=== PATIENT | male | born 1975 | race American Indian/Alaskan Native ===

== ENCOUNTER 2020-07-12 19:33 | Observation (INO) | payer SELFPAY ==
[2020-07-12] MEDS ORDERED: ASPIRIN 325 MG TAB PO ONE (23:30)
--- NOTE | 2020-07-13 00:21 | XRay Report ---
CHEST 1 VIEW, 07/12/2020 10:55 PM CLINICAL INFORMATION/INDICATION: Chest pain COMPARISON: None FINDINGS: SUPPORT DEVICES: None. HEART: Cardiac silhouette is difficult to evaluate secondary to lung disease. LUNGS/PLEURA: There is a pleuroparenchymal opacity within the left lower lobe. Prominent bilateral in terstitial markings are noted. ADDITIONAL FINDINGS: No additional acute findings. IMPRESSION: 1. Left pleuroparenchymal opacity which may represent a combination of airspace disease and pleural e ffusion. 2. Suspected background of mild interstitial edema. Signer Name: Naomi Rand MD Signed: 07/13/2020 12:17 AM Workstation Name: [id number]
[2020-07-13 00:31] LABS: Basophils % (Auto) 0.4 % (0.0-1.8); Eosinophils # (Auto) 0.4 K/mm3 (0.0-0.4); Eosinophils % (Auto) 5.9 % (0.0-4.3); Hematocrit 39.2 % (35.5-45.6); Lymphocytes % (Auto) 33.4 % (13.4-35.0); Mean Corpuscular HGB Conc 33 % (32-34); Mean Corpuscular Volume 90 fl (84-94); Monocytes # (Auto) 0.6 K/mm3 (0.0-0.8); Monocytes % (Auto) 9.8 % (0.0-7.3); Platelet Count 194 K/mm3 (140-440); Red Blood Count 4.36 M/mm3 (3.65-5.03); Red Cell Distribution Width 15.2 % (13.2-15.2)
[2020-07-13 00:53] LABS: BUN/Creatinine Ratio 15; Blood Urea Nitrogen 23 mg/dL (9-20); Calcium 8.8 mg/dL (8.4-10.2); Hemolysis Index 12
--- NOTE | 2020-07-13 07:24 | Emergency Department Report ---
ED General Adult HPI - General Chief complaint: Chest Pain Stated complaint: CHEST PAIN Time Seen by Provider: 07/13/20 06:38 Source: patient, RN notes reviewed Mode of arrival: Ambulatory Limitations: Physical Limitation - History of Present Illness Initial comments: The patient is a 45-year-old gentleman. He is not known to myself previously. He typically follows at [facility]. He reports a history of "needing fluid drained from my back." He is not sure if this is a from a pleural effusion. He also has a history of left lower extremity DVT, diagnosed at [facility] about a month ago, supposed to be on Eliquis but ran out of this medication 2 weeks ago. He presents to the ER today with a complaint of nontraumatic left-sided chest pain, which is constant. No fever, no loss of taste or smell, no nausea, vomiting or diaphoresis. Patient endorses positive COVID contacts. No headache, neck pain, abdominal pain. No irritative or obstructive urinary symptoms. Reports diffuse body aches. He reports that in the past when he required "fluid drained from my back", he was "so sick, that I almost ." His chest pain started yesterday, it is in the left, lateral thorax and back. It otherwise does not radiate anywhere. It is constant. It increases with deep inspiration. It decreases with rest. -: Gradual, hour(s) Location: chest Quality: constant Consistency: other Improves with: other Worsens with: other - Related Data Home Medications Medication Instructions Recorded Confirmed Last Taken Aspirin 81 mg PO DAILY 07/13/20 07/13/20 1 Day Ago ~07/12/20 AtorvaSTATin 40 mg PO HS 07/13/20 07/13/20 1 Day Ago ~07/12/20 Biktarvy 50-200-25 mg (Nf) 50 mg PO DAILY 07/13/20 07/13/20 1 Day Ago ~07/12/20 buPROPion 150 mg PO DAILY 07/13/20 07/13/20 1 Day Ago ~07/12/20 carvediloL 6.25 mg PO DAILY 07/13/20 07/13/20 1 Day Ago ~07/12/20 risperiDONE 1 mg PO DAILY 07/13/20 07/13/20 1 Day Ago ~07/12/20 Allergies Allergy/AdvReac Type Severity Reaction Status Date / Time No Known Allergies Allergy Verified 07/13/20 06:47 ED Review of Systems ROS: Stated complaint: CHEST PAIN Other details as noted in HPI Constitutional: denies: fever Eyes: denies: eye discharge ENT: denies: congestion Respiratory: cough. denies: wheezing Cardiovascular: chest pain Gastrointestinal: denies: nausea, vomiting, diarrhea Genitourinary: denies: dysuria Musculoskeletal: back pain, arthralgia, myalgia Neurological: denies: weakness Hematological/Lymphatic: denies: easy bleeding ED Past Medical Hx - Past Medical History Previous Medical History?: Yes Hx Hypertension: Yes Hx Psychiatric Treatment: Yes (Depression, Bipolar) Hx HIV: Yes Additional medical history: CAD, High Cholesterol - Surgical History Past Surgical History?: No - Social History Smoking Status: Current Every Day Smoker Substance Use Type: Marijuana - Medications Home Medications: Home Medications Medication Instructions Recorded Confirmed Last Taken Type Aspirin 81 mg PO DAILY 07/13/20 07/13/20 1 Day Ago History ~07/12/20 AtorvaSTATin 40 mg PO HS 07/13/20 07/13/20 1 Day Ago History ~07/12/20 Biktarvy 50-200-25 mg (Nf) 50 mg PO DAILY 07/13/20 07/13/20 1 Day Ago History ~07/12/20 buPROPion 150 mg PO DAILY 07/13/20 07/13/20 1 Day Ago History ~07/12/20 carvediloL 6.25 mg PO DAILY 07/13/20 07/13/20 1 Day Ago History ~07/12/20 risperiDONE 1 mg PO DAILY 07/13/20 07/13/20 1 Day Ago History ~07/12/20 ED Physical Exam - General Limitations: No Limitations General appearance: alert, in no apparent distress - Head Head exam: Present: atraumatic, normocephalic - Eye Eye exam: Present: normal appearance, EOMI. Absent: nystagmus - ENT ENT exam: Present: normal exam, normal orophraynx, mucous membranes moist, normal external ear exam - Neck Neck exam: Present: normal inspection, full ROM. Absent: tenderness, meningismus - Respiratory Respiratory exam: Present: rales, rhonchi, accessory muscle use. Absent: respiratory distress, wheezes, stridor - Cardiovascular Cardiovascular Exam: Present: regular rate, normal rhythm, normal heart sounds. Absent: bradycardia, tachycardia, irregular rhythm, systolic murmur, diastolic murmur, rubs, gallop - GI/Abdominal GI/Abdominal exam: Present: soft. Absent: distended, tenderness, guarding, rebound, rigid, pulsatile mass - Rectal Rectal exam: Present: deferred - Extremities Exam Extremities exam: Present: full ROM, tenderness (There is left lower extremity tenderness. There is swelling to the left lower extremity. Chronic venous stasis noted.), other (2+ pulses noted to the bilateral upper and lower extremities. Compartments are soft.). Absent: normal inspection - Back Exam Back exam: Present: normal inspection. Absent: tenderness, CVA tenderness (R), CVA tenderness (L), paraspinal tenderness, vertebral tenderness - Neurological Exam Neurological exam: Present: alert, other (No facial droop. Tongue midline. Extraocular movements intact bilaterally. Facial sensation intact to light touch in V1, V2, V3 distribution bilaterally. 5 and a 5 strength in 4 extremit ies. Sensation intact to light touch in 4 extremities.) - Psychiatric Psychiatric exam: Present: normal mood - Skin Skin exam: Present: warm, dry, intact, normal color. Absent: rash ED Course Vital Signs 07/12/20 07/13/20 07/13/20 22:25 04:42 04:46 Temperature 98.2 F Pulse Rate 93 H 83 83 Pulse Rate [ Anterior Bilateral Throughout] Respiratory 20 23 25 H Rate Respiratory Rate [Anterior Bilateral Throughout] Blood Pressure 116/78 130/71 O2 Sat by Pulse 94 98 99 Oximetry 07/13/20 07/13/20 07/13/20 05:00 05:16 07:16 Temperature Pulse Rate 75 83 Pulse Rate [ Anterior Bilateral Throughout] Respiratory 24 22 Rate Respiratory Rate [Anterior Bilateral Throughout] Blood Pressure 130/71 130/71 130/71 O2 Sat by Pulse 99 99 100 Oximetry 07/13/20 07/13/20 07/13/20 07:31 07:45 08:01 Temperature Pulse Rate 81 91 H 66 Pulse Rate [ Anterior Bilateral Throughout] Respiratory 27 H 20 22 Rate Respiratory Rate [Anterior Bilateral Throughout] Blood Pressure 127/72 128/75 128/75 O2 Sat by Pulse 98 99 98 Oximetry 07/13/20 07/13/20 07/13/20 08:15 08:31 08:45 Temperature Pulse Rate 69 72 74 Pulse Rate [ Anterior Bilateral Throughout] Respiratory 15 22 12 Rate Respiratory Rate [Anterior Bilateral Throughout] Blood Pressure 128/75 128/75 129/82 O2 Sat by Pulse 98 98 98 Oximetry 07/13/20 07/13/20 07/13/20 09:01 09:15 09:21 Temperature Pulse Rate 67 79 68 Pulse Rate [ Anterior Bilateral Throughout] Respiratory 22 26 H 21 Rate Respiratory Rate [Anterior Bilateral Throughout] Blood Pressure 129/82 129/82 129/82 O2 Sat by Pulse 97 97 97 Oximetry 07/13/20 07/13/20 07/13/20 09:31 09:41 09:51 Temperature Pulse Rate 72 79 78 Pulse Rate [ Anterior Bilateral Throughout] Respiratory 20 17 23 Rate Respiratory Rate [Anterior Bilateral Throughout] Blood Pressure 129/82 129/82 128/51 O2 Sat by Pulse 98 98 Oximetry 07/13/20 07/13/20 07/13/20 10:00 10:01 10:11 Temperature Pulse Rate 79 81 Pulse Rate [ 79 Anterior Bilateral Throughout] Respiratory 13 22 Rate Respiratory 20 Rate [Anterior Bilateral Throughout] Blood Pressure 128/51 128/51 O2 Sat by Pulse 100 97 Oximetry ED Medical Decision Making - Lab Data Result diagrams: 07/12/20 23:39 07/12/20 23:39 Vital Signs 07/12/20 07/13/20 07/13/20 22:25 04:42 04:46 Temperature 98.2 F Pulse Rate 93 H 83 83 Respiratory 20 23 25 H Rate Blood Pressure 116/78 130/71 O2 Sat by Pulse 94 98 99 Oximetry 07/13/20 05:00 Temperature Pulse Rate 75 Respiratory 24 Rate Blood Pressure 130/71 O2 Sat by Pulse 99 Oximetry Lab Results 07/12/20 07/12/20 07/13/20 Range/Units 23:39 23:39 03:08 WBC 6.0 (4.5-11.0) K/mm3 RBC 4.36 (3.65-5.03) M/mm3 Hgb 13.0 (11.8-15.2) gm/dl Hct 39.2 (35.5-45.6) % MCV 90 (84-94) fl MCH 30 (28-32) pg MCHC 33 (32-34) % RDW 15.2 (13.2-15.2) % Plt Count 194 (140-440) K/mm3 Lymph % (Auto) 33.4 (13.4-35.0) % [place] % (Auto) 9.8 H (0.0-7.3) % Eos % (Auto) 5.9 H (0.0-4.3) % Baso % (Auto) 0.4 (0.0-1.8) % Lymph # 2.0 (1.2-5.4) K/mm3 [place] # 0.6 (0.0-0.8) K/mm3 Eos # 0.4 (0.0-0.4) K/mm3 Baso # 0.0 (0.0-0.1) K/mm3 Seg Neutrophils % 50.5 (40.0-70.0) % Seg Neutrophils # 3.0 (1.8-7.7) K/mm3 Sodium 139 (137-145) mmol/L Potassium 4.2 (3.6-5.0) mmol/L Chloride 101.1 (98-107) mmol/L Carbon Dioxide 23 (22-30) mmol/L Anion Gap 19 mmol/L BUN 23 H (9-20) mg/dL Creatinine 1.5 H (0.8-1.3) mg/dL Estimated GFR > 60 ml/min BUN/Creatinine Ratio 15 % Glucose 121 H (75-100) mg/dL Calcium 8.8 (8.4-10.2) mg/dL Troponin T < 0.010 < 0.010 (0.00-0.029) ng/mL - EKG Data -: EKG Interpreted by Md EKG shows normal: sinus rhythm Rate: normal - EKG Data When compared to previous EKG there are: previous EKG unavailable 07/13/20 09:39 There is no prior EKG available for comparison. Sinus rhythm, 83 bpm, left axis deviation, left anterior fascicular block, left ventricular hypertrophy/high left ventricular voltage, and motion artifact. The EKG is abnormal. The EKG is not a STEMI - Radiology Data Radiology results: report reviewed, image reviewed Print Report Referring Physician: ED DOC Patient Name: GRAZYNA SMITH Date of : 1975 Sex: Male Report Date: 2020-07-13 Report Status: Finalized Findings [facility] [address] [place] [address] XRay Report Signed Patient: GRAZYNA SMITH MR#: [id number] : 1975 Acct:[id number] Age/Sex: 45 / M ADM Date: 07/12/20 Loc: ED Attending Dr: Ordering Physician: SONNY MERRILL MD Date of Service: 07/12/20 Procedure(s): XR chest 1V ap Accession Number(s): [id number] cc: SONNY MERRILL MD Fluoro Time In Minutes: CHEST 1 VIEW, 07/12/2020 10:55 PM CLINICAL INFORMATIO N/INDICATION: Chest pain COMPARISON: None FINDINGS: SUPPORT DEVICES: None. HEART: Cardiac silhouette is difficult to evaluate secondary to lung disease. LUNGS/PLEURA: There is a pleuroparenchymal opacity within the left lower lobe. Prominent bilateral interstitial markings are noted. ADDITIONAL FINDINGS: No additional acute findings. IMPRESSION: 1. Left pleuroparenchymal opacity which may represent a combination of airspace disease and pleural effusion. 2. Suspected background of mild interstitial edema. Signer Name: Naomi Rand MD Signed: 07/13/2020 12:17 AM Workstation Name: [id number] Transcribed By: EB Dictated By: Naomi Rand MD Electronically Authenticated By: Naomi Rand MD Signed Date/Time: 07/13/2016 DD/ TD/TT: - Medical Decision Making Differential diagnosis, include but not limited to: Pneumonia, pleural effusion, noncompliance, chronic left lower extremity DVT Assessment and plan: 45-year-old gentleman with clinical and radiographic left- sided pneumonia, with large pleural effusion, tachypneic, heart rate greater than 90, meets systemic inflammatory response syndrome criteria. He is also noncompliant with his medications. He is apparently done poorly in the past with pleural effusions. He meets criteria for hospitalization secondary to the aforementioned. He will be admitted to the medical service, he is amenable to this plan of care. We will initiate blood cultures, obtain lactic acid, give pain medication, and initiate ceftriaxone and azithromycin. The hospital physician, Dr. Jo Ann Graham, has accepted the patient to the medical service, and request ultrasound-guided thoracentesis to be ordered. He states he will follow this up. As a courtesy, I will order this procedure, and therefore, we will withhold systemic anticoagulation at this time. In addition, will not give aggressive fluid bolus, as patient does have mild interstitial edema on chest x-ray. Given x-ray findings and clinical history, I think this is unlikely to be COVID- 19. Critical care attestation.: If time is entered above; I have spent that time in minutes in the direct care of this critically ill patient, excluding procedure time. ED Disposition Clinical Impression: Pneumonia, Renal insufficiency, History of DVT (deep vein thrombosis), Noncompliance, SIRS (systemic inflammatory response syndrome), Pleural effusion Disposition: OP ADMIT IP TO THIS HOSP Is pt being admited?: Yes Does the pt Need Aspirin: No Condition: Good
[2020-07-13] MEDS ORDERED: MORPHINE 4 MG/1 ML INJ IV ONE (07:37)
--- NOTE | 2020-07-13 07:52 | History and Physical Report ---
History of Present Illness Date of examination: 07/13/20 Date of admission: 07/13/20 Chief complaint: Chest pain with shortness of breath History of present illness: Patient is a 45-year-old male typically follows at [facility] with past medical history of HIV, hypertension, pleural effusion recurrent status post 2 episodes of thoracentesis at [facility] according to the patient. Also with history of left lower extremity DVT according to the patient diagnosed at [facility] about a month ago but run out of his Eliquis but ran out of this medication 2 weeks ago he presents to the ER today complaining of nontraumatic left-sided chest pain which is constant for about 24 hours. He denies any chest pain nausea vomiting or diarrhea he denies fever, no loss of taste or smell, no nausea, vomiting or diaphoresis. Patient endorses positive COVID contacts to the ED doctor but tel ls me now that he is not sure.. No headache, neck pain, abdominal pain. No irritative or obstructive urinary symptoms. Reports diffuse body aches. He reports that in the past when he required "fluid drained from my back", he was "so sick, that I almost ." Chest pain he describes as a 7/10 in intensity worse with deep breath in the ED he was noted to have pleural effusion and recommended for admission. Past History Past Medical History: DVT, HIV/AIDS, hypertension, hyperlipidemia, other (Recurrent pleural effusion) Past Surgical History: No surgical history Social history: no significant social history, full code Family history: no significant family history Medications and Allergies Allergies Allergy/AdvReac Type Severity Reaction Status Date / Time No Known Allergies Allergy Verified 07/13/20 06:47 Home Medications Medication Instructions Recorded Confirmed Last Taken Type Aspirin 81 mg PO DAILY 07/13/20 07/13/20 1 Day Ago History ~07/12/20 AtorvaSTATin 40 mg PO HS 07/13/20 07/13/20 1 Day Ago History ~07/12/20 Biktarvy 50-200-25 mg (Nf) 50 mg PO DAILY 07/13/20 07/13/20 1 Day Ago History ~07/12/20 buPROPion 150 mg PO DAILY 07/13/20 07/13/20 1 Day Ago History ~07/12/20 carvediloL 6.25 mg PO DAILY 07/13/20 07/13/20 1 Day Ago History ~07/12/20 risperiDONE 1 mg PO DAILY 07/13/20 07/13/20 1 Day Ago History ~07/12/20 Active Meds: Active Medications Azithromycin 500 mg/ Sodium (Chloride) 250 mls @ 250 mls/hr IV ONCE ONE; Protocol Stop: 07/13/20 08:59 Ceftriaxone Sodium (Rocephin/Ns 2 Gm/100 Ml) 2 gm in 100 mls @ 200 mls/hr IV ONCE ONE Stop: 07/13/20 08:29 Review of Systems Constitutional: chills, malaise, lethargy, no weight loss, no weight gain, no fever, no anorexia, no fatigue, no weakness, no poor appetite, no daytime sleepiness, no chronic pain Cardiovascular: chest pain, shortness of breath, no orthopnea, no palpitations, no rapid/irregular heart beat, no edema, no syncope, no lightheadedness Respiratory: shortness of breath, dyspnea on exertion, no cough, no cough with sputum, no excessive sputum, no hemoptysis Gastrointestinal: no abdominal pain, no nausea, no vomiting, no diarrhea, no constipation, no change in bowel habits, no melena, no hematochezia Musculoskeletal: no neck pain, no muscle weakness Integumentary: no deferred, no pruritis, no redness, no depigmentation, no acne, no brittle nails, no hirsutism Neurological: no transient paralysis, no numbness, no seizures, no convulsions, no change in mentation, no burning pain Psychiatric: no memory loss, no change in sleep habits, no insomnia, no anxiety attacks, no difficulties concentrating Exam - Physical Exam Narrative exam: VITAL SIGNS: Reviewed. GENERAL: The patient appears normally developed, Vital signs as documented. HEAD: No signs of head trauma. EYES: Pupils are equal. Extraocular motions intact. EARS: Hearing grossly intact. MOUTH: Oropharynx is normal. NECK: No adenopathy, no JVD. CHEST: Chest with diminished breath sounds on the left. No wheezes, rales, or rhonchi. CARDIAC: Regular rate and rhythm. S1 and S2, without murmurs, gallops, or rubs. VASCULAR: No Edema. Peripheral pulses normal and equal in all extremities. ABDOMEN: Soft, non tender and non distended. No rebound or guarding, and no masses palpated. Bowel Sounds normal. MUSCULOSKELETAL: Good range of motion of all major joints. Extremities without clubbing, cyanosis or edema. NEUROLOGIC EXAM: Alert and oriented x 3 No focal sensory or strength deficits. Speech normal. Follows commands. PSYCHIATRIC: Mood normal. SKIN: detail exam as documented in skin assessment. Tattoos on the face - Constitutional Vitals: Temp Pulse Resp BP Pulse Ox 98.2 F 75 24 130/71 99 07/12/20 22:25 07/13/20 05:00 07/13/20 05:00 07/13/20 05:00 07/13/20 05:00 HEART Score - HEART Score Troponin: Troponin T < 0.010 ng/mL (0.00-0.029) 07/13/20 03:08 Results - Labs CBC & Chem 7: 07/12/20 23:39 07/12/20 23:39 Labs: Laboratory Last Values WBC 6.0 K/mm3 (4.5-11.0) 07/12/20 23:39 RBC 4.36 M/mm3 (3.65-5.03) 07/12/20 23:39 Hgb 13.0 gm/dl (11.8-15.2) 07/12/20 23:39 Hct 39.2 % (35.5-45.6) 07/12/20 23:39 MCV 90 fl (84-94) 07/12/20 23:39 MCH 30 pg (28-32) 07/12/20 23:39 MCHC 33 % (32-34) 07/12/20 23:39 RDW 15.2 % (13.2-15.2) 07/12/20 23:39 Plt Count 194 K/mm3 (140-440) 07/12/20 23:39 Lymph % (Auto) 33.4 % (13.4-35.0) 07/12/20 23:39 [place] % (Auto) 9.8 % (0.0-7.3) H 07/12/20 23:39 Eos % (Auto) 5.9 % (0.0-4.3) H 07/12/20 23:39 Baso % (Auto) 0.4 % (0.0-1.8) 07/12/20 23:39 Lymph # 2.0 K/mm3 (1.2-5.4) 07/12/20 23:39 [place] # 0.6 K/mm3 (0.0-0.8) 07/12/20 23:39 Eos # 0.4 K/mm3 (0.0-0.4) 07/12/20 23:39 Baso # 0.0 K/mm3 (0.0-0.1) 07/12/20 23:39 Seg Neutrophils % 50.5 % (40.0-70.0) 07/12/20 23:39 Seg Neutrophils # 3.0 K/mm3 (1.8-7.7) 07/12/20 23:39 Sodium 139 mmol/L (137-145) 07/12/20 23:39 Potassium 4.2 mmol/L (3.6-5.0) 07/12/20 23:39 Chloride 101.1 mmol/L (98-107) 07/12/20 23:39 Carbon Dioxide 23 mmol/L (22-30) 07/12/20 23:39 Anion Gap 19 mmol/L 07/12/20 23:39 BUN 23 mg/dL (9-20) H 07/12/20 23:39 Creatinine 1.5 mg/dL (0.8-1.3) H 07/12/20 23:39 Estimated GFR > 60 ml/min 07/12/20 23:39 BUN/Creatinine Ratio 15 % 07/12/20 23:39 Glucose 121 mg/dL (75-100) H 07/12/20 23:39 Calcium 8.8 mg/dL (8.4-10.2) 07/12/20 23:39 Troponin T < 0.010 ng/mL (0.00-0.029) 07/13/20 03:08 Assessment and Plan Assessment and plan: 45-year-old male with past medical history of hypertension, HIV, recurrent pleural effusion and possible recent DVT on the lower extremity presenting with shortness of breath and chest pain noted to have a left large pleural effusion with associated acute kidney injury recommended for admission. Acute respiratory failure secondary to pleural effusion Left pleural effusion Recurrent pleural effusion per history status post 2 thoracentesis in the past Hypertension HIV DVT per history Noncompliant with Eliquis Acute kidney injury likely secondary to vasomotor nephropathy Plan Admit patient to medical floor observation Cardiology and pulmonary consult secondary to atypical chest pain likely seconda ry to pleuritis Ultrasound-guided thoracentesis with fluid analysis Resume home medications Obtain Doppler of lower extremity to evaluate for persistent DVT Request records from [facility] in case patient is here longer Pain control DVT and GI prophylaxis Anticipate discharge in a.m. this has been discussed with the patient he verbalized understanding. Of note prior to completion of this note the patient had a thoracentesis and is doing well. Advance Directives: Yes Plan of care discussed with patient/family: Yes
[2020-07-13] MEDS ORDERED: MAGNESIUM HYDROXIDE (MOM) ORAL LIQD UDC PO PRN (07:53)
[2020-07-13] MEDS ORDERED: ONDANSETRON 4 MG/2 ML INJ IV PRN (07:53)
[2020-07-13] MEDS ORDERED: MORPHINE 2 MG/1 ML INJ IV PRN (07:53)
[2020-07-13] MEDS ORDERED: NALOXONE 0.4 MG/1 ML INJ IV PRN (07:53)
[2020-07-13] MEDS ORDERED: ALUM-MAG HYDROXIDE-SIMETHICONE 200-200-20MG/5ML ORAL LIQD 30 ML PO PRN (07:53)
[2020-07-13] MEDS ORDERED: ALBUTEROL 2.5 MG/3 ML NEBU IH PRN (07:53)
[2020-07-13] MEDS ORDERED: ACETAMINOPHEN 325 MG TAB PO PRN (07:53)
[2020-07-13] MEDS ORDERED: AZITHROMYCIN 500 MG in SODIUM CHLORIDE 0.9% 250ML 250 ML IV ONE (08:00)
[2020-07-13] MEDS ORDERED: cefTRIAXone/NS 2 GM/100 ML 2 GM/100 ML BAG IV ONE ×2 (08:00→08:54)
[2020-07-13] MEDS ORDERED: MORPHINE 4 MG/1 ML INJ ONE (08:53)
[2020-07-13 09:08] LABS: INR 1.03 (0.87-1.13)
[2020-07-13] MEDS ORDERED: IPRATROPIUM/ALBUTEROL SULFATE 3 ML AMPUL.NEB IH ONE (09:08)
[2020-07-13 09:09] LABS: Partial Thromboplastin Time 27.7 Sec. (24.2-36.6)
[2020-07-13 09:21] LABS: Alanine Aminotransferase 11 units/L (7-56); Albumin 3.5 g/dL (3.9-5)
[2020-07-13 09:22] LABS: Bilirubin,Direct < 0.2 mg/dL (0-0.2)
[2020-07-13] MEDS: IPRATROPIUM/ALBUTEROL SULFATE 3 ML AMPUL.NEB IH SCH ×3 (10:00→20:28)
--- NOTE | 2020-07-13 10:10 | Consultation ---
History of Present Illness Consult date: 07/13/20 Requesting physician: DANE ERWIN Consult reason: chest pain History of present illness: The patient is a 45-year-old male with a past medical history of HTN, HIV, pleural effusion requiring thoracentesis x 2, tobacco use, marijuana use. He is previously unknown to our practice. He typically follows at [facility]. He presented with c/o chest pain, SOB and cough for 2 days prior to arrival. Pt describes his chest pain as an intermittent left-sided pain which is aggravated by coughing and deep inspiration. Admission CXR shows large left pleural effusion, pt has been scheduled for thoracentesis. Pt reports that his last thoracentesis occurred 3-4 months ago at [facility]. He also has a reported history of left lower extremity DVT, diagnosed at [facility] about a month ago, supposed to be on Eliquis but ran out of this medication 2 weeks ago. Past History Past Medical History: other (as per HPI) Medications and Allergies Allergies Allergy/AdvReac Type Severity Reaction Status Date / Time No Known Allergies Allergy Verified 07/13/20 06:47 Home Medications Medication Instructions Recorded Confirmed Last Taken Type Aspirin 81 mg PO DAILY 07/13/20 07/13/20 Unknown History AtorvaSTATin 40 mg PO HS 07/13/20 07/13/20 Unknown History Biktarvy 50-200-25 mg (Nf) 50 mg PO DAILY 07/13/20 07/13/20 Unknown History buPROPion 150 mg PO DAILY 07/13/20 07/13/20 Unknown History carvediloL 6.25 mg PO DAILY 07/13/20 07/13/20 Unknown History risperiDONE 1 mg PO DAILY 07/13/20 07/13/20 Unknown History Active Meds: Active Medications Acetaminophen (Tylenol) 650 mg PO Q4H PRN PRN Reason: Pain MILD(1-3)/Fever >100.5/BORJA Al Hydrox/Mg Hydrox/Simethicone (Alum-Mag Hydrox-Simeth 861-131-51vm/5ml) 30 ml PO Q4H PRN PRN Reason: Indigestion Albuterol (Proventil) 2.5 mg IH Q4HRT PRN PRN Reason: Shortness Of Breath Albuterol/Ipratropium (Duoneb *Not For Prn Use*) 1 ampul IH Q6HRT [facility] Aspirin (Baby Aspirin) 81 mg PO QDAY [facility] Atorvastatin Calcium (Lipitor) 40 mg PO QHS [facility] Bisacodyl (Dulcolax) 10 mg SC QDAY PRN PRN Reason: Constipation unrelieved by MOM Famotidine (Pepcid) 20 mg IV BID [facility] Hydromorphone HCl (Dilaudid) 0.5 mg IV Q3H PRN PRN Reason: Pain , Severe (7-10) Ceftriaxone Sodium (Rocephin/Ns 2 Gm/100 Ml) 2 gm in 100 mls @ 200 mls/hr IV Q24HR [facility]; Protocol Azithromycin 500 mg/ Sodium (Chloride) 250 mls @ 250 mls/hr IV Q24HR [facility]; Protocol Magnesium Hydroxide (Milk Of Magnesia) 30 ml PO Q4H PRN PRN Reason: Constipation Morphine Sulfate (Morphine) 2 mg IV Q4H PRN PRN Reason: Pain, Moderate (4-6) Naloxone HCl (Naloxone) 0.1 mg IV Q2MIN PRN PRN Reason: Res Rate </= 8 or 02 SAT < 92% Ondansetron HCl (Zofran) 4 mg IV Q8H PRN PRN Reason: Nausea And Vomiting Senna (Senokot) 8.6 mg PO Q12HR [facility] Sodium Chloride (Sodium Chloride Flush Syringe 10 Ml) 10 ml IV BID [facility] Sodium Chloride (Sodium Chloride Flush Syringe 10 Ml) 10 ml IV PRN PRN PRN Reason: LINE FLUSH Review of Systems Constitutional: no weight loss, no weight gain, no fever, no chills, no sweats Ears, nose, mouth and throat: no ear pain, no nose pain, no sinus pressure, no sinus pain Cardiovascular: chest pain, shortness of breath, no orthopnea, no palpitations, no rapid/irregular heart beat, no edema, no syncope, no lightheadedness Respiratory: cough, shortness of breath, pain on inspiration, no congestion, no wheezing Gastrointestinal: no abdominal pain, no nausea, no vomiting, no diarrhea, no constipation, no change in bowel habits Genitourinary Male: no dysuria, no hematuria, no flank pain, no discharge, no urinary frequency, no urinary hesitancy Musculoskeletal: no neck stiffness, no neck pain, no shooting arm pain, no arm numbness/tingling, no low back pain, no shooting leg pain Integumentary: no rash, no pruritis, no redness, no sores, no wounds Neurological: no head injury, no paralysis, no weakness, no parathesias, no numbness, no tingling, no seizures, no syncope Psychiatric: no anxiety Endocrine: no cold intolerance, no heat intolerance Hematologic/Lymphatic: no easy bruising Allergic/Immunologic: no urticaria Physical Examination Vital Signs Temp Pulse Resp BP Pulse Ox 98.2 F 93 H 20 116/78 94 07/12/20 22:25 07/12/20 22:25 07/12/20 22:25 07/12/20 22:25 07/12/20 22:25 General appearance: no acute distress HEENT: Positive: PERRL, Normocephaly, Mucus Membranes Moist Neck: Positive: neck supple, trachea midline Cardiac: Positive: Reg Rate and Rhythm, S1/S2 Lungs: Positive: Decreased Breath Sounds (left side) Neuro: Positive: Grossly Intact Abdomen: Negative: Tender Skin: Negative: Rash Musculoskeletal: No Pain Extremities: Absent: edema Results 07/12/20 23:39 07/12/20 23:39 Cardiac Enzymes 07/13/20 Range/Units 07:54 AST 15 (5-40) units/L Coagulation 07/13/20 Range/Units 07:54 PT 13.6 (12.2-14.9) Sec. INR 1.03 (0.87-1.13) APTT 27.7 (24.2-36.6) Sec. CBC 07/12/20 Range/Units 23:39 WBC 6.0 (4.5-11.0) K/mm3 RBC 4.36 (3.65-5.03) M/mm3 Hgb 13.0 (11.8-15.2) gm/dl Hct 39.2 (35.5-45.6) % Plt Count 194 (140-440) K/mm3 Lymph # 2.0 (1.2-5.4) K/mm3 Tate # 0.6 (0.0-0.8) K/mm3 Eos # 0.4 (0.0-0.4) K/mm3 Baso # 0.0 (0.0-0.1) K/mm3 Comprehensive Metabolic Panel 07/12/20 07/13/20 Range/Units 23:39 07:54 Sodium 139 (137-145) mmol/L Potassium 4.2 (3.6-5.0) mmol/L Chloride 101.1 (98-107) mmol/L Carbon Dioxide 23 (22-30) mmol/L BUN 23 H (9-20) mg/dL Creatinine 1.5 H (0.8-1.3) mg/dL Glucose 121 H (75-100) mg/dL Calcium 8.8 (8.4-10.2) mg/dL Direct Bilirubin < 0.2 (0-0.2) mg/dL AST 15 (5-40) units/L ALT 11 (7-56) units/L Alkaline Phosphatase 115 (35-129) units/L Total Protein 7.8 (6.3-8.2) g/dL Albumin 3.5 L (3.9-5) g/dL - Imaging and Cardiology Echo: pending EKG: report reviewed, image reviewed EKG interpretations - Telemetry EKG Rhythm: Sinus Rhythm - EKG Sinus rhythms and dysrhythmias: sinus rhythm Assessment and Plan AMI r/o. Chest pain appears pleuritic in setting of pleural effusion. No plans for ischemic evaluation at this time. Pt is pending thoracentesis and thus systemic AC for treatment of recently diagnosed DVT is being held. Obtain echo. Attempt to obtain medical records from [facility]. Will follow. The patient has been seen in conjunction with Dr. Valdes who agrees with the assessment and plan of care. - Patient Problems (1) Chest pain Current Visit: Yes Status: Acute (2) Pleural effusion Current Visit: Yes Status: Acute (3) HTN (hypertension) Current Visit: Yes Status: Chronic (4) HIV (human immunodeficiency virus infection) Current Visit: Yes Status: Chronic (5) History of DVT (deep vein thrombosis) Current Visit: Yes Status: Chronic (6) Tobacco use Current Visit: Yes Status: Chronic (7) Marijuana use Current Visit: Yes Status: Chronic (8) Noncompliance Current Visit: Yes Status: Chronic
[2020-07-13 10:11] LABS: ABG Base Excess -1.5 mmol/L (-2.0-3.0); ABG HCO3 23.8 mmol/L (20.0-26.0); ABG Methemoglobin 0.5 % (0.0-1.5); ABG Oxygen Saturation 96.4 % (95.0-99.0); ABG PCO2 42.1 mm Hg; ABG PH 7.369 pH Units (7.350-7.450)
--- NOTE | 2020-07-13 10:54 | Consultation ---
History of Present Illness Consult date: 07/13/20 Requesting physician: DANE ERWIN Reason for consult: pleural effusion (Left) History of present illness: PULMONARY/CCM CONSULT NOTE (Full dictation # ) Please see dictated notes for full details Past History Past Medical History: other (as per HPI) Medications and Allergies Allergies Allergy/AdvReac Type Severity Reaction Status Date / Time No Known Allergies Allergy Verified 07/13/20 06:47 Home Medications Medication Instructions Recorded Confirmed Last Taken Type Aspirin 81 mg PO DAILY 07/13/20 07/13/20 Unknown History AtorvaSTATin 40 mg PO HS 07/13/20 07/13/20 Unknown History Biktarvy 50-200-25 mg (Nf) 50 mg PO DAILY 07/13/20 07/13/20 Unknown History buPROPion 150 mg PO DAILY 07/13/20 07/13/20 Unknown History carvediloL 6.25 mg PO DAILY 07/13/20 07/13/20 Unknown History risperiDONE 1 mg PO DAILY 07/13/20 07/13/20 Unknown History Active Meds: Active Medications Acetaminophen (Tylenol) 650 mg PO Q4H PRN PRN Reason: Pain MILD(1-3)/Fever >100.5/BORJA Al Hydrox/Mg Hydrox/Simethicone (Alum-Mag Hydrox-Simeth 811-108-17ph/5ml) 30 ml PO Q4H PRN PRN Reason: Indigestion Albuterol (Proventil) 2.5 mg IH Q4HRT PRN PRN Reason: Shortness Of Breath Albuterol/Ipratropium (Duoneb *Not For Prn Use*) 1 ampul IH Q6HRT [facility] Last Admin: 07/13/20 10:00 Dose: 1 ampul Documented by: Aspirin (Baby Aspirin) 81 mg PO QDAY [facility] Atorvastatin Calcium (Lipitor) 40 mg PO QHS [facility] Bisacodyl (Dulcolax) 10 mg CO QDAY PRN PRN Reason: Constipation unrelieved by MOM Famotidine (Pepcid) 20 mg IV BID [facility] Hydromorphone HCl (Dilaudid) 0.5 mg IV Q3H PRN PRN Reason: Pain , Severe (7-10) Ceftriaxone Sodium (Rocephin/Ns 2 Gm/100 Ml) 2 gm in 100 mls @ 200 mls/hr IV Q24HR [facility]; Protocol Azithromycin 500 mg/ Sodium (Chloride) 250 mls @ 250 mls/hr IV Q24HR [facility]; Protocol Magnesium Hydroxide (Milk Of Magnesia) 30 ml PO Q4H PRN PRN Reason: Constipation Morphine Sulfate (Morphine) 2 mg IV Q4H PRN PRN Reason: Pain, Moderate (4-6) Naloxone HCl (Naloxone) 0.1 mg IV Q2MIN PRN PRN Reason: Res Rate </= 8 or 02 SAT < 92% Ondansetron HCl (Zofran) 4 mg IV Q8H PRN PRN Reason: Nausea And Vomiting Senna (Senokot) 8.6 mg PO Q12HR [facility] Sodium Chloride (Sodium Chloride Flush Syringe 10 Ml) 10 ml IV BID [facility] Sodium Chloride (Sodium Chloride Flush Syringe 10 Ml) 10 ml IV PRN PRN PRN Reason: LINE FLUSH Physical Examination Vital signs: Vital Signs Temp Pulse Resp BP Pulse Ox 98.2 F 93 H 20 116/78 94 07/12/20 22:25 07/12/20 22:25 07/12/20 22:25 07/12/20 22:25 07/12/20 22:25 Results - Laboratory Findings CBC and BMP: 07/12/20 23:39 07/12/20 23:39 ABG ABG pH 7.369 pH Units (7.350-7.450) 07/13/20 09:55 ABG pCO2 42.1 mm Hg 07/13/20 09:55 ABG pO2 82.0 mm Hg (80.0-90.0) 07/13/20 09:55 ABG O2 Saturation 96.4 % (95.0-99.0) 07/13/20 09:55 PT/INR, D-dimer PT 13.6 Sec. (12.2-14.9) 07/13/20 07:54 INR 1.03 (0.87-1.13) 07/13/20 07:54 Abnormal lab findings: Abnormal Labs 07/12/20 07/12/20 07/13/20 23:39 23:39 07:54 [place] % (Auto) 9.8 H Eos % (Auto) 5.9 H ABG Hemoglobin Oxyhemoglobin BUN 23 H Creatinine 1.5 H Glucose 121 H Total Creatine Kinase 194 H Albumin 3.5 L 07/13/20 09:55 [place] % (Auto) Eos % (Auto) ABG Hemoglobin 12.4 L Oxyhemoglobin 92.5 L BUN Creatinine Glucose Total Creatine Kinase Albumin
--- NOTE | 2020-07-13 11:48 | Procedure Note ---
Date of procedure: 07/13/20 Pre-op diagnosis: L pleural effusion Post-op diagnosis: same Procedure: US guided L thoracentesis. Findings: Please see report in PACS. Anesthesia: local Surgeon: ANDIE GAITAN Estimated blood loss: none Pathology: list Specimen disposition: to lab Condition: stable Disposition: floor
--- NOTE | 2020-07-13 12:14 | Ultrasound Report ---
Ultrasound-guided thoracentesis HISTORY: left sided pna with effusion. COMPARISON: None PROCEDURE: The risks (including but not limited to bleeding, infection, and pneumothorax) and benefi ts were explained to the patient and informed consent was obtained. A time out procedure was perform ed. Ultrasound was used to evaluate the moderate-sized left pleural effusion and locate the optimal site for needle entry. Once the skin was marked, the procedure site was prepped and draped in the usual s terile fashion and lidocaine was used for local anesthesia. A skin nancie was made and a 6-Greek thor acentesis catheter was placed. The patient was monitored closely throughout the procedure, and a tot al of 900 mL of thin bloody fluid was aspirated. Samples were sent to the lab for further evaluation per the primary clinicians orders. The patient tolerated the procedure well with no complications. A post-procedure chest x-ray was imm ediately ordered. IMPRESSION: Successful thoracentesis as above with a total of 900 mL of thin bloody fluid aspirated. Signer Name: Sloan Solomon MD Signed: 07/13/2020 12:09 PM Workstation Name: [id number]
--- NOTE | 2020-07-13 13:40 | XRay Report ---
CHEST 1 VIEW INDICATION: post thoracentesis. COMPARISON: Yesterday FINDINGS: SUPPORT DEVICES: None. HEART: Within normal limits. LUNGS/PLEURA: Left-sided pleural effusion is significantly improved with only small residual effusion and patchy left basilar airspace disease. Right lung is clear. No pneumothorax. ADDITIONAL FINDINGS: None. IMPRESSION: 1. Significantly improved exam. Signer Name: Sloan Solomon MD Signed: 07/13/2020 1:35 PM Workstation Name: [id number]
[2020-07-13] MEDS ORDERED: BUPROPION 150 MG PO SCH (14:15)
[2020-07-13] MEDS ORDERED: RISPERIDONE 1 MG PO SCH (14:15)
[2020-07-13] MEDS ORDERED: NON-FORMULARY EACH (Aspirin 81 MG) PO SCH (14:15)
[2020-07-13] MEDS: SENNOSIDES 8.6 MG TAB PO SCH ×2 (14:39→22:17)
[2020-07-13] MEDS: FAMOTIDINE 20 MG/2 ML INJ IV SCH ×2 (14:39→22:17)
[2020-07-13] MEDS: BIKTARVY PO SCH (16:19)
[2020-07-13 17:03] LABS: Total Cells Counted 100 /mm3
--- NOTE | 2020-07-13 17:18 | Consultation ---
History of Present Illness - Reason for Consult Consult date: 07/13/20 HIV Requesting physician: DANE ERWIN - History of Present Illness The patient is a 45-year-old male with HIV, hypertension, hyperlipidemia, history of DVT came into the emergency room with complaints of chest pain. He was found to have a left-sided pleural effusion. Infectious diseases was consu lted for management of his HIV. HIV was originally diagnosed in 1988, did not take any medicines until recently, started on Biktarvy about 9 months ago at [facility]. Does not remember his CD4 count but states that it never went under 200 and his viral load is undetectable. He had an appointment today. Patient was also seen by pulmonary and underwent a ultrasound-guided left thoracentesis with drainage of around 900 cc of thin bloody appearing fluid. He reports a previous history of pleural effusion on 2 occasions, most recently about 2 months ago at [facility]. He does not know the etiology of it. He denies any fever or chills. He reports active tobacco use. Review of Systems: General: no fevers,chills or rigors HEENT: no new visual disturbance Respiratory: occasional cough, no sputum, hemoptysis or shortness of breath Cardiovascular: + for chest pain, syncope Gastrointestinal: No nausea, vomiting or diarrhea Genitourinary: No dysuria or hematuria Musculoskeletal: No new or worsening neck pain or back pain Neurologic: No headaches, seizures Hematologic: No easy bruising or bleeding Endocrine: No night sweats or acute weight loss Skin: negative for rash, jaundice Psychiatric: No suicidal or homicidal ideation Past History Past Medical History: DVT, HIV/AIDS, hypertension, hyperlipidemia, other (Recurrent pleural effusion) Past Surgical History: No surgical history Social history: no significant social history, full code Family history: no significant family history Medications and Allergies Allergies Allergy/AdvReac Type Severity Reaction Status Date / Time No Known Allergies Allergy Verified 07/13/20 06:47 Home Medications Medication Instructions Recorded Confirmed Last Taken Type Aspirin 81 mg PO DAILY 07/13/20 07/13/20 1 Day Ago History ~07/12/20 AtorvaSTATin 40 mg PO HS 07/13/20 07/13/20 1 Day Ago History ~07/12/20 Biktarvy 50-200-25 mg (Nf) 50 mg PO DAILY 07/13/20 07/13/20 1 Day Ago History ~07/12/20 buPROPion 150 mg PO DAILY 07/13/20 07/13/20 1 Day Ago History ~07/12/20 carvediloL 6.25 mg PO DAILY 07/13/20 07/13/20 1 Day Ago History ~07/12/20 risperiDONE 1 mg PO DAILY 07/13/20 07/13/20 1 Day Ago History ~07/12/20 Active Meds: Active Medications Acetaminophen (Tylenol) 650 mg PO Q4H PRN PRN Reason: Pain MILD(1-3)/Fever >100.5/BORJA Al Hydrox/Mg Hydrox/Simethicone (Alum-Mag Hydrox-Simeth 008-632-68kt/5ml) 30 ml PO Q4H PRN PRN Reason: Indigestion Albuterol (Proventil) 2.5 mg IH Q4HRT PRN PRN Reason: Shortness Of Breath Albuterol/Ipratropium (Duoneb *Not For Prn Use*) 1 ampul IH Q6HRT [facility] Last Admin: 07/13/20 14:23 Dose: Not Given Documented by: Aspirin (Baby Aspirin) 81 mg PO QDAY [facility] Atorvastatin Calcium (Lipitor) 40 mg PO QHS [facility] Bisacodyl (Dulcolax) 10 mg UT QDAY PRN PRN Reason: Constipation unrelieved by MOM Bupropion HCl (Wellbutrin Xl) 150 mg PO DAILY [facility] Carvedilol (Coreg) 6.25 mg PO BID [facility] Famotidine (Pepcid) 20 mg IV BID [facility] Last Admin: 07/13/20 14:39 Dose: 20 mg Documented by: Hydromorphone HCl (Dilaudid) 0.5 mg IV Q3H PRN PRN Reason: Pain , Severe (7-10) Ceftriaxone Sodium (Rocephin/Ns 2 Gm/100 Ml) 2 gm in 100 mls @ 200 mls/hr IV Q24HR [facility]; Protocol Azithromycin 500 mg/ Sodium (Chloride) 250 mls @ 250 mls/hr IV Q24HR [facility]; Protocol Magnesium Hydroxide (Milk Of Magnesia) 30 ml PO Q4H PRN PRN Reason: Constipation Miscellaneous Medication (Biktarvy 50-200-25 Mg (Nf)) 50 mg PO DAILY [facility] Morphine Sulfate (Morphine) 2 mg IV Q4H PRN PRN Reason: Pain, Moderate (4-6) Last Admin: 07/13/20 14:42 Dose: 2 mg Documented by: Naloxone HCl (Naloxone) 0.1 mg IV Q2MIN PRN PRN Reason: Res Rate </= 8 or 02 SAT < 92% Ondansetron HCl (Zofran) 4 mg IV Q8H PRN PRN Reason: Nausea And Vomiting Risperidone (Risperdal) 1 mg PO DAILY [facility] Senna (Senokot) 8.6 mg PO Q12HR [facility] Last Admin: 07/13/20 14:39 Dose: 8.6 mg Documented by: Sodium Chloride (Sodium Chloride Flush Syringe 10 Ml) 10 ml IV BID [facility] Last Admin: 07/13/20 14:40 Dose: 10 ml Documented by: Sodium Chloride (Sodium Chloride Flush Syringe 10 Ml) 10 ml IV PRN PRN PRN Reason: LINE FLUSH Physical Examination - Physical Exam Narrative exam: Physical Exam: Constitutional: Alert, cooperative. No acute distress Head, Ears, Nose: Normocephalic, atraumatic. External ears, nose normal Eyes: Conjunctivae/corneas clear. No icterus. No ptosis. Neck: Supple, no meningeal signs Cardiovascular: S1, S2 normal Respiratory: decreased on L side GI: Soft, non-tender; bowel sounds normal. No peritoneal signs Musculoskeletal: No pedal edema, no cyanosis. Skin: No rash or abscess Hem/Lymphatic: No palpable cervical or supraclavicular nodes. No lymphangitis Psych: Mood ok. Affect normal Neurological: Awake, alert, oriented. No gross abnormality - Constitutional Vitals: Vital Signs Temp Pulse Resp BP Pulse Ox 98.6 F 64 17 126/72 97 07/13/20 12:32 07/13/20 12:32 07/13/20 12:32 07/13/20 12:32 07/13/20 12:32 Temperature -Last 24 Hours Temperature 98.6 F Temperature 98.2 F Results - Labs CBC & Chem 7: 07/12/20 23:39 07/12/20 23:39 Labs: Abnormal lab results 07/12/20 07/12/20 07/13/20 Range/Units 23:39 23:39 07:54 [place] % (Auto) 9.8 H (0.0-7.3) % Eos % (Auto) 5.9 H (0.0-4.3) % ABG Hemoglobin (14.0-18.0) gm/dl Oxyhemoglobin (95.0-99.0) % BUN 23 H (9-20) mg/dL Creatinine 1.5 H (0.8-1.3) mg/dL Glucose 121 H (75-100) mg/dL Total Creatine Kinase 194 H (55-170) units/L Albumin 3.5 L (3.9-5) g/dL 07/13/20 Range/Units 09:55 [place] % (Auto) (0.0-7.3) % Eos % (Auto) (0.0-4.3) % ABG Hemoglobin 12.4 L (14.0-18.0) gm/dl Oxyhemoglobin 92.5 L (95.0-99.0) % BUN (9-20) mg/dL Creatinine (0.8-1.3) mg/dL Glucose (75-100) mg/dL Total Creatine Kinase (55-170) units/L Albumin (3.9-5) g/dL - Imaging and Cardiology Chest x-ray: report reviewed, image reviewed (L pleural effusion) Assessment and Plan Cultures: 07/13/2020 blood culture: In process A/P: 45-year-old male with HIV, hypertension, hyperlipidemia, history of DVT came into the emergency room with complaints of chest pain: #Recurrent pleural effusion, left pleural effusion: Status post ultrasound- guided thoracentesis today. Cell count and pleural fluid show significant WBC and RBC. Follow-up cultures. Pulmonary following. #HIV: Originally diagnosed in 1988, never took any medicines until recently. Reportedly under good control. On Biktarvy. Follows at [facility]. #YEE: Biktarvy safe to continue as long as CrCL >30. Recs: Continue PO Biktarvy, patient has his own supply Continue ceftriaxone and azithromycin for now Follow-up cultures on left pleural fluid HIV PCR and CD4 count ordered Follow-up on outside medical records from [facility] Check CHRIS, C3, C4, rheumatoid factor Cinthia Giron MD, FACP [facility] C: [phone] O: [phone] F: [phone]
[2020-07-13] MEDS: risperiDONE 1 MG TAB PO SCH (17:19)
[2020-07-13] MEDS: HYDROmorphone 1 MG/1 ML INJ IV PRN (17:20)
[2020-07-13] MEDS: buPROPion XL 150 MG TAB PO SCH (17:20)
[2020-07-13] MEDS: carvediloL 6.25 MG TAB PO SCH ×2 (17:20→22:17)
[2020-07-13] MEDS ORDERED: NON-FORMULARY EACH (Carvedilol 6.25 MG) PO SCH (22:00)
[2020-07-13] MEDS ORDERED: NON-FORMULARY EACH (Atorvastatin 40 MG) PO SCH (22:00)
[2020-07-14] MEDS: IPRATROPIUM/ALBUTEROL SULFATE 3 ML AMPUL.NEB IH SCH ×3 (02:00→14:17)
[2020-07-14 05:48] LABS: Basophils % (Auto) 0.3 % (0.0-1.8); Eosinophils # (Auto) 0.3 K/mm3 (0.0-0.4); Eosinophils % (Auto) 4.8 % (0.0-4.3); Hematocrit 39.3 % (35.5-45.6); Hemoglobin 13.2 gm/dl (11.8-15.2); Lymphocytes # (Auto) 1.4 K/mm3 (1.2-5.4); Lymphocytes % (Auto) 25.4 % (13.4-35.0); Mean Corpuscular HGB Conc 34 % (32-34); Mean Corpuscular Volume 89 fl (84-94); Monocytes # (Auto) 0.6 K/mm3 (0.0-0.8); Monocytes % (Auto) 11.2 % (0.0-7.3); Platelet Count 172 K/mm3 (140-440); Red Cell Distribution Width 15.1 % (13.2-15.2)
[2020-07-14 06:08] LABS: BUN/Creatinine Ratio 11; Blood Urea Nitrogen 14 mg/dL (9-20); Calcium 8.6 mg/dL (8.4-10.2); Hemolysis Index 1
--- NOTE | 2020-07-14 08:26 | Progress Note ---
Assessment and Plan Acute respiratory failure secondary to pleural effusion Left pleural effusion Recurrent pleural effusion per history status post 2 thoracentesis in the past Hypertension HIV DVT per history Noncompliant with Eliquis Acute kidney injury likely secondary to vasomotor nephropathy Subjective Date of service: 07/14/20 Objective Vital Signs - 12hr 07/13/20 07/13/20 07/13/20 20:30 22:00 22:17 Temperature Pulse Rate 80 Pulse Rate [ 94 H Anterior Bilateral Throughout] Respiratory Rate Respiratory 21 Rate [Anterior Bilateral Throughout] Blood Pressure 117/69 O2 Sat by Pulse 95 Oximetry 07/13/20 07/14/20 22:18 05:06 Temperature 99.4 F 98.1 F Pulse Rate 81 78 Pulse Rate [ Anterior Bilateral Throughout] Respiratory 20 20 Rate Respiratory Rate [Anterior Bilateral Throughout] Blood Pressure 117/69 132/67 O2 Sat by Pulse 95 94 Oximetry CBC and BMP: 07/14/20 04:31 07/14/20 04:31 ABG, PT/INR, D-dimer: ABG ABG pH 7.369 pH Units (7.350-7.450) 07/13/20 09:55 ABG pCO2 42.1 mm Hg 07/13/20 09:55 ABG pO2 82.0 mm Hg (80.0-90.0) 07/13/20 09:55 ABG O2 Saturation 96.4 % (95.0-99.0) 07/13/20 09:55 PT/INR, D-dimer PT 13.6 Sec. (12.2-14.9) 07/13/20 07:54 INR 1.03 (0.87-1.13) 07/13/20 07:54 Abnormal lab findings: Abnormal Labs 07/12/20 07/12/20 07/13/20 23:39 23:39 07:54 [place] % (Auto) 9.8 H Eos % (Auto) 5.9 H ABG Hemoglobin Oxyhemoglobin Sodium BUN 23 H Creatinine 1.5 H Glucose 121 H Total Creatine Kinase 194 H Albumin 3.5 L 07/13/20 07/14/20 07/14/20 09:55 04:31 04:31 [place] % (Auto) 11.2 H Eos % (Auto) 4.8 H ABG Hemoglobin 12.4 L Oxyhemoglobin 92.5 L Sodium 134 L BUN Creatinine Glucose 102 H Total Creatine Kinase Albumin
--- NOTE | 2020-07-14 08:35 | XRay Report ---
CHEST 2 VIEWS INDICATION / CLINICAL INFORMATION: pneumonia. COMPARISON: 07/13/2020 FINDINGS: SUPPORT DEVICES: None. HEART / MEDIASTINUM: No significant abnormality. LUNGS / PLEURA: Moderate partially loculated left pleural effusion with left lower lobe streaky paren chymal disease or compressive atelectasis left lower lobe, unchanged. No pneumothorax. ADDITIONAL FINDINGS: No significant additional findings. IMPRESSION: 1. Stable chest with left lower lobe pleural-parenchymal disease Signer Name: Gamaliel Oliva MD Signed: 07/14/2020 8:31 AM Workstation Name: [id number]
[2020-07-14] MEDS: HYDROmorphone 1 MG/1 ML INJ IV PRN (09:12)
[2020-07-14] MEDS: risperiDONE 1 MG TAB PO SCH (09:17)
[2020-07-14] MEDS: buPROPion XL 150 MG TAB PO SCH (09:17)
[2020-07-14] MEDS: SENNOSIDES 8.6 MG TAB PO SCH (09:18)
[2020-07-14] MEDS: carvediloL 6.25 MG TAB PO SCH (09:18)
[2020-07-14] MEDS: BIKTARVY PO SCH (09:36)
[2020-07-14] MEDS: FAMOTIDINE 20 MG/2 ML INJ IV SCH (09:37)
[2020-07-14] MEDS ORDERED: AZITHROMYCIN 250 MG TAB PO SCH ×2 (10:00)
[2020-07-14] MEDS ORDERED: AZITHROMYCIN 500 MG in SODIUM CHLORIDE 0.9% 250ML 250 ML IV SCH (10:00)
[2020-07-14] MEDS ORDERED: cefTRIAXone/NS 2 GM/100 ML 2 GM/100 ML BAG IV SCH (10:00)
[2020-07-14] MEDS ORDERED: ASPIRIN 81 MG TAB CHEW PO SCH (10:00)
--- NOTE | 2020-07-14 10:51 | Progress Note ---
Assessment and Plan S/p L thoracentesis w/900mL thin bloody fluid aspirated - pt tolerated procedure well. Echo pending. No plans for ischemic workup at this time. Resume Eliquis when cleared by Pulm. Otherwise stable cardiac status. Will see PRN. Pt seen in conjunction with Dr. MILADIS Garcia, who agrees with the assessment and plan of care. - Patient Problems (1) Acute respiratory failure Current Visit: Yes Status: Acute (2) Recurrent left pleural effusion Current Visit: Yes Status: Acute (3) Pleuritic chest pain Current Visit: Yes Status: Resolved (4) HTN (hypertension) Current Visit: Yes Status: Chronic Qualifiers: Hypertension type: essential hypertension Qualified Code(s): I10 - Essential (primary) hypertension (5) History of DVT (deep vein thrombosis) Current Visit: Yes Status: Chronic (6) HIV (human immunodeficiency virus infection) Current Visit: Yes Status: Chronic (7) Marijuana use Current Visit: Yes Status: Chronic (8) Tobacco use Current Visit: Yes Status: Chronic (9) Noncompliance Current Visit: Yes Status: Chronic Subjective Date of service: 07/14/20 Principal diagnosis: Recurrent Pleural Effusion Interval history: Pt resting in bed comfortably upon exam. C/o worsening SOB overnight, relieved with 2L O2 NC. No SOB on room air this AM. Pt denies chest pain or any additional cardiac complaints. Objective Last Vital Signs Temp 98.1 F 07/14/20 05:06 Pulse 78 07/14/20 05:06 Resp 20 07/14/20 05:06 BP 135/65 07/14/20 09:18 Pulse Ox 94 07/14/20 05:06 - Physical Examination General: No Apparent Distress HEENT: Positive: EOMI, Normocephaly, Mucus Membranes Moist Neck: Positive: neck supple, trachea midline. Negative: JVD/HJR Cardiac: Positive: Reg Rate and Rhythm, S1/S2 Lungs: Positive: Decreased Breath Sounds (L side) Neuro: Positive: Grossly Intact Abdomen: Positive: Soft, Active Bowel Sounds. Negative: Tender Skin: Negative: Rash Musculoskeletal: No Pain, Normal Range of Motion Extremities: Present: upper extr. pulses, lower extr. pulses. Absent: edema - Labs and Meds CBC 07/14/20 Range/Units 04:31 WBC 5.4 (4.5-11.0) K/mm3 RBC 4.40 (3.65-5.03) M/mm3 Hgb 13.2 (11.8-15.2) gm/dl Hct 39.3 (35.5-45.6) % Plt Count 172 (140-440) K/mm3 Lymph # 1.4 (1.2-5.4) K/mm3 [place] # 0.6 (0.0-0.8) K/mm3 Eos # 0.3 (0.0-0.4) K/mm3 Baso # 0.0 (0.0-0.1) K/mm3 Comprehensive Metabolic Panel 07/14/20 Range/Units 04:31 Sodium 134 L (137-145) mmol/L Potassium 4.1 (3.6-5.0) mmol/L Chloride 99.1 (98-107) mmol/L Carbon Dioxide 23 (22-30) mmol/L BUN 14 (9-20) mg/dL Creatinine 1.3 (0.8-1.3) mg/dL Glucose 102 H (75-100) mg/dL Calcium 8.6 (8.4-10.2) mg/dL - Imaging and Cardiology EKG: report reviewed, image reviewed Echo: pending - EKG Sinus rhythms and dysrhythmias: sinus rhythm
[2020-07-14 13:31] VITALS: BP 108/54
--- NOTE | 2020-07-14 16:20 | Discharge Summary ---
Providers - Providers Date of Admission: 07/13/20 07:37 Attending physician: DANE ERWIN MD 07/13/20 Consult to Cardiac Rehabilitation [CONS] Routine Reason For Exam: Phase I 07/13/20 07:53 Consult to Physician [CONS] Routine Comment: Consulting Provider: JULIAN VALDES Physician Instructions: Reason For Exam: PLEURAL EFFUSION 07/13/20 07:55 Consult to Dietitian/Nutrition [CONS] Routine Physician Instructions: Reason For Exam: Reason for Consult: Diet education 07/13/20 07:59 Consult to Physician [CONS] Routine Comment: Consulting Provider: TERRENCE CASTRO Physician Instructions: Reason For Exam: HIV 07/13/20 08:54 Consult to Physician [CONS] Routine Comment: Consulting Provider: JINA WYNN Physician Instructions: Reason For Exam: chest pain Primary care physician: [employer] Hospitalization Reason for admission: Respiratory failure Condition: Good Hospital course: 45-year-old male with past medical history of hypertension, HIV, recurrent pleural effusion and possible recent DVT on the lower extremity presenting with shortness of breath and chest pain noted to have a left large pleural effusion with associated acute kidney injury recommended for admission. Patient proceeded to have 900 cc of fluid removed from the lungs. True thoracentesis. Repeat chest x-ray showed loculated left lobar area with atelectasis. This appears to be chronic for the patient although I have asked him if he has had any cardiothoracic surgery evaluation he says now. I did discuss with him about following up at [facility] where he gets all his care for the same management. Fluid analysis does not reveal any acute pathology cytology still pending I discussed this with the patient he will follow with his primary care who would request the records. He does not exhibit any respiratory distress at this time a saturation 95% on room air. Stable for discharge Acute respiratory failure secondary to pleural effusion Left pleural effusion Recurrent pleural effusion per history status post 2 thoracentesis in the past Hypertension HIV DVT per history Noncompliant with Eliquis Acute kidney injury likely secondary to vasomotor nephropathy Disposition: - TO HOME OR SELFCARE Time spent for discharge: 35-minute Core Measure Documentation - Palliative Care Palliative Care/ Comfort Measures: Not Applicable - Core Measures Any of the following diagnoses?: none Exam - Physical Exam Narrative exam: VITAL SIGNS: Reviewed. GENERAL: The patient appears normally developed, Vital signs as documented. HEAD: No signs of head trauma. EYES: Pupils are equal. Extraocular motions intact. EARS: Hearing grossly intact. MOUTH: Oropharynx is normal. NECK: No adenopathy, no JVD. CHEST: Chest with diminished breath sounds on the left. No wheezes, rales, or rhonchi. CARDIAC: Regular rate and rhythm. S1 and S2, without murmurs, gallops, or rubs. VASCULAR: No Edema. Peripheral pulses normal and equal in all extremities. ABDOMEN: Soft, non tender and non distended. No rebound or guarding, and no masses palpated. Bowel Sounds normal. MUSCULOSKELETAL: Good range of motion of all major joints. Extremities without clubbing, cyanosis or edema. NEUROLOGIC EXAM: Alert and oriented x 3 No focal sensory or strength deficits. Speech normal. Follows commands. PSYCHIATRIC: Mood normal. SKIN: detail exam as documented in skin assessment. Tattoos on the face - Constitutional Vitals: Temp Pulse Resp BP Pulse Ox 98.4 F 77 20 108/54 92 07/14/20 12:07 07/14/20 12:07 07/14/20 12:07 07/14/20 12:07 07/14/20 12:07 Plan Follow up with: KELTON APARICIO MD [Staff Physician] - 7 Days PRIMARY CARE, [Primary Care Provider] - 3-5 Days VANE DOAN MD [Staff Physician] - 7 Days Prescriptions: oxyCODONE /ACETAMINOPHEN [Percocet 5/325] 1 tab PO Q6HR PRN #14 tablet PRN Reason: Pain Sennosides Tab [Senokot] 8.6 mg PO Q12HR #30 tablet Azithromycin [Zithromax TAB] 500 mg PO QDAY #5 tablet
[2020-07-14] MEDS ORDERED: FAMOTIDINE 20 MG TAB PO SCH (22:00)
[2020-07-18 15:38] LABS: HIV-1 RNA QN PCR 1.63 Log cps/mL
== END 2020-07-14 18:25 | disposition home or self-care (01) ==
LOC: ED 19:33 → 3A 07-13 07:37
PROVIDERS: ADMIT Internal Medicine; ATTEND Internal Medicine
DX: J96.00 Acute respiratory failure, unspecified whether with hypoxia or hypercapnia (principal); R65.10 Systemic inflammatory response syndrome (SIRS) of non-infectious origin without acute organ dysfunction; J90 Pleural effusion, not elsewhere classified; I10 Essential (primary) hypertension; N28.9 Disorder of kidney and ureter, unspecified; N17.9 Acute kidney failure, unspecified; J18.9 Pneumonia, unspecified organism; E78.5 Hyperlipidemia, unspecified; F12.90 Cannabis use, unspecified, uncomplicated; F17.200 Nicotine dependence, unspecified, uncomplicated; Z86.718 Personal history of other venous thrombosis and embolism; Z91.19 Patient's noncompliance with other medical treatment and regimen; Z21 Asymptomatic human immunodeficiency virus [HIV] infection status; Z79.82 Long term (current) use of aspirin; Z79.899 Other long term (current) drug therapy
CPT/HCPCS: 32555; 36415; 36600; 71045; 71046; 80048; 80076; 82024; 82550; 82803; 82947; 82962; 83605; 83880; 84160; 84484; 85025; 85610; 85730; 86038; 86160; 87040; 87116; 87536; 87641; 88112; 88305; 89051; 93005; 94640; 96365; 96366; 96368; 96375; 96376; 99285; A9270; G0378; J0456; J0696; J1170; J2270; J7050

== ENCOUNTER 2020-09-14 12:56 | Emergency (ER) | payer SELFPAY ==
--- NOTE | 2020-09-14 13:43 | Emergency Department Report ---
ED General Adult HPI - General Chief complaint: Abdominal Pain Stated complaint: ABD PAIN Time Seen by Provider: 09/14/20 13:41 Source: EMS Mode of arrival: Stretcher Limitations: No Limitations - History of Present Illness Initial comments: This is a 45-year old man with a history of HIV and recurrent trauma or effusions thoracentesis, hypertension and possibly more extensive medical history not currently available to me. 2 weeks ago he had a ventral herniorrhaphy at [facility] [facility]. Apparently the abdomen has been becoming increasingly red and somewhat distended. He has not been taking his temperature. Today he called EMS for evaluation for the first time. He has not been in touch with his surgery clinic at [facility] at all he admits. Apparently the patient was hospitalized here in June 2020 for an unrelated matter: 06/2020 Hospitalization Reason for admission: Respiratory failure Condition: Good Hospital course: 45-year-old male with past medical history of hypertension, HIV, recurrent pleural effusion and possible recent DVT on the lower extremity presenting with shortness of breath and chest pain noted to have a left large pleural effusion with associated acute kidney injury recommended for admission. Patient proceeded to have 900 cc of fluid removed from the lungs. True thoracentesis. Repeat chest x-ray showed loculated left lobar area with atelectasis. This appears to be chronic for the patient although I have asked him if he has had any cardiothoracic surgery evaluation he says now. I did discuss with him about following up at [facility] where he gets all his care for the same management. Fluid analysis does not reveal any acute pathology cytology still pending I discussed this with the patient he will follow with his primary care who would request the records. He does not exhibit any respiratory distress at this time a saturation 95% on room air. Stable for discharge Acute respiratory failure secondary to pleural effusion Left pleural effusion Recurrent pleural effusion per history status post 2 thoracentesis in the past Hypertension HIV DVT per history Noncompliant with Eliquis Acute kidney injury likely secondary to vasomotor nephropathy -: Gradual, days(s) Location: abdomen Radiation: non-radiation Quality: aching Consistency: constant Improves with: none Associated Symptoms: denies other symptoms (States he has been moving his bowels normally. No recent vomiting. No [place] rigors. Not measuring temperature.) - Related Data Home Medications Medication Instructions Recorded Confirmed Last Taken Aspirin 81 mg PO DAILY 07/13/20 07/13/20 1 Day Ago ~07/12/20 AtorvaSTATin 40 mg PO HS 07/13/20 07/13/20 1 Day Ago ~07/12/20 Biktarvy 50-200-25 mg (Nf) 50 mg PO DAILY 07/13/20 07/13/20 1 Day Ago ~07/12/20 buPROPion 150 mg PO DAILY 07/13/20 07/13/20 1 Day Ago ~07/12/20 carvediloL 6.25 mg PO DAILY 07/13/20 07/13/20 1 Day Ago ~07/12/20 risperiDONE 1 mg PO DAILY 07/13/20 07/13/20 1 Day Ago ~07/12/20 Previous Rx's Medication Instructions Recorded Last Taken Type Apixaban [Eliquis] 5 mg PO BID #60 tablet 07/14/20 Unknown Rx Azithromycin [Zithromax TAB] 500 mg PO QDAY #5 tablet 07/14/20 Unknown Rx Famotidine [Pepcid] 20 mg PO BID #30 tablet 07/14/20 Unknown Rx Sennosides Tab [Senokot] 8.6 mg PO Q12HR #30 tablet 07/14/20 Unknown Rx oxyCODONE /ACETAMINOPHEN [Percocet 1 tab PO Q6HR PRN #14 tablet 07/14/20 Unknown Rx 5/325] Allergies Allergy/AdvReac Type Severity Reaction Status Date / Time No Known Allergies Allergy Verified 09/14/20 14:13 ED Review of Systems ROS: Stated complaint: ABD PAIN Other details as noted in HPI ED Past Medical Hx - Past Medical History Previous Medical History?: Yes Hx Hypertension: Yes Hx Diabetes: Yes Hx Psychiatric Treatment: Yes (Depression, Bipolar) Hx HIV: Yes Additional medical history: CAD, High Cholesterol - Surgical History Past Surgical History?: Yes Additional Surgical History: Hernia repair 2020 - Social History Smoking Status: Current Every Day Smoker Substance Use Type: None - Medications Home Medications: Home Medications Medication Instructions Recorded Confirmed Last Taken Type Aspirin 81 mg PO DAILY 07/13/20 07/13/20 1 Day Ago History ~07/12/20 AtorvaSTATin 40 mg PO HS 07/13/20 07/13/20 1 Day Ago History ~07/12/20 Biktarvy 50-200-25 mg (Nf) 50 mg PO DAILY 07/13/20 07/13/20 1 Day Ago History ~07/12/20 buPROPion 150 mg PO DAILY 07/13/20 07/13/20 1 Day Ago History ~07/12/20 carvediloL 6.25 mg PO DAILY 07/13/20 07/13/20 1 Day Ago History ~07/12/20 risperiDONE 1 mg PO DAILY 07/13/20 07/13/20 1 Day Ago History ~07/12/20 Apixaban [Eliquis] 5 mg PO BID #60 tablet 07/14/20 Unknown Rx Azithromycin [Zithromax TAB] 500 mg PO QDAY #5 tablet 07/14/20 Unknown Rx Famotidine [Pepcid] 20 mg PO BID #30 tablet 07/14/20 Unknown Rx Sennosides Tab [Senokot] 8.6 mg PO Q12HR #30 tablet 07/14/20 Unknown Rx oxyCODONE /ACETAMINOPHEN [Percocet 1 tab PO Q6HR PRN #14 tablet 07/14/20 Unknown Rx 5/325] ED Physical Exam - General Limitations: No Limitations ED Course Vital Signs 09/14/20 13:30 Temperature 99.6 F Pulse Rate 97 H Respiratory 24 Rate Blood Pressure 127/78 [Right] O2 Sat by Pulse 95 Oximetry - Reevaluation(s) Reevaluation #1: Spoke with Dr. Quick at [facility]. They have accepted the patient for transfer. Patient is agreeable. He is stable for transfer. 09/14/20 16:42 Reevaluation #2: He was given empiric antibiotics. 09/14/20 16:44 ED Medical Decision Making - Lab Data Result diagrams: 09/14/20 13:44 09/14/20 14:17 Laboratory Results - last 24 hr 09/14/20 09/14/20 09/14/20 13:44 13:44 14:17 WBC 5.9 RBC 4.40 Hgb 13.4 Hct 39.9 MCV 91 MCH 31 MCHC 34 RDW 16.5 H Plt Count 105 L Lymph % (Auto) 17.0 [place] % (Auto) 13.7 H Eos % (Auto) 2.0 Baso % (Auto) 0.1 Lymph # (Auto) 1.0 L [place] # (Auto) 0.8 Eos # (Auto) 0.1 Baso # (Auto) 0.0 Seg Neutrophils % 67.2 Seg Neutrophils # 4.0 PT 14.5 INR 1.11 APTT 29.2 VBG pH Sodium Potassium Chloride Carbon Dioxide Anion Gap BUN Creatinine Estimated GFR BUN/Creatinine Ratio Glucose Lactic Acid 3.70 H* Calcium Magnesium Total Bilirubin Direct Bilirubin AST ALT Alkaline Phosphatase Ammonia Total Creatine Kinase CK-MB (CK-2) CK-MB (CK-2) Rel Index NT-Pro-B Natriuret Pep Total Protein Albumin Albumin/Globulin Ratio Lipase Plasma/Serum Alcohol Blood Type Antibody Screen 09/14/20 09/14/20 09/14/20 14:17 14:17 14:17 WBC RBC Hgb Hct MCV MCH MCHC RDW Plt Count Lymph % (Auto) [place] % (Auto) Eos % (Auto) Baso % (Auto) Lymph # (Auto) [place] # (Auto) Eos # (Auto) Baso # (Auto) Seg Neutrophils % Seg Neutrophils # PT INR APTT VBG pH 7.276 L Sodium 135 L Potassium 4.9 Chloride 98.7 Carbon Dioxide 25 Anion Gap 16 BUN 18 Creatinine 1.3 Estimated GFR > 60 BUN/Creatinine Ratio 14 Glucose 93 Lactic Acid Calcium 9.1 Magnesium 2.20 Total Bilirubin 0.70 Direct Bilirubin < 0.2 AST 16 ALT 10 Alkaline Phosphatase 87 Ammonia 32.0 Total Creatine Kinase 201 H CK-MB (CK-2) 1.4 CK-MB (CK-2) Rel Index 0.6 NT-Pro-B Natriuret Pep 45.43 Total Protein 7.6 Albumin 3.8 L Albumin/Globulin Ratio 1.0 Lipase 22 Plasma/Serum Alcohol Blood Type Antibody Screen 09/14/20 09/14/20 09/14/20 14:17 14:17 15:38 WBC RBC Hgb Hct MCV MCH MCHC RDW Plt Count Lymph % (Auto) [place] % (Auto) Eos % (Auto) Baso % (Auto) Lymph # (Auto) [place] # (Auto) Eos # (Auto) Baso # (Auto) Seg Neutrophils % Seg Neutrophils # PT INR APTT VBG pH Sodium Potassium Chloride Carbon Dioxide Anion Gap BUN Creatinine Estimated GFR BUN/Creatinine Ratio Glucose Lactic Acid 0.60 L Calcium Magnesium Total Bilirubin Direct Bilirubin AST ALT Alkaline Phosphatase Ammonia Total Creatine Kinase CK-MB (CK-2) CK-MB (CK-2) Rel Index NT-Pro-B Natriuret Pep Total Protein Albumin Albumin/Globulin Ratio Lipase Plasma/Serum Alcohol < 0.01 Blood Type B POSITIVE Antibody Screen Negative Critical care attestation.: If time is entered above; I have spent that time in minutes in the direct care of this critically ill patient, excluding procedure time. ED Disposition Clinical Impression: Postoperative infection Qualifiers: Encounter type: initial encounter Postoperative infection type: deep incisional surgical site Qualified Code(s): T81.42XA - Infection following a procedure, deep incisional surgical site, initial encounter Disposition: DC/TX-70 ANOTHER TYPE HLTHCARE Is pt being admited?: No Does the pt Need Aspirin: No Condition: Stable Time of Disposition: 16:44
[2020-09-14] MEDS ORDERED: SODIUM CHLORIDE 0.9% 500 ML 500 ML IV ONE (13:44)
[2020-09-14] MEDS ORDERED: ONDANSETRON 4 MG/2 ML INJ IV ONE (13:55)
[2020-09-14] MEDS ORDERED: MORPHINE 2 MG/1 ML INJ IV ONE ×2 (13:55→16:12)
--- NOTE | 2020-09-14 14:12 | XRay Report ---
CHEST 1 VIEW INDICATION: possible Sepsis COMPARISON: 07/14/2020 FINDINGS: Support devices: None Heart: Slightly enlarged but stable Lungs/Pleura: No acute pulmonary or pleural findings. Large loculated pleural effusion with atelectas is in the adjacent lung parenchyma, seen on the previous exam, has completely resolved. IMPRESSION: 1. No acute disease on today's study. Signer Name: Erasto López MD Signed: 09/14/2020 2:07 PM Workstation Name: [email or web address]
[2020-09-14 14:40] LABS: Basophils % (Auto) 0.1 % (0.0-1.8); Eosinophils # (Auto) 0.1 K/mm3 (0.0-0.4); Hematocrit 39.9 % (35.5-45.6); Hemoglobin 13.4 gm/dl (11.8-15.2); Mean Corpuscular HGB Conc 34 % (32-34); Mean Corpuscular Volume 91 fl (84-94); Monocytes # (Auto) 0.8 K/mm3 (0.0-0.8); Monocytes % (Auto) 13.7 % (0.0-7.3); Platelet Count 105 K/mm3 (140-440); Red Cell Distribution Width 16.5 % (13.2-15.2)
[2020-09-14 14:50] LABS: INR 1.11 (0.87-1.13); Partial Thromboplastin Time 29.2 Sec. (24.2-36.6)
[2020-09-14 14:52] LABS: Creatine Kinase MB 1.4 ng/mL (0.0-4.0)
[2020-09-14 14:54] LABS: Alanine Aminotransferase 10 units/L (7-56); Albumin 3.8 g/dL (3.9-5); BUN/Creatinine Ratio 14; Blood Urea Nitrogen 18 mg/dL (9-20); Calcium 9.1 mg/dL (8.4-10.2); Hemolysis Index 38
[2020-09-14 14:58] LABS: Bilirubin,Direct < 0.2 mg/dL (0-0.2)
[2020-09-14] MEDS ORDERED: MORPHINE 4 MG/1 ML INJ ONE (16:12)
--- NOTE | 2020-09-14 16:21 | Cat Scan Report ---
CT ABDOMEN AND PELVIS WITH CONTRAST INDICATION / CLINICAL INFORMATION: Infected abd 2 weeks s/p herniorhaphy. TECHNIQUE: Axial CT images were obtained through the abdomen and pelvis after IV contrast. All CT scans at this location are performed using CT dose reduction for ALARA by means of automated exposure control. COMPARISON: None available. FINDINGS: LOWER CHEST: Bibasilar atelectasis. LIVER: No significant abnormality. GALLBLADDER: No significant abnormality. BILE DUCTS: No significant abnormality. PANCREAS: No significant abnormality. SPLEEN: No significant abnormality. ADRENALS: No significant abnormality. RIGHT KIDNEY / URETER: No significant abnormality. LEFT KIDNEY / URETER: No significant abnormality. STOMACH / SMALL BOWEL: No significant abnormality. COLON: No significant abnormality. APPENDIX: No significant abnormality. PERITONEUM: Mild fat stranding noted anterior peritoneum underlying the postsurgical incision. No fr ee air or fluid within the peritoneum. LYMPH NODES: Reactive appearing bilateral inguinal lymph nodes are noted, the largest measuring 1.3 c m in short axis bilaterally. AORTA / ARTERIES: No significant abnormality. IVC / VEINS: No significant abnormality. URINARY BLADDER: No significant abnormality. REPRODUCTIVE ORGANS: No significant abnormality. ADDITIONAL FINDINGS: Inflammatory changes are noted with surrounding fat stranding and edema at the m idline ventral abdominal wall incision. There is a 7.6 x 1.2 x 3.2 cm fluid collection at the incisio n site. SKELETAL SYSTEM: Multilevel degenerative changes are noted of the spine with bilateral pars defects a t L5 and mild anterolisthesis at L5-S1. IMPRESSION: 1. 7.6 x 1.2 x 3.2 cm abscess at the ventral midline abdominal wall postsurgical site with surroundin g inflammatory/infectious soft tissue changes. 2. Mild fat stranding noted in the anterior peritoneum likely local inflammatory change, without intr aperitoneal fluid collection or pneumoperitoneum. Signer Name: Rohan Bustillo MD Signed: 09/14/2020 4:16 PM Workstation Name: [id number]
[2020-09-14] MEDS ORDERED: CEFEPIME/NS 1 GM/100 ML 1 GM/100 ML BAG IV ONE (16:43)
[2020-09-14] MEDS ORDERED: SODIUM CHLORIDE 0.9% 1000 ML 1,000 ML IV ONE (16:45)
[2020-09-14] MEDS ORDERED: VANCOMYCIN PHARMACY TO DOSE IV SCH (17:00)
[2020-09-14] MEDS ORDERED: VANCOMYCIN 2,000 MG in SODIUM CHLORIDE 0.9% 500 ML 500 ML IV ONE (17:30)
[2020-09-14 18:33] VITALS: BP 128/83
== END 2020-09-14 18:51 | disposition other institution (70) ==
LOC: ED 12:56
DX: T81.40XA Infection following a procedure, unspecified, initial encounter (principal); I10 Essential (primary) hypertension; E11.9 Type 2 diabetes mellitus without complications; F31.9 Bipolar disorder, unspecified; Z21 Asymptomatic human immunodeficiency virus [HIV] infection status; Z79.82 Long term (current) use of aspirin; Z79.899 Other long term (current) drug therapy
CPT/HCPCS: 36415; 71045; 74177; 80048; 80076; 82140; 82550; 82553; 82805; 83690; 83735; 83880; 85025; 85610; 85730; 86850; 86900; 86901; 87040; 96365; 96375; 96376; 99285; J0692; J2270; J2405; J3370; J7030; J7040; Q9967; 80320; G0480

== ENCOUNTER 2020-10-12 13:08 | Emergency (ER) | payer SELFPAY ==
[2020-10-12 14:24] VITALS: BP 146/82
[2020-10-12] MEDS ORDERED: MORPHINE 4 MG/1 ML INJ IV ONE (16:02)
[2020-10-12] MEDS ORDERED: ONDANSETRON 4 MG/2 ML INJ IV ONE (16:02)
[2020-10-12] MEDS ORDERED: SODIUM CHLORIDE 0.9% 1000 ML 1,000 ML IV ONE (16:02)
[2020-10-12 16:48] LABS: Alanine Aminotransferase 9 units/L (7-56); Albumin 3.6 g/dL (3.9-5); BUN/Creatinine Ratio 10; Blood Urea Nitrogen 12 mg/dL (9-20); Calcium 9.2 mg/dL (8.4-10.2); Hemolysis Index 13
--- NOTE | 2020-10-12 16:48 | Emergency Department Report ---
ED General Adult HPI - General Chief complaint: Wound/Laceration Stated complaint: STOMACH/HERNIA PAIN Time Seen by Provider: 10/12/20 15:16 Source: patient Mode of arrival: Ambulatory Limitations: No Limitations - History of Present Illness Initial comments: Patient is a 45-year-old male presents emergency room with complaints of abdominal pain that began just prior to arrival. Patient states that he had a hernia repair performed at [facility] in August. He then presented to the emergency room on 09/14/2020 and was found to have a postop abscess and transferred back to [facility] at that time. He states that today he lifted a sofa and felt a popping sensation where he has the hernia and then began having significant pain. He states that he then began to have drainage and small amount of bleeding from the site. He states he had not been having issues prior to lifting the sofa. He denies any fever, nausea, vomiting, diarrhea, h ematochezia, melena, hematemesis. He states he has been having normal bowel movements. He has a past medical history of HIV and states that he is on his antivirals and undetectable. - Related Data Home Medications Medication Instructions Recorded Confirmed Last Taken Aspirin 81 mg PO DAILY 07/13/20 07/13/20 1 Day Ago ~07/12/20 AtorvaSTATin 40 mg PO HS 07/13/20 07/13/20 1 Day Ago ~07/12/20 Biktarvy 50-200-25 mg (Nf) 50 mg PO DAILY 07/13/20 07/13/20 1 Day Ago ~07/12/20 buPROPion 150 mg PO DAILY 07/13/20 07/13/20 1 Day Ago ~07/12/20 carvediloL 6.25 mg PO DAILY 07/13/20 07/13/20 1 Day Ago ~07/12/20 risperiDONE 1 mg PO DAILY 07/13/20 07/13/20 1 Day Ago ~07/12/20 Previous Rx's Medication Instructions Recorded Last Taken Type Apixaban [Eliquis] 5 mg PO BID #60 tablet 07/14/20 Unknown Rx Azithromycin [Zithromax TAB] 500 mg PO QDAY #5 tablet 07/14/20 Unknown Rx Famotidine [Pepcid] 20 mg PO BID #30 tablet 07/14/20 Unknown Rx Sennosides Tab [Senokot] 8.6 mg PO Q12HR #30 tablet 07/14/20 Unknown Rx oxyCODONE /ACETAMINOPHEN [Percocet 1 tab PO Q6HR PRN #14 tablet 07/14/20 Unknown Rx 5/325] traMADoL [Ultram 50 MG tab] 50 mg PO Q6HR PRN #7 tablet 10/12/20 Unknown Rx Allergies Allergy/AdvReac Type Severity Reaction Status Date / Time No Known Allergies Allergy Verified 09/14/20 14:13 ED Review of Systems ROS: Stated complaint: STOMACH/HERNIA PAIN Other details as noted in HPI Comment: All other systems reviewed and negative ED Past Medical Hx - Past Medical History Previous Medical History?: Yes Hx Hypertension: Yes Hx Diabetes: Yes Hx Psychiatric Treatment: Yes (Depression, Bipolar) Hx HIV: Yes Additional medical history: CAD, High Cholesterol - Surgical History Additional Surgical History: Hernia repair 2020 - Social History Smoking Status: Never Smoker Substance Use Type: None - Medications Home Medications: Home Medications Medication Instructions Recorded Confirmed Last Taken Type Aspirin 81 mg PO DAILY 07/13/20 07/13/20 1 Day Ago History ~07/12/20 AtorvaSTATin 40 mg PO HS 07/13/20 07/13/20 1 Day Ago History ~07/12/20 Biktarvy 50-200-25 mg (Nf) 50 mg PO DAILY 07/13/20 07/13/20 1 Day Ago History ~07/12/20 buPROPion 150 mg PO DAILY 07/13/20 07/13/20 1 Day Ago History ~07/12/20 carvediloL 6.25 mg PO DAILY 07/13/20 07/13/20 1 Day Ago History ~07/12/20 risperiDONE 1 mg PO DAILY 07/13/20 07/13/20 1 Day Ago History ~07/12/20 Apixaban [Eliquis] 5 mg PO BID #60 tablet 07/14/20 Unknown Rx Azithromycin [Zithromax TAB] 500 mg PO QDAY #5 tablet 07/14/20 Unknown Rx Famotidine [Pepcid] 20 mg PO BID #30 tablet 07/14/20 Unknown Rx Sennosides Tab [Senokot] 8.6 mg PO Q12HR #30 tablet 07/14/20 Unknown Rx oxyCODONE /ACETAMINOPHEN [Percocet 1 tab PO Q6HR PRN #14 tablet 07/14/20 Unknown Rx 5/325] traMADoL [Ultram 50 MG tab] 50 mg PO Q6HR PRN #7 tablet 10/12/20 Unknown Rx ED Physical Exam - General Limitations: No Limitations General appearance: alert, in no apparent distress - Head Head exam: Present: atraumatic, normocephalic - Eye Eye exam: Present: normal appearance - ENT ENT exam: Present: mucous membranes moist - Respiratory Respiratory exam: Present: normal lung sounds bilaterally. Absent: respiratory distress, wheezes, rales, rhonchi, stridor, chest wall tenderness, accessory muscle use, decreased breath sounds, prolonged expiratory - Cardiovascular Cardiovascular Exam: Present: regular rate, normal rhythm, normal heart sounds. Absent: systolic murmur, diastolic murmur, rubs, gallop - GI/Abdominal GI/Abdominal exam: Present: distended (mildly), tenderness (left periumbilical ), normal bowel sounds. Absent: guarding, rebound, rigid - Neurological Exam Neurological exam: Present: alert, oriented X3 - Psychiatric Psychiatric exam: Present: normal affect, normal mood - Skin Skin exam: Present: warm, dry, intact ED Course Vital Signs 10/12/20 10/12/20 14:22 16:47 Temperature 98.0 F Pulse Rate 92 H Respiratory 18 18 Rate Blood Pressure 146/82 O2 Sat by Pulse 98 Oximetry ED Medical Decision Making - Lab Data Result diagrams: 10/12/20 16:11 10/12/20 16:11 Labs 10/12/20 10/12/20 16:11 16:11 WBC 4.6 RBC 4.27 Hgb 12.7 Hct 38.6 MCV 91 MCH 30 MCHC 33 RDW 15.8 H Plt Count 137 L Lymph % (Auto) 34.8 [place] % (Auto) 8.0 H Eos % (Auto) 5.4 H Baso % (Auto) 0.7 Lymph # (Auto) 1.6 [place] # (Auto) 0.4 Eos # (Auto) 0.2 Baso # (Auto) 0.0 Seg Neutrophils % 51.1 Seg Neutrophils # 2.4 Sodium 139 Potassium 3.7 Chloride 102.5 Carbon Dioxide 31 H Anion Gap 9 BUN 12 Creatinine 1.2 Estimated GFR > 60 BUN/Creatinine Ratio 10 Glucose 104 H Calcium 9.2 Total Bilirubin 0.30 AST 14 ALT 9 Alkaline Phosphatase 107 Total Protein 7.6 Albumin 3.6 L Albumin/Globulin Ratio 0.9 Lipase 17 - Radiology Data Radiology results: report reviewed CT ABDOMEN AND PELVIS WITH CONTRAST INDICATION / CLINICAL INFORMATION: Abdominal pain TECHNIQUE: Axial CT images were obtained through the abdomen and pelvis after IV contrast. All CT scans at this location are performed using CT dose reduction for ALARA by means of automated exposure control. COMPARISON: 1032 FINDINGS: LOWER CHEST: Unremarkable LIVER: Unremarkable GALLBLADDER/BILIARY TREE: Unremarkable PANCREAS: Unremarkable SPLEEN: Unremarkable ADRENALS: Unremarkable KIDNEYS / URETER: Unremarkable URINARY BLADDER: Bladder is partially decompressed, though grossly unremarkable. REPRODUCTIVE ORGANS: Unremarkable STOMACH / SMALL BOWEL: Stomach and small bowel are normal in caliber. No evidence of bowel inflammation. COLON: The colon is unremarkable. The appendix is normal in caliber. LYMPH NODES: Stable prominent bilateral inguinal lymph nodes. No new or increasing lymphadenopathy. 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 OTHER: Infiltrate changes are again noted with surrounding fat stranding and edema at the midline ventral abdominal wall incision. There is an improving fluid collection, measuring 2.4 x 1.7 cm (series 2 image 78). Small area of gas now present. No evidence of recurrent hernia is detected. SKELETAL SYSTEM: Bilateral pars defects at L5 with mild anterolisthesis of L5 on S1. No acute process. IMPRESSION: 1. Persistent inflammatory changes at the ventral midline abdominal wall postsurgical site with improvement in associated fluid/gas collection, now measuring up to 2.4 cm. No evidence of recurrent hernia. 2. Otherwise, no acute process of the abdomen or pelvis. 3. Additional stable chronic and incidental findings as above. Signer Name: Bridger Renteria MD Signed: 10/12/2020 6:21 PM Workstation Name: [id number] Transcribed By: SARAY Dictated By: BRIDGER GAITAN MD Electronically Authenticated By: BRIDGER GAITAN MD Signed Date/Time: 10/12/201820 DD/ 14 TD/TT: - Medical Decision Making Patient is a 45-year-old male presents emergency room with complaints of abdominal pain that began just prior to arrival. Patient states that he had a hernia repair performed at [facility] in August. He then presented to the emergency room on 09/14/2020 and was found to have a postop abscess and transferred back to [facility] at that time. He states that today he lifted a sofa and felt a popping sensation where he has the hernia and then began having significant pain. He states that he then began to have drainage and sm all amount of bleeding from the site. He states he had not been having issues prior to lifting the sofa. He denies any fever, nausea, vomiting, diarrhea, hematochezia, melena, hematemesis. He states he has been having normal bowel movements. He has a past medical history of HIV and states that he is on his antivirals and undetectable. On exam patient has mild distention, left-sided periumbilical abdominal tenderness palpation, no guarding, no rebound, no peritoneal signs. Vitals are stable. Labs are within normal limits. CT abdomen pelvis with IV contrast 1. Persistent inflammatory changes at the ventral midline abdominal wall postsurgical site with improvement in associated fluid/gas collection, now measuring up to 2.4 cm. No evidence of recurrent hernia. 2. Otherwise, no acute process of the abdomen or pelvis. 3. Additional stable chronic and incidental findings as above. Discussed findings with Dr. Elly Solo, ER attending who evaluated patient at bedside and advised that patient can follow-up outpatient with his surgeon at [place], patient is already on antibiotics, she does not any see any signs of hernia. Patient given short course of tramadol for pain relief. Advised patient Please take medication as prescribed as needed. Do not drive or operate machinery while taking pain medication. Please do not do any heavy lifting. Please follow-up with your surgeon at [facility] for reexamination. Please continue taking your antibiotics as prescribed by your doctor. Return to emergency room for new or worsening symptoms. Critical care attestation.: If time is entered above; I have spent that time in minutes in the direct care of this critically ill patient, excluding procedure time. ED Disposition Clinical Impression: Abscess Abdominal pain Qualifiers: Abdominal location: periumbilical Qualified Code(s): R10.33 - Periumbilical pain Disposition: - TO HOME OR SELFCARE Is pt being admited?: No Does the pt Need Aspirin: No Condition: Stable Instructions: Abdominal Pain, Adult, [id number] Additional Instructions: Please take medication as prescribed as needed. Do not drive or operate machinery while taking pain medication. Please do not do any heavy lifting. Please follow-up with your surgeon at [facility] for reexamination. Please continue taking your antibiotics as prescribed by your doctor. Return to emergency room for new or worsening symptoms. Prescriptions: traMADoL [Ultram 50 MG tab] 50 mg PO Q6HR PRN #7 tablet PRN Reason: Pain , Severe (7-10) Referrals: krys, surgeon [Other] - 2-3 Days PRIMARY CARE,MD [Primary Care Provider] - 2-3 Days Time of Disposition: 18:49 Print Language: SYRIAC
[2020-10-12 17:04] LABS: Basophils % (Auto) 0.7 % (0.0-1.8); Eosinophils # (Auto) 0.2 K/mm3 (0.0-0.4); Eosinophils % (Auto) 5.4 % (0.0-4.3); Hematocrit 38.6 % (35.5-45.6); Hemoglobin 12.7 gm/dl (11.8-15.2); Lymphocytes # (Auto) 1.6 K/mm3 (1.2-5.4); Lymphocytes % (Auto) 34.8 % (13.4-35.0); Mean Corpuscular HGB Conc 33 % (32-34); Mean Corpuscular Volume 91 fl (84-94); Monocytes # (Auto) 0.4 K/mm3 (0.0-0.8); Platelet Count 137 K/mm3 (140-440); Red Blood Count 4.27 M/mm3 (3.65-5.03); Red Cell Distribution Width 15.8 % (13.2-15.2)
--- NOTE | 2020-10-12 18:25 | Cat Scan Report ---
CT ABDOMEN AND PELVIS WITH CONTRAST INDICATION / CLINICAL INFORMATION: Abdominal pain TECHNIQUE: Axial CT images were obtained through the abdomen and pelvis after IV contrast. All CT sc ans at this location are performed using CT dose reduction for ALARA by means of automated exposure c ontrol. COMPARISON: 1032 FINDINGS: LOWER CHEST: Unremarkable LIVER: Unremarkable GALLBLADDER/BILIARY TREE: Unremarkable PANCREAS: Unremarkable SPLEEN: Unremarkable ADRENALS: Unremarkable KIDNEYS / URETER: Unremarkable URINARY BLADDER: Bladder is partially decompressed, though grossly unremarkable. REPRODUCTIVE ORGANS: Unremarkable STOMACH / SMALL BOWEL: Stomach and small bowel are normal in caliber. No evidence of bowel inflammati on. COLON: The colon is unremarkable. The appendix is normal in caliber. LYMPH NODES: Stable prominent bilateral inguinal lymph nodes. No new or increasing lymphadenopathy. 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 OTHER: Infiltrate changes are again noted with surrounding fat stranding and edema at the midline meena tral abdominal wall incision. There is an improving fluid collection, measuring 2.4 x 1.7 cm (series 2 image 78). Small area of gas now present. No evidence of recurrent hernia is detected. SKELETAL SYSTEM: Bilateral pars defects at L5 with mild anterolisthesis of L5 on S1. No acute process . IMPRESSION: 1. Persistent inflammatory changes at the ventral midline abdominal wall postsurgical site with impro vement in associated fluid/gas collection, now measuring up to 2.4 cm. No evidence of recurrent herni a. 2. Otherwise, no acute process of the abdomen or pelvis. 3. Additional stable chronic and incidental findings as above. Signer Name: Cristopher Renteria MD Signed: 10/12/2020 6:21 PM Workstation Name: [id number]
== END 2020-10-12 20:09 | disposition home or self-care (01) ==
LOC: ED 13:08
DX: L02.211 Cutaneous abscess of abdominal wall (principal); I10 Essential (primary) hypertension; E11.9 Type 2 diabetes mellitus without complications; F31.9 Bipolar disorder, unspecified; E78.00 Pure hypercholesterolemia, unspecified; Z79.899 Other long term (current) drug therapy; Z98.890 Other specified postprocedural states
CPT/HCPCS: 36415; 74177; 80053; 83690; 85025; 96361; 96374; 96375; 99284; J2270; J2405; J7030; Q9967

== ENCOUNTER 2020-11-08 14:21 | Emergency (ER) | payer SELFPAY ==
[2020-11-08 14:51] VITALS: BP 143/87
[2020-11-08] MEDS ORDERED: ACETAMINOPHEN 325 MG TAB PO ONE (14:52)
--- NOTE | 2020-11-08 14:54 | Event Note ---
ED Screening Note Date of service: 11/08/20 Time: 14:51 ED Screening Note: Patient complains of left dental pain x3 days Fever 101.5 noted with a heart rate of 113 HIV positive-states currently on antiretrovirals Moderate swelling noted to the right side of face with significant tenderness This initial assessment/diagnostic orders/clinical plan/treatment(s) is/are subject to change based on patients health status, clinical progression and re- assessment by fellow clinical providers in the ED. Further treatment and workup at subsequent clinical providers discretion. Patient/guardian urged not to elope from the ED as their condition may be serious if not clinically assessed and managed. Initial orders include: Labs CT face Sepsis work-up
[2020-11-08 15:28] LABS: Basophils % (Auto) 0.6 % (0.0-1.8); Eosinophils # (Auto) 0.1 K/mm3 (0.0-0.4); Eosinophils % (Auto) 1.7 % (0.0-4.3); Hematocrit 39.8 % (35.5-45.6); Hemoglobin 13.2 gm/dl (11.8-15.2); Lymphocytes # (Auto) 1.5 K/mm3 (1.2-5.4); Lymphocytes % (Auto) 19.7 % (13.4-35.0); Mean Corpuscular HGB Conc 33 % (32-34); Mean Corpuscular Volume 88 fl (84-94); Monocytes # (Auto) 0.7 K/mm3 (0.0-0.8); Platelet Count 236 K/mm3 (140-440); Red Blood Count 4.53 M/mm3 (3.65-5.03); Red Cell Distribution Width 15.5 % (13.2-15.2)
[2020-11-08 15:47] LABS: Alanine Aminotransferase 8 units/L (7-56); Albumin 3.7 g/dL (3.9-5); BUN/Creatinine Ratio 12; Blood Urea Nitrogen 13 mg/dL (9-20); Calcium 9.1 mg/dL (8.4-10.2); Hemolysis Index 0
[2020-11-08] MEDS ORDERED: IBUPROFEN 600 MG TAB PO ONE ×2 (17:02→17:17)
--- NOTE | 2020-11-09 00:27 | Emergency Department Report ---
ED ENT HPI - General Chief complaint: Dental/Oral Stated complaint: TOOTHACHE/INFECTION Time Seen by Provider: 11/08/20 14:51 Source: patient Mode of arrival: Ambulatory Limitations: No Limitations - History of Present Illness Initial comments: This is a 45-year-old male male with a 3-day complaint of dental pain, right facial pain and pus draining from his tooth. His past medical history of depression bipolar disorder high cholesterol CAD and HIV. He reports compliance with Biktarvy. He denies difficulty swallowing or chewing no known facial tra diallo. He denies URI symptoms no chest pain no shortness of breath. Patient in no acute distress. MD complaint: tooth pain Severity scale (0 -10): 8 Quality: aching Consistency: constant Improves with: none Worsens with: eating Context- Dental: history of dental caries Associated Symptoms: fever - Related Data Home Medications Medication Instructions Recorded Confirmed Last Taken Aspirin 81 mg PO DAILY 07/13/20 07/13/20 1 Day Ago ~07/12/20 AtorvaSTATin 40 mg PO HS 07/13/20 07/13/20 1 Day Ago ~07/12/20 Biktarvy 50-200-25 mg (Nf) 50 mg PO DAILY 07/13/20 07/13/20 1 Day Ago ~07/12/20 buPROPion 150 mg PO DAILY 07/13/20 07/13/20 1 Day Ago ~07/12/20 carvediloL 6.25 mg PO DAILY 07/13/20 07/13/20 1 Day Ago ~07/12/20 risperiDONE 1 mg PO DAILY 07/13/20 07/13/20 1 Day Ago ~07/12/20 Previous Rx's Medication Instructions Recorded Last Taken Type Apixaban [Eliquis] 5 mg PO BID #60 tablet 07/14/20 Unknown Rx Azithromycin [Zithromax TAB] 500 mg PO QDAY #5 tablet 07/14/20 Unknown Rx Famotidine [Pepcid] 20 mg PO BID #30 tablet 07/14/20 Unknown Rx Sennosides Tab [Senokot] 8.6 mg PO Q12HR #30 tablet 07/14/20 Unknown Rx oxyCODONE /ACETAMINOPHEN [Percocet 1 tab PO Q6HR PRN #14 tablet 07/14/20 Unknown Rx 5/325] traMADoL [Ultram 50 MG tab] 50 mg PO Q6HR PRN #7 tablet 10/12/20 Unknown Rx Amoxicillin/Potassium Clav 1 each PO Q12H 10 Days #20 tablet 11/09/20 Unknown Rx [Augmentin 875-125 Tablet] Ibuprofen [Motrin] 800 mg PO Q8HR PRN 7 Days #21 11/09/20 Unknown Rx tablet Allergies Allergy/AdvReac Type Severity Reaction Status Date / Time No Known Allergies Allergy Verified 09/14/20 14:13 ED Dental HPI - General Chief complaint: Dental/Oral Stated complaint: TOOTHACHE/INFECTION Time Seen by Provider: 11/08/20 14:51 Source: patient Mode of arrival: Ambulatory Limitations: No Limitations - History of Present Illness MD complaint: tooth pain Improves with: none Worsens with: chewing Context- Dental: poor dental care - Related Data Home Medications Medication Instructions Recorded Confirmed Last Taken Aspirin 81 mg PO DAILY 07/13/20 07/13/20 1 Day Ago ~07/12/20 AtorvaSTATin 40 mg PO HS 07/13/20 07/13/20 1 Day Ago ~07/12/20 Biktarvy 50-200-25 mg (Nf) 50 mg PO DAILY 07/13/20 07/13/20 1 Day Ago ~07/12/20 buPROPion 150 mg PO DAILY 07/13/20 07/13/20 1 Day Ago ~07/12/20 carvediloL 6.25 mg PO DAILY 07/13/20 07/13/20 1 Day Ago ~07/12/20 risperiDONE 1 mg PO DAILY 07/13/20 07/13/20 1 Day Ago ~07/12/20 Previous Rx's Medication Instructions Recorded Last Taken Type Apixaban [Eliquis] 5 mg PO BID #60 tablet 07/14/20 Unknown Rx Azithromycin [Zithromax TAB] 500 mg PO QDAY #5 tablet 07/14/20 Unknown Rx Famotidine [Pepcid] 20 mg PO BID #30 tablet 07/14/20 Unknown Rx Sennosides Tab [Senokot] 8.6 mg PO Q12HR #30 tablet 07/14/20 Unknown Rx oxyCODONE /ACETAMINOPHEN [Percocet 1 tab PO Q6HR PRN #14 tablet 07/14/20 Unknown Rx 5/325] traMADoL [Ultram 50 MG tab] 50 mg PO Q6HR PRN #7 tablet 10/12/20 Unknown Rx Amoxicillin/Potassium Clav 1 each PO Q12H 10 Days #20 tablet 11/09/20 Unknown Rx [Augmentin 875-125 Tablet] Ibuprofen [Motrin] 800 mg PO Q8HR PRN 7 Days #21 11/09/20 Unknown Rx tablet Allergies Allergy/AdvReac Type Severity Reaction Status Date / Time No Known Allergies Allergy Verified 09/14/20 14:13 ED Review of Systems ROS: Stated complaint: TOOTHACHE/INFECTION Other details as noted in HPI Comment: All other systems reviewed and negative Constitutional: no symptoms reported Eyes: denies: eye pain ENT: dental pain. denies: ear pain, throat pain Respiratory: no symptoms reported. denies: cough Endocrine: no symptoms reported Gastrointestinal: denies: abdominal pain, nausea, vomiting Neurological: denies: headache, weakness, numbness, paresthesias Psychiatric: denies: anxiety ED Past Medical Hx - Past Medical History Hx Hypertension: Yes Hx Diabetes: Yes Hx Psychiatric Treatment: Yes (Depression, Bipolar) Hx HIV: Yes Additional medical history: CAD, High Cholesterol - Surgical History Additional Surgical History: Hernia repair 2019 - Social History Smoking Status: Current Every Day Smoker - Medications Home Medications: Home Medications Medication Instructions Recorded Confirmed Last Taken Type Aspirin 81 mg PO DAILY 07/13/20 07/13/20 1 Day Ago History ~07/12/20 AtorvaSTATin 40 mg PO HS 07/13/20 07/13/20 1 Day Ago History ~07/12/20 Biktarvy 50-200-25 mg (Nf) 50 mg PO DAILY 07/13/20 07/13/20 1 Day Ago History ~07/12/20 buPROPion 150 mg PO DAILY 07/13/20 07/13/20 1 Day Ago History ~07/12/20 carvediloL 6.25 mg PO DAILY 07/13/20 07/13/20 1 Day Ago History ~07/12/20 risperiDONE 1 mg PO DAILY 07/13/20 07/13/20 1 Day Ago History ~07/12/20 Apixaban [Eliquis] 5 mg PO BID #60 tablet 07/14/20 Unknown Rx Azithromycin [Zithromax TAB] 500 mg PO QDAY #5 tablet 07/14/20 Unknown Rx Famotidine [Pepcid] 20 mg PO BID #30 tablet 07/14/20 Unknown Rx Sennosides Tab [Senokot] 8.6 mg PO Q12HR #30 tablet 07/14/20 Unknown Rx oxyCODONE /ACETAMINOPHEN [Percocet 1 tab PO Q6HR PRN #14 tablet 07/14/20 Unknown Rx 5/325] traMADoL [Ultram 50 MG tab] 50 mg PO Q6HR PRN #7 tablet 10/12/20 Unknown Rx Amoxicillin/Potassium Clav 1 each PO Q12H 10 Days #20 tablet 11/09/20 Unknown Rx [Augmentin 875-125 Tablet] Ibuprofen [Motrin] 800 mg PO Q8HR PRN 7 Days #21 11/09/20 Unknown Rx tablet ED Physical Exam - General Limitations: No Limitations General appearance: alert, in no apparent distress - Head Head exam: Present: atraumatic - Eye Eye exam: Present: normal appearance - ENT ENT exam: Present: mucous membranes moist, other (Widespread dental caries mild right cheek swelling opens his mouth without any difficulty) - Neck Neck exam: Present: normal inspection, full ROM. Absent: lymphadenopathy - Respiratory Respiratory exam: Present: normal lung sounds bilaterally. Absent: respiratory distress, wheezes - Cardiovascular Cardiovascular Exam: Present: regular rate, normal rhythm - Neurological Exam Neurological exam: Present: alert, oriented X3 - Psychiatric Psychiatric exam: Present: normal affect - Skin Skin exam: Present: warm, dry, intact, normal color ED Course Vital Signs 11/08/20 11/08/20 14:47 14:51 Temperature 101.5 F H Pulse Rate 113 H Respiratory 18 Rate Blood Pressure 143/87 O2 Sat by Pulse 95 Oximetry ED Medical Decision Making - Lab Data Result diagrams: 11/08/20 15:01 11/08/20 15:01 - Radiology Data Radiology results: report reviewed CT of face COMPARISON: None FINDINGS: Dentition is quite poor, with abnormal periapical lucency in the right maxilla involving teeth number 1, 2, and 3 (centered over the right maxillary molars). There is abnormal circumferential mucosal thickening of the right maxillary sinus, as well as soft tissue swelling overlying the right cheek. No abscess formation identified. Several enlarged lymph nodes are present which are most likely reactive. Remaining sinuses and mastoid air cells are clear. Orbits are normal. No other osseous abnormality identified IMPRESSION: Poor dentition with abnormal periapical lucencies involving the above number teeth worrisome for periapical abscess formation. Soft tissue swelling is seen overlying the right cheek and there is circumferential mucosal thickening in the right maxillary sinus, otherwise no appreciable soft tissue abscess identified. - Medical Decision Making 45-year-old male with past medical history of HIV CAD depression. He comes in with a 3-day complaint of dental pain to the right upper molars. There is mild facial swelling noted to the right cheek. Patient opens his mouth with ease. He is also found to be febrile. CT of the face reveals right maxillary sinus sinusitis and early periapical abscess formation. Patient given a dose of Augmentin 875 in the emergency room. Rx for Augmentin and ibuprofen given and the importance of dental follow-up was stressed to patient - Differential Diagnosis Dental abscess, maxillary sinusitis Critical Care Time: No Critical care attestation.: If time is entered above; I have spent that time in minutes in the direct care of this critically ill patient, excluding procedure time. ED Disposition Clinical Impression: Abscess, dental, Right maxillary sinusitis Disposition: TO HOME OR SELFCARE Is pt being admited?: No Does the pt Need Aspirin: No Condition: Stable Instructions: Sinusitis, Adult, [id number], Dental Abscess Prescriptions: Amoxicillin/Potassium Clav [Augmentin 875-125 Tablet] 1 each PO Q12H 10 Days #20 tablet Ibuprofen [Motrin] 800 mg PO Q8HR PRN 7 Days #21 tablet PRN Reason: Toothache Referrals: PRIMARY CARE,MD [Primary Care Provider] - 3-5 Days [facility] [Outside] - 3-5 Days [facility] [Outside] - 3-5 Days Time of Disposition: 00:50
--- NOTE | 2020-11-09 00:29 | Cat Scan Report ---
CT maxillofacial with contrast INDICATION : MAIN. TECHNIQUE: Axial imaging performed through the face with reconstructed images also reviewed. 100 mL of Omnipaque 300 intravenous contrast was given. All CT scans at this location are performed using CT dose reduction for ALARA by means of automated exposure control. COMPARISON: None FINDINGS: Dentition is quite poor, with abnormal periapical lucency in the right maxilla involving t eeth number 1, 2, and 3 (centered over the right maxillary molars). There is abnormal circumferential mucosal thickening of the right maxillary sinus, as well as soft tissue swelling overlying the right cheek. No abscess formation identified. Several enlarged lymph nodes are present which are most like ly reactive. Remaining sinuses and mastoid air cells are clear. Orbits are normal. No other osseous a bnormality identified IMPRESSION: Poor dentition with abnormal periapical lucencies involving the above number teeth worris ome for periapical abscess formation. Soft tissue swelling is seen overlying the right cheek and ther e is circumferential mucosal thickening in the right maxillary sinus, otherwise no appreciable soft t issue abscess identified. Signer Name: Sloan Solomon MD Signed: 11/09/2020 12:24 AM Workstation Name: [id number]
[2020-11-09] MEDS ORDERED: AMOXICILLIN/K CLAV 875/125MG TAB PO ONE (00:50)
== END 2020-11-09 01:00 | disposition home or self-care (01) ==
LOC: ED 14:21
DX: K04.7 Periapical abscess without sinus (principal); J32.0 Chronic maxillary sinusitis; I10 Essential (primary) hypertension; E11.9 Type 2 diabetes mellitus without complications; F31.9 Bipolar disorder, unspecified; F17.200 Nicotine dependence, unspecified, uncomplicated; Z21 Asymptomatic human immunodeficiency virus [HIV] infection status; Z79.82 Long term (current) use of aspirin; Z79.899 Other long term (current) drug therapy
CPT/HCPCS: 36415; 70487; 80053; 82140; 85025; 87040; 99284; Q9967

== ENCOUNTER 2021-01-06 15:19 | Emergency (ER) | payer SELFPAY ==
--- NOTE | 2021-01-06 16:35 | Emergency Department Report ---
Blank Doc - Documentation Documentation: 45-year-old male that presents with abdominal pain with destination and purulent drainage. History of hernia repair last year. 1- This initial assessment/diagnostic orders/clinical plan/ treatment(s) is/are subject to change based on pt's health status, clinical progression and re- assessment by fellow clinical providers in the ED. Further treatment and workup at subsequent clinical provers discretion. Patient/guardians urged not to elope from ED as their condition may be serious if not clinically assessed and managed. 2-labs 3-UA 4-
[2021-01-06 17:20] LABS: Basophils % (Auto) 0.9 % (0.0-1.8); Eosinophils # (Auto) 0.2 K/mm3 (0.0-0.4); Eosinophils % (Auto) 4.4 % (0.0-4.3); Hematocrit 38.8 % (35.5-45.6); Hemoglobin 12.7 gm/dl (11.8-15.2); Lymphocytes # (Auto) 1.6 K/mm3 (1.2-5.4); Lymphocytes % (Auto) 34.3 % (13.4-35.0); Mean Corpuscular HGB Conc 33 % (32-34); Mean Corpuscular Volume 89 fl (84-94); Monocytes # (Auto) 0.4 K/mm3 (0.0-0.8); Monocytes % (Auto) 8.7 % (0.0-7.3); Platelet Count 144 K/mm3 (140-440); Red Blood Count 4.37 M/mm3 (3.65-5.03); Red Cell Distribution Width 16.4 % (13.2-15.2)
[2021-01-06 17:31] LABS: Alanine Aminotransferase 11 units/L (7-56); Albumin 3.4 g/dL (3.9-5); BUN/Creatinine Ratio 15; Blood Urea Nitrogen 19 mg/dL (9-20); Calcium 8.4 mg/dL (8.4-10.2); Hemolysis Index 0
[2021-01-06] MEDS ORDERED: VANCOMYCIN/NS 1 GM/250 ML 1 GM/250 ML BAG IV ONE (21:27)
[2021-01-06] MEDS ORDERED: PIPERACIL/TAZOBACTA 4.5/NS 100 4.5 GM/100 ML VIAL IV ONE (21:28)
[2021-01-06] MEDS ORDERED: SODIUM CHLORIDE 0.9% 1000 ML 1,000 ML IV ONE (21:28)
--- NOTE | 2021-01-06 21:35 | Emergency Department Report ---
HPI - General Chief Complaint: Abdominal Pain Time Seen by Provider: 01/06/21 16:34 - HPI HPI: 45-year-old -[place] male presents to the emergency department with a complaint of mid abdominal pain with a wound that is having purulent discharge and this has been going on over the past 3 weeks. The patient had a ventral hernia surgery in July of last year that was done at [facility]. He has a history of HIV for which he says he is compliant with his medications. He also has a history of high cholesterol, depression and bipolar disorder. He denies any fever, nausea, vomiting, constipation, diarrhea, dysuria. No recent travel or sick contacts at home. Currently the pain is 5 out of 10 in intensity. It worsens with palpation of the abdomen or with certain movements. No known alleviating factors. ED Past Medical Hx - Past Medical History Hx Hypertension: Yes Hx Diabetes: Yes Hx Psychiatric Treatment: Yes (Depression, Bipolar) Hx HIV: Yes Additional medical history: CAD, High Cholesterol - Surgical History Additional Surgical History: Hernia repair 2019 - Social History Smoking Status: Current Every Day Smoker - Medications Home Medications: Home Medications Medication Instructions Recorded Confirmed Last Taken Type Aspirin 81 mg PO DAILY 07/13/20 07/13/20 1 Day Ago History ~07/12/20 AtorvaSTATin 40 mg PO HS 07/13/20 07/13/20 1 Day Ago History ~07/12/20 Biktarvy 50-200-25 mg (Nf) 50 mg PO DAILY 07/13/20 07/13/20 1 Day Ago History ~07/12/20 buPROPion 150 mg PO DAILY 07/13/20 07/13/20 1 Day Ago History ~07/12/20 carvediloL 6.25 mg PO DAILY 07/13/20 07/13/20 1 Day Ago History ~07/12/20 risperiDONE 1 mg PO DAILY 07/13/20 07/13/20 1 Day Ago History ~07/12/20 Apixaban [Eliquis] 5 mg PO BID #60 tablet 07/14/20 Unknown Rx Azithromycin [Zithromax TAB] 500 mg PO QDAY #5 tablet 07/14/20 Unknown Rx Famotidine [Pepcid] 20 mg PO BID #30 tablet 07/14/20 Unknown Rx Sennosides Tab [Senokot] 8.6 mg PO Q12HR #30 tablet 07/14/20 Unknown Rx oxyCODONE /ACETAMINOPHEN [Percocet 1 tab PO Q6HR PRN #14 tablet 07/14/20 Unknown Rx 5/325] Amoxicillin/Potassium Clav 1 each PO Q12H 10 Days #20 tablet 11/09/20 Unknown Rx [Augmentin 875-125 Tablet] Ibuprofen [Motrin] 800 mg PO Q8HR PRN 7 Days #21 11/09/20 Unknown Rx tablet Sulfamethoxazole/Trimethoprim 1 each PO BID #14 tablet 01/06/21 Unknown Rx [Bactrim DS TAB] traMADoL [Ultram 50 MG tab] 50 mg PO Q6HR PRN #10 tablet 01/06/21 Unknown Rx ED Review of Systems ROS: Stated complaint: HERNIA SURGERY 7 MONTHS AGO/INFECTED Other details as noted in HPI Comment: All other systems reviewed and negative Constitutional: denies: chills, fever Eyes: denies: eye pain, vision change ENT: denies: ear pain, throat pain Respiratory: denies: cough, shortness of breath Cardiovascular: denies: chest pain, palpitations Gastrointestinal: abdominal pain. denies: nausea, vomiting Genitourinary: denies: dysuria, discharge Musculoskeletal: denies: back pain, arthralgia Skin: other (Abdominal wound with purulent discharge). denies: rash Neurological: denies: headache, weakness Physical Exam - Physical Exam Vital Signs: Vital Signs 01/06/21 16:18 Temperature 98 F Pulse Rate 89 Respiratory 20 Rate Blood Pressure 120/69 [Right] O2 Sat by Pulse 98 Oximetry Physical Exam: GENERAL: The patient is well-developed well-nourished. HENT: Normocephalic. Atraumatic. Patient has moist mucous membranes. EYES: Extraocular motions are intact. NECK: Supple. Trachea is midline. CHEST/LUNGS: Clear to auscultation. There is no respiratory distress noted. HEART/CARDIOVASCULAR: Regular. There is no tachycardia. There is no murmur. ABDOMEN: Abdomen is soft. There is some mid abdominal and/or periumbilical tenderness to palpation. Patient has normal bowel sounds. SKIN: Skin is warm and dry. There is some mild erythema to the mid abdomen and periumbilical abdominal wall. In the middle of this is a small wound with some purulent drainage seen. NEURO: The patient is awake, alert, and oriented. The patient is cooperative. The patient has no focal neurologic deficits. Normal speech. MUSCULOSKELETAL: There is no tenderness or deformity. There is no limitation range of motion. ED Course Vital Signs 01/06/21 16:18 Temperature 98 F Pulse Rate 89 Respiratory 20 Rate Blood Pressure 120/69 [Right] O2 Sat by Pulse 98 Oximetry - Reevaluation(s) Reevaluation #1: 01/06/21 21:35 I just came out of the patient's room for my initial evaluation. He appears to have a wound to the lower midline abdomen, just above the umbilicus, with visible purulent discharge. It is slightly indurated surrounding this wound and some mild erythema. His labs, that were ordered through triage, have been mostly unremarkable. A wound culture will be sent. The patient will receive IV fluid resuscitation and some IV antibiotics. He will be sent for a CT scan of the abdomen pelvis with IV contrast to see the extent of this abscess and/or tract. - Consultations Consultation #1: 01/06/21 22:58 I discussed the case with the general surgeon on-call, Dr. Soto, who feels the patient is safe for discharge home on antibiotics and has instructed that the patient follow-up with his general surgeon at [facility]. ED Medical Decision Making - Lab Data Result diagrams: 01/06/21 16:37 01/06/21 16:37 Lab Results 01/06/21 01/06/21 01/06/21 Range/Units 16:37 16:37 22:10 WBC 4.6 (4.5-11.0) K/mm3 RBC 4.37 (3.65-5.03) M/mm3 Hgb 12.7 (11.8-15.2) gm/dl Hct 38.8 (35.5-45.6) % MCV 89 (84-94) fl MCH 29 (28-32) pg MCHC 33 (32-34) % RDW 16.4 H (13.2-15.2) % Plt Count 144 (140-440) K/mm3 Lymph % (Auto) 34.3 (13.4-35.0) % Will % (Auto) 8.7 H (0.0-7.3) % Eos % (Auto) 4.4 H (0.0-4.3) % Baso % (Auto) 0.9 (0.0-1.8) % Lymph # (Auto) 1.6 (1.2-5.4) K/mm3 Will # (Auto) 0.4 (0.0-0.8) K/mm3 Eos # (Auto) 0.2 (0.0-0.4) K/mm3 Baso # (Auto) 0.0 (0.0-0.1) K/mm3 Seg Neutrophils % 51.7 (40.0-70.0) % Seg Neutrophils # 2.4 (1.8-7.7) K/mm3 Sodium 136 L (137-145) mmol/L Potassium 3.8 (3.6-5.0) mmol/L Chloride 102.8 (98-107) mmol/L Carbon Dioxide 25 (22-30) mmol/L Anion Gap 12 mmol/L BUN 19 (9-20) mg/dL Creatinine 1.3 (0.8-1.3) mg/dL Estimated GFR > 60 ml/min BUN/Creatinine Ratio 15 % Glucose 91 (75-100) mg/dL Calcium 8.4 (8.4-10.2) mg/dL Total Bilirubin 0.40 (0.1-1.2) mg/dL AST 15 (5-40) units/L ALT 11 (7-56) units/L Alkaline Phosphatase 106 (35-129) units/L Total Protein 7.3 (6.3-8.2) g/dL Albumin 3.4 L (3.9-5) g/dL Albumin/Globulin Ratio 0.9 % Lipase 24 (13-60) units/L Urine Color Yellow (Yellow) Urine Turbidity Clear (Clear) Urine pH 5.0 (5.0-7.0) Ur Specific [place] 1.023 (1.003-1.030) Urine Protein <15 mg/dl (Negative) mg/dL Urine Glucose (UA) Neg (Negative) mg/dL Urine Ketones Neg (Negative) mg/dL Urine Blood Neg (Negative) Urine Nitrite Neg (Negative) Urine Bilirubin Neg (Negative) Urine Urobilinogen 2.0 (<2.0) mg/dL Ur Leukocyte Esterase Neg (Negative) Urine WBC (Auto) 1.0 (0.0-6.0) /HPF Urine RBC (Auto) 2.0 (0.0-6.0) /HPF U Epithel Cells (Auto) < 1.0 (0-13.0) /HPF - Radiology Data Radiology results: report reviewed CT ABDOMEN AND PELVIS WITH CONTRAST INDICATION / CLINICAL INFORMATION: Abd wall infection, hx of ventral hernia repair. TECHNIQUE: Axial CT images were obtained through the abdomen and pelvis after IV contrast. All CT scans at this location are performed using CT dose reduction for ALARA by means of automated exposure control. COMPARISON: None available. FINDINGS: LOWER CHEST: No significant abnormality LIVER: No significant abnormality GALLBLADDER/BILIARY TREE: Gallbladder is contracted without acute abnormality. PANCREAS: No significant abnormality SPLEEN: No significant abnormality ADRENALS: No significant abnormality KIDNEYS / URETER: No significant abnormality URINARY BLADDER: Bladder is partially decompressed, though grossly unremarkable. REPRODUCTIVE ORGANS: No significant abnormality STOMACH / SMALL BOWEL: Stomach and small bowel are normal in caliber. No evidence of bowel inflammation. COLON: The colon is unremarkable. The appendix is normal in caliber. LYMPH NODES: No significant adenopathy. 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 OTHER: There is inflammatory stranding in prominent skin and soft tissue thickening of the ventral abdominal wall at the midline, involving the region of the umbilicus. There is abnormal thickening of the left rectus abdominis musculature, suggesting involvement. No discrete abscess. 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 No acute process identified. IMPRESSION: 1. Inflammatory stranding and prominent skin and soft tissue thickening of the ventral abdominal wall involving the region of the umbilicus and left rectus abdominis musculature. Findings are in keeping with clinically suspected soft tissue infection. No evidence of abscess. 2. 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 3. Other chronic, incidental findings as above. - Medical Decision Making This patient presents with a few weeks of some periumbilical/mid abdominal discomfort with a history of a ventral hernia repair from July of last year from [facility]. On examination the patient has a small area of cellulitis with a small wound opening in the center with some mild purulent drainage seen. Labs have been unremarkable including CBC, metabolic panel and lipase. A CT scan of the abdomen and pelvis with IV contrast was done that shows some inflammatory changes to the periumbilical abdominal wall with some thickening and/or involvement of the left rectus abdominis musculature. There is no discrete abscess seen. Patient's vital signs have been reassuring including being afebrile. I spoke with general surgery who agrees that the patient appears safe for discharge home at this time with outpatient follow-up and a prescription for antibiotics. The patient was reevaluated after receiving IV antibiotics, IV fluid resuscitation and IV analgesia and is feeling improved. He will follow-up with his general surgeon at [facility], has been given outpatient referral for the wound care clinic, and will return to the closest emergency department with any worsening of his symptoms or with any acute distress. Critical Care Time: No Critical care attestation.: If time is entered above; I have spent that time in minutes in the direct care of this critically ill patient, excluding procedure time. ED Disposition Clinical Impression: Abdominal wall cellulitis, History of HIV infection Disposition: TO HOME OR SELFCARE Is pt being admited?: No Condition: Stable Instructions: Cellulitis, Adult Additional Instructions: Please follow-up with your general surgeon at [facility] in the next few days. Clean the area with soap and water and then make sure it remains dry. Take the medications as prescribed. I am giving you a referral for the wound care clinic. Return to the emergency department with any worsening of your symptoms, new or concerning symptoms not addressed during this current emergency department visit, or with any acute distress. Prescriptions: Sulfamethoxazole/Trimethoprim [Bactrim DS TAB] 1 each PO BID #14 tablet traMADoL [Ultram 50 MG tab] 50 mg PO Q6HR PRN #10 tablet PRN Reason: Pain , Severe (7-10) Referrals: [facility] [Outside] - 2-3 Days [facility] General Surgeon, Your [Other] - 2-3 Days Forms: Work/School Release Form(ED) Time of Disposition: 23:09
[2021-01-06] MEDS ORDERED: MORPHINE 4 MG/1 ML INJ IV ONE (22:18)
--- NOTE | 2021-01-06 22:31 | Cat Scan Report ---
CT ABDOMEN AND PELVIS WITH CONTRAST INDICATION / CLINICAL INFORMATION: Abd wall infection, hx of ventral hernia repair. TECHNIQUE: Axial CT images were obtained through the abdomen and pelvis after IV contrast. All CT sc ans at this location are performed using CT dose reduction for ALARA by means of automated exposure c ontrol. COMPARISON: None available. FINDINGS: LOWER CHEST: No significant abnormality LIVER: No significant abnormality GALLBLADDER/BILIARY TREE: Gallbladder is contracted without acute abnormality. PANCREAS: No significant abnormality SPLEEN: No significant abnormality ADRENALS: No significant abnormality KIDNEYS / URETER: No significant abnormality URINARY BLADDER: Bladder is partially decompressed, though grossly unremarkable. REPRODUCTIVE ORGANS: No significant abnormality STOMACH / SMALL BOWEL: Stomach and small bowel are normal in caliber. No evidence of bowel inflammati on. COLON: The colon is unremarkable. The appendix is normal in caliber. LYMPH NODES: No significant adenopathy. VASCULATURE: Diffusely ectatic abdominal aorta with aneurysmal dilatation of the bilateral common valeriano ac arteries, measuring 1.8 cm on the right and 2.1 cm on the left. OTHER: There is inflammatory stranding in prominent skin and soft tissue thickening of the ventral ab dominal wall at the midline, involving the region of the umbilicus. There is abnormal thickening of t he left rectus abdominis musculature, suggesting involvement. No discrete abscess. 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 No acute process identified. IMPRESSION: 1. Inflammatory stranding and prominent skin and soft tissue thickening of the ventral abdominal wall involving the region of the umbilicus and left rectus abdominis musculature. Findings are in keeping with clinically suspected soft tissue infection. No evidence of abscess. 2. Diffusely ectatic abdominal aorta with aneurysmal dilatation of the bilateral common iliac arterie s. 3. Other chronic, incidental findings as above. Signer Name: Cristopher Renteria MD Signed: 01/06/2021 10:27 PM Workstation Name: [id number]
[2021-01-06 22:32] LABS: Bilirubin,Urine NEG (Negative); Blood,Urine NEG (Negative); Color,Urine Yellow (Yellow); Protein,Urine <15 mg/dL mg/dL (Negative)
[2021-01-07 00:26] VITALS: BP 112/54
== END 2021-01-07 00:30 | disposition home or self-care (01) ==
LOC: ED 15:19
DX: L03.311 Cellulitis of abdominal wall (principal); I10 Essential (primary) hypertension; E11.9 Type 2 diabetes mellitus without complications; F31.9 Bipolar disorder, unspecified; I25.10 Atherosclerotic heart disease of native coronary artery without angina pectoris; E78.00 Pure hypercholesterolemia, unspecified; F17.200 Nicotine dependence, unspecified, uncomplicated; Z21 Asymptomatic human immunodeficiency virus [HIV] infection status; Z98.890 Other specified postprocedural states; Z79.899 Other long term (current) drug therapy; Z91.018 Allergy to other foods
CPT/HCPCS: 36415; 74177; 80053; 81001; 83690; 85025; 87116; 96365; 96366; 96368; 96375; 99284; J2270; J2543; J3370; J7030; Q9967

== ENCOUNTER 2021-01-22 19:16 | Emergency (ER) | payer SELFPAY ==
--- NOTE | 2021-01-22 19:57 | Event Note ---
ED Screening Note Date of service: 01/22/21 Time: 19:55 ED Screening Note: pt is a 46 y/o male who presents for abdominal pain s/p umbilical hernia repair 6 months ago states pain swelling redness, fever chills , pain 5/1 radiates to epigastric region, symptoms excerbated by po intake, pain relieved by nothing. This initial assessment/diagnostic orders/clinical plan/treatment(s) is/are subject to change based on patients health status, clinical progression and re- assessment by fellow clinical providers in the ED. Further treatment and workup at subsequent clinical providers discretion. Patient/guardian urged not to elope from the ED as their condition may be serious if not clinically assessed and managed. Initial orders include: cmp, cbc , lactic acid, bc x 2, iv, ct abd pelvis,
[2021-01-22 20:28] LABS: Basophils % (Auto) 0.6 % (0.0-1.8); Eosinophils # (Auto) 0.3 K/mm3 (0.0-0.4); Eosinophils % (Auto) 5.1 % (0.0-4.3); Hematocrit 40.3 % (35.5-45.6); Hemoglobin 13.2 gm/dl (11.8-15.2); Lymphocytes # (Auto) 1.9 K/mm3 (1.2-5.4); Lymphocytes % (Auto) 37.7 % (13.4-35.0); Mean Corpuscular HGB Conc 33 % (32-34); Mean Corpuscular Volume 90 fl (84-94); Monocytes # (Auto) 0.4 K/mm3 (0.0-0.8); Monocytes % (Auto) 7.7 % (0.0-7.3); Platelet Count 175 K/mm3 (140-440); Red Blood Count 4.48 M/mm3 (3.65-5.03); Red Cell Distribution Width 16.9 % (13.2-15.2)
[2021-01-22 20:53] LABS: Alanine Aminotransferase 9 units/L (7-56); Albumin 3.8 g/dL (3.9-5); BUN/Creatinine Ratio 11; Blood Urea Nitrogen 13 mg/dL (9-20); Calcium 8.7 mg/dL (8.4-10.2); Hemolysis Index 4
--- NOTE | 2021-01-22 23:09 | Cat Scan Report ---
CT ABDOMEN AND PELVIS WITH CONTRAST INDICATION / CLINICAL INFORMATION: Epigastric abd pain, S/P Umbilical Hernia Repair x 6 months ago. TECHNIQUE: Axial CT images were obtained through the abdomen and pelvis after Omnipaque 300, 100 cc I V contrast. All CT scans at this location are performed using CT dose reduction for ALARA by means o f automated exposure control. COMPARISON: CT abdomen and pelvis 01/06/2020. FINDINGS: LOWER CHEST: No significant abnormality. LIVER: No significant abnormality. GALLBLADDER: Contracted. BILE DUCTS: No significant abnormality. PANCREAS: No significant abnormality. SPLEEN: No significant abnormality. ADRENALS: No significant abnormality. RIGHT KIDNEY / URETER: Small cysts. LEFT KIDNEY / URETER: No significant abnormality. STOMACH / SMALL BOWEL: No significant abnormality. COLON: No significant abnormality. APPENDIX: No significant abnormality. PERITONEUM: No free fluid. No free air. No fluid collection. LYMPH NODES: No significant adenopathy. VASCULAR STRUCTURES: Mild aortic ectasia and prominence of the IVC and iliac veins unchanged. URINARY BLADDER: No significant abnormality. REPRODUCTIVE ORGANS: No significant abnormality. ADDITIONAL FINDINGS: Prominent inflammation within the soft tissues at the anterior abdominal wall at the hernia repair site. Associated thickening involving the medial aspect of the left rectus muscle. No abscess. SKELETAL SYSTEM: No significant abnormality. IMPRESSION: Persistent changes anterior abdominal wall at hernia repair site. No abscess. Signer Name: Carlos Palafox MD Signed: 01/22/2021 11:04 PM Workstation Name: [id number]
[2021-01-23] MEDS ORDERED: ONDANSETRON 4 MG/2 ML INJ IV ONE (02:45)
[2021-01-23] MEDS ORDERED: MORPHINE 4 MG/1 ML INJ IV ONE (02:45)
--- NOTE | 2021-01-23 03:15 | Emergency Department Report ---
ED Abdominal Pain HPI - General Chief Complaint: Chest Pain Stated Complaint: ABD PAIN Time Seen by Provider: 01/23/21 02:32 Source: patient, EMS Mode of arrival: Ambulatory Limitations: No Limitations - History of Present Illness Initial Comments: Patient is 46 years old male with history of HIV and hernia repair 7 months ago at [facility]. Patient presented with unhealed wound. Patient stated that he started having some fever and chills. Patient denied any nausea or vomiting. Patient denied any other symptoms. MD Complaint: abdominal pain Severity scale (0 -10): 10 - Related Data Home Medications Medication Instructions Recorded Confirmed Last Taken Aspirin 81 mg PO DAILY 07/13/20 07/13/20 1 Day Ago ~07/12/20 AtorvaSTATin 40 mg PO HS 07/13/20 07/13/20 1 Day Ago ~07/12/20 Biktarvy 50-200-25 mg (Nf) 50 mg PO DAILY 07/13/20 07/13/20 1 Day Ago ~07/12/20 buPROPion 150 mg PO DAILY 07/13/20 07/13/20 1 Day Ago ~07/12/20 carvediloL 6.25 mg PO DAILY 07/13/20 07/13/20 1 Day Ago ~07/12/20 risperiDONE 1 mg PO DAILY 07/13/20 07/13/20 1 Day Ago ~07/12/20 Previous Rx's Medication Instructions Recorded Last Taken Type Apixaban [Eliquis] 5 mg PO BID #60 tablet 07/14/20 Unknown Rx Azithromycin [Zithromax TAB] 500 mg PO QDAY #5 tablet 07/14/20 Unknown Rx Famotidine [Pepcid] 20 mg PO BID #30 tablet 07/14/20 Unknown Rx Sennosides Tab [Senokot] 8.6 mg PO Q12HR #30 tablet 07/14/20 Unknown Rx oxyCODONE /ACETAMINOPHEN [Percocet 1 tab PO Q6HR PRN #14 tablet 07/14/20 Unknown Rx 5/325] Amoxicillin/Potassium Clav 1 each PO Q12H 10 Days #20 tablet 11/09/20 Unknown Rx [Augmentin 875-125 Tablet] Ibuprofen [Motrin] 800 mg PO Q8HR PRN 7 Days #21 11/09/20 Unknown Rx tablet Sulfamethoxazole/Trimethoprim 1 each PO BID #14 tablet 01/06/21 Unknown Rx [Bactrim DS TAB] traMADoL [Ultram 50 MG tab] 50 mg PO Q6HR PRN #10 tablet 01/06/21 Unknown Rx Allergies Allergy/AdvReac Type Severity Reaction Status Date / Time fish oil Allergy Hives Verified 01/06/21 16:16 ED Review of Systems ROS: Stated complaint: ABD PAIN Other details as noted in HPI Comment: All other systems reviewed and negative Constitutional: chills, fever Cardiovascular: denies: chest pain, palpitations Gastrointestinal: abdominal pain. denies: nausea, vomiting, diarrhea, constipation, hematemesis Musculoskeletal: denies: back pain Neurological: denies: weakness ED Past Medical Hx - Past Medical History Hx Hypertension: Yes Hx Diabetes: Yes Hx Psychiatric Treatment: Yes (Depression, Bipolar) Hx HIV: Yes Additional medical history: CAD, High Cholesterol - Surgical History Additional Surgical History: Hernia repair 2019 - Social History Smoking Status: Current Every Day Smoker Substance Use Type: Alcohol, Marijuana - Medications Home Medications: Home Medications Medication Instructions Recorded Confirmed Last Taken Type Aspirin 81 mg PO DAILY 07/13/20 07/13/20 1 Day Ago History ~07/12/20 AtorvaSTATin 40 mg PO HS 07/13/20 07/13/20 1 Day Ago History ~07/12/20 Biktarvy 50-200-25 mg (Nf) 50 mg PO DAILY 07/13/20 07/13/20 1 Day Ago History ~07/12/20 buPROPion 150 mg PO DAILY 07/13/20 07/13/20 1 Day Ago History ~07/12/20 carvediloL 6.25 mg PO DAILY 07/13/20 07/13/20 1 Day Ago History ~07/12/20 risperiDONE 1 mg PO DAILY 07/13/20 07/13/20 1 Day Ago History ~07/12/20 Apixaban [Eliquis] 5 mg PO BID #60 tablet 07/14/20 Unknown Rx Azithromycin [Zithromax TAB] 500 mg PO QDAY #5 tablet 07/14/20 Unknown Rx Famotidine [Pepcid] 20 mg PO BID #30 tablet 07/14/20 Unknown Rx Sennosides Tab [Senokot] 8.6 mg PO Q12HR #30 tablet 07/14/20 Unknown Rx oxyCODONE /ACETAMINOPHEN [Percocet 1 tab PO Q6HR PRN #14 tablet 07/14/20 Unknown Rx 5/325] Amoxicillin/Potassium Clav 1 each PO Q12H 10 Days #20 tablet 11/09/20 Unknown Rx [Augmentin 875-125 Tablet] Ibuprofen [Motrin] 800 mg PO Q8HR PRN 7 Days #21 11/09/20 Unknown Rx tablet Sulfamethoxazole/Trimethoprim 1 each PO BID #14 tablet 01/06/21 Unknown Rx [Bactrim DS TAB] traMADoL [Ultram 50 MG tab] 50 mg PO Q6HR PRN #10 tablet 01/06/21 Unknown Rx ED Physical Exam - General Limitations: No Limitations General appearance: alert, in no apparent distress - Head Head exam: Present: atraumatic, normocephalic, normal inspection - Eye Eye exam: Present: normal appearance - ENT ENT exam: Present: normal exam, normal orophraynx, mucous membranes moist - Neck Neck exam: Present: normal inspection, full ROM. Absent: tenderness, meningismus - Respiratory Respiratory exam: Present: normal lung sounds bilaterally - Cardiovascular Cardiovascular Exam: Present: regular rate, normal rhythm, normal heart sounds - GI/Abdominal GI/Abdominal exam: Present: soft, normal bowel sounds, other (Cellulitis around the surgical wound with redness.). Absent: distended, tenderness, guarding, rebound, rigid, organomegaly, mass, bruit, pulsatile mass ED Course Vital Signs 01/22/21 01/23/21 01/23/21 19:54 02:39 02:40 Temperature 98.1 F Pulse Rate 76 63 Respiratory 18 18 18 Rate Blood Pressure 126/76 Blood Pressure 149/82 [Left] O2 Sat by Pulse 100 100 100 Oximetry ED Medical Decision Making - Lab Data Result diagrams: 01/22/21 20:16 01/22/21 20:16 - Radiology Data Radiology results: report reviewed - Medical Decision Making Patient is 46 years old male with history of hernia repair 7 months ago at [facility]. Patient presented with unhealed wound. Patient stated that he started having some fever and chills. Patient denied any nausea or vomiting. Patient denied any other symptoms. Labs reviewed and is unremarkable. CT abdomen and pelvis showed no evidence of abscess. Patient received clindamycin 900 mg IV, morphine and Zofran. Patient stated that he is feeling better. Patient given prescription for clindamycin and advised to follow-up with his surgeon in the next 2 to 3 days and to return to the ER if he develop any new symptoms. Critical care attestation.: If time is entered above; I have spent that time in minutes in the direct care of this critically ill patient, excluding procedure time. ED Disposition Clinical Impression: Abdominal wall cellulitis, Wound infection Disposition: TO HOME OR SELFCARE Is pt being admited?: No Condition: Stable Referrals: PRIMARY CARE, [Primary Care Provider] - 3-5 Days
[2021-01-23 04:35] VITALS: BP 126/80
== END 2021-01-23 04:35 | disposition home or self-care (01) ==
LOC: ED 19:16
DX: L03.311 Cellulitis of abdominal wall (principal); T81.49XA Infection following a procedure, other surgical site, initial encounter; I10 Essential (primary) hypertension; E11.9 Type 2 diabetes mellitus without complications; J45.909 Unspecified asthma, uncomplicated; Z21 Asymptomatic human immunodeficiency virus [HIV] infection status; F32.9 Major depressive disorder, single episode, unspecified; F17.200 Nicotine dependence, unspecified, uncomplicated; F12.10 Cannabis abuse, uncomplicated; Z79.82 Long term (current) use of aspirin; Z79.899 Other long term (current) drug therapy; Z88.8 Allergy status to other drugs, medicaments and biological substances
CPT/HCPCS: 36415; 74177; 80053; 82140; 83690; 84484; 85025; 87040; 93005; 96365; 96375; 99284; J2270; J2405; Q9967

== ENCOUNTER 2021-02-19 10:38 | Observation (INO) | payer OTHER ==
[2021-02-19] MEDS ORDERED: ASPIRIN 325 MG TAB PO ONE (11:12)
[2021-02-19] MEDS ORDERED: NITROGLYCERIN 0.4 MG TAB SUBL SL ONE (11:12)
[2021-02-19] MEDS ORDERED: fentaNYL 100 MCG/2 ML INJ IV ONE (11:14)
[2021-02-19] MEDS ORDERED: FAMOTIDINE 20 MG/2 ML INJ IV ONE (11:14)
[2021-02-19] MEDS ORDERED: ACETAMINOPHEN 325 MG TAB PO PRN ×2 (11:14→23:53)
--- NOTE | 2021-02-19 11:15 | Emergency Department Report ---
ED General Adult HPI - General Chief complaint: Chest Pain Stated complaint: CHEST PAIN PUI?: No Time Seen by Provider: 02/19/21 10:58 Source: patient, EMS ( EMS documentation not available at time of chart dictation ), RN notes reviewed, old records reviewed Mode of arrival: Stretcher Limitations: No Limitations - History of Present Illness Initial comments: The patient was evaluated in the emergency department for symptoms described in the history of present illness. He/she was evaluated in the context of the global COVID-19 pandemic, which necessitated consideration that the patient might be at risk for infection with the virus that causes COVID-19. Institutional protocols and algorithms that pertain to the evaluation of patients at risk for COVID-19 are in a state of rapid change based on information released by regulatory bodies including the CDC and federal and state organizations. These policies and algorithms were followed during the patient's care in the emergency department. Please note that these policies, procedures and recommendations changed on a rapid basis. Patient is a 46-year-old gentleman. I have evaluated this patient in the past. His past medical history includes hypertension, HIV, recurrent pleural effusion, possible DVT, chronic anterior abdominal wall wound, noncompliant with Eliquis therapy The patient presents to the ER today with 2 complaints. His first complaint is chest pain. The chest pain started about 1 hour prior to presentation. The chest pain is constant. It does not radiate to the back, arms or neck. There is no vomiting. There is no diaphoresis. There is positive shortness of breath. Patient denies travel, surgery, immobilization. He has chronic left lower extremity swelling which is not new, worsened or different. He denies loss of taste and smell. No recent cardiac stress test, catheterization, or cardiac or stratification that he is aware of. His next complaint is anterior abdominal wall pain and discharge. Apparently, as per review of old medical records, this wound has been present since 2019. He has had multiple CT scans of the abdomen pelvis at this facility, for this anterior abdominal wound. However, he believes it is draining a little bit more over the past week, and more tender and more painful than usual. -: Gradual, hour(s), days(s) Location: chest, abdomen Radiation: non-radiation Severity scale (0 -10): 8 Quality: aching Consistency: constant Improves with: rest Worsens with: movement - Related Data Home Medications Medication Instructions Recorded Confirmed Last Taken Aspirin 81 mg PO DAILY 07/13/20 07/13/20 1 Day Ago ~07/12/20 AtorvaSTATin 40 mg PO HS 07/13/20 07/13/20 1 Day Ago ~07/12/20 Biktarvy 50-200-25 mg (Nf) 50 mg PO DAILY 07/13/20 07/13/20 1 Day Ago ~07/12/20 buPROPion 150 mg PO DAILY 07/13/20 07/13/20 1 Day Ago ~07/12/20 carvediloL 6.25 mg PO DAILY 07/13/20 07/13/20 1 Day Ago ~07/12/20 risperiDONE 1 mg PO DAILY 07/13/20 07/13/20 1 Day Ago ~07/12/20 Previous Rx's Medication Instructions Recorded Last Taken Type Apixaban [Eliquis] 5 mg PO BID #60 tablet 07/14/20 Unknown Rx Azithromycin [Zithromax TAB] 500 mg PO QDAY #5 tablet 07/14/20 Unknown Rx Famotidine [Pepcid] 20 mg PO BID #30 tablet 07/14/20 Unknown Rx Sennosides Tab [Senokot] 8.6 mg PO Q12HR #30 tablet 07/14/20 Unknown Rx oxyCODONE /ACETAMINOPHEN [Percocet 1 tab PO Q6HR PRN #14 tablet 07/14/20 Unknown Rx 5/325] Amoxicillin/Potassium Clav 1 each PO Q12H 10 Days #20 tablet 11/09/20 Unknown Rx [Augmentin 875-125 Tablet] Ibuprofen [Motrin] 800 mg PO Q8HR PRN 7 Days #21 11/09/20 Unknown Rx tablet Sulfamethoxazole/Trimethoprim 1 each PO BID #14 tablet 01/06/21 Unknown Rx [Bactrim DS TAB] traMADoL [Ultram 50 MG tab] 50 mg PO Q6HR PRN #10 tablet 01/06/21 Unknown Rx Clindamycin [Clindamycin CAP] 300 mg PO Q8H #21 cap 01/23/21 Unknown Rx Ondansetron [Zofran Odt] 4 mg PO Q8HR PRN #14 tab.rapdis 01/23/21 Unknown Rx traMADoL [Ultram 50 MG tab] 50 mg PO Q4HR PRN #14 tablet 01/23/21 Unknown Rx Allergies Allergy/AdvReac Type Severity Reaction Status Date / Time fish oil Allergy Hives Verified 01/06/21 16:16 ED Review of Systems ROS: Stated complaint: CHEST PAIN Other details as noted in HPI Constitutional: denies: fever, malaise, weakness Eyes: denies: eye discharge Respiratory: shortness of breath. denies: cough Cardiovascular: chest pain Gastrointestinal: abdominal pain. denies: nausea, vomiting, diarrhea Genitourinary: denies: dysuria Musculoskeletal: myalgia Skin: rash, lesions Neurological: denies: weakness Hematological/Lymphatic: denies: easy bleeding ED Past Medical Hx - Past Medical History Hx Hypertension: Yes Hx Diabetes: Yes Hx Psychiatric Treatment: Yes (Depression, Bipolar) Hx HIV: Yes Additional medical history: CAD, High Cholesterol - Surgical History Additional Surgical History: Hernia repair 2019 - Social History Smoking Status: Current Every Day Smoker Substance Use Type: Alcohol, Marijuana - Medications Home Medications: Home Medications Medication Instructions Recorded Confirmed Last Taken Type Aspirin 81 mg PO DAILY 07/13/20 07/13/20 1 Day Ago History ~07/12/20 AtorvaSTATin 40 mg PO HS 07/13/20 07/13/20 1 Day Ago History ~07/12/20 Biktarvy 50-200-25 mg (Nf) 50 mg PO DAILY 07/13/20 07/13/20 1 Day Ago History ~07/12/20 buPROPion 150 mg PO DAILY 07/13/20 07/13/20 1 Day Ago History ~07/12/20 carvediloL 6.25 mg PO DAILY 07/13/20 07/13/20 1 Day Ago History ~07/12/20 risperiDONE 1 mg PO DAILY 07/13/20 07/13/20 1 Day Ago History ~07/12/20 Apixaban [Eliquis] 5 mg PO BID #60 tablet 07/14/20 Unknown Rx Azithromycin [Zithromax TAB] 500 mg PO QDAY #5 tablet 07/14/20 Unknown Rx Famotidine [Pepcid] 20 mg PO BID #30 tablet 07/14/20 Unknown Rx Sennosides Tab [Senokot] 8.6 mg PO Q12HR #30 tablet 07/14/20 Unknown Rx oxyCODONE /ACETAMINOPHEN [Percocet 1 tab PO Q6HR PRN #14 tablet 07/14/20 Unknown Rx 5/325] Amoxicillin/Potassium Clav 1 each PO Q12H 10 Days #20 tablet 11/09/20 Unknown Rx [Augmentin 875-125 Tablet] Ibuprofen [Motrin] 800 mg PO Q8HR PRN 7 Days #21 11/09/20 Unknown Rx tablet Sulfamethoxazole/Trimethoprim 1 each PO BID #14 tablet 01/06/21 Unknown Rx [Bactrim DS TAB] traMADoL [Ultram 50 MG tab] 50 mg PO Q6HR PRN #10 tablet 01/06/21 Unknown Rx Clindamycin [Clindamycin CAP] 300 mg PO Q8H #21 cap 01/23/21 Unknown Rx Ondansetron [Zofran Odt] 4 mg PO Q8HR PRN #14 tab.rapdis 01/23/21 Unknown Rx traMADoL [Ultram 50 MG tab] 50 mg PO Q4HR PRN #14 tablet 01/23/21 Unknown Rx ED Physical Exam - General Limitations: No Limitations General appearance: alert, in no apparent distress - Head Head exam: Present: atraumatic, normocephalic - Eye Eye exam: Present: normal appearance, EOMI. Absent: conjunctival injection, nystagmus - ENT ENT exam: Present: normal exam, normal orophraynx, mucous membranes moist, normal external ear exam - Neck Neck exam: Present: normal inspection, full ROM. Absent: tenderness, meningis mus - Respiratory Respiratory exam: Present: normal lung sounds bilaterally. Absent: respiratory distress, wheezes, rales, rhonchi, stridor, decreased breath sounds - Cardiovascular Cardiovascular Exam: Present: regular rate, normal rhythm, normal heart sounds. Absent: bradycardia, tachycardia, irregular rhythm, systolic murmur, diastolic murmur, rubs, gallop - GI/Abdominal GI/Abdominal exam: Present: soft, tenderness, other (There is a large anterior wall abdominal wall region of induration, with minimal purulent discharge. There is mild tenderness.). Absent: distended, guarding, rebound, rigid, pulsatile mass - Rectal Rectal exam: Present: deferred - Extremities Exam Extremities exam: Present: normal inspection, full ROM, pedal edema, other (2+ pulses noted in the bilateral upper and lower extremities. There is no long bony tenderness. The muscular compartments are soft. The left lower extremity is larger than the right lower extremity. The patient states that this is chronic). Absent: calf tenderness - Back Exam Back exam: Present: normal inspection. Absent: tenderness, CVA tenderness (R), CVA tenderness (L), paraspinal tenderness, vertebral tenderness - Neurological Exam Neurological exam: Present: alert, other (No facial droop. Tongue midline. Extraocular movements intact bilaterally. Facial sensation intact to light touch in V1, V2, V3 distribution bilaterally. 5 and a 5 strength in 4 extremities. Sensation intact to light touch in 4 extremities.). Absent: motor sensory deficit - Psychiatric Psychiatric exam: Present: anxious - Skin Skin exam: Present: warm, erythema, other (Warmth erythema and induration over the anterior abdominal wall) ED Course Vital Signs 02/19/21 02/19/21 02/19/21 10:59 11:59 12:18 Temperature 98.1 F Pulse Rate 74 Respiratory 16 16 18 Rate Blood Pressure Blood Pressure 146/77 [Left] O2 Sat by Pulse 94 93 Oximetry 02/19/21 02/19/21 02/19/21 12:26 12:30 12:46 Temperature Pulse Rate 68 61 Respiratory 16 19 18 Rate Blood Pressure 114/63 120/62 Blood Pressure [Left] O2 Sat by Pulse 92 95 Oximetry 02/19/21 02/19/21 02/19/21 13:00 13:15 13:30 Temperature Pulse Rate 59 L 71 102 H Respiratory 15 16 Rate Blood Pressure 120/62 99/51 99/51 Blood Pressure [Left] O2 Sat by Pulse 96 98 94 Oximetry 02/19/21 02/19/21 02/19/21 13:46 14:00 14:16 Temperature Pulse Rate 79 58 L 58 L Respiratory 22 14 15 Rate Blood Pressure 120/62 117/71 103/65 Blood Pressure [Left] O2 Sat by Pulse 96 98 94 Oximetry 02/19/21 14:30 Temperature Pulse Rate 59 L Respiratory 17 Rate Blood Pressure 104/52 Blood Pressure [Left] O2 Sat by Pulse 96 Oximetry - Reevaluation(s) Reevaluation #1: 02/19/21 14:47 Differential diagnosis, including but not limited to: Acute coronary syndrome, GERD, gastritis, hiatal hernia, pneumonia, pulmonary embolism, anterior abdominal wall wound, abdominal wall abscess, abdominal cellulitis Assessment and plan: 46-year-old gentleman with diabetes, hypertension, HIV, obesity, with multiple complaints. Complaint #1 chest pain. Patient not currently tachycardic, tachypneic or hypoxic. EKG abnormal but unchanged from prior. Troponin negative x1. Repeat EKG, repeat troponin pending. Patient unlikely to have pulmonary embolism at this time, and a D-dimer is negative. However, no recent cardiac or stratification that we can determine, patient at moderate risk for major adverse cardiac event as per heart score. His pain is minimally improved with nitroglycerin. X-ray of the chest unremarkable. Equal pulses in upper and lower extremities, no pulsatile abdominal mass, aortic disease unlikely. Admit patient to the medical service for cardiac risk ratification. Complaints #2, anterior abdominal wall wound, cellulitis, rule out abscess. CT scan of the abdomen pelvis was obtained. It showed no acute findings, warm compresses, local wound care, topical antibiotics, outpatient wound care therapy. Hospital physician is paged to arrange admission. 02/19/21 15:44 Troponin negative x2. EKG unchanged x2. Patient asking for ice chips. Hospital physician, Dr. Jo Ann Metzger to admit for accelerated cardiac risk stratification. ED Medical Decision Making - Lab Data Result diagrams: 02/19/21 11:41 02/19/21 11:41 Vital Signs 02/19/21 02/19/21 02/19/21 10:59 11:59 12:18 Temperature 98.1 F Pulse Rate 74 Respiratory 16 16 18 Rate Blood Pressure Blood Pressure 146/77 [Left] O2 Sat by Pulse 94 93 Oximetry 02/19/21 02/19/21 02/19/21 12:26 12:30 12:46 Temperature Pulse Rate 68 61 Respiratory 16 19 18 Rate Blood Pressure 114/63 120/62 Blood Pressure [Left] O2 Sat by Pulse 92 95 Oximetry Lab Results 02/19/21 02/19/21 02/19/21 Range/Units 11:41 11:41 11:41 WBC 4.6 (4.5-11.0) K/mm3 RBC 4.60 (3.65-5.03) M/mm3 Hgb 13.5 (11.8-15.2) gm/dl Hct 40.7 (35.5-45.6) % MCV 89 (84-94) fl MCH 29 (28-32) pg MCHC 33 (32-34) % RDW 17.4 H (13.2-15.2) % Plt Count 175 (140-440) K/mm3 Lymph % (Auto) 31.1 (13.4-35.0) % [place] % (Auto) 8.0 H (0.0-7.3) % Eos % (Auto) 4.6 H (0.0-4.3) % Baso % (Auto) 0.9 (0.0-1.8) % Lymph # (Auto) 1.4 (1.2-5.4) K/mm3 [place] # (Auto) 0.4 (0.0-0.8) K/mm3 Eos # (Auto) 0.2 (0.0-0.4) K/mm3 Baso # (Auto) 0.0 (0.0-0.1) K/mm3 Seg Neutrophils % 55.4 (40.0-70.0) % Seg Neutrophils # 2.6 (1.8-7.7) K/mm3 PT 12.2 (12.2-14.9) Sec. INR 0.92 (0.87-1.13) D-Dimer 191.60 (0-234) ng/mlDDU Sodium 134 L (137-145) mmol/L Potassium 4.1 (3.6-5.0) mmol/L Chloride 103.2 (98-107) mmol/L Carbon Dioxide 25 (22-30) mmol/L Anion Gap 10 mmol/L BUN 19 (9-20) mg/dL Creatinine 1.2 (0.8-1.3) mg/dL Estimated GFR > 60 ml/min BUN/Creatinine Ratio 16 % Glucose 97 (75-100) mg/dL Calcium 8.6 (8.4-10.2) mg/dL Magnesium 1.90 (1.7-2.3) mg/dL Total Bilirubin 0.30 (0.1-1.2) mg/dL AST 14 (5-40) units/L ALT 10 (7-56) units/L Alkaline Phosphatase 95 (35-129) units/L Total Creatine Kinase 240 H (55-170) units/L Troponin T < 0.010 (0.00-0.029) ng/mL Total Protein 7.0 (6.3-8.2) g/dL Albumin 3.4 L (3.9-5) g/dL Albumin/Globulin Ratio 0.9 % - EKG Data -: EKG Interpreted by [facility] EKG shows normal: sinus rhythm Rate: normal - EKG Data 02/19/21 14:48 EKG interpreted today 12: 09 Sinus rhythm, 71 bpm. Left axis deviation, left anterior fascicular block. First-degree AV block. This is an abnormal EKG. This is not a STEMI. It appears unchanged from prior EKG from January 2021 - Radiology Data Radiology results: pending, report reviewed, image reviewed CHEST PA AND LATERAL VIEWS INDICATION: Chest Pain. COMPARISON: 12/23/2020 FINDINGS: Support devices: None Heart: Normal and unchanged Lungs/Pleura: No acute pulmonary or pleural findings. IMPRESSION: 1. No active disease and no interval change. Signer Name: Erasto López MD Signed: 02/19/2021 11:01 AM Workstation Name: [id number] CT ABDOMEN AND PELVIS WITH CONTRAST HISTORY: Abdominal pain, anterior abdominal wound COMPARISON: Prior CT on 01/22/2021 TECHNIQUE: Routine abdominal and pelvic CT exam performed following intravenous contrast administration.. All CT scans at this location are performed using CT dose reduction for AURSOS by means of automated exposure control. FINDINGS: CT ABDOMEN: Lung Bases: No significant abnormality. Liver: No significant abnormality. Biliary: No significant abnormality. Spleen: No significant abnormality. Unenlarged. Pancreas: No significant abnormality. Adrenals: No significant abnormality. Kidneys: No significant abnormality. Lymphatics: No lymphadenopathy. Vasculature: No significant abnormality. Bowel/Peritoneum: No significant abnormality. No free air. No free fluid. Normal appendix. CT PELVIC: : No significant abnormality. Lymphatics: No lymphadenopathy. Osseous Structures: No aggressive appearing osseous lesions. Additional Findings: Stable soft tissue thickening in the anterior abdominal wall soft tissues at the hernia repair site. No focal fluid collection/abscess. IMPRESSION: 1. Largely unchanged soft tissue thickening in the hernia repair site in the anterior abdominal wall without discrete fluid collection or adverse change from the prior exams. Signer Name: John Raines MD Signed: 02/19/2021 12:36 PM Workstation Name: [id number] CT ABDOMEN AND PELVIS WITH CONTRAST INDICATION / CLINICAL INFORMATION: Abdominal pain TECHNIQUE: Axial CT images were obtained through the abdomen and pelvis after IV contrast. All CT scans at this location are performed using CT dose reduction for AURSOS by means of automated exposure control. COMPARISON: 1032 FINDINGS: LOWER CHEST: Unremarkable LIVER: Unremarkable GALLBLADDER/BILIARY TREE: Unremarkable PANCREAS: Unremarkable SPLEEN: Unremarkable ADRENALS: Unremarkable KIDNEYS / URETER: Unremarkable URINARY BLADDER: Bladder is partially decompressed, though grossly unremarkable. REPRODUCTIVE ORGANS: Unremarkable STOMACH / SMALL BOWEL: Stomach and small bowel are normal in caliber. No evidence of bowel inflammation. COLON: The colon is unremarkable. The appendix is normal in caliber. LYMPH NODES: Stable prominent bilateral inguinal lymph nodes. No new or increasing lymphadenopathy. 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 OTHER: Infiltrate changes are again noted with surrounding fat stranding and edema at the midline ventral abdominal wall incision. There is an improving fluid collection, measuring 2.4 x 1.7 cm (series 2 image 78). Small area of gas now present. No evidence of recurrent hernia is detected. SKELETAL SYSTEM: Bilateral pars defects at L5 with mild anterolisthesis of L5 on S1. No acute process. IMPRESSION: 1. Persistent inflammatory changes at the ventral midline abdominal wall postsurgical site with improvement in associated fluid/gas collection, now measuring up to 2.4 cm. No evidence of recurrent hernia. 2. Otherwise, no acute process of the abdomen or pelvis. 3. Additional stable chronic and incidental findings as above. Signer Name: Cristopher Renteria MD Signed: 10/12/2020 5:21 PM Workstation Name: [id number] CT ABDOMEN AND PELVIS WITH CONTRAST INDICATION / CLINICAL INFORMATION: Epigastric abd pain, S/P Umbilical Hernia Repair x 6 months ago. TECHNIQUE: Axial CT images were obtained through the abdomen and pelvis after Omnipaque 300, 100 cc IV contrast. All CT scans at this location are performed using CT Certess by means of automated exposure control. COMPARISON: CT abdomen and pelvis 01/06/2020. FINDINGS: LOWER CHEST: No significant abnormality. LIVER: No significant abnormality. GALLBLADDER: Contracted. BILE DUCTS: No significant abnormality. PANCREAS: No significant abnormality. SPLEEN: No significant abnormality. ADRENALS: No significant abnormality. RIGHT KIDNEY / URETER: Small cysts. LEFT KIDNEY / URETER: No significant abnormality. STOMACH / SMALL BOWEL: No significant abnormality. COLON: No significant abnormality. APPENDIX: No significant abnormality. PERITONEUM: No free fluid. No free air. No fluid collection. LYMPH NODES: No significant adenopathy. VASCULAR STRUCTURES: Mild aortic ectasia and prominence of the IVC and iliac veins unchanged. URINARY BLADDER: No significant abnormality. REPRODUCTIVE ORGANS: No significant abnormality. ADDITIONAL FINDINGS: Prominent inflammation within the soft tissues at the anterior abdominal wall at the hernia repair site. Associated thickening involving the medial aspect of the left rectus muscle. No abscess. SKELETAL SYSTEM: No significant abnormality. IMPRESSION: Persistent changes anterior abdominal wall at hernia repair site. No abscess. Signer Name: Carlos Palafox MD Signed: 01/22/2021 10:04 PM Workstation Name: [id number] CT ABDOMEN AND PELVIS WITH CONTRAST INDICATION / CLINICAL INFORMATION: Infected abd 2 weeks s/p herniorhaphy. TECHNIQUE: Axial CT images were obtained through the abdomen and pelvis after IV contrast. All CT scans at this location are performed using CT dose reduction for ALARA by means of automated exposure control. COMPARISON: None available. FINDINGS: LOWER CHEST: Bibasilar atelectasis. LIVER: No significant abnormality. GALLBLADDER: No significant abnormality. BILE DUCTS: No significant abnormality. PANCREAS: No significant abnormality. SPLEEN: No significant abnormality. ADRENALS: No significant abnormality. RIGHT KIDNEY / URETER: No significant abnormality. LEFT KIDNEY / URETER: No significant abnormality. STOMACH / SMALL BOWEL: No significant abnormality. COLON: No significant abnormality. APPENDIX: No significant abnormality. PERITONEUM: Mild fat stranding noted anterior peritoneum underlying the postsurgical incision. No free air or fluid within the peritoneum. LYMPH NODES: Reactive appearing bilateral inguinal lymph nodes are noted, the largest measuring 1.3 cm in short axis bilaterally. AORTA / ARTERIES: No significant abnormality. IVC / VEINS: No significant abnormality. URINARY BLADDER: No significant abnormality. REPRODUCTIVE ORGANS: No significant abnormality. ADDITIONAL FINDINGS: Inflammatory changes are noted with surrounding fat st randing and edema at the midline ventral abdominal wall incision. There is a 7.6 x 1.2 x 3.2 cm fluid collection at the incision site. SKELETAL SYSTEM: Multilevel degenerative changes are noted of the spine with bilateral pars defects at L5 and mild anterolisthesis at L5-S1. IMPRESSION: 1. 7.6 x 1.2 x 3.2 cm abscess at the ventral midline abdominal wall postsurgical site with surrounding inflammatory/infectious soft tissue changes. 2. Mild fat stranding noted in the anterior peritoneum likely local inflammatory change, without intraperitoneal fluid collection or pneumoperitoneum. Signer Name: Rohan Bustillo MD Signed: 09/14/2020 3:16 PM Workstation Name: [id number] Critical care attestation.: If time is entered above; I have spent that time in minutes in the direct care of this critically ill patient, excluding procedure time. ED Disposition Clinical Impression: Acute chest pain, Abnormal EKG, First degree AV block, Acute abdominal pain, History of HIV infection Open wound of abdominal wall Qualifiers: Encounter type: subsequent encounter Qualified Code(s): S31.109D - Unspecified open wound of abdominal wall, unspecified quadrant without penetration into peritoneal cavity, subsequent encounter Disposition: OP ADMIT IP TO THIS HOSP Is pt being admited?: Yes Does the pt Need Aspirin: No Condition: Good Instructions: Chest Pain (ED) Referrals: PRIMARY CARE,MD [Primary Care Provider] - 3-5 Days Heart Score - HEART Score History: Slightly suspicious EKG: Non-specific Age: 45-65 Risk factors: > 3 risk factors or hx of atherosclerotic disease Troponin: < normal limit HEART Score: 4 - EKG Read Time Time EKG Completed: 12:09 EKG Read Time: 12:10 - Critical Actions Critical Actions: 4-6 pts:12-16.6% risk of adverse cardiac event. Should be admitted
[2021-02-19 12:03] LABS: Basophils % (Auto) 0.9 % (0.0-1.8); Eosinophils # (Auto) 0.2 K/mm3 (0.0-0.4); Eosinophils % (Auto) 4.6 % (0.0-4.3); Hematocrit 40.7 % (35.5-45.6); Hemoglobin 13.5 gm/dl (11.8-15.2); Lymphocytes # (Auto) 1.4 K/mm3 (1.2-5.4); Lymphocytes % (Auto) 31.1 % (13.4-35.0); Mean Corpuscular HGB Conc 33 % (32-34); Mean Corpuscular Volume 89 fl (84-94); Monocytes # (Auto) 0.4 K/mm3 (0.0-0.8); Platelet Count 175 K/mm3 (140-440); Red Cell Distribution Width 17.4 % (13.2-15.2)
--- NOTE | 2021-02-19 12:05 | XRay Report ---
CHEST PA AND LATERAL VIEWS INDICATION: Chest Pain. COMPARISON: 12/23/2020 FINDINGS: Support devices: None Heart: Normal and unchanged Lungs/Pleura: No acute pulmonary or pleural findings. IMPRESSION: 1. No active disease and no interval change. Signer Name: Erasto López MD Signed: 02/19/2021 12:01 PM Workstation Name: [id number]
[2021-02-19 12:23] LABS: INR 0.92 (0.87-1.13)
[2021-02-19 12:28] LABS: Alanine Aminotransferase 10 units/L (7-56); Albumin 3.4 g/dL (3.9-5); BUN/Creatinine Ratio 16; Blood Urea Nitrogen 19 mg/dL (9-20); Calcium 8.6 mg/dL (8.4-10.2); Hemolysis Index 7
[2021-02-19] MEDS ORDERED: LACTATED RINGERS 500 ML IV ONE (12:37)
--- NOTE | 2021-02-19 13:40 | Cat Scan Report ---
CT ABDOMEN AND PELVIS WITH CONTRAST HISTORY: Abdominal pain, anterior abdominal wound COMPARISON: Prior CT on 01/22/2021 TECHNIQUE: Routine abdominal and pelvic CT exam performed following intravenous contrast administrat ion.. All CT scans at this location are performed using CT dose reduction for ALARA by means of autom ated exposure control. FINDINGS: CT ABDOMEN: Lung Bases: No significant abnormality. Liver: No significant abnormality. Biliary: No significant abnormality. Spleen: No significant abnormality. Unenlarged. Pancreas: No significant abnormality. Adrenals: No significant abnormality. Kidneys: No significant abnormality. Lymphatics: No lymphadenopathy. Vasculature: No significant abnormality. Bowel/Peritoneum: No significant abnormality. No free air. No free fluid. Normal appendix. CT PELVIC: : No significant abnormality. Lymphatics: No lymphadenopathy. Osseous Structures: No aggressive appearing osseous lesions. Additional Findings: Stable soft tissue thickening in the anterior abdominal wall soft tissues at the hernia repair site. No focal fluid collection/abscess. IMPRESSION: 1. Largely unchanged soft tissue thickening in the hernia repair site in the anterior abdominal wall without discrete fluid collection or adverse change from the prior exams. Signer Name: John Raines MD Signed: 02/19/2021 1:36 PM Workstation Name: [id number]
[2021-02-19] MEDS ORDERED: CLINDAMYCIN 300 MG CAP PO ONE (14:45)
[2021-02-19] MEDS ORDERED: VANCOMYCIN PHARMACY TO DOSE IV SCH (23:45)
[2021-02-19] MEDS ORDERED: HEPARIN 5,000 UNIT/1 ML VIAL SUB-Q SCH (23:45)
[2021-02-19] MEDS ORDERED: SODIUM CHLORIDE 0.9% 1000 ML 1,000 ML IV SCH (23:45)
[2021-02-19] MEDS ORDERED: IBUPROFEN 800 MG TAB PO PRN (23:49)
[2021-02-19] MEDS ORDERED: ONDANSETRON 4 MG ODT TAB PO PRN (23:49)
[2021-02-19] MEDS ORDERED: oxyCODONE /ACETAMINOPHEN 5-325MG TAB PO PRN (23:49)
[2021-02-19] MEDS ORDERED: ONDANSETRON 4 MG/2 ML INJ IV PRN (23:53)
[2021-02-19] MEDS ORDERED: METOCLOPRAMIDE 10 MG/2 ML INJ IV PRN (23:53)
[2021-02-19] MEDS ORDERED: MORPHINE 2 MG/1 ML INJ IV PRN (23:53)
--- NOTE | 2021-02-20 00:05 | History and Physical Report ---
History of Present Illness Date of examination: 02/19/21 Date of admission: 02/19/21 15:44 Chief complaint: CHEST PAIN AND Abd pain since AM History of present illness: 46 y/o patient with past medical history of hypertension, HIV, recurrent pleural effusion, possible DVT, chronic anterior abdominal wall wound, noncompliant with Eliquis therapy presents to the ER today with 2 complaints. His first complaint is chest pain. The chest pain started about 1 hour prior to presentation. The chest pain is constant. It does not radiate to the back, arms or neck. There is no vomiting. There is no diaphoresis. There is positive shortness of breath. Patient denies travel, surgery, immobilization. He has chronic left lower extremity swelling which is not new, worsened or different. He denies loss of taste and smell. No recent cardiac stress test, catheterization, or cardiac or stratification that he is aware of. His next complaint is anterior abdominal wall pain and discharge. Apparently, as per review of old medical records, this wound has been present since 2019. He has had multiple CT scans of the abdomen pelvis at this facility, for this an terior abdominal wound. However, he believes it is draining a little bit more over the past week, and more tender and more painful than usual. - Past Medical History --Hypertension: Yes --Diabetes: Yes --Psychiatric Treatment: Yes (Depression, Bipolar) --HIV: Yes Additional medical history: CAD, High Cholesterol - Surgical History Additional Surgical History: Hernia repair 2019 - Social History Smoking Status: Current Every Day Smoker Substance Use Type: Alcohol, Marijuana Review of Systems ROS: Stated complaint: CHEST PAIN Other details as noted in HPI Constitutional: denies: fever, malaise, weakness Eyes: denies: eye discharge Respiratory: shortness of breath. denies: cough Cardiovascular: chest pain Gastrointestinal: abdominal pain. denies: nausea, vomiting, diarrhea Genitourinary: denies: dysuria Musculoskeletal: myalgia Skin: rash, lesions Neurological: denies: weakness Hematological/Lymphatic: denies: easy bleeding Medications and Allergies Allergies Allergy/AdvReac Type Severity Reaction Status Date / Time fish oil Allergy Hives Verified 01/06/21 16:16 Home Medications Medication Instructions Recorded Confirmed Last Taken Type Aspirin 81 mg PO DAILY 07/13/20 07/13/20 1 Day Ago History ~07/12/20 AtorvaSTATin 40 mg PO HS 07/13/20 07/13/20 1 Day Ago History ~07/12/20 Altagraciaarvy 50-200-25 mg (Nf) 50 mg PO DAILY 07/13/20 07/13/20 1 Day Ago History ~07/12/20 buPROPion 150 mg PO DAILY 07/13/20 07/13/20 1 Day Ago History ~07/12/20 carvediloL 6.25 mg PO DAILY 07/13/20 07/13/20 1 Day Ago History ~07/12/20 risperiDONE 1 mg PO DAILY 07/13/20 07/13/20 1 Day Ago History ~07/12/20 Apixaban [Eliquis] 5 mg PO BID #60 tablet 07/14/20 Unknown Rx Azithromycin [Zithromax TAB] 500 mg PO QDAY #5 tablet 07/14/20 Unknown Rx Famotidine [Pepcid] 20 mg PO BID #30 tablet 07/14/20 Unknown Rx Sennosides Tab [Senokot] 8.6 mg PO Q12HR #30 tablet 07/14/20 Unknown Rx oxyCODONE /ACETAMINOPHEN [Percocet 1 tab PO Q6HR PRN #14 tablet 07/14/20 Unknown Rx 5/325] Amoxicillin/Potassium Clav 1 each PO Q12H 10 Days #20 tablet 11/09/20 Unknown Rx [Augmentin 875-125 Tablet] Ibuprofen [Motrin] 800 mg PO Q8HR PRN 7 Days #21 11/09/20 Unknown Rx tablet Sulfamethoxazole/Trimethoprim 1 each PO BID #14 tablet 01/06/21 Unknown Rx [Bactrim DS TAB] traMADoL [Ultram 50 MG tab] 50 mg PO Q6HR PRN #10 tablet 01/06/21 Unknown Rx Clindamycin [Clindamycin CAP] 300 mg PO Q8H #21 cap 01/23/21 Unknown Rx Ondansetron [Zofran Odt] 4 mg PO Q8HR PRN #14 tab.rapdis 01/23/21 Unknown Rx traMADoL [Ultram 50 MG tab] 50 mg PO Q4HR PRN #14 tablet 01/23/21 Unknown Rx Active Meds: Active Medications Acetaminophen (Acetaminophen 325 Mg Tab) 650 mg PO Q6HR PRN PRN Reason: PAIN Pneumococcal Polyvalent Vaccine (Pneumococcal 23 Valent 0.5 Ml Vial) 0.5 ml IM .ONCE ONE Stop: 02/20/21 12:01 Exam - Constitutional Vitals: Temp Pulse Resp BP Pulse Ox 98.1 F 62 22 120/72 96 02/19/21 10:59 02/19/21 22:40 02/19/21 22:00 02/19/21 22:00 02/19/21 22:00 General appearance: Present: no acute distress, well-nourished - EENT Eyes: Present: PERRL ENT: hearing intact, clear oral mucosa - Neck Neck: Present: supple, normal ROM - Respiratory Respiratory effort: normal Respiratory: bilateral: CTA - Cardiovascular Heart rate: 78 Rhythm: regular Heart Sounds: Present: S1 & S2. Absent: rub, click - Extremities Extremities: pulses symmetrical, No edema Peripheral Pulses: within normal limits - Abdominal General gastrointestinal: Present: soft, tender, non-distended, normal bowel sounds, other (Diffuse erythema around umblicus with two small drainage spots) Localized gastrointestinal: tender: diffuse Male genitourinary: Present: normal - Integumentary Integumentary: Present: clear, warm, dry - Musculoskeletal Musculoskeletal: gait normal, strength equal bilaterally - Psychiatric Psychiatric: appropriate mood/affect, intact judgment & insight - Neurologic Neurologic: CNII-XII intact, moves all extremities HEART Score - HEART Score History: Moderately suspicious EKG: Non-specific Age: 45-65 Risk factors: > 3 risk factors or hx of atherosclerotic disease Troponin: Troponin T < 0.010 ng/mL (0.00-0.029) 02/19/21 14:12 Troponin: < normal limit HEART Score: 5 - Critical Actions Critical Actions: 4-6 pts:12-16.6% risk of adverse cardiac event. Should be admitted Results - Labs CBC & Chem 7: 02/20/21 05:30 02/20/21 05:30 Labs: Laboratory Last Values WBC 4.6 K/mm3 (4.5-11.0) 02/19/21 11:41 RBC 4.60 M/mm3 (3.65-5.03) 02/19/21 11:41 Hgb 13.5 gm/dl (11.8-15.2) 02/19/21 11:41 Hct 40.7 % (35.5-45.6) 02/19/21 11:41 MCV 89 fl (84-94) 02/19/21 11:41 MCH 29 pg (28-32) 02/19/21 11:41 MCHC 33 % (32-34) 02/19/21 11:41 RDW 17.4 % (13.2-15.2) H 02/19/21 11:41 Plt Count 175 K/mm3 (140-440) 02/19/21 11:41 Lymph % (Auto) 31.1 % (13.4-35.0) 02/19/21 11:41 Keith % (Auto) 8.0 % (0.0-7.3) H 02/19/21 11:41 Eos % (Auto) 4.6 % (0.0-4.3) H 02/19/21 11:41 Baso % (Auto) 0.9 % (0.0-1.8) 02/19/21 11:41 Lymph # (Auto) 1.4 K/mm3 (1.2-5.4) 02/19/21 11:41 Keith # (Auto) 0.4 K/mm3 (0.0-0.8) 02/19/21 11:41 Eos # (Auto) 0.2 K/mm3 (0.0-0.4) 02/19/21 11:41 Baso # (Auto) 0.0 K/mm3 (0.0-0.1) 02/19/21 11:41 Seg Neutrophils % 55.4 % (40.0-70.0) 02/19/21 11:41 Seg Neutrophils # 2.6 K/mm3 (1.8-7.7) 02/19/21 11:41 PT 12.2 Sec. (12.2-14.9) 02/19/21 11:41 INR 0.92 (0.87-1.13) 02/19/21 11:41 D-Dimer 191.60 ng/mlDDU (0-234) 02/19/21 11:41 Sodium 134 mmol/L (137-145) L 02/19/21 11:41 Potassium 4.1 mmol/L (3.6-5.0) 02/19/21 11:41 Chloride 103.2 mmol/L (98-107) 02/19/21 11:41 Carbon Dioxide 25 mmol/L (22-30) 02/19/21 11:41 Anion Gap 10 mmol/L 02/19/21 11:41 BUN 19 mg/dL (9-20) 02/19/21 11:41 Creatinine 1.2 mg/dL (0.8-1.3) 02/19/21 11:41 Estimated GFR > 60 ml/min 02/19/21 11:41 BUN/Creatinine Ratio 16 % 02/19/21 11:41 Glucose 97 mg/dL (75-100) 02/19/21 11:41 Calcium 8.6 mg/dL (8.4-10.2) 02/19/21 11:41 Magnesium 1.90 mg/dL (1.7-2.3) 02/19/21 11:41 Total Bilirubin 0.30 mg/dL (0.1-1.2) 02/19/21 11:41 AST 14 units/L (5-40) 02/19/21 11:41 ALT 10 units/L (7-56) 02/19/21 11:41 Alkaline Phosphatase 95 units/L (35-129) 02/19/21 11:41 Total Creatine Kinase 240 units/L (55-170) H 02/19/21 11:41 Troponin T < 0.010 ng/mL (0.00-0.029) 02/19/21 14:12 Total Protein 7.0 g/dL (6.3-8.2) 02/19/21 11:41 Albumin 3.4 g/dL (3.9-5) L 02/19/21 11:41 Albumin/Globulin Ratio 0.9 % 02/19/21 11:41 - Imaging and Cardiology EKG: report reviewed (59/Sinus bradycardia) Chest x-ray: report reviewed (NAF) Imaging and Cardiology: CT abd IMPRESSION: 1. Largely unchanged soft tissue thickening in the hernia repair site in the anterior abdominal wall without discrete fluid collection or adverse change from the prior exams. Bunch/IV: Voiding Method Urinal Assessment and Plan Advance Directives: Yes (Full code) VTE prophylaxis?: Chemical Plan of care discussed with patient/family: Yes - Patient Problems (1) Acute coronary syndrome Current Visit: Yes Status: Acute Plan to address problem: Serial troponins and Lexiscan in AM (2) Abdominal wall cellulitis Current Visit: Yes Status: Acute Plan to address problem: IV unasyn and IV vancomycin initiated Surgery and wound care consult requested (3) HIV (human immunodeficiency virus infection) Current Visit: Yes Status: Chronic Qualifiers: HIV symptom status: asymptomatic, with no history of HIV-related illness Qualified Code(s): Z21 - Asymptomatic human immunodeficiency virus [HIV] infection status Plan to address problem: nt antiretrovirals (4) HTN (hypertension) Current Visit: Yes Status: Chronic Qualifiers: Hypertension type: essential hypertension Qualified Code(s): I10 - Essential (primary) hypertension Plan to address problem: Cont antihypertensives and adjust meds (5) T2DM (type 2 diabetes mellitus) Current Visit: Yes Status: Chronic Qualifiers: Diabetes mellitus fci insulin use: unspecified fci insulin use status Plan to address problem: Check A1c and coverage for now Cont home meds (6) Hyponatremia Current Visit: Yes Status: Acute Plan to address problem: Mild (7) DVT prophylaxis Current Visit: Yes Status: Acute Plan to address problem: On Heparin and GI prophylaxis
[2021-02-20] MEDS: APIXABAN 5 MG TAB PO SCH ×2 (00:58→10:13)
[2021-02-20] MEDS: AMPICILLIN/SULBACTA 3GM/100ML 3 GM/100 ML BAG IV SCH ×4 (01:05→13:58)
[2021-02-20] MEDS ORDERED: VANCOMYCIN 2,000 MG in SODIUM CHLORIDE 0.9% 500 ML 500 ML IV ONE (02:00)
[2021-02-20 05:56] LABS: Basophils % (Auto) 0.7 % (0.0-1.8); Eosinophils # (Auto) 0.2 K/mm3 (0.0-0.4); Eosinophils % (Auto) 6.7 % (0.0-4.3); Hematocrit 41.5 % (35.5-45.6); Hemoglobin 13.8 gm/dl (11.8-15.2); Lymphocytes # (Auto) 1.3 K/mm3 (1.2-5.4); Lymphocytes % (Auto) 38.5 % (13.4-35.0); Mean Corpuscular HGB Conc 33 % (32-34); Mean Corpuscular Volume 91 fl (84-94); Monocytes # (Auto) 0.3 K/mm3 (0.0-0.8); Monocytes % (Auto) 7.9 % (0.0-7.3); Platelet Count 158 K/mm3 (140-440); Red Blood Count 4.58 M/mm3 (3.65-5.03); Red Cell Distribution Width 17.5 % (13.2-15.2)
[2021-02-20 06:16] LABS: Alanine Aminotransferase 9 units/L (7-56); Albumin 3.5 g/dL (3.9-5); BUN/Creatinine Ratio 15; Blood Urea Nitrogen 17 mg/dL (9-20); Calcium 8.2 mg/dL (8.4-10.2); Hemolysis Index 9
[2021-02-20] MEDS ORDERED: REGADENOSON 0.4 MG/5 ML INJ IV ONE (08:38)
[2021-02-20] MEDS ORDERED: buPROPion 75 MG TAB PO SCH (10:00)
[2021-02-20] MEDS ORDERED: SENNOSIDES 8.6 MG TAB PO SCH (10:00)
[2021-02-20] MEDS ORDERED: risperiDONE 1 MG TAB PO SCH (10:00)
[2021-02-20] MEDS ORDERED: FAMOTIDINE 20 MG TAB PO SCH (10:00)
[2021-02-20] MEDS ORDERED: ASPIRIN EC 81 MG TAB PO SCH (10:00)
[2021-02-20] MEDS ORDERED: BIKTARVY PO SCH (10:00)
[2021-02-20] MEDS ORDERED: PNEUMOCOCCAL 23 Valent 0.5 ML VIAL IM ONE (12:00)
[2021-02-20] MEDS ORDERED: FLU VACC QUAD 2020-2021 (6 months +)/PF 60 0.5 ML SYRINGE IM ONE (12:00)
[2021-02-20] MEDS ORDERED: VANCOMYCIN 2,000 MG in SODIUM CHLORIDE 0.9% 500 ML 500 ML IV SCH (12:00)
--- NOTE | 2021-02-20 12:01 | Nuclear Medicine Report ---
APPROVED REPORT Exam: Nuclear Stress Test Indication: Chest pain BMI: 0 Stress Test Details Stress Test: Pharmacologic stress testing performed using 0.4 mg of regadenoson per 5 mL given IV over 10 seconds. HR Resting HR: 63 bpmMax Heart Rate (APMHR): 172 bpm Max HR Achieved: 95 bpmTarget HR (85% APMHR): 146 bpm % of APMHR: 55 Recovery HR: 79 bpm HR response to stress: Normal HR response to stress BP Resting BP: 126/81 mmHg Max BP: 138/81 mmHg Recovery BP: 127/69 mmHg BP response to stress: Normal blood pressure response to stress. ECG Resting ECG: Sinus Rhythm Stress ECG: Sinus Rhythm ST Change: None Recovery ECG: Sinus Rhythm Recovery ST Change: None Clinical Reason for Termination: Completed protocol Stress ECG Conclusion Normal hemodynamic response to pharmacologic stress. NM EXAM: Myocardial Perfusion REST/STRESS Imaging Protocol: Rest Tc-99m/Stress Tc-99m 1 day Resting Data Rest SPECT myocardial perfusion imaging was performed in supine position 45 minutes following the intravenous injection of 10 mCi of Tc-99m Myoview. Time of rest injection: 0812 Pharmacologic Stress Pharmacologic stress test was performed by injecting Regadenoson 0.4 mg IV push followed by the intravenous injection of 28 mCi of Tc-99m Myoview. Time of stress injection: 0915 Gated Stress SPECT was performed 30 minutes after stress injection. Study Data TID = 1.08. Perfusion Normal perfusion on both the stress and rest images. Nuclear Conclusion ECG Findings: negative for ischemia Clinical Findings: negative for ischemia Nuclear Findings: negative for ischemia Exercise Capacity: not assessed Left Ventricular Function: normal Normal study. No scintigraphic evidence for myocardial ischemia or scar. Normal left ventricular size and function with no regional wall motion abnormalities. Conclusion Normal hemodynamic response to pharmacologic stress.
--- NOTE | 2021-02-20 12:06 | Electrocardiograph Report ---
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
--- NOTE | 2021-02-20 12:08 | Electrocardiograph Report ---
[facility] Test Date: 2021-02-19 Test Time: 14:56:18 Pat Name: GRAZYNA SMITH Department: Room: A459 Gender: M [employer]: [place] : 1975 Requested By: JIMMY SIFUENTES Order Number: [id number] Reading MD: Ra Valdes Measurements Intervals [place] Rate: 59 P: 64 ND: 205 QRS: -30 QRSD: 105 T: 32 QT: 410 QTc: 408 Interpretive Statements Sinus bradycardia Borderline prolonged [place] interval Left ventricular hypertrophy Compared to ECG 02/19/2021 12:09:09 ST (T wave) deviation now present Sinus rhythm no longer present Myocardial infarct finding no longer present Electronically Signed On 02-20-2021 12:08:29 EDT by Ra Valdes
[2021-02-20 12:13] VITALS: BP 124/74
--- NOTE | 2021-02-20 12:31 | Discharge Summary ---
Providers - Providers Date of Admission: 02/19/21 15:44 Date of discharge: 02/20/21 Attending physician: RENETTA SIMMONS 02/19/21 23:53 Consult to Physician [CONS] Routine Comment: Consulting Provider: MONIK MURCIA Physician Instructions: Reason For Exam: Abdominal wall cellulitis Primary care physician: SHIPYARD PAINTER Hospitalization Condition: Good Hospital course: 46 y/o patient with past medical history of hypertension, HIV, recurrent pleural effusion, possible DVT, chronic anterior abdominal wall wound, noncomp liant with Eliquis therapy presents to the ER today with 2 complaints. His first complaint is chest pain. The chest pain started about 1 hour prior to presentation. The chest pain is constant. It does not radiate to the back, arms or neck. There is no vomiting. There is no diaphoresis. There is positive shortness of breath. Patient denies travel, surgery, immobilization. He has chronic left lower extremity swelling which is not new, worsened or different. He denies loss of taste and smell. No recent cardiac stress test, catheterization, or cardiac or stratification that he is aware of. His next complaint is anterior abdominal wall pain and discharge. Apparently, as per review of old medical records, this wound has been present since 2019. He has had multiple CT scans of the abdomen pelvis at this facility, for this anterior abdominal wound. However, he believes it is draining a little bit more over the past week, and more tender and more painful than usual. Hospital course Patient was admitted to the hospital for chest pain rule out and also for management of anterior abdominal wall tenderness and discharge. Was scheduled for stress test. 02/20. Patient had a stress test this a.m. which was negative for any reversible ischemia. Patient will like to go home as he has to take care of his daughter. General surgery was consulted for evaluation of his anterior abdominal wall. He request for PO antibiotics prior to leaving the hospital. I explained he needs to have culture results so antibiotics can be well tailored to the organism. He refuses. He has not had any fever or elevated WBC however. He was advised to see his PCP immediately after leaving the hospital and he agrees. Patient subsequently signed out AGAINST MEDICAL ADVICE. Disposition: - LEFT AGAINST MED ADVICE Final Discharge Diagnosis (Prints w/discharge instructions): Chest pain. Abdominal wall cellulitis Time spent for discharge: 35 mins - Discharge Diagnoses (1) Abdominal wall cellulitis Status: Acute (2) Acute chest pain Status: Acute Core Measure Documentation - Palliative Care Palliative Care/ Comfort Measures: Not Applicable - Core Measures Any of the following diagnoses?: none Exam - Constitutional Vitals: Temp Pulse Resp BP Pulse Ox 98.0 F 60 18 124/74 97 02/20/21 10:14 02/20/21 03:38 02/20/21 11:09 02/20/21 10:14 02/20/21 03:38 General appearance: Present: no acute distress, well-nourished - EENT Eyes: Present: PERRL ENT: hearing intact, clear oral mucosa - Neck Neck: Present: supple, normal ROM - Respiratory Respiratory effort: normal Respiratory: bilateral: CTA - Cardiovascular Heart Sounds: Present: S1 & S2. Absent: rub, click - Extremities Extremities: pulses symmetrical, No edema Peripheral Pulses: within normal limits - Abdominal General gastrointestinal: Present: soft, normal bowel sounds, other (periumbilical area has open wound with surrounding cellulitis) Male genitourinary: Present: normal - Integumentary Integumentary: Present: clear, warm, dry - Musculoskeletal Musculoskeletal: gait normal, strength equal bilaterally - Psychiatric Psychiatric: appropriate mood/affect, intact judgment & insight - Neurologic Neurologic: CNII-XII intact, moves all extremities Plan Activity: no restrictions Diet: low cholesterol, low salt Follow up with: PRIMARY CARE, [Primary Care Provider] - 3-5 Days Prescriptions: Sulfamethoxazole/Trimethoprim [Bactrim DS TAB] 1 each PO BID #20 tablet
[2021-02-20] MEDS ORDERED: EMTRICITABINE 200 MG CAP PO SCH (14:00)
[2021-02-20] MEDS ORDERED: TENOFOVIR 300 MG TAB PO SCH (14:00)
[2021-02-20] MEDS ORDERED: DOLUTEGRAVIR 50 MG TAB PO SCH (14:00)
[2021-02-21] MEDS ORDERED: VANCOMYCIN 1,750 MG in SODIUM CHLORIDE 0.9% 500 ML 500 ML IV SCH (06:00)
== END 2021-02-20 14:08 | disposition left against medical advice (07) ==
LOC: ED 10:38 → 4A 15:44
PROVIDERS: ADMIT Internal Medicine; ATTEND Internal Medicine
DX: I24.9 Acute ischemic heart disease, unspecified (principal); L03.311 Cellulitis of abdominal wall; I10 Essential (primary) hypertension; E11.9 Type 2 diabetes mellitus without complications; E87.1 Hypo-osmolality and hyponatremia; F31.9 Bipolar disorder, unspecified; I44.0 Atrioventricular block, first degree; R94.31 Abnormal electrocardiogram [ECG] [EKG]; I25.10 Atherosclerotic heart disease of native coronary artery without angina pectoris; E78.00 Pure hypercholesterolemia, unspecified; F17.210 Nicotine dependence, cigarettes, uncomplicated; Z98.890 Other specified postprocedural states; Z21 Asymptomatic human immunodeficiency virus [HIV] infection status; Z79.82 Long term (current) use of aspirin; Z23 Encounter for immunization
CPT/HCPCS: 36415; 71046; 74177; 78452; 80053; 82550; 83036; 83735; 84484; 85025; 85379; 85610; 87641; 90686; 90732; 93005; 93017; 96365; 96366; 96367; 96375; 99285; 99406; A9502; G0008; G0378; J0295; J2785; J3010; J3370; J7030; J7040; J7120; Q9967; 90471

== ENCOUNTER 2021-03-18 15:21 | Emergency (ER) | payer SELFPAY ==
--- NOTE | 2021-03-18 16:18 | Emergency Department Report ---
ED Chest Pain HPI - General Chief Complaint: Chest Pain Stated Complaint: POSSIBLE STROKE Time Seen by Provider: 03/18/21 16:06 Source: EMS Mode of arrival: Wheelchair Limitations: No Limitations - History of Present Illness Initial Comments: This is a 46-year-old -[place] male who presents to the emergency department via EMS from home with complaint of midsternal chest pain that started about 1 hour prior to presentation. It is currently 7 out of 10 in intensity and does not radiate. He describes it as a sharp pain. He was given a full dose aspirin and sublingual nitro in route with EMS with some improvement. His chest pain is associated with some shortness of breath, but he denies any fever, cough, lower extremity swelling, nausea, vomiting, back pain or diaphoresis. He is a tobacco smoker. He will sometimes smoke marijuana and sometimes use cocaine, the last time being about 4 days ago. No recent travel or sick contacts at home. He has a past medical history of hypertension, HIV, previous DVT, coronary artery disease with DE but no coronary stents, and the patient has been seen here multiple times for abdominal wall cellulitis and/or abscess. He did not take anything for symptoms at home prior to presentation. Patient had a negative Lexiscan stress test here 1 month ago. 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 - Related Data Home Medications Medication Instructions Recorded Confirmed Last Taken Aspirin 81 mg PO DAILY 07/13/20 07/13/20 1 Day Ago ~07/12/20 AtorvaSTATin 40 mg PO HS 07/13/20 07/13/20 1 Day Ago ~07/12/20 Biktarvy 50-200-25 mg (Nf) 50 mg PO DAILY 07/13/20 07/13/20 1 Day Ago ~07/12/20 buPROPion 150 mg PO DAILY 07/13/20 07/13/20 1 Day Ago ~07/12/20 carvediloL 6.25 mg PO DAILY 07/13/20 07/13/20 1 Day Ago ~07/12/20 risperiDONE 1 mg PO DAILY 07/13/20 07/13/20 1 Day Ago ~07/12/20 Previous Rx's Medication Instructions Recorded Last Taken Type Apixaban [Eliquis] 5 mg PO BID #60 tablet 07/14/20 Unknown Rx Azithromycin [Zithromax TAB] 500 mg PO QDAY #5 tablet 07/14/20 Unknown Rx Famotidine [Pepcid] 20 mg PO BID #30 tablet 07/14/20 Unknown Rx Sennosides Tab [Senokot] 8.6 mg PO Q12HR #30 tablet 07/14/20 Unknown Rx oxyCODONE /ACETAMINOPHEN [Percocet 1 tab PO Q6HR PRN #14 tablet 07/14/20 Unknown Rx 5/325] Amoxicillin/Potassium Clav 1 each PO Q12H 10 Days #20 tablet 11/09/20 Unknown Rx [Augmentin 875-125 Tablet] Ibuprofen [Motrin] 800 mg PO Q8HR PRN 7 Days #21 11/09/20 Unknown Rx tablet Sulfamethoxazole/Trimethoprim 1 each PO BID #14 tablet 01/06/21 Unknown Rx [Bactrim DS TAB] traMADoL [Ultram 50 MG tab] 50 mg PO Q6HR PRN #10 tablet 01/06/21 Unknown Rx Clindamycin [Clindamycin CAP] 300 mg PO Q8H #21 cap 01/23/21 Unknown Rx Ondansetron [Zofran Odt] 4 mg PO Q8HR PRN #14 tab.rapdis 01/23/21 Unknown Rx traMADoL [Ultram 50 MG tab] 50 mg PO Q4HR PRN #14 tablet 01/23/21 Unknown Rx Sulfamethoxazole/Trimethoprim 1 each PO BID #20 tablet 02/20/21 Unknown Rx [Bactrim DS TAB] Allergies Allergy/AdvReac Type Severity Reaction Status Date / Time fish oil Allergy Hives Verified 01/06/21 16:16 Heart Score - HEART Score History: Slightly suspicious EKG: Normal Age: 45-65 Risk factors: > 3 risk factors or hx of atherosclerotic disease Troponin: < normal limit HEART Score: 3 - EKG Read Time Time EKG Completed: 15:25 EKG Read Time: 15:30 - Critical Actions Critical Actions: 0-3 pts:0.9-1.7%risk of adverse cardiac event.Candidate for discharge ED Review of Systems ROS: Stated complaint: POSSIBLE STROKE Other details as noted in HPI Comment: All other systems reviewed and negative Constitutional: denies: chills, fever Eyes: denies: eye pain, vision change ENT: denies: ear pain, throat pain Respiratory: shortness of breath. denies: cough Cardiovascular: chest pain. denies: palpitations Gastrointestinal: denies: nausea, vomiting Genitourinary: denies: dysuria, discharge Musculoskeletal: denies: back pain, arthralgia Skin: denies: rash, lesions Neurological: denies: headache, weakness ED Past Medical Hx - Past Medical History Previous Medical History?: Yes Hx Hypertension: Yes Hx Congestive Heart Failure: Yes Hx Diabetes: No Hx Psychiatric Treatment: Yes (Depression, Bipolar) Hx Asthma: No Hx COPD: No Hx HIV: Yes (ON MEDS) Additional medical history: CAD, High Cholesterol - Surgical History Additional Surgical History: Hernia repair 2020 - Social History Smoking Status: Current Every Day Smoker Substance Use Type: Alcohol, Cocaine, Marijuana - Medications Home Medications: Home Medications Medication Instructions Recorded Confirmed Last Taken Type Aspirin 81 mg PO DAILY 07/13/20 07/13/20 1 Day Ago History ~07/12/20 AtorvaSTATin 40 mg PO HS 07/13/20 07/13/20 1 Day Ago History ~07/12/20 Biktarvy 50-200-25 mg (Nf) 50 mg PO DAILY 07/13/20 07/13/20 1 Day Ago History ~07/12/20 buPROPion 150 mg PO DAILY 07/13/20 07/13/20 1 Day Ago History ~07/12/20 carvediloL 6.25 mg PO DAILY 07/13/20 07/13/20 1 Day Ago History ~07/12/20 risperiDONE 1 mg PO DAILY 07/13/20 07/13/20 1 Day Ago History ~07/12/20 Apixaban [Eliquis] 5 mg PO BID #60 tablet 07/14/20 Unknown Rx Azithromycin [Zithromax TAB] 500 mg PO QDAY #5 tablet 07/14/20 Unknown Rx Famotidine [Pepcid] 20 mg PO BID #30 tablet 07/14/20 Unknown Rx Sennosides Tab [Senokot] 8.6 mg PO Q12HR #30 tablet 07/14/20 Unknown Rx oxyCODONE /ACETAMINOPHEN [Percocet 1 tab PO Q6HR PRN #14 tablet 07/14/20 Unknown Rx 5/325] Amoxicillin/Potassium Clav 1 each PO Q12H 10 Days #20 tablet 11/09/20 Unknown Rx [Augmentin 875-125 Tablet] Ibuprofen [Motrin] 800 mg PO Q8HR PRN 7 Days #21 12/25/20 Unknown Rx tablet Sulfamethoxazole/Trimethoprim 1 each PO BID #14 tablet 01/06/21 Unknown Rx [Bactrim DS TAB] traMADoL [Ultram 50 MG tab] 50 mg PO Q6HR PRN #10 tablet 01/06/21 Unknown Rx Clindamycin [Clindamycin CAP] 300 mg PO Q8H #21 cap 01/23/21 Unknown Rx Ondansetron [Zofran Odt] 4 mg PO Q8HR PRN #14 tab.rapdis 01/23/21 Unknown Rx traMADoL [Ultram 50 MG tab] 50 mg PO Q4HR PRN #14 tablet 01/23/21 Unknown Rx Sulfamethoxazole/Trimethoprim 1 each PO BID #20 tablet 02/20/21 Unknown Rx [Bactrim DS TAB] ED Physical Exam - General Limitations: No Limitations - Other Other exam information: GENERAL: The patient is well-developed well-nourished. HENT: Normocephalic. Atraumatic. Patient has moist mucous membranes. EYES: Extraocular motions are intact. NECK: Supple. Trachea is midline. CHEST/LUNGS: Clear to auscultation. There is no respiratory distress noted. HEART/CARDIOVASCULAR: Regular. There is no tachycardia. There is no murmur. ABDOMEN: Abdomen is soft. There is a small area of induration to the lower to mid abdominal wall, just above the umbilicus, that has a small amount of purulent discharge seen patient has normal bowel sounds. There is no abdominal distention. SKIN: Skin is warm and dry. NEURO: The patient is awake, alert, and oriented. The patient is cooperative. The patient has no focal neurologic deficits. Normal speech. MUSCULOSKELETAL: There is no tenderness or deformity. There is no limitation range of motion. ED Course Vital Signs 03/18/21 03/18/21 03/18/21 15:42 16:08 16:16 Temperature Pulse Rate 90 91 H 81 Respiratory 18 22 Rate Blood Pressure 111/64 O2 Sat by Pulse 95 91 Oximetry 03/18/21 03/18/21 03/18/21 16:24 16:30 16:45 Temperature 98.5 F Pulse Rate 68 82 Respiratory 17 17 Rate Blood Pressure 123/65 123/65 O2 Sat by Pulse 89 Oximetry 03/18/21 03/18/21 03/18/21 17:00 17:15 17:30 Temperature Pulse Rate 76 77 65 Respiratory 17 20 18 Rate Blood Pressure 119/62 121/61 117/56 O2 Sat by Pulse 90 92 90 Oximetry 03/18/21 03/18/21 03/18/21 17:45 17:48 18:00 Temperature Pulse Rate 72 66 Respiratory 16 16 18 Rate Blood Pressure 126/68 115/67 O2 Sat by Pulse 92 92 Oximetry 03/18/21 03/18/21 03/18/21 18:15 18:30 18:45 Temperature Pulse Rate 77 68 73 Respiratory 11 L 22 12 Rate Blood Pressure 122/68 109/74 99/66 O2 Sat by Pulse 97 93 94 Oximetry 03/18/21 03/18/21 19:00 19:15 Temperature Pulse Rate 70 60 Respiratory 15 20 Rate Blood Pressure 111/66 112/69 O2 Sat by Pulse 95 94 Oximetry ALY score - Aly Score Age > 65: (0) No Aspirin use within the Past 7 Days: (0) No 3 or more CAD Risk Factors: (1) Yes 2 or more Angina events in past 24 hrs: (1) Yes Known CAD with more than 50% Stenosis: (0) No Elevated Cardiac Markers: (0) No ST Deviation Greater than 0.5mm: (0) No ALY Score: 2 ED Medical Decision Making - Lab Data Result diagrams: 03/18/21 15:51 03/18/21 15:51 - EKG Data -: EKG Interpreted by In EKG shows normal: sinus rhythm, axis (Left axis deviation), intervals, QRS co mplexes (LVH), ST-T waves Rate: normal - EKG Data When compared to previous EKG there are: no significant change Interpretation: unchanged when compared t (02/19/21) - Radiology Data Radiology results: image reviewed interpreted by me: Chest x-ray does not show any acute process. There are no pleural effusions, obvious pneumonia and there is no pneumothorax. No significant cardiomegaly. - Medical Decision Making This patient presented with some midsternal chest pain that started about 1 hour prior to presentation. On examination his heart and lung sounds are normal to auscultation. He does not appear in any respiratory or acute distress. EKG does not have any morphology consistent with ST elevation myocardial infarction. Chest x-ray does not show any pneumonia, pleural effusions, pneumothorax, or any other acute process. Labs have been mostly unremarkable including CBC, metabolic panel, negative D-dimer level, and negative troponins x2. The patient had a negative stress test about 1 month ago. For all these reasons he appears safe for discharge home at this time. He has been instructed to follow-up with primary care and cardiology. He will return to the emergency department with any worsening of his symptoms or with any acute distress. Critical Care Time: No Critical care attestation.: If time is entered above; I have spent that time in minutes in the direct care of this critically ill patient, excluding procedure time. ED Disposition Clinical Impression: Chest pain Qualifiers: Chest pain type: unspecified Qualified Code(s): R07.9 - Chest pain, unspecified Disposition: TO HOME OR SELFCARE Is pt being admited?: No Condition: Stable Instructions: Nonspecific Chest Pain, Adult Additional Instructions: Please follow-up with a primary care physician in the next few days. Take all of your medications as prescribed. Please try to avoid any tobacco or illicit drug use. I am giving you a referral for a local stage producer, Dr. Valdes, to follow-up regarding your chest pains. Return to the emergency department with any worsening of your symptoms, new or concerning symptoms not addressed during this current emergency department visit, or with any acute distress. Referrals: ANDRAE CANSECO MD [Primary Care Provider] - 2-3 Days JINA VALDES MD [Staff Physician] - 2-3 Days [facility] [Provider Group] - 2-3 Days Time of Disposition: 19:10
[2021-03-18 16:20] LABS: Basophils % (Auto) 0.7 % (0.0-1.8); Eosinophils # (Auto) 0.2 K/mm3 (0.0-0.4); Eosinophils % (Auto) 4.7 % (0.0-4.3); Hematocrit 43.9 % (35.5-45.6); Hemoglobin 14.6 gm/dl (11.8-15.2); Lymphocytes # (Auto) 1.1 K/mm3 (1.2-5.4); Lymphocytes % (Auto) 31.6 % (13.4-35.0); Mean Corpuscular HGB Conc 33 % (32-34); Mean Corpuscular Volume 92 fl (84-94); Monocytes # (Auto) 0.4 K/mm3 (0.0-0.8); Monocytes % (Auto) 11.9 % (0.0-7.3); Platelet Count 149 K/mm3 (140-440); Red Blood Count 4.76 M/mm3 (3.65-5.03)
[2021-03-18] MEDS: ASPIRIN 325 MG TAB PO ONE ×2 (16:23→16:24)
[2021-03-18] MEDS ORDERED: HYDROcodone/ACETAMINOPHEN 5-325 MG TAB PO ONE (16:26)
--- NOTE | 2021-03-18 16:33 | XRay Report ---
CHEST 2 VIEWS INDICATION / CLINICAL INFORMATION: SOB,CHEST PAIN. COMPARISON: 03/01/2021. FINDINGS: SUPPORT DEVICES: None. HEART / MEDIASTINUM: Stable. LUNGS / PLEURA: No significant pulmonary or pleural abnormality. No pneumothorax. ADDITIONAL FINDINGS: No significant additional findings. IMPRESSION: 1. No acute findings. No significant interval change. Signer Name: Rohan Bustillo MD Signed: 03/18/2021 4:28 PM Workstation Name: [id number]
[2021-03-18 18:00] LABS: Alanine Aminotransferase 18 units/L (7-56); Albumin 3.2 g/dL (3.9-5); BUN/Creatinine Ratio 12; Blood Urea Nitrogen 15 mg/dL (9-20); Calcium 8.5 mg/dL (8.4-10.2); Hemolysis Index 12
[2021-03-18 19:20] VITALS: BP 112/69
== END 2021-03-18 19:41 | disposition home or self-care (01) ==
LOC: ED 15:21
DX: R07.9 Chest pain, unspecified (principal); I11.0 Hypertensive heart disease with heart failure; I50.9 Heart failure, unspecified; I25.10 Atherosclerotic heart disease of native coronary artery without angina pectoris; E78.00 Pure hypercholesterolemia, unspecified; F31.9 Bipolar disorder, unspecified; F12.90 Cannabis use, unspecified, uncomplicated; F17.200 Nicotine dependence, unspecified, uncomplicated; F14.90 Cocaine use, unspecified, uncomplicated; Z79.899 Other long term (current) drug therapy; Z91.013 Allergy to seafood; Z21 Asymptomatic human immunodeficiency virus [HIV] infection status; Z98.890 Other specified postprocedural states
CPT/HCPCS: 36415; 71046; 80053; 84484; 85025; 85379; 93005

== ENCOUNTER 2021-04-09 00:04 | Inpatient (IN) | payer OTHER, SELFPAY ==
--- NOTE | 2021-04-09 00:16 | Emergency Department Report ---
ED General Adult HPI - General Chief complaint: Weakness Stated complaint: my body aches, i cant breathe and everything hurts PUI?: Yes Time Seen by Provider: 04/09/21 00:13 Source: patient, EMS ( EMS documentation not available at time of chart dictation ), RN notes reviewed, old records reviewed Mode of arrival: Stretcher Limitations: Physical Limitation - History of Present Illness Initial comments: The patient was evaluated in the emergency department for symptoms described in the history of present illness. He/she was evaluated in the context of the global COVID-19 pandemic, which necessitated consideration that the patient might be at risk for infection with the virus that causes COVID-19. Institutional protocols and algorithms that pertain to the evaluation of patients at risk for COVID-19 are in a state of rapid change based on information released by regulatory bodies including the CDC and federal and stat e organizations. These policies and algorithms were followed during the patient's care in the emergency department. Please note that these policies, procedures and recommendations changed on a rapid basis. During the entire history and physical examination, I had on complete personal protective equipment. Past medical history: Hypertension, HIV, recurrent pleural effusion, possible DVT, chronic anterior abdominal wound, noncompliant with therapy This is a 46-year-old gentleman. I have evaluated him in the past. I admitted this patient to the hospital in February of this year, for cardiac risk ratification. He had a nuclear stress test which was negative for ischemic findings. In addition, since then, he has been presented to the emergency room, with a recurrent complaint of chest pain, he has had multiple negative troponins, multiple unchanged EKGs, and multiple negative D-dimers. Today, the patient presents to the ER via EMS with a complaint of shortness of breath, body aches, weakness, diarrhea, fatigue. Symptoms have been going on for a few hours. He has not lost taste or smell. He has not received his Covid vaccination. He has been working, and occasionally wearing a mask. He makes no complaint of neck pain, chest pain to myself. He has chronic abdominal pain and a chronic abdominal wound. He endorses chronic pain, and acute on chronic discharge over his chronic abdominal wound. Of note, cultures were negative for acute organisms. Patient has not attempted any analgesia as of yet. -: Gradual, hour(s) Location: back, abdomen, left, right, upper extremity, lower extremity Consistency: constant Improves with: rest Worsens with: movement - Related Data Home Medications Medication Instructions Recorded Confirmed Last Taken AtorvaSTATin 40 mg PO HS 07/13/20 04/09/21 04/08/21 Biktarvy 50-200-25 mg (Nf) 50 mg PO DAILY 07/13/20 04/09/21 04/05/21 risperiDONE 1 mg PO DAILY 07/13/20 04/09/21 1 Day Ago ~07/12/20 Previous Rx's Medication Instructions Recorded Last Taken Type Amoxicillin/Potassium Clav 1 each PO Q12H 10 Days #20 tablet 11/09/20 Unknown Rx [Augmentin 875-125 Tablet] Ibuprofen [Motrin] 800 mg PO Q8HR PRN 7 Days #21 11/09/20 Unknown Rx tablet Sulfamethoxazole/Trimethoprim 1 each PO BID #14 tablet 01/06/21 04/08/21 Rx [Bactrim DS TAB] traMADoL [Ultram 50 MG tab] 50 mg PO Q6HR PRN #10 tablet 01/06/21 Unknown Rx Clindamycin [Clindamycin CAP] 300 mg PO Q8H #21 cap 01/23/21 04/08/21 Rx Ondansetron [Zofran Odt] 4 mg PO Q8HR PRN #14 tab.rapdis 01/23/21 Unknown Rx Sulfamethoxazole/Trimethoprim 1 each PO BID #20 tablet 02/20/21 04/08/21 Rx [Bactrim DS TAB] Allergies Allergy/AdvReac Type Severity Reaction Status Date / Time fish oil Allergy Hives Verified 01/06/21 16:16 ED Review of Systems ROS: Stated complaint: CHEST PAIN Other details as noted in HPI Constitutional: malaise, weakness. denies: fever Eyes: denies: eye discharge Respiratory: shortness of breath Cardiovascular: dyspnea on exertion Gastrointestinal: abdominal pain, diarrhea Musculoskeletal: back pain, myalgia Skin: lesions Neurological: weakness Psychiatric: anxiety ED Past Medical Hx - Past Medical History Hx Hypertension: Yes Hx Congestive Heart Failure: Yes Hx Diabetes: No Hx Psychiatric Treatment: Yes (Depression, Bipolar) Hx Asthma: No Hx COPD: No Hx HIV: Yes (ON MEDS) Additional medical history: CAD, High Cholesterol - Surgical History Additional Surgical History: Hernia repair 2020 - Social History Smoking Status: Current Every Day Smoker Substance Use Type: Alcohol, Cocaine, Marijuana - Medications Home Medications: Home Medications Medication Instructions Recorded Confirmed Last Taken Type AtorvaSTATin 40 mg PO HS 07/13/20 04/09/21 04/08/21 History Biktarvy 50-200-25 mg (Nf) 50 mg PO DAILY 07/13/20 04/09/21 04/05/21 History risperiDONE 1 mg PO DAILY 07/13/20 04/09/21 1 Day Ago History ~07/12/20 Amoxicillin/Potassium Clav 1 each PO Q12H 10 Days #20 tablet 11/09/20 04/09/21 Unknown Rx [Augmentin 875-125 Tablet] Ibuprofen [Motrin] 800 mg PO Q8HR PRN 7 Days #21 11/09/20 04/09/21 Unknown Rx tablet Sulfamethoxazole/Trimethoprim 1 each PO BID #14 tablet 01/06/21 04/09/21 04/08/21 Rx [Bactrim DS TAB] traMADoL [Ultram 50 MG tab] 50 mg PO Q6HR PRN #10 tablet 01/06/21 04/09/21 Unknown Rx Clindamycin [Clindamycin CAP] 300 mg PO Q8H #21 cap 01/23/21 04/09/21 04/08/21 Rx Ondansetron [Zofran Odt] 4 mg PO Q8HR PRN #14 tab.rapdis 01/23/21 04/09/21 Unknown Rx Sulfamethoxazole/Trimethoprim 1 each PO BID #20 tablet 02/20/21 04/09/21 04/08/21 Rx [Bactrim DS TAB] ED Physical Exam - General Limitations: Physical Limitation General appearance: alert, anxious, in distress, obese - Head Head exam: Present: atraumatic, normocephalic - Eye Eye exam: Present: normal appearance, EOMI. Absent: nystagmus - ENT ENT exam: Present: normal exam, normal orophraynx, mucous membranes moist, normal external ear exam - Neck Neck exam: Present: normal inspection, full ROM. Absent: tenderness, meningismus - Respiratory Respiratory exam: Present: respiratory distress, decreased breath sounds. Absent: rales, rhonchi, stridor - Cardiovascular Cardiovascular Exam: Present: normal rhythm, tachycardia, normal heart sounds. Absent: bradycardia, irregular rhythm, systolic murmur, diastolic murmur, rubs, gallop - GI/Abdominal GI/Abdominal exam: Present: soft, tenderness (There is point tenderness over chronic anterior abdominal wound), other (There is minimal purulent discharge noted over mid abdominal wound. Wounds today appear to be similar to prior examination, from February, with the exception of more purulent discharge.). Absent: distended, guarding, rebound, rigid, pulsatile mass - Rectal Rectal exam: Present: deferred - Extremities Exam Extremities exam: Present: full ROM, pedal edema (2+ edema in the left lower extremity. 1+ edema in the right lower extremity.), other (2+ pulses noted in the bilateral upper and lower extremities. There is no palpable cord. negative Homans sign. Muscular compartments are soft. The pelvis is stable.). Absent: normal inspection (Unchanged from my prior examination) - Back Exam Back exam: Present: normal inspection. Absent: tenderness, CVA tenderness (R), CVA tenderness (L), paraspinal tenderness, vertebral tenderness - Neurological Exam Neurological exam: Present: alert, other (No facial droop. Tongue midline. Extraocular movements intact bilaterally. Facial sensation intact to light touch in V1, V2, V3 distribution bilaterally. 5 and a 5 strength in 4 extremities. Sensation intact to light touch in 4 extremities.). Absent: motor sensory deficit - Psychiatric Psychiatric exam: Present: anxious - Skin Skin exam: Present: warm, dry, intact, normal color. Absent: rash ED Course Vital Signs 04/09/21 04/09/21 04/09/21 00:28 00:30 00:45 Temperature Pulse Rate 92 H 86 Respiratory 13 20 Rate Blood Pressure 123/81 123/81 O2 Sat by Pulse 92 91 96 Oximetry 04/09/21 04/09/21 04/09/21 01:01 01:11 01:15 Temperature 98.0 F Pulse Rate 85 80 Respiratory 13 13 Rate Blood Pressure 125/78 125/78 O2 Sat by Pulse 94 100 Oximetry 04/09/21 04/09/21 04/09/21 01:31 01:45 02:01 Temperature Pulse Rate 77 69 67 Respiratory 18 18 17 Rate Blood Pressure 125/78 125/78 123/78 O2 Sat by Pulse 96 97 95 Oximetry 04/09/21 04/09/21 04/09/21 02:15 02:31 02:45 Temperature Pulse Rate 69 70 95 H Respiratory 16 17 15 Rate Blood Pressure 123/78 123/78 123/78 O2 Sat by Pulse 95 96 98 Oximetry 04/09/21 03:01 Temperature Pulse Rate 63 Respiratory 11 L Rate Blood Pressure 107/56 O2 Sat by Pulse 96 Oximetry - Reevaluation(s) Reevaluation #1: 04/09/21 00:38 Differential diagnosis, including but not limited to: Pneumonia, pleural effusion, CHF, COVID-19, pneumothorax, chronic abdominal wound Assessment and plan: 46-year-old gentleman with multiple medical conditions, who appears to have acute onset shortness of breath, body aches, diarrhea, malaise and fatigue, suspicious for COVID-19. [address] patient on monitor tech, and isolation precautions. Attempted to provide trial of ambulation, however, patient not able to tolerate. Obtain x- ray of the chest, EKG, appropriate laboratory studies, treat symptoms and reassess. EKG abnormal, however, unchanged from prior. Reassess after initial diagnostics. In addition, anterior abdominal wound may require local wound care, and oral ant ibiotics, his examination today appears to be similar to my prior examination in February, with the exception of slightly more purulent discharge, however, I do not appreciate obvious fluctuance, there is induration. Warm compresses, local wound care, oral antibiotics, reassess. Reevaluation #2: 04/09/21 01:14 Arterial blood gas demonstrates acute hypoxemic respiratory failure, consistent with suspected COVID-19 diagnosis. Supplemental oxygen, steroids ordered. Patient updated on probable diagnosis, including recommendation for admission/hospitalization. Patient minimal to plan of care. X-ray of the chest, laboratory studies pending, patient will be admitted once initial diagnostics have resulted. Courtesy consultation placed for infectious disease, will defer to the inpatient team to follow this up. 04/09/21 02:17 Dr Jaimes to admit to [facility] Laboratory studies reviewed and appreciated. Clindamycin ordered for abdominal wall wound. Patient resting comfortably on stretcher at this time, in no acute distress. 04/09/21 02:18 Leukopenia and thrombocytopenia likely secondary to HIV, Covid, or both. ED Medical Decision Making - Lab Data Result diagrams: 04/09/21 01:04 04/09/21 01:04 Vital Signs 04/09/21 04/09/21 04/09/21 00:28 00:30 01:11 Temperature 98.0 F Pulse Rate 92 H Respiratory 13 Rate Blood Pressure 123/81 O2 Sat by Pulse 92 91 Oximetry Lab Results 04/09/21 04/09/21 04/09/21 Range/Units 00:40 01:04 01:04 WBC 3.7 L (4.5-11.0) K/mm3 RBC 4.57 (3.65-5.03) M/mm3 Hgb 14.0 (11.8-15.2) gm/dl Hct 41.3 (35.5-45.6) % MCV 90 (84-94) fl MCH 31 (28-32) pg MCHC 34 (32-34) % RDW 15.2 (13.2-15.2) % Plt Count 139 L (140-440) K/mm3 PT 14.1 (12.2-14.9) Sec. INR 1.11 (0.87-1.13) D-Dimer 395.60 H (0-234) ng/mlDDU ABG pH 7.436 (7.350-7.450) pH Units ABG pCO2 35.1 mm Hg ABG pO2 49.8 L (80.0-90.0) mm Hg ABG HCO3 23.1 (20.0-26.0) mmol/L ABG O2 Saturation 88.0 L (95.0-99.0) % ABG O2 Content 16.9 (0.0-44) ABG Base Excess -0.5 (-2.0-3.0) mmol/L ABG Hemoglobin 14.3 (14.0-18.0) gm/dl ABG Carboxyhemoglobin 3.8 (0.0-5.0) % ABG Methemoglobin 0.6 (0.0-1.5) % Oxyhemoglobin 84.1 L (95.0-99.0) % FiO2 21 % Sodium (137-145) mmol/L Potassium (3.6-5.0) mmol/L Chloride (98-107) mmol/L Carbon Dioxide (22-30) mmol/L Anion Gap mmol/L BUN (9-20) mg/dL Creatinine (0.8-1.3) mg/dL Estimated GFR ml/min BUN/Creatinine Ratio % Glucose (75-100) mg/dL Lactic Acid (0.7-2.0) mmol/L Calcium (8.4-10.2) mg/dL Magnesium (1.7-2.3) mg/dL Ferritin (30.0-300.0) ng/mL Total Bilirubin (0.1-1.2) mg/dL AST (5-40) units/L ALT (7-56) units/L Alkaline Phosphatase (35-129) units/L Lactate Dehydrogenase (91-180) units/L Total Creatine Kinase (55-170) units/L Troponin T (0.00-0.029) ng/mL C-Reactive Protein (0.00-1.30) mg/dL NT-Pro-B Natriuret Pep (0-450) pg/mL Total Protein (6.3-8.2) g/dL Albumin (3.9-5) g/dL Albumin/Globulin Ratio % 04/09/21 04/09/21 04/09/21 Range/Units 01:04 01:04 01:04 WBC (4.5-11.0) K/mm3 RBC (3.65-5.03) M/mm3 Hgb (11.8-15.2) gm/dl Hct (35.5-45.6) % MCV (84-94) fl MCH (28-32) pg MCHC (32-34) % RDW (13.2-15.2) % Plt Count (140-440) K/mm3 PT (12.2-14.9) Sec. INR (0.87-1.13) D-Dimer (0-234) ng/mlDDU ABG pH (7.350-7.450) pH Units ABG pCO2 mm Hg ABG pO2 (80.0-90.0) mm Hg ABG HCO3 (20.0-26.0) mmol/L ABG O2 Saturation (95.0-99.0) % ABG O2 Content (0.0-44) ABG Base Excess (-2.0-3.0) mmol/L ABG Hemoglobin (14.0-18.0) gm/dl ABG Carboxyhemoglobin (0.0-5.0) % ABG Methemoglobin (0.0-1.5) % Oxyhemoglobin (95.0-99.0) % FiO2 % Sodium 135 L (137-145) mmol/L Potassium 3.6 (3.6-5.0) mmol/L Chloride 103.2 (98-107) mmol/L Carbon Dioxide 22 (22-30) mmol/L Anion Gap 13 mmol/L BUN 14 (9-20) mg/dL Creatinine 1.3 (0.8-1.3) mg/dL Estimated GFR > 60 ml/min BUN/Creatinine Ratio 11 % Glucose 89 (75-100) mg/dL Lactic Acid 0.70 (0.7-2.0) mmol/L Calcium 8.4 (8.4-10.2) mg/dL Magnesium 2.00 (1.7-2.3) mg/dL Ferritin 80.8 (30.0-300.0) ng/mL Total Bilirubin 0.50 (0.1-1.2) mg/dL AST 18 (5-40) units/L ALT 11 (7-56) units/L Alkaline Phosphatase 89 (35-129) units/L Lactate Dehydrogenase (91-180) units/L Total Creatine Kinase 127 (55-170) units/L Troponin T (0.00-0.029) ng/mL C-Reactive Protein (0.00-1.30) mg/dL NT-Pro-B Natriuret Pep 58.16 (0-450) pg/mL Total Protein 7.6 (6.3-8.2) g/dL Albumin 3.5 L (3.9-5) g/dL Albumin/Globulin Ratio 0.9 % 04/09/21 04/09/21 Range/Units 01:04 01:20 WBC (4.5-11.0) K/mm3 RBC (3.65-5.03) M/mm3 Hgb (11.8-15.2) gm/dl Hct (35.5-45.6) % MCV (84-94) fl MCH (28-32) pg MCHC (32-34) % RDW (13.2-15.2) % Plt Count (140-440) K/mm3 PT (12.2-14.9) Sec. INR (0.87-1.13) D-Dimer (0-234) ng/mlDDU ABG pH (7.350-7.450) pH Units ABG pCO2 mm Hg ABG pO2 (80.0-90.0) mm Hg ABG HCO3 (20.0-26.0) mmol/L ABG O2 Saturation (95.0-99.0) % ABG O2 Content (0.0-44) ABG Base Excess (-2.0-3.0) mmol/L ABG Hemoglobin (14.0-18.0) gm/dl ABG Carboxyhemoglobin (0.0-5.0) % ABG Methemoglobin (0.0-1.5) % Oxyhemoglobin (95.0-99.0) % FiO2 % Sodium (137-145) mmol/L Potassium (3.6-5.0) mmol/L Chloride (98-107) mmol/L Carbon Dioxide (22-30) mmol/L Anion Gap mmol/L BUN (9-20) mg/dL Creatinine (0.8-1.3) mg/dL Estimated GFR ml/min BUN/Creatinine Ratio % Glucose 89 (75-100) mg/dL Lactic Acid (0.7-2.0) mmol/L Calcium (8.4-10.2) mg/dL Magnesium (1.7-2.3) mg/dL Ferritin (30.0-300.0) ng/mL Total Bilirubin (0.1-1.2) mg/dL AST (5-40) units/L ALT (7-56) units/L Alkaline Phosphatase (35-129) units/L Lactate Dehydrogenase 203 H (91-180) units/L Total Creatine Kinase (55-170) units/L Troponin T < 0.010 (0.00-0.029) ng/mL C-Reactive Protein 0.20 (0.00-1.30) mg/dL NT-Pro-B Natriuret Pep (0-450) pg/mL Total Protein (6.3-8.2) g/dL Albumin (3.9-5) g/dL Albumin/Globulin Ratio % - EKG Data -: EKG Interpreted by Nd EKG shows normal: sinus rhythm - EKG Data 04/09/21 00:39 EKG interpreted at 12: 1 4 AM Sinus rhythm, tachycardia, 100 bpm. Left axis deviation, left anterior fascicular block, motion artifact, left ventricular hypertrophy. The EKG is not a STEMI. The EKG is abnormal. The EKG is unchanged from prior EKG from March 2021. - Radiology Data Radiology results: pending, report reviewed, image reviewed CHEST 1 VIEW 015 INDICATION / CLINICAL INFORMATION: dyspnea COMPARISON: 03/18/2021 FINDINGS: SUPPORT DEVICES: None HEART / MEDIASTINUM: No significant abnormality. LUNGS / PLEURA: Mild scarring is again seen in the left lateral base. No pneumothorax. ADDITIONAL FINDINGS: No significant additional findings. IMPRESSION: No significant acute abnormality Signer Name: Bryant Mays MD Signed: 04/09/2021 12:38 AM Workstation Name: [facility] [address] [id number] Cat Scan Report Signed Patient: GRAZYNA SMITH MR#: [id number] : 1975 Acct:[id number] Age/Sex: 46 / M ADM Date: 04/09/21 Loc: 3A A367-[address]: AZAR JAIMES MD Ordering Physician: JIMMY SIFUENTES MD Date of Service: 04/09/21 Procedure(s): CT angio chest Accession Number(s): [id number] cc: JIMMY SIFUENTES MD CTA CHEST WITH IV CONTRAST INDICATION: Acute hypoxemic respiratory failure CONTRAST: 100 cc Omnipaque 350 IV COMPARISON: 03/01/2021 Three-plane MIP reconstructions were produced. All CT scans at this location are performed using CT dose reduction for ALARA by means of automated exposure control. FINDINGS: No mediastinal or hilar masses are seen. A prevascular node is mildly prominent with a short axis diameter of 10 mm. Previously this had a short axis diameter of 8 mm. Hilar masses are seen. Visualized portions of the upper abdomen show mild fatty infiltration of the liver but no acute abnormalities. No pleural effusions are seen. No pneumothorax or pneumomediastinum are noted. Heart is mildly enlarged. Moderate chronic changes are again seen in the lung fi elds including emphysematous changes. Slight basilar atelectatic changes are seen. Probable lingular scarring is again noted. No definite pneumonic infiltrates are seen. Aorta shows no aneurysmal dilatation or obvious evidence of dissection though is not well opacified. Moderate opacification of the pulmonary arterial system was achieved. I do not see obvious evidence of pulmonary thromboembolism though artifact and low contrast density makes evaluation of some of the basilar arteries difficult. IMPRESSION: No obvious acute abnormalities are seen. Mild increase in prominence of a slightly enlarged mediastinal lymph node. Recommend follow-up. Signer Name: Bryant Mays MD Signed: 04/09/2021 3:48 AM Workstation Name: [id number] Transcribed By: GJ Dictated By: Bryant Mays MD Aimee ctronically Authenticated By: Bryant Mays MD Signed Date/Time: 04/09/21347 DD/ 1 Critical Care Time: Yes Critical care time in (mins) excluding proc time.: 35 Critical care attestation.: If time is entered above; I have spent that time in minutes in the direct care of this critically ill patient, excluding procedure time. ED Disposition Clinical Impression: HIV (human immunodeficiency virus infection), Abdominal wall cellulitis, Noncompliance, Acute hypoxemic respiratory failure, Suspected 2019 novel coronavirus infection, Open wound of abdominal wall Disposition: OP ADMIT IP TO THIS HOSP Is pt being admited?: Yes Does the pt Need Aspirin: No Condition: Fair
[2021-04-09] MEDS ORDERED: ACETAMINOPHEN 500 MG TAB PO ONE (00:28)
[2021-04-09 00:48] LABS: ABG Base Excess -0.5 mmol/L (-2.0-3.0); ABG HCO3 23.1 mmol/L (20.0-26.0); ABG Methemoglobin 0.6 % (0.0-1.5); ABG PCO2 35.1 mm Hg; ABG PH 7.436 pH Units (7.350-7.450); ABG PO2 49.8 mm Hg (80.0-90.0)
[2021-04-09] MEDS ORDERED: dexAMETHasone 4 MG/ML VIAL IV ONE (00:50)
[2021-04-09 01:25] LABS: Hematocrit 41.3 % (35.5-45.6); Mean Corpuscular HGB Conc 34 % (32-34); Mean Corpuscular Volume 90 fl (84-94); Platelet Count 139 K/mm3 (140-440); Red Blood Count 4.57 M/mm3 (3.65-5.03); Red Cell Distribution Width 15.2 % (13.2-15.2)
[2021-04-09 01:35] LABS: INR 1.11 (0.87-1.13)
--- NOTE | 2021-04-09 01:43 | XRay Report ---
CHEST 1 VIEW 015 INDICATION / CLINICAL INFORMATION: dyspnea COMPARISON: 03/18/2021 FINDINGS: SUPPORT DEVICES: None HEART / MEDIASTINUM: No significant abnormality. LUNGS / PLEURA: Mild scarring is again seen in the left lateral base. No pneumothorax. ADDITIONAL FINDINGS: No significant additional findings. IMPRESSION: No significant acute abnormality Signer Name: Bryant Mays MD Signed: 04/09/2021 1:38 AM Workstation Name: [id number]
[2021-04-09 01:49] LABS: C-Reactive Protein 0.2 mg/dL (0.00-1.30)
[2021-04-09 01:50] LABS: Alanine Aminotransferase 11 units/L (7-56); Albumin 3.5 g/dL (3.9-5); BUN/Creatinine Ratio 11; Blood Urea Nitrogen 14 mg/dL (9-20); Calcium 8.4 mg/dL (8.4-10.2); Hemolysis Index 3
[2021-04-09] MEDS ORDERED: CLINDAMYCIN 300 MG CAP PO ONE (02:17)
--- NOTE | 2021-04-09 02:51 | History and Physical Report ---
History of Present Illness Date of examination: 04/09/21 Date of admission: 04/09/21 02:18 Chief complaint: shortness of breath History of present illness: The patient was evaluated in the emergency department for symptoms described in the history of present illness. He/she was evaluated in the context of the global COVID-19 pandemic, which necessitated consideration that the patient might be at risk for infection with the virus that causes COVID-19. Institut ional protocols and algorithms that pertain to the evaluation of patients at risk for COVID-19 are in a state of rapid change based on information released by regulatory bodies including the CDC and federal and state organizations. These policies and algorithms were followed during the patient's care in the emergency department. Please note that these policies, procedures and recommendations changed on a rapid basis. ED work up WBC 3.7, H/H 14.0, PLT 139, D-dimer 395.60, sodium 135, potassium 3.6, Cr 1.3, Troponin negative. Chest x-ray -no acute finding.CTA of the chest done- changes are seen in the long including emphysema and a slight basilar atelectasis cta also showed moderate opacity of the pulmonary artery system but no pulmonary embolism noted. Patient seen at bedside in ED. Reviewed lab, mar, and v/s. patient admites tobacco use and marijuana use. Education and counseling to quit tobacco and marijuana use. Past History Past Medical History: HIV/AIDS, hyperthyroidism, hypertension Past Surgical History: hernia repair Social history: smoking, alcohol abuse, other (marijuana use) Family history: hypertension Medications and Allergies Allergies Allergy/AdvReac Type Severity Reaction Status Date / Time fish oil Allergy Hives Verified 01/06/21 16:16 Home Medications Medication Instructions Recorded Confirmed Last Taken Type AtorvaSTATin 40 mg PO HS 07/13/20 04/09/21 04/08/21 History Biktarvy 50-200-25 mg (Nf) 50 mg PO DAILY 07/13/20 04/09/21 04/05/21 History risperiDONE 1 mg PO DAILY 07/13/20 04/09/21 1 Day Ago History ~07/12/20 Amoxicillin/Potassium Clav 1 each PO Q12H 10 Days #20 tablet 11/09/20 04/09/21 Unknown Rx [Augmentin 875-125 Tablet] Ibuprofen [Motrin] 800 mg PO Q8HR PRN 7 Days #21 11/09/20 04/09/21 Unknown Rx tablet Sulfamethoxazole/Trimethoprim 1 each PO BID #14 tablet 01/06/21 04/09/21 04/08/21 Rx [Bactrim DS TAB] traMADoL [Ultram 50 MG tab] 50 mg PO Q6HR PRN #10 tablet 01/06/21 04/09/21 Unknown Rx Clindamycin [Clindamycin CAP] 300 mg PO Q8H #21 cap 01/23/21 04/09/21 04/08/21 Rx Ondansetron [Zofran Odt] 4 mg PO Q8HR PRN #14 tab.rapdis 01/23/21 04/09/21 Unknown Rx Sulfamethoxazole/Trimethoprim 1 each PO BID #20 tablet 02/20/21 04/09/21 04/08/21 Rx [Bactrim DS TAB] Review of Systems Constitutional: weakness, malaise Ears, nose, mouth and throat: no epistaxis, no bleeding gums Cardiovascular: no chest pain Respiratory: no cough Gastrointestinal: abdominal pain, nausea, no constipation, no melena Rectal: no hemorrhoids Musculoskeletal: muscle weakness, myalgias, no neck stiffness Integumentary: wounds, other (Abdominal wound) Neurological: no convulsions Psychiatric: anxiety, depression Hematologic/Lymphatic: no easy bruising, no easy bleeding Exam - Constitutional Vitals: Temp Pulse Resp BP Pulse Ox 98.0 F 92 H 13 123/81 91 04/09/21 01:11 04/09/21 00:30 04/09/21 00:30 04/09/21 00:30 04/09/21 00:30 General appearance: Present: mild distress, well-nourished - EENT Eyes: Present: PERRL ENT: hearing intact, clear oral mucosa - Neck Neck: Present: supple, normal ROM - Respiratory Respiratory effort: normal Respiratory: bilateral: CTA - Cardiovascular Heart Sounds: Present: S1 & S2. Absent: rub, click - Extremities Extremities: pulses symmetrical, No edema Peripheral Pulses: within normal limits - Abdominal General gastrointestinal: Present: soft, non-tender, non-distended, normal bowel sounds Male genitourinary: Present: normal - Integumentary Integumentary: Present: clear, warm, dry - Musculoskeletal Musculoskeletal: strength equal bilaterally, generalized weakness - Psychiatric Psychiatric: appropriate mood/affect, intact judgment & insight, cooperative - Neurologic Neurologic: CNII-XII intact, moves all extremities - Allied Health Allied health notes reviewed: nursing HEART Score - HEART Score Troponin: Troponin T < 0.010 ng/mL (0.00-0.029) 04/09/21 01:20 Results - Labs CBC & Chem 7: 04/09/21 01:04 04/09/21 01:04 Labs: Abnormal lab results 04/09/21 04/09/21 04/09/21 Range/Units 00:40 01:04 01:04 WBC 3.7 L (4.5-11.0) K/mm3 Plt Count 139 L (140-440) K/mm3 D-Dimer 395.60 H (0-234) ng/mlDDU ABG pO2 49.8 L (80.0-90.0) mm Hg ABG O2 Saturation 88.0 L (95.0-99.0) % Oxyhemoglobin 84.1 L (95.0-99.0) % Sodium (137-145) mmol/L Lactate Dehydrogenase (91-180) units/L Albumin (3.9-5) g/dL 04/09/21 04/09/21 Range/Units 01:04 01:04 WBC (4.5-11.0) K/mm3 Plt Count (140-440) K/mm3 D-Dimer (0-234) ng/mlDDU ABG pO2 (80.0-90.0) mm Hg ABG O2 Saturation (95.0-99.0) % Oxyhemoglobin (95.0-99.0) % Sodium 135 L (137-145) mmol/L Lactate Dehydrogenase 203 H (91-180) units/L Albumin 3.5 L (3.9-5) g/dL Assessment and Plan - Patient Problems (1) Acute hypoxemic respiratory failure Current Visit: Yes Status: Acute Plan to address problem: Patient reports difficulty breathing On room air with O2 sat greater than 92% ABG, chest x-ray -no acute finding CTA of the chest done- changes are seen in the long including emphysema and a slight basilar atelectasis cta also showed moderate opacity of the pulmonary artery system but no pulmonary embolism noted (2) Suspected 2019 novel coronavirus infection Current Visit: Yes Status: Acute Plan to address problem: Contact airborne isolation Monitor to inflammatory markers Ascorbic acid, zinc sulfate, and vitamin D CT of the chest showed lung capacity likely secondary to Covid pneumonia ID consulted continue with empiric antibiotics Elevated D-dimer -CTA of the chest neck negative for pulmonary embolism. (3) Abdominal wall cellulitis Current Visit: Yes Status: Acute Plan to address problem: Status post abdominal hernia repair with infection On empiric antibiotics.ID is consulted (4) Pneumonia Current Visit: No Status: Acute Plan to address problem: Likely secondary to Covid virus pneumonia CTa of the chest revealed moderate opacity likely secondary to viral/bacterial pneumonia Continue antibiotics ID consulted (5) HIV (human immunodeficiency virus infection) Current Visit: Yes Status: Chronic Qualifiers: Plan to address problem: Resume home antiviral (6) Marijuana abuse Current Visit: Yes Status: Acute Plan to address problem: patient admites marijuana and tobacco use Discussed illicit drug cessation including tobacco use cardiovascular and neoplasm syndrome of tobacco use explained to patient. (7) DVT prophylaxis Current Visit: Yes Status: Acute Plan to address problem: Lovenox
[2021-04-09 02:52] LABS: Total Cells Counted 100
[2021-04-09] MEDS ORDERED: SENNOSIDES 8.6 MG TAB PO PRN (02:52)
[2021-04-09] MEDS ORDERED: IBUPROFEN 800 MG TAB PO PRN (02:52)
[2021-04-09 02:53] LABS: RBC Morphology Normal
[2021-04-09] MEDS ORDERED: ACETAMINOPHEN 325 MG TAB PO PRN (02:56)
[2021-04-09] MEDS ORDERED: ALUM-MAG HYDROXIDE-SIMETHICONE 200-200-20MG/5ML ORAL LIQD 30 ML PO PRN (02:56)
[2021-04-09] MEDS ORDERED: MAGNESIUM HYDROXIDE (MOM) ORAL LIQD UDC PO PRN (02:56)
[2021-04-09] MEDS ORDERED: ONDANSETRON 4 MG/2 ML INJ IV PRN (02:56)
--- NOTE | 2021-04-09 03:53 | Cat Scan Report ---
CTA CHEST WITH IV CONTRAST INDICATION: Acute hypoxemic respiratory failure CONTRAST: 100 cc Omnipaque 350 IV COMPARISON: 03/01/2021 Three-plane MIP reconstructions were produced. All CT scans at this location are performed using CT d ose reduction for ALARA by means of automated exposure control. FINDINGS: No mediastinal or hilar masses are seen. A prevascular node is mildly prominent with a shor t axis diameter of 10 mm. Previously this had a short axis diameter of 8 mm. Hilar masses are seen. V isualized portions of the upper abdomen show mild fatty infiltration of the liver but no acute abnorm alities. No pleural effusions are seen. No pneumothorax or pneumomediastinum are noted. Heart is mild ly enlarged. Moderate chronic changes are again seen in the lung armas including emphysematous changes. Slight ba silar atelectatic changes are seen. Probable lingular scarring is again noted. No definite pneumonic infiltrates are seen. Aorta shows no aneurysmal dilatation or obvious evidence of dissection though is not well opacified. Moderate opacification of the pulmonary arterial system was achieved. I do not see obvious evidence o f pulmonary thromboembolism though artifact and low contrast density makes evaluation of some of the basilar arteries difficult. IMPRESSION: No obvious acute abnormalities are seen. Mild increase in prominence of a slightly enlarg ed mediastinal lymph node. Recommend follow-up. Signer Name: Bryant Mays MD Signed: 04/09/2021 3:48 AM Workstation Name: [id number]
[2021-04-09 08:15] LABS: C-Reactive Protein 0.1 mg/dL (0.00-1.30)
[2021-04-09] MEDS ORDERED: ENOXAPARIN 30 MG/0.3 ML INJ SUB-Q SCH (10:00)
[2021-04-09] MEDS ORDERED: NON-FORMULARY EACH (Aspirin 81 MG) PO SCH (10:00)
[2021-04-09] MEDS ORDERED: ZINC SULFATE 220 MG CAP PO SCH (10:00)
[2021-04-09] MEDS ORDERED: NON-FORMULARY EACH (Carvedilol 6.25 MG) PO SCH (10:00)
[2021-04-09] MEDS ORDERED: BIKTARVY PO SCH (10:00)
[2021-04-09] MEDS ORDERED: RISPERIDONE 1 MG PO SCH (10:00)
[2021-04-09] MEDS ORDERED: BUPROPION 150 MG PO SCH (10:00)
[2021-04-09] MEDS: ASPIRIN 81 MG TAB CHEW PO SCH (10:25)
[2021-04-09] MEDS: buPROPion XL 150 MG TAB PO SCH (10:25)
[2021-04-09] MEDS: AZITHROMYCIN 250 MG TAB PO SCH (10:25)
[2021-04-09] MEDS: carvediloL 6.25 MG TAB PO SCH (10:26)
[2021-04-09] MEDS: risperiDONE 1 MG TAB PO SCH (10:26)
[2021-04-09] MEDS: TENOFOVIR 300 MG TAB PO SCH (10:26)
[2021-04-09] MEDS: EMTRICITABINE 200 MG CAP PO SCH (10:26)
[2021-04-09] MEDS: CHOLECALCIFEROL (VIT D3) 1000 UNIT (25 mcg) TAB PO SCH (10:26)
[2021-04-09] MEDS: DOLUTEGRAVIR 50 MG TAB PO SCH (10:26)
[2021-04-09] MEDS: ASCORBIC ACID 500 MG TAB PO SCH (10:26)
[2021-04-09] MEDS: FAMOTIDINE 20 MG TAB PO SCH ×2 (10:27→22:08)
[2021-04-09] MEDS: ENOXAPARIN 40 MG/0.4 ML INJ SUB-Q SCH ×2 (10:27→22:08)
--- NOTE | 2021-04-09 10:43 | Electrocardiograph Report ---
[facility] Test Date: 2021-04-09 Test Time: 00:14:19 Pat Name: GRAZYNA SMITH Department: Room: A367 1 Gender: M Bag Turner: [id number] : 1975 Requested By: JIMMY SIFUENTES Order Number: [id number] Reading MD: Janell Phillips Measurements Intervals [place] Rate: 100 P: 37 NH: 173 QRS: -60 QRSD: 104 T: 52 QT: 341 QTc: 440 Interpretive Statements Sinus tachycardia Probable left atrial enlargement Left axis deviation Left ventricular hypertrophy Compared to ECG 03/18/2021 15:25:49 No significant change Electronically Signed On 04-09-2021 10:42:47 EDT by Janell Phillips
--- NOTE | 2021-04-09 11:30 | Event Note ---
Date: 04/09/21 Patient clinically stable at this time. Still with bilateral lower extremity pain. Awaiting ID evaluation of the abdominal once. Continue current management we will further evaluate if patient has have an underlying neuropathy will start on low-dose gabapentin and continue to monitor. Will obtain bilateral lower extremity Doppler CPK levels.
[2021-04-09] MEDS ORDERED: CLINDAMYCIN 300 MG CAP PO SCH (12:00)
[2021-04-09] MEDS ORDERED: VANCOMYCIN 1,500 MG in SODIUM CHLORIDE 0.9% 500 ML 500 ML IV ONE (15:29)
--- NOTE | 2021-04-09 15:33 | Consultation ---
History of Present Illness - Reason for Consult Consult date: 04/09/21 COVID, abdominal wall cellulitis Requesting physician: DANE ERWIN - History of Present Illness The patient is a 46-year-old male with HIV on Biktarvy was admitted to the hospital with complaints of shortness of breath. He tested positive for COVID- 19. He was also found to have abdominal wall cellulitis with purulence. Patient reports a history of abdominal wall hernia surgery at [place] about 8 months ago which has been infected. Review of Systems: per HPI Past History Past Medical History: HIV/AIDS, hyperthyroidism, hypertension Past Surgical History: hernia repair Social history: smoking, alcohol abuse, other (marijuana use) Family history: hypertension Medications and Allergies Allergies Allergy/AdvReac Type Severity Reaction Status Date / Time fish oil Allergy Hives Verified 01/06/21 16:16 Home Medications Medication Instructions Recorded Confirmed Last Taken Type AtorvaSTATin 40 mg PO HS 07/13/20 04/09/21 04/08/21 History Biktarvy 50-200-25 mg (Nf) 50 mg PO DAILY 07/13/20 04/09/21 04/05/21 History risperiDONE 1 mg PO DAILY 07/13/20 04/09/21 1 Day Ago History ~07/12/20 Amoxicillin/Potassium Clav 1 each PO Q12H 10 Days #20 tablet 11/09/20 04/09/21 Unknown Rx [Augmentin 875-125 Tablet] Ibuprofen [Motrin] 800 mg PO Q8HR PRN 7 Days #21 11/09/20 04/09/21 Unknown Rx tablet Sulfamethoxazole/Trimethoprim 1 each PO BID #14 tablet 01/06/21 04/09/21 04/08/21 Rx [Bactrim DS TAB] traMADoL [Ultram 50 MG tab] 50 mg PO Q6HR PRN #10 tablet 01/06/21 04/09/21 Unknown Rx Clindamycin [Clindamycin CAP] 300 mg PO Q8H #21 cap 01/23/21 04/09/21 04/08/21 Rx Ondansetron [Zofran Odt] 4 mg PO Q8HR PRN #14 tab.rapdis 01/23/21 04/09/21 Unknown Rx Sulfamethoxazole/Trimethoprim 1 each PO BID #20 tablet 02/20/21 04/09/21 04/08/21 Rx [Bactrim DS TAB] Active Meds: Active Medications Acetaminophen (Acetaminophen 325 Mg Tab) 650 mg PO Q4H PRN PRN Reason: Pain MILD(1-3)/Fever >100.5/BORJA Al Hydrox/Mg Hydrox/Simethicone (Alum-Mag Hydroxide-Simethicone [phone]/5ml Oral Liqd 30 Ml) 30 ml PO Q4H PRN PRN Reason: Indigestion Ascorbic Acid (Ascorbic Acid 500 Mg Tab) 500 mg PO QDAY [facility] Last Admin: 04/09/21 10:26 Dose: 500 mg Documented by: Aspirin (Aspirin 81 Mg Tab Chew) 81 mg PO QDAY [facility] Last Admin: 04/09/21 10:25 Dose: 81 mg Documented by: Atorvastatin Calcium (Atorvastatin 40 Mg Tab) 40 mg PO QHS [facility] Azithromycin (Azithromycin 250 Mg Tab) 500 mg PO QDAY [facility]; Protocol Last Admin: 04/09/21 10:25 Dose: 500 mg Documented by: Bupropion HCl (Bupropion Xl 150 Mg Tab) 150 mg PO DAILY [facility] Last Admin: 04/09/21 10:25 Dose: 150 mg Documented by: Carvedilol (Carvedilol 6.25 Mg Tab) 6.25 mg PO DAILY [facility] Last Admin: 04/09/21 10:26 Dose: 6.25 mg Documented by: Cholecalciferol (Cholecalciferol (Vit D3) 1000 Unit (25 Mcg) Tab) 1,000 unit PO QDAY [facility] Last Admin: 04/09/21 10:26 Dose: 1,000 unit Documented by: Emtricitabine (Emtricitabine 200 Mg Cap) 200 mg PO QDAY [facility] Last Admin: 04/09/21 10:26 Dose: 200 mg Documented by: Enoxaparin Sodium (Enoxaparin 40 Mg/0.4 Ml Inj) 40 mg SUB-Q BID [facility] Last Admin: 04/09/21 10:27 Dose: 40 mg Documented by: Famotidine (Famotidine 20 Mg Tab) 20 mg PO BID [facility] Last Admin: 04/09/21 10:27 Dose: 20 mg Documented by: Sodium Chloride (Nacl 0.9% 1000 Ml) 1,000 mls @ 100 mls/hr IV DIRECT PATRICK Cefepime HCl (Cefepime/Ns 2 Gm/100 Ml) 2 gm in 100 mls @ 200 mls/hr IV Q12HR [facility]; Protocol Vancomycin HCl 1,500 mg/ (Sodium Chloride) 530 mls @ 333 mls/hr IV ONCE ONE; Protocol Stop: 04/09/21 16:59 Magnesium Hydroxide (Magnesium Hydroxide (Mom) Oral Liqd Udc) 30 ml PO Q4H PRN PRN Reason: Constipation Ondansetron HCl (Ondansetron 4 Mg/2 Ml Inj) 4 mg IV Q8H PRN PRN Reason: Nausea And Vomiting Risperidone (Risperidone 1 Mg Tab) 1 mg PO DAILY [facility] Last Admin: 04/09/21 10:26 Dose: 1 mg Documented by: Senna (Sennosides 8.6 Mg Tab) 8.6 mg PO Q12HR PRN PRN Reason: Constipation Sodium Chloride (Sodium Chloride 0.9% 10 Ml Flush Syringe) 10 ml IV BID [facility] Last Admin: 04/09/21 10:27 Dose: 10 ml Documented by: Sodium Chloride (Sodium Chloride 0.9% 10 Ml Flush Syringe) 10 ml IV PRN PRN PRN Reason: LINE FLUSH Tenofovir Disoproxil Fumarate (Tenofovir 300 Mg Tab) 300 mg PO QDAY [facility] Last Admin: 04/09/21 10:26 Dose: 300 mg Documented by: Physical Examination - Physical Exam Narrative exam: Physical Exam: Constitutional: Alert, cooperative. No acute distress Head, Ears, Nose: Normocephalic, atraumatic. External ears, nose normal Eyes: Conjunctivae/corneas clear. No icterus. No ptosis. Neck: Supple, no meningeal signs Cardiovascular: S1, S2 normal. Respiratory: Good air entry, clear to auscultation bilaterally GI: midabdomen with two wounds with erythema and purulence, tenderness + Musculoskeletal: No pedal edema, no cyanosis. Skin: No rash or abscess Hem/Lymphatic: No palpable cervical or supraclavicular nodes. No lymphangitis Psych: Mood ok. Affect normal Neurological: Awake, alert, oriented. No gross abnormality - Constitutional Vitals: Vital Signs Temp Pulse Resp BP Pulse Ox 97.8 F 74 16 127/72 99 04/09/21 13:20 04/09/21 13:20 04/09/21 13:20 04/09/21 13:20 04/09/21 13:20 Temperature -Last 24 Hours Temperature 97.8 F Temperature 97.9 F Temperature 98.0 F Results - Labs CBC & Chem 7: 04/09/21 01:04 04/09/21 07:07 Labs: Abnormal lab results 04/09/21 04/09/21 04/09/21 Range/Units 00:40 01:04 01:04 WBC 3.7 L (4.5-11.0) K/mm3 Plt Count 139 L (140-440) K/mm3 Monocytes % (Manual) 11.0 H (0.0-7.3) % D-Dimer 395.60 H (0-234) ng/mlDDU ABG pO2 49.8 L (80.0-90.0) mm Hg ABG O2 Saturation 88.0 L (95.0-99.0) % Oxyhemoglobin 84.1 L (95.0-99.0) % Sodium (137-145) mmol/L Glucose (75-100) mg/dL Lactate Dehydrogenase (91-180) units/L Albumin (3.9-5) g/dL Coronavirus (PCR) (Negative) 04/09/21 04/09/21 04/09/21 Range/Units 01:04 01:04 07:07 WBC (4.5-11.0) K/mm3 Plt Count (140-440) K/mm3 Monocytes % (Manual) (0.0-7.3) % D-Dimer 336.67 H (0-234) ng/mlDDU ABG pO2 (80.0-90.0) mm Hg ABG O2 Saturation (95.0-99.0) % Oxyhemoglobin (95.0-99.0) % Sodium 135 L (137-145) mmol/L Glucose (75-100) mg/dL Lactate Dehydrogenase 203 H (91-180) units/L Albumin 3.5 L (3.9-5) g/dL Coronavirus (PCR) (Negative) 04/09/21 04/09/21 Range/Units 07:07 08:30 WBC (4.5-11.0) K/mm3 Plt Count (140-440) K/mm3 Monocytes % (Manual) (0.0-7.3) % D-Dimer (0-234) ng/mlDDU ABG pO2 (80.0-90.0) mm Hg ABG O2 Saturation (95.0-99.0) % Oxyhemoglobin (95.0-99.0) % Sodium (137-145) mmol/L Glucose 127 H (75-100) mg/dL Lactate Dehydrogenase 200 H (91-180) units/L Albumin (3.9-5) g/dL Coronavirus (PCR) Positive A (Negative) - Imaging and Cardiology Chest x-ray: report reviewed, image reviewed (no pneumonia) Assessment and Plan Cultures: 04/09/2021 blood culture: In process A/P: 46-year-old male with HIV on Biktarvy was admitted to the hospital with complaints of shortness of breath. He tested positive for COVID-19. He was also found to have abdominal wall cellulitis with purulence. Patient reports a history of abdominal wall hernia surgery at [place] about 8 months ago which has been infected: #COVID-19: Not hypoxic at this time. #Abdominal wall cellulitis and abscess: History of abdominal wall hernia surgery at [place] about 8 months ago, it seems this has been chronically infected. If he has an underlying mesh, treatment will be significantly challenging and may warrant removal. #HIV: On Biktarvy Recs: abdominal wall wound culture ordered CT abdomen and pelvis with IV contrast ordered olease request Gen Surg consult empiric IV Cefepime, vancomycin ordered No remdesivir or steroids for COVID at this point, not hypoxic Continue Biktarvy / therapeutic interchange per formulary Cinthia Giron MD, FACP [facility] ([facility] O: [phone] F: [phone]
[2021-04-09] MEDS ORDERED: VANCOMYCIN PHARMACY TO DOSE IV SCH (16:00)
--- NOTE | 2021-04-09 16:51 | Vascular Lab Report ---
DUPLEX DOPPLER LOWER EXTREMITY VEINS, BILATERAL INDICATION / CLINICAL INFORMATION: pain bilateral lower ext. TECHNIQUE: Duplex doppler imaging was performed through the veins of both lower extremities using venous kimberly april and other maneuvers. COMPARISON: None available. FINDINGS: RIGHT COMMON FEMORAL VEIN: Negative. RIGHT FEMORAL VEIN: Negative. RIGHT POPLITEAL VEIN: Negative. RIGHT CALF VEINS: Negative. LEFT COMMON FEMORAL VEIN: Negative. LEFT FEMORAL VEIN: Negative. LEFT POPLITEAL VEIN: Negative. LEFT CALF VEINS: Negative. ADDITIONAL FINDINGS: None. IMPRESSION: 1. No sonographic evidence for DVT in either lower extremity. Signer Name: Stefan Barger MD Signed: 04/09/2021 4:47 PM Workstation Name: [id number]
[2021-04-09] MEDS ORDERED: VANCOMYCIN 2,000 MG in SODIUM CHLORIDE 0.9% 500 ML 500 ML IV ONE (17:00)
[2021-04-09] MEDS: CEFEPIME/NS 2 GM/100 ML 2 GM/100 ML BAG IV SCH (17:44)
[2021-04-09] MEDS: SODIUM CHLORIDE 0.9% 1000 ML 1,000 ML IV SCH (18:14)
--- NOTE | 2021-04-09 20:52 | Cat Scan Report ---
CT ABDOMEN AND PELVIS WITH CONTRAST HISTORY: abdominal wall abscess. COMPARISON: None. TECHNIQUE: CT images of the abdomen and pelvis were obtained following administration of intravenous contrast. All CT scans at this location are performed using CT dose reduction for ALARA by means of automated exposure control. CONTRAST: 100 ml of intravenous contrast administered. FINDINGS: Lungs/bones: Lung bases are clear Abdomen/pelvis: There is fatty infiltration of the liver. The spleen, adrenal glands, pancreas appea r normal. Gallbladder and upper GI tract appear normal. Kidneys are unremarkable. There is mixing of contrast within the IVC extending to the right iliac could represent mixing versus thrombus. This makenzie ears similar to prior exam. Marked inflammation is seen within the anterior/ventral abdominal wall in region of hernia repair. No drainable fluid collection is seen. Some enlargement of the left rectus abdominal muscles again seen . This is also seen in February. IMPRESSION: 1. Unchanged soft tissue thickening and inflammation at the hernia repair site anterior abdominal wal l. No discrete fluid collection or drainable collection is seen. Signer Name: Mateo Jett MD Signed: 04/09/2021 8:47 PM Workstation Name: [id number]
[2021-04-09] MEDS ORDERED: NON-FORMULARY EACH (Atorvastatin 40 MG) PO SCH (22:00)
[2021-04-10] MEDS: VANCOMYCIN 1,500 MG in SODIUM CHLORIDE 0.9% 500 ML 500 ML IV SCH ×2 (05:15→18:20)
[2021-04-10] MEDS: SODIUM CHLORIDE 0.9% 1000 ML 1,000 ML IV SCH (05:15)
[2021-04-10] MEDS: CEFEPIME/NS 2 GM/100 ML 2 GM/100 ML BAG IV SCH ×2 (05:15→17:31)
[2021-04-10 06:49] LABS: Basophils % (Auto) 0.4 % (0.0-1.8); Eosinophils # (Auto) 0.1 K/mm3 (0.0-0.4); Eosinophils % (Auto) 3.7 % (0.0-4.3); Hematocrit 41.1 % (35.5-45.6); Hemoglobin 13.7 gm/dl (11.8-15.2); Lymphocytes # (Auto) 0.7 K/mm3 (1.2-5.4); Lymphocytes % (Auto) 19.8 % (13.4-35.0); Mean Corpuscular HGB Conc 33 % (32-34); Mean Corpuscular Volume 90 fl (84-94); Monocytes # (Auto) 0.3 K/mm3 (0.0-0.8); Monocytes % (Auto) 9.1 % (0.0-7.3); Platelet Count 130 K/mm3 (140-440); Red Blood Count 4.58 M/mm3 (3.65-5.03); Red Cell Distribution Width 15.2 % (13.2-15.2)
[2021-04-10 07:05] LABS: Alanine Aminotransferase 7 units/L (7-56); BUN/Creatinine Ratio 12; Blood Urea Nitrogen 15 mg/dL (9-20); Hemolysis Index 2
[2021-04-10] MEDS: buPROPion XL 150 MG TAB PO SCH (10:06)
[2021-04-10] MEDS: CHOLECALCIFEROL (VIT D3) 1000 UNIT (25 mcg) TAB PO SCH (10:06)
[2021-04-10] MEDS: DOLUTEGRAVIR 50 MG TAB PO SCH (10:06)
[2021-04-10] MEDS: EMTRICITABINE 200 MG CAP PO SCH (10:06)
[2021-04-10] MEDS: ENOXAPARIN 40 MG/0.4 ML INJ SUB-Q SCH ×2 (10:06→22:54)
[2021-04-10] MEDS: ASPIRIN 81 MG TAB CHEW PO SCH (10:06)
[2021-04-10] MEDS: TENOFOVIR 300 MG TAB PO SCH (10:06)
[2021-04-10] MEDS: FAMOTIDINE 20 MG TAB PO SCH ×2 (10:07→22:54)
[2021-04-10] MEDS: ASCORBIC ACID 500 MG TAB PO SCH (10:07)
[2021-04-10] MEDS: risperiDONE 1 MG TAB PO SCH (10:07)
[2021-04-10] MEDS: AZITHROMYCIN 250 MG TAB PO SCH (10:07)
--- NOTE | 2021-04-10 10:11 | Consultation ---
History of Present Illness Consult date: 04/10/21 Reason for consult: wound care Chief complaint: Chronic wound - History of present illness History of present illness: 46-year-old male with a past medical history of hypertension, HIV who presents to the ER with complaints of shortness of breath and body aches and fatigue. Patient found to be Covid positive. In addition, the patient was noted to have a chronic draining abdominal wound. Per records the patient had a abdominal hernia repair at [facility] last year. This has been complicated by a chronic wound. Surgery is consulted for further evaluation. Patient is afebrile. He is hemodynamically stable. Patient states that his hernia repair was almost a year ago. He states that the hernia repair was done as an inpatient. He states that the abdominal area started draining and he was started on Bactrim. He states that after this he did not follow-up with the surgeons at [facility]. He states he is homeless and does not have the ability to obtain transportation for his visits. He has not been performing any specific wound care to the area. He is noncompliant with his HIV meds as there are times when he cannot make it to his appointments. He states that there is some pain around the draining sinuses however this has been ongoing and is not new. He is tolerating a diet without nausea or vomiting. In fact he states that the amount of food that he is getting is not enough. He is having bowel movements. Past History Past Medical History: HIV/AIDS, hyperthyroidism, hypertension Past Surgical History: hernia repair Social history: smoking, alcohol abuse, other (marijuana use) Family history: hypertension Medications and Allergies Allergies Allergy/AdvReac Type Severity Reaction Status Date / Time fish oil Allergy Hives Verified 01/06/21 16:16 Home Medications Medication Instructions Recorded Confirmed Last Taken Type AtorvaSTATin 40 mg PO HS 07/13/20 04/09/21 04/08/21 History Biktarvy 50-200-25 mg (Nf) 50 mg PO DAILY 07/13/20 04/09/21 04/05/21 History risperiDONE 1 mg PO DAILY 07/13/20 04/09/21 1 Day Ago History ~07/12/20 Amoxicillin/Potassium Clav 1 each PO Q12H 10 Days #20 tablet 11/09/20 04/09/21 Unknown Rx [Augmentin 875-125 Tablet] Ibuprofen [Motrin] 800 mg PO Q8HR PRN 7 Days #21 11/09/20 04/09/21 Unknown Rx tablet Sulfamethoxazole/Trimethoprim 1 each PO BID #14 tablet 01/06/21 04/09/21 04/08/21 Rx [Bactrim DS TAB] traMADoL [Ultram 50 MG tab] 50 mg PO Q6HR PRN #10 tablet 01/06/21 04/09/21 Unknown Rx Clindamycin [Clindamycin CAP] 300 mg PO Q8H #21 cap 01/23/21 04/09/21 04/08/21 Rx Ondansetron [Zofran Odt] 4 mg PO Q8HR PRN #14 tab.rapdis 01/23/21 04/09/21 Unknown Rx Sulfamethoxazole/Trimethoprim 1 each PO BID #20 tablet 02/20/21 04/09/21 04/08/21 Rx [Bactrim DS TAB] Active Meds: Active Medications Acetaminophen (Acetaminophen 325 Mg Tab) 650 mg PO Q4H PRN PRN Reason: Pain MILD(1-3)/Fever >100.5/BORJA Last Admin: 04/10/21 08:22 Dose: 650 mg Documented by: Al Hydrox/Mg Hydrox/Simethicone (Alum-Mag Hydroxide-Simethicone [id number]/5ml Oral Liqd 30 Ml) 30 ml PO Q4H PRN PRN Reason: Indigestion Ascorbic Acid (Ascorbic Acid 500 Mg Tab) 500 mg PO QDAY [facility] Last Admin: 04/10/21 10:07 Dose: 500 mg Documented by: Aspirin (Aspirin 81 Mg Tab Chew) 81 mg PO QDAY [facility] Last Admin: 04/10/21 10:06 Dose: 81 mg Documented by: Atorvastatin Calcium (Atorvastatin 40 Mg Tab) 40 mg PO QHS [facility] Last Admin: 04/09/21 22:08 Dose: 40 mg Documented by: Bupropion HCl (Bupropion Xl 150 Mg Tab) 150 mg PO DAILY [facility] Last Admin: 04/10/21 10:06 Dose: 150 mg Documented by: Carvedilol (Carvedilol 6.25 Mg Tab) 6.25 mg PO DAILY [facility] Last Admin: 04/09/21 10:26 Dose: 6.25 mg Documented by: Cholecalciferol (Cholecalciferol (Vit D3) 1000 Unit (25 Mcg) Tab) 1,000 unit PO QDAY [facility] Last Admin: 04/10/21 10:06 Dose: 1,000 unit Documented by: Emtricitabine (Emtricitabine 200 Mg Cap) 200 mg PO QDAY [facility] Last Admin: 04/10/21 10:06 Dose: 200 mg Documented by: Enoxaparin Sodium (Enoxaparin 40 Mg/0.4 Ml Inj) 40 mg SUB-Q BID [facility] Last Admin: 04/10/21 10:06 Dose: 40 mg Documented by: Famotidine (Famotidine 20 Mg Tab) 20 mg PO BID [facility] Last Admin: 04/10/21 10:07 Dose: 20 mg Documented by: Sodium Chloride (Nacl 0.9% 1000 Ml) 1,000 mls @ 100 mls/hr IV DIRECT [facility] Last Admin: 04/10/21 05:15 Dose: 100 mls/hr Documented by: Cefepime HCl (Cefepime/Ns 2 Gm/100 Ml) 2 gm in 100 mls @ 200 mls/hr IV Q12H [facility]; Protocol Last Admin: 04/10/21 05:15 Dose: 200 mls/hr Documented by: Vancomycin HCl 1,500 mg/ (Sodium Chloride) 530 mls @ 333.333 mls/hr IV Q12H [facility] Last Admin: 04/10/21 05:15 Dose: 333.333 mls/hr Documented by: Magnesium Hydroxide (Magnesium Hydroxide (Mom) Oral Liqd Udc) 30 ml PO Q4H PRN PRN Reason: Constipation Ondansetron HCl (Ondansetron 4 Mg/2 Ml Inj) 4 mg IV Q8H PRN PRN Reason: Nausea And Vomiting Risperidone (Risperidone 1 Mg Tab) 1 mg PO DAILY [facility] Last Admin: 04/10/21 10:07 Dose: 1 mg Documented by: Senna (Sennosides 8.6 Mg Tab) 8.6 mg PO Q12HR PRN PRN Reason: Constipation Last Admin: 04/09/21 22:08 Dose: 8.6 mg Documented by: Sodium Chloride (Sodium Chloride 0.9% 10 Ml Flush Syringe) 10 ml IV BID [facility] Last Admin: 04/10/21 10:08 Dose: 10 ml Documented by: Sodium Chloride (Sodium Chloride 0.9% 10 Ml Flush Syringe) 10 ml IV PRN PRN PRN Reason: LINE FLUSH Tenofovir Disoproxil Fumarate (Tenofovir 300 Mg Tab) 300 mg PO QDAY [facility] Last Admin: 04/10/21 10:06 Dose: 300 mg Documented by: Review of Systems All systems: negative (10 point ROS performed and negative except for that listed in HPI) Exam Vital Signs Pulse Ox 92 04/09/21 00:28 Narrative exam: Gen.: Awake, alert, oriented x3. No apparent distress ENT: Trachea midline. No lymphadenopathy. No scleral icterus or conjunctival pallor CV: S1, S2 present Respiratory: No audible wheezes Abdomen: Soft, nondistended. There are 3 draining sinuses of the abdominal wall. One is very close to the umbilicus with purulent drainage expressed. There are 2 in the mid epigastric area -1 of which has chronic granulation tiss ue present. There is generalized chronic induration of the abdominal skin in the mid abdomen. No obvious fluctuant areas. Wounds were cleansed with saline and covered with a dry 4 x 4 gauze. Extremities: No clubbing, cyanosis, edema Results - Labs 04/10/21 06:25 04/10/21 06:25 Abnormal lab results 04/09/21 04/10/21 04/10/21 Range/Units 08:30 06:25 06:25 WBC 3.5 L (4.5-11.0) K/mm3 Plt Count 130 L (140-440) K/mm3 Dyer % (Auto) 9.1 H (0.0-7.3) % Lymph # (Auto) 0.7 L (1.2-5.4) K/mm3 Calcium 8.0 L (8.4-10.2) mg/dL Albumin 3.0 L (3.9-5) g/dL Coronavirus (PCR) Positive A (Negative) Diabetes panel 04/10/21 Range/Units 06:25 Sodium 137 (137-145) mmol/L Potassium 3.9 (3.6-5.0) mmol/L Chloride 106.5 (98-107) mmol/L Carbon Dioxide 25 (22-30) mmol/L BUN 15 (9-20) mg/dL Creatinine 1.3 (0.8-1.3) mg/dL Glucose 96 (75-100) mg/dL Calcium 8.0 L (8.4-10.2) mg/dL AST 13 (5-40) units/L ALT 7 (7-56) units/L Alkaline Phosphatase 82 (35-129) units/L Total Protein 6.7 (6.3-8.2) g/dL Albumin 3.0 L (3.9-5) g/dL Calcium panel 04/10/21 Range/Units 06:25 Calcium 8.0 L (8.4-10.2) mg/dL Albumin 3.0 L (3.9-5) g/dL Pituitary panel 04/10/21 Range/Units 06:25 Sodium 137 (137-145) mmol/L Potassium 3.9 (3.6-5.0) mmol/L Chloride 106.5 (98-107) mmol/L Carbon Dioxide 25 (22-30) mmol/L BUN 15 (9-20) mg/dL Creatinine 1.3 (0.8-1.3) mg/dL Glucose 96 (75-100) mg/dL Calcium 8.0 L (8.4-10.2) mg/dL Adrenal panel 04/10/21 Range/Units 06:25 Sodium 137 (137-145) mmol/L Potassium 3.9 (3.6-5.0) mmol/L Chloride 106.5 (98-107) mmol/L Carbon Dioxide 25 (22-30) mmol/L BUN 15 (9-20) mg/dL Creatinine 1.3 (0.8-1.3) mg/dL Glucose 96 (75-100) mg/dL Calcium 8.0 L (8.4-10.2) mg/dL Total Bilirubin 0.60 (0.1-1.2) mg/dL AST 13 (5-40) units/L ALT 7 (7-56) units/L Alkaline Phosphatase 82 (35-129) units/L Total Protein 6.7 (6.3-8.2) g/dL Albumin 3.0 L (3.9-5) g/dL - Imaging CT scan - abdomen: report reviewed, image reviewed CT scan - pelvis: report reviewed, image reviewed Assessment and Plan 46-year-old male with 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 Also compared with prior 3 CT scans performed at [facility]. There is no change in the chronic inflammation of the anterior abdominal wall at the site is hernia repair. No obvious fluid collections. Plan: 1. Reg diet 2. daily wound care 3. abx per ID 4. As this is a chronic issue, I do not recommend any surgical intervention at this time. Pt is hemodynamically stable and afebrile. In addition he is being treated for acute COVID 19 infection. He will however need outpatient follow up for chronic mesh infection/wounds. For this, I recommend that the patient follow up with his primary surgeon@[facility] for possible debridement of abdominal wall vs mesh removal with abdominal wall reconstruction. The management for this will be complex and require care at a tertiary care center. 5. social media sr strategy manager consult - patient will need help arranging transport to [facility] for surgical appointment. Thank you for this consultation. Please call with any questions or concerns. Evaluation and treatment of this patient was during the time of the national and state emergency arising from COVID19 coronavirus pandemic. Treatment and procedures performed meet the current and available best practice and guidelines for patient during the COVID pandemic.
--- NOTE | 2021-04-10 11:45 | Discharge Summary ---
Providers - Providers Date of Admission: 04/09/21 02:18 Attending physician: DANE ERWIN MD 04/09/21 00:50 Consult to Physician [CONS] Urgent Comment: Consulting Provider: JOHN NGUYEN Physician Instructions: Reason For Exam: Acute hypoxemic respiratory failure, suspected Cov 04/09/21 05:52 Consult to Physician [CONS] Routine Comment: Consulting Provider: TERRENCE CASTRO Physician Instructions: Reason For Exam: PUI/cellulites 04/09/21 06:03 Consult to Wound/ET Nurse [CONS] Routine Reason For Exam: wound eval 04/09/21 15:50 Consult to Physician [CONS] Routine Comment: Consulting Provider: MATEO LUU Physician Instructions: Reason For Exam: ABDOMINAL PAIN Primary care physician: FILEMAKER DEVELOPER Hospitalization Reason for admission: genrelized body pain Condition: Fair Hospital course: This is a 46-year-old gentleman. I have evaluated him in the past. I admitted this patient to the hospital in February of this year, for cardiac risk ratification. He had a nuclear stress test which was negative for ischemic findings. In addition, since then, he has been presented to the emergency room, with a recurrent complaint of chest pain, he has had multiple negative troponins, multiple unchanged EKGs, and multiple negative D-dimers. Today, the patient presents to the ER via EMS with a complaint of shortness of breath, body aches, weakness, diarrhea, fatigue. Symptoms have been going on for a few hours. He has not lost taste or smell. He has not received his Covid vaccination. He has been working, and occasionally wearing a mask. He makes no complaint of neck pain, chest pain to myself. He has chronic abdominal pain and a chronic abdominal wound. He endorses chronic pain, and acute on chronic discharge over his chronic abdominal wound. Of note, cultures were negative for acute organisms. Patient has not attempted any analgesia as of yet. -: Gradual, hour(s) Location: back, abdomen, left, right, upper extremity, lower extremity Patient was also noted during admission to have COVID-19 there was no indication for remdesivir or steroids as patient is not hypoxic. The patient this morning reports no further leg pain Patient noted with no fever, wound dressing was done on the abdomen, ID recommended Zyvox 600mg PO BID for 10 days Case management will assist with this. He was seen by he was seen by surgery and following evaluation there is no change in chronic inflammation of the anterior wall abdominal site and no obvious fluid collection none was seen on CT scan. ID recommended patient continue with wound care and follow-up with primary surgeon at [place] for possible debridement of abdominal wall versus mesh removal with abdominal wall reconstruction. Patient verbalized understanding. Case management is also assisting with plan for patient to be able to get to [place] transportation issues of bowel spasm was given. Discharge diagnosis COVID-19 without hypoxia Acute respiratory failure resolved O2 sat on room air 92% Abdominal wall cellulitis with patient status post abdominal wall hernia surgery at [place] 8 months ago HIV with no acute disease Marijuana use 15 minutes of counseling provided to the patient verbalized understanding. Pneumonia ruled out Disposition: DC- TO HOME OR SELFCARE Final Discharge Diagnosis (Prints w/discharge instructions): abdominal wall cellulits Time spent for discharge: 35 MINS Core Measure Documentation - Palliative Care Palliative Care/ Comfort Measures: Not Applicable - Core Measures Any of the following diagnoses?: none Exam - Physical Exam Narrative exam: VITAL SIGNS: Reviewed. GENERAL: The patient appears normally developed, Vital signs as documented. HEAD: No signs of head trauma. EYES: Pupils are equal. Extraocular motions intact. EARS: Hearing grossly intact. MOUTH: Oropharynx is normal. NECK: No adenopathy, no JVD. CHEST: Chest with clear breath sounds bilaterally. No wheezes, rales, or rhonchi. CARDIAC: Regular rate and rhythm. S1 and S2, without murmurs, gallops, or rubs. VASCULAR: No Edema. Peripheral pulses normal and equal in all extremities. ABDOMEN: There are 3 draining sinuses of the abdominal wall. One is very close to the umbilicus with purulent drainage expressed. There are 2 in the mid epigastric area -1 of which has chronic granulation tissue present. There is generalized chronic induration of the abdominal skin in the mid abdomen. No obvious fluctuant areas. Wounds were cleansed with saline and covered with a dry 4 x 4 gauze. Otherwise soft, non tender and non distended. No rebound or guarding, and no masses palpated. Bowel Sounds normal. MUSCULOSKELETAL: Good range of motion of all major joints. Extremities without clubbing, cyanosis or edema. NEUROLOGIC EXAM: Alert and oriented x 3 No focal sensory or strength deficits. Speech normal. Follows commands. PSYCHIATRIC: Mood normal. SKIN: detail exam as documented in skin assessment - Constitutional Vitals: Temp Pulse Resp BP Pulse Ox 98.2 F 71 18 117/72 99 04/10/21 05:17 04/10/21 05:17 04/10/21 05:17 04/10/21 05:17 04/10/21 05:17 Plan Activity: advance as tolerated, fall precautions Diet: low fat Special Instructions: record daily weights, record daily BP diary Plan of Treatment: Patient must follow-up at [place] to be evaluated by the surgeon that did the surgery. He must complete his antibiotics which has been prescribed and ordered Continue social distancing protocols and monitor oxygen return to hospital if saturation less than 90%.. Follow up with: [facility] [Outside] - 7 Days PRIMARY CARE, [Primary Care Provider] - 3-5 Days [facility] - 7 Days Prescriptions: Ascorbic Acid [Vitamin C] 500 mg PO QDAY #30 tablet Cholecalciferol Vit D3 [Vitamin D3 1,000 UNIT TAB] 1,000 unit PO QDAY #30 tablet Linezolid [Zyvox] 600 mg PO BID #20 tablet
--- NOTE | 2021-04-10 12:59 | Event Note ---
Date: 04/10/21 Appreciate General Surgery evaluation. From ID standpoint, OK for discharge on PO linezolid 600 mg BID x 10 days. Patient will need to follow up with surgery at [place] for definitive management. Antibiotics alone unlikely to resolve this infection.
[2021-04-10] MEDS: carvediloL 6.25 MG TAB PO SCH (13:17)
[2021-04-10] MEDS ORDERED: LINEZOLID 600 MG TAB PO ONE (18:30)
[2021-04-10] MEDS: LINEZOLID 600 MG TAB PO SCH (22:54)
[2021-04-11] MEDS: CEFEPIME/NS 2 GM/100 ML 2 GM/100 ML BAG IV SCH (04:03)
[2021-04-11 06:20] LABS: BUN/Creatinine Ratio 9; Blood Urea Nitrogen 12 mg/dL (9-20); Calcium 8.1 mg/dL (8.4-10.2); Hemolysis Index 17
[2021-04-11 06:22] VITALS: BP 109/65
--- NOTE | 2021-04-11 07:38 | Progress Note ---
Assessment and Plan Assessment and plan: is is a 46-year-old gentleman. I have evaluated him in the past. I admitted this patient to the hospital in February of this year, for cardiac risk ratification. He had a nuclear stress test which was negative for ischemic findings. In addition, since then, he has been presented to the emergency room, with a recurrent complaint of chest pain, he has had multiple negative troponins, multiple unchanged EKGs, and multiple negative D-dimers. Today, the patient presents to the ER via EMS with a complaint of shortness of breath, body aches, weakness, diarrhea, fatigue. Symptoms have been going on for a few hours. He has not lost taste or smell. He has not received his Covid vaccination. He has been working, and occasionally wearing a mask. He makes no complaint of neck pain, chest pain to myself. He has chronic abdominal pain and a chronic abdominal wound. He endorses chronic pain, and acute on chronic discharge over his chronic abdominal wound. Of note, cultures were negative for acute organisms. Patient has not attempted any analgesia as of yet. -: Gradual, hour(s) Location: back, abdomen, left, right, upper extremity, lower extremity Patient was also noted during admission to have COVID-19 there was no indication for remdesivir or steroids as patient is not hypoxic. The patient this morning reports no further leg pain Patient noted with no fever, wound dressing was done on the abdomen, ID recommended Zyvox 600mg PO BID for 10 days Case management will assist with this. He was seen by he was seen by surgery and following evaluation there is no change in chronic inflammation of the anterior wall abdominal site and no o bvious fluid collection none was seen on CT scan. ID recommended patient continue with wound care and follow-up with primary surgeon at [facility] for possible debridement of abdominal wall versus mesh removal with abdominal wall reconstruction. Patient verbalized understanding. Case management is also assisting with plan for patient to be able to get to [facility] transportation issues of bowel spasm was given. 04/11: Patient clinically improved, no new complaints, no abdominal pain or shortness of breath. Per case management, patient has been approved for his antibiotics and can be discharged today. Discharge plans including surgical eval outpatient at [facility], discussed again with the patient. Smoking cessation done again. Discharge diagnosis COVID-19 without hypoxia Acute respiratory failure resolved O2 sat on room air 92% Abdominal wall cellulitis with patient status post abdominal wall hernia surgery at [facility] 8 months ago HIV with no acute disease Marijuana use 15 minutes of counseling provided to the patient verbalized under standing. Pneumonia ruled out History Interval history: Patient seen and examined, no acute issues overnight, was unable to be discharged due to medication not being available Hospitalist Physical - Physical exam Narrative exam: VITAL SIGNS: Reviewed. GENERAL: The patient appears normally developed, Vital signs as documented. HEAD: No signs of head trauma. EYES: Pupils are equal. Extraocular motions intact. EARS: Hearing grossly intact. MOUTH: Oropharynx is normal. NECK: No adenopathy, no JVD. CHEST: Chest with clear breath sounds bilaterally. No wheezes, rales, or rhonchi. CARDIAC: Regular rate and rhythm. S1 and S2, without murmurs, gallops, or rubs. VASCULAR: No Edema. Peripheral pulses normal and equal in all extremities. ABDOMEN: There are 3 draining sinuses of the abdominal wall. One is very close to the umbilicus with purulent drainage expressed. There are 2 in the mid epigastric area -1 of which has chronic granulation tissue present. There is generalized chronic induration of the abdominal skin in the mid abdomen. No obvious fluctuate areas. Wounds were cleansed with saline and covered with a dry 4 x 4 gauze. Otherwise soft, non tender and non distended. No rebound or guarding, and no masses palpated. Bowel Sounds normal. MUSCULOSKELETAL: Good range of motion of all major joints. Extremities without clubbing, cyanosis or edema. NEUROLOGIC EXAM: Alert and oriented x 3 No focal sensory or strength defici ts. Speech normal. Follows commands. PSYCHIATRIC: Mood normal. SKIN: detail exam as documented in skin assessment - Constitutional Vitals: Temp Pulse Resp BP Pulse Ox 97.6 F 73 16 109/65 95 04/11/21 04:36 04/11/21 04:36 04/11/21 04:36 04/11/21 04:36 04/11/21 04:36 General appearance: Present: mild distress, well-nourished HEART Score - HEART Score Troponin: Troponin T < 0.010 ng/mL (0.00-0.029) 04/09/21 01:20 Results - Labs CBC & Chem 7: 04/10/21 06:25 04/11/21 05:36 Labs: Laboratory Last Values WBC 3.5 K/mm3 (4.5-11.0) L 04/10/21 06:25 RBC 4.58 M/mm3 (3.65-5.03) 04/10/21 06:25 Hgb 13.7 gm/dl (11.8-15.2) 04/10/21 06:25 Hct 41.1 % (35.5-45.6) 04/10/21 06:25 MCV 90 fl (84-94) 04/10/21 06:25 MCH 30 pg (28-32) 04/10/21 06:25 MCHC 33 % (32-34) 04/10/21 06:25 RDW 15.2 % (13.2-15.2) 04/10/21 06:25 Plt Count 130 K/mm3 (140-440) L 04/10/21 06:25 Lymph % (Auto) 19.8 % (13.4-35.0) 04/10/21 06:25 [place] % (Auto) 9.1 % (0.0-7.3) H 04/10/21 06:25 Eos % (Auto) 3.7 % (0.0-4.3) 04/10/21 06:25 Baso % (Auto) 0.4 % (0.0-1.8) 04/10/21 06:25 Lymph # (Auto) 0.7 K/mm3 (1.2-5.4) L 04/10/21 06:25 [place] # (Auto) 0.3 K/mm3 (0.0-0.8) 04/10/21 06:25 Eos # (Auto) 0.1 K/mm3 (0.0-0.4) 04/10/21 06:25 Baso # (Auto) 0.0 K/mm3 (0.0-0.1) 04/10/21 06:25 Add Manual Diff Complete 04/09/21 01:04 Total Counted 100 04/09/21 01:04 Seg Neutrophils % 67.0 % (40.0-70.0) 04/10/21 06:25 Seg Neuts % (Manual) 52.0 % (40.0-70.0) 04/09/21 01:04 Lymphocytes % (Manual) 35.0 % (13.4-35.0) 04/09/21 01:04 Monocytes % (Manual) 11.0 % (0.0-7.3) H 04/09/21 01:04 Eosinophils % (Manual) 1.0 % (0.0-4.3) 04/09/21 01:04 Basophils % (Manual) 1.0 % (0.0-1.8) 04/09/21 01:04 Nucleated RBC % Not Reportable 04/09/21 01:04 Seg Neutrophils # 2.3 K/mm3 (1.8-7.7) 04/10/21 06:25 Seg Neutrophils # Man 1.9 K/mm3 (1.8-7.7) 04/09/21 01:04 Band Neutrophils # 0.0 K/mm3 04/09/21 01:04 Lymphocytes # (Manual) 1.3 K/mm3 (1.2-5.4) 04/09/21 01:04 Abs React Lymphs (Man) 0.0 K/mm3 04/09/21 01:04 Monocytes # (Manual) 0.4 K/mm3 (0.0-0.8) 04/09/21 01:04 Eosinophils # (Manual) 0.0 K/mm3 (0.0-0.4) 04/09/21 01:04 Basophils # (Manual) 0.0 K/mm3 (0.0-0.1) 04/09/21 01:04 Metamyelocytes # 0.0 K/mm3 04/09/21 01:04 Myelocytes # 0.0 K/mm3 04/09/21 01:04 Promyelocytes # 0.0 K/mm3 04/09/21 01:04 Blast Cells # 0.0 K/mm3 04/09/21 01:04 WBC Morphology Not Reportable 04/09/21 01:04 Hypersegmented Neuts Not Reportable 04/09/21 01:04 Hyposegmented Neuts Not Reportable 04/09/21 01:04 Hypogranular Neuts Not Reportable 04/09/21 01:04 Smudge Cells Not Reportable 04/09/21 01:04 Toxic Granulation Not Reportable 04/09/21 01:04 Toxic Vacuolation Not Reportable 04/09/21 01:04 Dohle Bodies Not Reportable 04/09/21 01:04 Pelger-Huet Anomaly Not Reportable 04/09/21 01:04 Alexis Rods Not Reportable 04/09/21 01:04 Platelet Estimate Not Reportable 04/09/21 01:04 Clumped Platelets Not Reportable 04/09/21 01:04 Plt Clumps, EDTA Not Reportable 04/09/21 01:04 Large Platelets Not Reportable 04/09/21 01:04 Giant Platelets Not Reportable 04/09/21 01:04 Platelet Satelliting Not Reportable 04/09/21 01:04 Plt Morphology Comment Not Reportable 04/09/21 01:04 RBC Morphology Normal 04/09/21 01:04 Dimorphic RBCs Not Reportable 04/09/21 01:04 Polychromasia Not Reportable 04/09/21 01:04 Hypochromasia Not Reportable 04/09/21 01:04 Poikilocytosis Not Reportable 04/09/21 01:04 Anisocytosis Not Reportable 04/09/21 01:04 Microcytosis Not Reportable 04/09/21 01:04 Macrocytosis Not Reportable 04/09/21 01:04 Spherocytes Not Reportable 04/09/21 01:04 Pappenheimer Bodies Not Reportable 04/09/21 01:04 Sickle Cells Not Reportable 04/09/21 01:04 Target Cells Not Reportable 04/09/21 01:04 Tear Drop Cells Not Reportable 04/09/21 01:04 Ovalocytes Not Reportable 04/09/21 01:04 Helmet Cells Not Reportable 04/09/21 01:04 [place] Bodies Not Reportable 04/09/21 01:04 [place]berta Rings Not Reportable 04/09/21 01:04 Mobile Cells Not Reportable 04/09/21 01:04 Bite Cells Not Reportable 04/09/21 01:04 Crenated Cell Not Reportable 04/09/21 01:04 Elliptocytes Not Reportable 04/09/21 01:04 Acanthocytes (Spur) Not Reportable 04/09/21 01:04 Rouleaux Not Reportable 04/09/21 01:04 Hemoglobin C Crystals Not Reportable 04/09/21 01:04 Schistocytes Not Reportable 04/09/21 01:04 Malaria parasites Not Reportable 04/09/21 01:04 Ez Bodies Not Reportable 04/09/21 01:04 Hem Pathologist Commnt No 04/09/21 01:04 PT 14.1 Sec. (12.2-14.9) 04/09/21 01:04 INR 1.11 (0.87-1.13) 04/09/21 01:04 D-Dimer 336.67 ng/mlDDU (0-234) H 04/09/21 07:07 ABG pH 7.436 pH Units (7.350-7.450) 04/09/21 00:40 ABG pCO2 35.1 mm Hg 04/09/21 00:40 ABG pO2 49.8 mm Hg (80.0-90.0) L 04/09/21 00:40 ABG HCO3 23.1 mmol/L (20.0-26.0) 04/09/21 00:40 ABG O2 Saturation 88.0 % (95.0-99.0) L 04/09/21 00:40 ABG O2 Content 16.9 (0.0-44) 04/09/21 00:40 ABG Base Excess -0.5 mmol/L (-2.0-3.0) 04/09/21 00:40 ABG Hemoglobin 14.3 gm/dl (14.0-18.0) 04/09/21 00:40 ABG Carboxyhemoglobin 3.8 % (0.0-5.0) 04/09/21 00:40 ABG Methemoglobin 0.6 % (0.0-1.5) 04/09/21 00:40 Oxyhemoglobin 84.1 % (95.0-99.0) L 04/09/21 00:40 FiO2 21 % 04/09/21 00:40 Sodium 137 mmol/L (137-145) 04/11/21 05:36 Potassium 4.1 mmol/L (3.6-5.0) 04/11/21 05:36 Chloride 104.9 mmol/L (98-107) 04/11/21 05:36 Carbon Dioxide 23 mmol/L (22-30) 04/11/21 05:36 Anion Gap 13 mmol/L 04/11/21 05:36 BUN 12 mg/dL (9-20) 04/11/21 05:36 Creatinine 1.3 mg/dL (0.8-1.3) 04/11/21 05:36 Estimated GFR > 60 ml/min 04/11/21 05:36 BUN/Creatinine Ratio 9 % 04/11/21 05:36 Glucose 109 mg/dL (75-100) H 04/11/21 05:36 Lactic Acid 0.70 mmol/L (0.7-2.0) 04/09/21 01:04 Calcium 8.1 mg/dL (8.4-10.2) L 04/11/21 05:36 Magnesium 2.00 mg/dL (1.7-2.3) 04/09/21 01:04 Ferritin 86.1 ng/mL (30.0-300.0) 04/09/21 07:07 Total Bilirubin 0.60 mg/dL (0.1-1.2) 04/10/21 06:25 AST 13 units/L (5-40) 04/10/21 06:25 ALT 7 units/L (7-56) 04/10/21 06:25 Alkaline Phosphatase 82 units/L (35-129) 04/10/21 06:25 Lactate Dehydrogenase 200 units/L (91-180) H 04/09/21 07:07 Total Creatine Kinase 103 units/L (55-170) 04/09/21 13:50 Troponin T < 0.010 ng/mL (0.00-0.029) 04/09/21 01:20 C-Reactive Protein 0.10 mg/dL (0.00-1.30) 04/09/21 07:07 NT-Pro-B Natriuret Pep 58.16 pg/mL (0-450) 04/09/21 01:04 Total Protein 6.7 g/dL (6.3-8.2) 04/10/21 06:25 Albumin 3.0 g/dL (3.9-5) L 04/10/21 06:25 Albumin/Globulin Ratio 0.8 % 04/10/21 06:25 Procalcitonin < 0.05 ng/mL (<0.15) 04/09/21 01:04 Vancomycin Trough 12.3 ug/mL (5.0-20.0) 04/11/21 05:36 Coronavirus (PCR) Positive (Negative) A 04/09/21 08:30 Microbiology: Microbiology 04/09/21 01:04 Peripheral/Venous Blood Culture - Preliminary NO GROWTH AFTER 48 HOURS 04/09/21 01:01 Peripheral/Venous Blood Culture - Preliminary NO GROWTH AFTER 48 HOURS Bunch/IV: Voiding Method Toilet Active Medications - Current Medications Current Medications: Generic Name Dose Route Start Last Admin Trade Name Freq PRN Reason Stop Dose Admin Acetaminophen 650 mg 04/09/21 02:56 04/10/21 08:22 Acetaminophen 325 Mg Tab PO 650 mg Q4H PRN Administration Pain MILD(1-3)/Fever >100.5/BORJA Al Hydrox/Mg Hydrox/Simethicone 30 ml 04/09/21 02:56 Alum-Mag Hydroxide-Simethicone 590-494-16hz/5ml Oral Liqd 30 Ml PO Q4H PRN Indigestion Ascorbic Acid 500 mg 04/09/21 10:00 04/10/21 10:07 Ascorbic Acid 500 Mg Tab PO 500 mg QDAY PATRICK Administration Aspirin 81 mg 04/09/21 10:00 04/10/21 10:06 Aspirin 81 Mg Tab Chew PO 81 mg QDAY PATRICK Administration Atorvastatin Calcium 40 mg 04/09/21 22:00 04/10/21 22:54 Atorvastatin 40 Mg Tab PO 40 mg QHS PATRICK Administration Bupropion HCl 150 mg 04/09/21 10:00 04/10/21 10:06 Bupropion Xl 150 Mg Tab PO 150 mg DAILY PATRICK Administration Carvedilol 6.25 mg 04/09/21 10:00 04/10/21 13:17 Carvedilol 6.25 Mg Tab PO Not Given DAILY PATRICK Cholecalciferol 1,000 unit 04/09/21 10:00 04/10/21 10:06 Cholecalciferol (Vit D3) 1000 Unit (25 Mcg) Tab PO 1,000 unit QDAY PATRICK Administration Emtricitabine 200 mg 04/09/21 10:00 04/10/21 10:06 Emtricitabine 200 Mg Cap PO 200 mg QDAY PATRICK Administration Enoxaparin Sodium 40 mg 04/09/21 10:00 04/10/21 22:54 Enoxaparin 40 Mg/0.4 Ml Inj SUB-Q 40 mg BID PATRICK Administration Famotidine 20 mg 04/09/21 10:00 04/10/21 22:54 Famotidine 20 Mg Tab PO 20 mg BID PATRICK Administration Sodium Chloride 1,000 mls @ 100 mls/hr 04/09/21 03:00 04/10/21 05:15 Nacl 0.9% 1000 Ml IV 100 mls/hr DIRECT PATRICK Administration Cefepime HCl 2 gm in 100 mls @ 200 mls/hr 04/09/21 16:00 04/11/21 04:03 Cefepime/Ns 2 Gm/100 Ml IV 200 mls/hr Q12H PATRICK Administration Protocol Linezolid 600 mg 04/10/21 22:00 04/10/21 22:54 Linezolid 600 Mg Tab PO 600 mg Q12HR PATRICK Administration Protocol Magnesium Hydroxide 30 ml 04/09/21 02:56 Magnesium Hydroxide (Mom) Oral Liqd Udc PO Q4H PRN Constipation Ondansetron HCl 4 mg 04/09/21 02:56 Ondansetron 4 Mg/2 Ml Inj IV Q8H PRN Nausea And Vomiting Risperidone 1 mg 04/09/21 10:00 04/10/21 10:07 Risperidone 1 Mg Tab PO 1 mg DAILY PATRICK Administration Senna 8.6 mg 04/09/21 02:52 04/09/21 22:08 Sennosides 8.6 Mg Tab PO 8.6 mg Q12HR PRN Administration Constipation Sodium Chloride 10 ml 04/09/21 10:00 04/10/21 22:54 Sodium Chloride 0.9% 10 Ml Flush Syringe IV 10 ml BID PATRICK Administration Sodium Chloride 10 ml 04/09/21 02:56 Sodium Chloride 0.9% 10 Ml Flush Syringe IV PRN PRN LINE FLUSH Tenofovir Disoproxil Fumarate 300 mg 04/09/21 10:00 04/10/21 10:06 Tenofovir 300 Mg Tab PO 300 mg QDAY PATRICK Administration Nutrition/Malnutrition Assess - Dietary Evaluation Nutrition/Malnutrition Findings: Nutrition Notes Start: 04/09/21 11:37 Freq: Status: Active Protocol: Document 04/09/21 11:37 AL (Rec: 04/09/21 11:40 AL [id number]) Co-Sign 04/09/21 11:37 LP Nutrition Notes Need for 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 Pt karoline score is 22 & not at risk. Pt. did not answer phone call when called two times. Unable to conduct MST. Nutrition Intervention Anticipated Discharge Needs: Regular Diet Follow-Up By: 04/11/21 Additional Comments F/U for assessment
[2021-04-11] MEDS: ASCORBIC ACID 500 MG TAB PO SCH (10:01)
[2021-04-11] MEDS: risperiDONE 1 MG TAB PO SCH (10:01)
[2021-04-11] MEDS: buPROPion XL 150 MG TAB PO SCH (10:01)
[2021-04-11] MEDS: FAMOTIDINE 20 MG TAB PO SCH (10:01)
[2021-04-11] MEDS: carvediloL 6.25 MG TAB PO SCH (10:01)
[2021-04-11] MEDS: CHOLECALCIFEROL (VIT D3) 1000 UNIT (25 mcg) TAB PO SCH (10:01)
[2021-04-11] MEDS: ENOXAPARIN 40 MG/0.4 ML INJ SUB-Q SCH (10:02)
[2021-04-11] MEDS: ASPIRIN 81 MG TAB CHEW PO SCH (10:02)
[2021-04-11] MEDS: DOLUTEGRAVIR 50 MG TAB PO SCH (10:03)
[2021-04-11] MEDS: EMTRICITABINE 200 MG CAP PO SCH (10:04)
[2021-04-11] MEDS: LINEZOLID 600 MG TAB PO SCH (10:04)
[2021-04-11] MEDS: TENOFOVIR 300 MG TAB PO SCH (10:05)
[2021-04-13 12:54] LABS: CD4/CD8 Ratio 0.84 (0.86-5.00)
== END 2021-04-11 10:40 | disposition home or self-care (01) | DRG 177 ==
LOC: ED 00:04 → 3A 02:18 → OBSVTOIN 04-11 09:30
PROVIDERS: ADMIT Hospitalist; ATTEND Internal Medicine
DX: U07.1 COVID-19 (principal); J96.01 Acute respiratory failure with hypoxia; L03.311 Cellulitis of abdominal wall; L02.211 Cutaneous abscess of abdominal wall; E78.00 Pure hypercholesterolemia, unspecified; F31.9 Bipolar disorder, unspecified; F10.10 Alcohol abuse, uncomplicated; Z21 Asymptomatic human immunodeficiency virus [HIV] infection status; I10 Essential (primary) hypertension; E05.90 Thyrotoxicosis, unspecified without thyrotoxic crisis or storm; F17.200 Nicotine dependence, unspecified, uncomplicated; I25.10 Atherosclerotic heart disease of native coronary artery without angina pectoris; Z79.899 Other long term (current) drug therapy; Z82.49 Family history of ischemic heart disease and other diseases of the circulatory system
CPT/HCPCS: 36415; 71045; 71275; 74177; 80048; 80053; 80202; 82024; 82140; 82550; 82728; 82803; 82947; 83615; 83735; 83880; 84145; 84484; 85007; 85025; 85379; 85610; 86140; 87040; 87076; 87116; 87186; 93005; 93970; 96374; 99406; G0378; A9270-GY; J0692; J1100; J1650; J3370; J7030; J7040; Q9967; U0003

== ENCOUNTER 2021-07-05 22:36 | Emergency (ER) | payer OTHER ==
[2021-07-06 07:55] VITALS: BP 132/87
[2021-07-06] MEDS ORDERED: ONDANSETRON 4 MG/2 ML INJ IV ONE (14:47)
[2021-07-06] MEDS ORDERED: HYDROmorphone 1 MG/1 ML INJ IV ONE (14:47)
[2021-07-06] MEDS ORDERED: SODIUM CHLORIDE 0.9% 1000 ML 1,000 ML IV ONE (14:47)
--- NOTE | 2021-07-06 14:50 | Emergency Department Report ---
HPI - General Chief Complaint: Nausea/Vomiting/Diarrhea Time Seen by Provider: 07/06/21 14:32 - HPI HPI: 46-year-old male with history of HIV on antiretroviral therapy as well as umbilical hernia repair 1 year ago at [facility] which has been chronically leaking purulent material according to the patient presents complaining of 3 days of body aches, nausea/vomiting, diarrhea, and worsening pain at the site of his open wounds to his abdomen. The patient says he has been on clindamycin for the past week at the advice of one of the surgeons at [facility] to treat possible infection of his abdominal wound. However, the patient states that for the last 3 days he has been experiencing the symptoms mentioned. He is unable to quantify the vomiting but says he has had approximately 2 loose watery bowel movements per day over that period of time. He also reports that he has had painful cervical lymphadenopathy bilaterally. He denies any associated fever/chills, headache, vision change, neck pain, back pain, chest pain, shortness of breath, dysuria, focal weakness, sensory changes, or any other complaints. He is not vaccinated against COVID-19. There are no known aggravating or alleviating factors. He reports that he has 10 out of 10 pain in his abdomen at the site of his wounds. The patient's infectious disease doctor is Dr. Chin (sp?). The patient does not know his last CD4 count. Patient did not know the name of his surgeon but on the bottle of clindamycin prescriber is Dr. Greenwood. ED Past Medical Hx - Past Medical History Previous Medical History?: Yes Hx Hypertension: Yes Hx Congestive Heart Failure: Yes Hx Diabetes: No Hx Psychiatric Treatment: Yes (Depression, Bipolar) Hx Asthma: No Hx COPD: No Hx HIV: Yes (ON MEDS) Additional medical history: CAD, High Cholesterol - Surgical History Past Surgical History?: Yes Additional Surgical History: Hernia repair 2019 - Social History Smoking Status: Current Every Day Smoker Substance Use Type: Alcohol, Cocaine, Marijuana - Medications Home Medications: Home Medications Medication Instructions Recorded Confirmed Last Taken Type AtorvaSTATin 40 mg PO HS 07/13/20 04/09/21 04/08/21 History Biktarvy 50-200-25 mg (Nf) 50 mg PO DAILY 07/13/20 04/09/21 04/05/21 History risperiDONE 1 mg PO DAILY 07/13/20 04/09/21 1 Day Ago History ~07/12/20 Ibuprofen [Motrin 800 MG tab] 800 mg PO Q8HR PRN 7 Days #21 11/09/20 04/09/21 Unknown Rx tablet Sulfamethoxazole/Trimethoprim 1 each PO BID #14 tablet 01/06/21 04/09/21 04/08/21 Rx [Bactrim DS TAB] traMADoL [Ultram 50 MG tab] 50 mg PO Q6HR PRN #10 tablet 01/06/21 04/09/21 Unknown Rx Ondansetron [Zofran ODT TAB] 4 mg PO Q8HR PRN #14 tab.rapdis 01/23/21 04/09/21 Unknown Rx Ascorbic Acid [Vitamin C] 500 mg PO QDAY #30 tablet 04/10/21 Unknown Rx Aspirin [Aspirin BABY CHEW TAB] 81 mg PO QDAY tab.chew 04/10/21 Unknown Rx Cholecalciferol Vit D3 [Vitamin D3 1,000 unit PO QDAY #30 tablet 04/10/21 Unknown Rx 1,000 UNIT TAB] Linezolid [Zyvox] 600 mg PO BID #20 tablet 04/10/21 Unknown Rx buPROPion XL [Wellbutrin XL] 150 mg PO DAILY tablet 04/10/21 Unknown Rx carvediloL [Coreg] 6.25 mg PO DAILY tablet 04/10/21 Unknown Rx Fluticasone [Flonase] 1 spray NS QDAY #1 bottle 07/06/21 Unknown Rx Ondansetron [Zofran Odt] 4 mg PO Q6H PRN #15 tab.rapdis 07/06/21 Unknown Rx ED Review of Systems ROS: Stated complaint: ABD PAIN/EMESIS Other details as noted in HPI Constitutional: other (body aches). denies: chills, fever Eyes: denies: eye pain, vision change ENT: other (painful cervical lymphadenopathy). denies: ear pain, throat pain, hearing loss Respiratory: denies: cough, shortness of breath Cardiovascular: denies: chest pain, palpitations, syncope Gastrointestinal: abdominal pain, nausea, vomiting, diarrhea Genitourinary: denies: dysuria, frequency, hematuria Musculoskeletal: denies: back pain, arthralgia Skin: lesions. denies: rash Neurological: denies: headache, weakness, numbness Physical Exam - Physical Exam Vital Signs: Vital Signs 07/06/21 07:54 Temperature 98.1 F Pulse Rate 91 H Respiratory 16 Rate Blood Pressure 132/87 [Right] O2 Sat by Pulse 98 Oximetry Physical Exam: GENERAL: Well developed and well nourished. No acute distress HEAD: Normocephalic. No obvious signs of trauma. ENT: Dry mucous membranes. EYES: Extraocular movements are intact. Pupils are equal round and reactive to light bilaterally NECK: Supple. Full ROM is intact. Trachea is midline. There is tender bilateral cervical lymphadenopathy. LUNGS: Nonlabored breathing. Equal chest rise bilaterally. Coarse breath sounds throughout but otherwise clear to auscultation CARDIOVASCULAR: Regular rate and rhythm. No murmurs or rubs. VASCULAR: Cap refill < 2 seconds ABDOMEN: Abdomen is distended but soft except for a region periumbilically which has 2 separate open wounds which appear to be draining pus. The more superior wound is approximately 1 cm of open wound with surrounding scarring but there is also surrounding induration as well which is very tender. The inferior wound is approximately 2 cm in length at the open portion and also has surrounding scar tissue as well as induration. The entire area is tender. The bilateral upper quadrants of the abdomen are nontender. There is no guarding or rebound tenderness. SKIN: Skin is warm and dry NEURO: Patient is awake, alert, and oriented. 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 No focal deficits. Normal motor and sensory exam throughout. Normal speech. MUSCULOSKELETAL: No obvious deformities. No significant tenderness. Normal ROM throughout. BACK/SPINE: No costovertebral angle tenderness. ED Course Vital Signs 07/06/21 07:54 Temperature 98.1 F Pulse Rate 91 H Respiratory 16 Rate Blood Pressure 132/87 [Right] O2 Sat by Pulse 98 Oximetry ED Medical Decision Making - Lab Data Result diagrams: 07/06/21 15:27 07/06/21 15:27 Lab Results 07/06/21 07/06/21 07/06/21 Range/Units 15:27 15:27 15:27 WBC 5.6 (4.5-11.0) K/mm3 RBC 4.35 (3.65-5.03) M/mm3 Hgb 13.2 (11.8-15.2) gm/dl Hct 40.0 (35.5-45.6) % MCV 92 (84-94) fl MCH 31 (28-32) pg MCHC 33 (32-34) % RDW 15.4 H (13.2-15.2) % Plt Count 188 (140-440) K/mm3 Lymph % (Auto) 30.5 (13.4-35.0) % [place] % (Auto) 9.5 H (0.0-7.3) % Eos % (Auto) 8.9 H (0.0-4.3) % Baso % (Auto) 0.3 (0.0-1.8) % Lymph # (Auto) 1.7 (1.2-5.4) K/mm3 [place] # (Auto) 0.5 (0.0-0.8) K/mm3 Eos # (Auto) 0.5 H (0.0-0.4) K/mm3 Baso # (Auto) 0.0 (0.0-0.1) K/mm3 Seg Neutrophils % 50.8 (40.0-70.0) % Seg Neutrophils # 2.8 (1.8-7.7) K/mm3 Sodium 136 L (137-145) mmol/L Potassium 4.1 (3.6-5.0) mmol/L Chloride 103.5 (98-107) mmol/L Carbon Dioxide 26 (22-30) mmol/L Anion Gap 11 mmol/L BUN 19 (9-20) mg/dL Creatinine 1.1 (0.8-1.3) mg/dL Estimated GFR > 60 ml/min BUN/Creatinine Ratio 17 % Glucose 87 (75-100) mg/dL Calcium 9.2 (8.4-10.2) mg/dL Magnesium 2.10 (1.7-2.3) mg/dL Total Bilirubin 0.40 (0.1-1.2) mg/dL Direct Bilirubin < 0.2 (0-0.2) mg/dL Indirect Bilirubin 0.2 mg/dL AST 17 (5-40) units/L ALT 13 (7-56) units/L Alkaline Phosphatase 112 (35-129) units/L Troponin T < 0.010 (0.00-0.029) ng/mL Total Protein 7.7 (6.3-8.2) g/dL Albumin 3.8 L (3.9-5) g/dL Albumin/Globulin Ratio 1.0 % Lipase 20 (13-60) units/L Urine Color (Yellow) Urine Turbidity (Clear) Urine pH (5.0-7.0) Ur Specific [place] (1.003-1.030) Urine Protein (Negative) mg/dL Urine Glucose (UA) (Negative) mg/dL Urine Ketones (Negative) mg/dL Urine Blood (Negative) Urine Nitrite (Negative) Urine Bilirubin (Negative) Urine Urobilinogen (<2.0) mg/dL Ur Leukocyte Esterase (Negative) Urine WBC (Auto) (0.0-6.0) /HPF Urine RBC (Auto) (0.0-6.0) /HPF U Epithel Cells (Auto) (0-13.0) /HPF Urine Mucus /HPF 07/06/21 Range/Units 18:32 WBC (4.5-11.0) K/mm3 RBC (3.65-5.03) M/mm3 Hgb (11.8-15.2) gm/dl Hct (35.5-45.6) % MCV (84-94) fl MCH (28-32) pg MCHC (32-34) % RDW (13.2-15.2) % Plt Count (140-440) K/mm3 Lymph % (Auto) (13.4-35.0) % [place] % (Auto) (0.0-7.3) % Eos % (Auto) (0.0-4.3) % Baso % (Auto) (0.0-1.8) % Lymph # (Auto) (1.2-5.4) K/mm3 [place] # (Auto) (0.0-0.8) K/mm3 Eos # (Auto) (0.0-0.4) K/mm3 Baso # (Auto) (0.0-0.1) K/mm3 Seg Neutrophils % (40.0-70.0) % Seg Neutrophils # (1.8-7.7) K/mm3 Sodium (137-145) mmol/L Potassium (3.6-5.0) mmol/L Chloride (98-107) mmol/L Carbon Dioxide (22-30) mmol/L Anion Gap mmol/L BUN (9-20) mg/dL Creatinine (0.8-1.3) mg/dL Estimated GFR ml/min BUN/Creatinine Ratio % Glucose (75-100) mg/dL Calcium (8.4-10.2) mg/dL Magnesium (1.7-2.3) mg/dL Total Bilirubin (0.1-1.2) mg/dL Direct Bilirubin (0-0.2) mg/dL Indirect Bilirubin mg/dL AST (5-40) units/L ALT (7-56) units/L Alkaline Phosphatase (35-129) units/L Troponin T (0.00-0.029) ng/mL Total Protein (6.3-8.2) g/dL Albumin (3.9-5) g/dL Albumin/Globulin Ratio % Lipase (13-60) units/L Urine Color Yellow (Yellow) Urine Turbidity Clear (Clear) Urine pH 5.0 (5.0-7.0) Ur Specific [place] 1.044 H (1.003-1.030) Urine Protein <15 mg/dl (Negative) mg/dL Urine Glucose (UA) Neg (Negative) mg/dL Urine Ketones Neg (Negative) mg/dL Urine Blood Sm (Negative) Urine Nitrite Neg (Negative) Urine Bilirubin Neg (Negative) Urine Urobilinogen < 2.0 (<2.0) mg/dL Ur Leukocyte Esterase Neg (Negative) Urine WBC (Auto) < 1.0 (0.0-6.0) /HPF Urine RBC (Auto) 2.0 (0.0-6.0) /HPF U Epithel Cells (Auto) < 1.0 (0-13.0) /HPF Urine Mucus Few /HPF - Radiology Data CHEST 1 VIEW 1511 INDICATION / CLINICAL INFORMATION: coarse BS COMPARISON: 04/09/2021 FINDINGS: SUPPORT DEVICES: None HEART / MEDIASTINUM: No significant abnormality. LUNGS / PLEURA: No definite pulmonary infiltrates are seen. Mild asymmetry in density in the right hemithorax is probably due to slight rotation and overlying soft tissue. No pneumothorax. ADDITIONAL FINDINGS: No significant additional findings. IMPRESSION: No significant acute abnormality Signer Name: Bryant Mays MD Signed: 07/06/2021 2:31 PM Workstation Name: [id number] CT ABDOMEN AND PELVIS WITH CONTRAST INDICATION: abd pain + leaking pus from sites near the umbilicus CONTRAST: Unspecified dosage Omnipaque 300 IV COMPARISON: 04/09/[address] scans at this location are performed using CT dose reduction for ALARA by means of automated exposure control. FINDINGS: Lung bases are clear. No pneumoperitoneum is seen. See no abnormalities the gallbladder, bile ducts, pancreas, adrenals, liver, or spleen. No urinary obstructive changes are noted. No lymphadenopathy is seen. No free fluid is noted. No intra-abdominal or intrapelvic inflammatory changes are seen. Appendix appears within normal limits. No bowel dilatation is seen. Normal distribution of stool is seen throughout the colon. Multiple fluid-filled small bowel loops are seen with scattered air-fluid levels. In the umbilical area of the site of previous surgery and extending superiorly continued subcutaneous soft tissue density is seen from the skin surface through the subcutaneous layer to the muscular layer. This is most prominent a few centimeters above the umbilicus but extends in the midline to the umbilical area and just below. Mild thickening of the medial aspect of the left rectus abdominis muscle is again seen without significant change. I do not see a discrete fluid collection. No gas is seen within the soft tissues. No other changes are seen. I do not see extension of this process within the abdomen. No herniation of bowel is noted with no discernible hernia seen and no definite connection with bowel is seen. IMPRESSION: 1. Continued thickening of the midline abdominal wall near the prior surgical site but no obvious organized collection is seen to suggest an abscess and no intra-abdominal extension is noted. 2. Nonspecific fluid in nondilated small bowel which can be seen with enteritis Signer Name: Bryant Mays MD Signed: 07/06/2021 4:26 PM Workstation Name: [id number] - Medical Decision Making 46-year-old male with history of HIV on antiretroviral therapy as well as prior hernia repair 1 year ago with frequent reinfections presents complaining of 3 days of nausea/vomiting and body aches. He also says he has had some diarrhea but reports only about 2 loose bowel movements per day. The patient was started on clindamycin 1 week ago by his general surgeon from [facility] due to concern for infection of his abdominal wall wounds. The wounds have been leaking purulent material but patient states that this has been ongoing for a while. He is not vaccinated against COVID-19. On initial assessment he is afebrile and with normal vital signs. Physical examination reveals slightly dry mucous membranes. He has tender bilateral cervical lymphadenopathy. To the anterior abdominal wall near the umbilicus are 2 open wounds which appear to be draining purulent material. His abdomen is tender around these sites but otherwise nontender. Although the patient reports frequent vomiting he has been in our emergency department for over 10 hours and has not had vomiting or bowel movement during that time. I have ordered a full set of labs including cultures. We will obtain CT of the abdomen pelvis with IV contrast to assess for evidence of large abscess, intra-abdominal infection, or other significant intra-abdominal pathology. I have ordered 1 L of IV fluids, Dilaudid for his abdominal pain and Zofran. I will not order antibiotics at this time given that the patient is already taking clindamycin. We will continue to monitor him closely. Labs have resulted and reveal no significant leukocytosis or anemia. Kidney function is normal and there are no significant electrolyte abnormalities. On repeat assessment, the patient's pain is well controlled and he states he feels much better. CT of the abdomen pelvis is still pending. CT of the abdomen pelvis shows only thickening of the anterior abdominal wall and no evidence of fluid collection or intra-abdominal extension. There are also findings consistent with enteritis. Although the patient's gastroenteritis could be related to the patient's use of clindamycin, given that he is not having profuse watery diarrhea I do not have a high clinical suspicion for C. difficile at this time. In addition, given that he has history of HIV and has bilateral cervical lymphadenopathy, viral etiology is very possible. In addition, COVID-19 could cause these constellation of symptoms. The patient is tolerating p.o., has normal labs, and no vital sign abnormalities. Nonetheless, given the finding of enteritis we will place a call to the patient's surgeon, Dr. Greenwood At 6:20 PM I spoke with Dr. Goodman of general surgery at [facility] who is covering for Dr. Greenwood. She reviewed the patient's case and agrees with our plan of care which is to discharge the patient home with instructions to continue his clindamycin, self isolate and consider testing for COVID-19, and follow-up with his infectious disease doctor soon as possible. In addition, she says she will send a message to the patient's surgeon and he will be contacted to schedule another close follow-up appointment. All of this was discussed with the patient who expressed understanding and agreement. He says he will isolate and get tested for Covid. He also says he will follow-up with his infectious disease doctor as soon as possible. He asked that I refill his Flonase. I will pre scribe him Zofran in case of nausea but I have given him strict return precautions should his symptoms worsen. He was encouraged to call his surgeon's office should he not hear from them in the next 48 hours regarding follow-up appointment. Critical care attestation.: If time is entered above; I have spent that time in minutes in the direct care of this critically ill patient, excluding procedure time. ED Disposition Clinical Impression: Gastroenteritis, Open abdominal wall wound, History of HIV infection Disposition: HOME / SELF CARE / HOMELESS Is pt being admited?: No Condition: Stable Instructions: COVID-19 Frequently Asked Questions, Viral Gastroenteritis, Adult, COVID-19, Food Choices to Help Relieve Diarrhea, Adult, Wound Infection, [id number], Wound Care, Adult Additional Instructions: Please follow-up as soon as possible with your infectious disease doctor within the next 2 days. You should also receive a call from your surgeon, Dr. Greenwood from [facility] to schedule a follow-up appointment. You should self isolate/quarantine and consider getting tested for COVID-19 which could cause these same symptoms. Continue to care for your wound and keep it clean. Return to the emergency department immediately should you develop significantly worsening symptoms, inability to tolerate any solid or liquids by mouth or for any other new concerns. Prescriptions: Fluticasone [Flonase] 1 spray NS QDAY #1 bottle Ondansetron [Zofran Odt] 4 mg PO Q6H PRN #15 tab.rapdis PRN Reason: Nausea Referrals: BAM GREENWOOD MD [Staff Physician] - 2-3 Days [facility] [Provider Group] - 3-5 Days
--- NOTE | 2021-07-06 15:35 | XRay Report ---
CHEST 1 VIEW 1511 INDICATION / CLINICAL INFORMATION: coarse BS COMPARISON: 04/09/2021 FINDINGS: SUPPORT DEVICES: None HEART / MEDIASTINUM: No significant abnormality. LUNGS / PLEURA: No definite pulmonary infiltrates are seen. Mild asymmetry in density in the right he mithorax is probably due to slight rotation and overlying soft tissue. No pneumothorax. ADDITIONAL FINDINGS: No significant additional findings. IMPRESSION: No significant acute abnormality Signer Name: Bryant Mays MD Signed: 07/06/2021 3:31 PM Workstation Name: [id number]
[2021-07-06 16:19] LABS: Alanine Aminotransferase 13 units/L (7-56); Albumin 3.8 g/dL (3.9-5); BUN/Creatinine Ratio 17; Bilirubin,Direct < 0.2 mg/dL (0-0.2); Blood Urea Nitrogen 19 mg/dL (9-20); Calcium 9.2 mg/dL (8.4-10.2); Hemolysis Index 6
[2021-07-06 17:11] LABS: Basophils % (Auto) 0.3 % (0.0-1.8); Eosinophils # (Auto) 0.5 K/mm3 (0.0-0.4); Eosinophils % (Auto) 8.9 % (0.0-4.3); Hemoglobin 13.2 gm/dl (11.8-15.2); Lymphocytes # (Auto) 1.7 K/mm3 (1.2-5.4); Lymphocytes % (Auto) 30.5 % (13.4-35.0); Mean Corpuscular HGB Conc 33 % (32-34); Mean Corpuscular Volume 92 fl (84-94); Monocytes # (Auto) 0.5 K/mm3 (0.0-0.8); Monocytes % (Auto) 9.5 % (0.0-7.3); Platelet Count 188 K/mm3 (140-440); Red Blood Count 4.35 M/mm3 (3.65-5.03); Red Cell Distribution Width 15.4 % (13.2-15.2)
--- NOTE | 2021-07-06 17:31 | Cat Scan Report ---
CT ABDOMEN AND PELVIS WITH CONTRAST INDICATION: abd pain + leaking pus from sites near the umbilicus CONTRAST: Unspecified dosage Omnipaque 300 IV COMPARISON: 04/09/[address] scans at this location are performed using CT dose reduction for ALARA by means of automated e xposure control. FINDINGS: Lung bases are clear. No pneumoperitoneum is seen. See no abnormalities the gallbladder, bi le ducts, pancreas, adrenals, liver, or spleen. No urinary obstructive changes are noted. No lymphade nopathy is seen. No free fluid is noted. No intra-abdominal or intrapelvic inflammatory changes are s een. Appendix appears within normal limits. No bowel dilatation is seen. Normal distribution of stool is seen throughout the colon. Multiple fluid-filled small bowel loops are seen with scattered air-fl uid levels. In the umbilical area of the site of previous surgery and extending superiorly continued subcutaneous soft tissue density is seen from the skin surface through the subcutaneous layer to the muscular lay er. This is most prominent a few centimeters above the umbilicus but extends in the midline to the um bilical area and just below. Mild thickening of the medial aspect of the left rectus abdominis muscle is again seen without significant change. I do not see a discrete fluid collection. No gas is seen w ithin the soft tissues. No other changes are seen. I do not see extension of this process within the abdomen. No herniation of bowel is noted with no discernible hernia seen and no definite connection w ith bowel is seen. IMPRESSION: 1. Continued thickening of the midline abdominal wall near the prior surgical site but no obvious org anized collection is seen to suggest an abscess and no intra-abdominal extension is noted. 2. Nonspecific fluid in nondilated small bowel which can be seen with enteritis Signer Name: Bryant Mays MD Signed: 07/06/2021 5:26 PM Workstation Name: [id number]
[2021-07-06 19:02] LABS: Bilirubin,Urine NEG (Negative); Blood,Urine SM (Negative); Color,Urine Yellow (Yellow); Mucus,Urine FEW /HPF; Protein,Urine <15 mg/dL mg/dL (Negative); Urobilinogen,Urine < 2.0 mg/dL (<2.0); WBC,Urine < 1.0 /HPF (0.0-6.0)
== END 2021-07-06 18:40 | disposition home or self-care (01) ==
LOC: ED 22:36
DX: S31.109A Unspecified open wound of abdominal wall, unspecified quadrant without penetration into peritoneal cavity, initial encounter (principal); K52.9 Noninfective gastroenteritis and colitis, unspecified; I11.0 Hypertensive heart disease with heart failure; I50.9 Heart failure, unspecified; F31.9 Bipolar disorder, unspecified; E78.00 Pure hypercholesterolemia, unspecified; I25.10 Atherosclerotic heart disease of native coronary artery without angina pectoris; F17.200 Nicotine dependence, unspecified, uncomplicated; F12.90 Cannabis use, unspecified, uncomplicated; F14.90 Cocaine use, unspecified, uncomplicated; Z79.899 Other long term (current) drug therapy; Z91.013 Allergy to seafood; Z98.890 Other specified postprocedural states; Z21 Asymptomatic human immunodeficiency virus [HIV] infection status; X58.XXXA Exposure to other specified factors, initial encounter; Y93.89 Activity, other specified; Y92.89 Other specified places as the place of occurrence of the external cause; Y99.8 Other external cause status
CPT/HCPCS: 36415; 71045; 74177; 80048; 80076; 81001; 83690; 83735; 84484; 85025; 87040; 96361; 96374; 96375; 99284; Q9967

== ENCOUNTER 2021-09-30 19:25 | Emergency (ER) | payer SELFPAY ==
[2021-09-30] MEDS ORDERED: ALBUTEROL 2.5 MG/3 ML NEBU IH ONE (20:05)
[2021-09-30] MEDS ORDERED: ONDANSETRON 4 MG/2 ML INJ IV ONE (20:05)
[2021-09-30] MEDS ORDERED: IPRATROPIUM 0.02% NEBU 2.5 ML IH ONE (20:05)
[2021-09-30] MEDS ORDERED: KETOROLAC 30 MG/1 ML INJ IV ONE (20:05)
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
--- NOTE | 2021-09-30 20:38 | XRay Report ---
CHEST 2 VIEWS INDICATION / CLINICAL INFORMATION: cough. COMPARISON: 07/06/2021 FINDINGS: SUPPORT DEVICES: None. HEART / MEDIASTINUM: No significant abnormality. LUNGS / PLEURA: Mild increased interstitial prominence however no focal consolidation is seen. No pne umothorax. ADDITIONAL FINDINGS: No significant additional findings. IMPRESSION: 1. No acute findings. Signer Name: Mateo Jett MD Signed: 09/30/2021 8:34 PM Workstation Name: [id number]
[2021-09-30] MEDS ORDERED: traMADol 50 MG TAB PO ONE (22:20)
[2021-09-30 22:32] VITALS: BP 116/61
== END 2021-09-30 22:30 | disposition home or self-care (01) ==
LOC: ED 19:25
DX: J06.9 Acute upper respiratory infection, unspecified (principal); M79.18 Myalgia, other site; I10 Essential (primary) hypertension; I25.10 Atherosclerotic heart disease of native coronary artery without angina pectoris; E78.5 Hyperlipidemia, unspecified; F17.200 Nicotine dependence, unspecified, uncomplicated; F12.10 Cannabis abuse, uncomplicated; F14.10 Cocaine abuse, uncomplicated
CPT/HCPCS: 71046; 96374; 96375; 99284; J1885; J2405

== ENCOUNTER 2021-10-30 22:21 | Emergency (ER) | payer SELFPAY ==
--- NOTE | 2021-10-31 01:38 | XRay Report ---
XR chest routine 2V INDICATION / CLINICAL INFORMATION: sob, cough, covid exposure. COMPARISON: 09/30/2021 FINDINGS: SUPPORT DEVICES: None. HEART /PULMONARY VASCULATURE: No significant abnormality. LUNGS / PLEURA: No significant pulmonary or pleural abnormality. No pneumothorax. ADDITIONAL FINDINGS: No significant additional findings. IMPRESSION: 1. No acute findings. Signer Name: Cristopher Renteria MD Signed: 10/31/2021 1:34 AM Workstation Name: [id number]
[2021-10-31] MEDS ORDERED: SODIUM CHLORIDE 0.9% 1000 ML 1,000 ML IV ONE (02:04)
[2021-10-31] MEDS ORDERED: KETOROLAC 30 MG/1 ML INJ IV ONE (02:04)
[2021-10-31 02:43] LABS: Basophils % (Auto) 0.5 % (0.0-1.8); Eosinophils # (Auto) 0.2 K/mm3 (0.0-0.4); Eosinophils % (Auto) 5.9 % (0.0-4.3); Hematocrit 37.4 % (35.5-45.6); Hemoglobin 11.9 gm/dl (11.8-15.2); Lymphocytes # (Auto) 0.8 K/mm3 (1.2-5.4); Lymphocytes % (Auto) 21.9 % (13.4-35.0); Mean Corpuscular HGB Conc 32 % (32-34); Mean Corpuscular Volume 92 fl (84-94); Monocytes # (Auto) 0.5 K/mm3 (0.0-0.8); Monocytes % (Auto) 12.5 % (0.0-7.3); Platelet Count 127 K/mm3 (140-440); Red Blood Count 4.08 M/mm3 (3.65-5.03); Red Cell Distribution Width 15.9 % (13.2-15.2)
[2021-10-31 02:57] LABS: Alanine Aminotransferase 6 units/L (7-56); Albumin 3.5 g/dL (3.9-5); BUN/Creatinine Ratio 18; Blood Urea Nitrogen 20 mg/dL (9-20); Calcium 8.5 mg/dL (8.4-10.2); Hemolysis Index 6
[2021-10-31] MEDS ORDERED: BENZONATATE 100 MG CAP PO ONE (04:16)
[2021-10-31] MEDS ORDERED: ACETAMINOPHEN 500 MG TAB PO ONE (04:16)
--- NOTE | 2021-10-31 05:03 | Cat Scan Report ---
CT abdomen pelvis w con INDICATION / CLINICAL INFORMATION: Patient complains of bodyaches, abd pain with diarrhea. TECHNIQUE: Axial CT images were obtained through the abdomen and pelvis after IV contrast. All CT sc ans at this location are performed using CT dose reduction for ALARA by means of automated exposure c ontrol. COMPARISON: CT from 07/06/2021 FINDINGS: LOWER CHEST: There is focal airspace consolidation within the right lower lobe. LIVER: No significant abnormality GALLBLADDER/BILIARY TREE: No significant abnormality PANCREAS: No significant abnormality SPLEEN: No significant abnormality ADRENALS: No significant abnormality KIDNEYS / URETER: No significant abnormality URINARY BLADDER: No significant abnormality REPRODUCTIVE ORGANS: No significant abnormality STOMACH / BOWEL: Nondilated fluid-filled small bowel within the abdomen and pelvis, may reflect mild enteritis. The colon is unremarkable. The appendix is normal in caliber. LYMPH NODES: No significant adenopathy. VASCULATURE: No significant abnormality. OTHER: No free air, free fluid, or focal fluid collection is identified. Persistent inflammatory stra nding of the midline abdominal wall near the prior surgical site. There is no organized collection. N o intra-abdominal extension. SKELETAL SYSTEM: No acute osseous findings. IMPRESSION: 1. Mild focal airspace consolidation in the right lower lobe, concerning for developing pneumonia. 2. Nondilated fluid-filled small bowel within the abdomen and pelvis, may reflect mild enteritis. No evidence of small bowel obstruction. 3. Persistent inflammation of the midline abdominal wall in the region of prior surgical site. No org anized collection or intra-abdominal extension. Signer Name: Cristopher Renteria MD Signed: 10/31/2021 4:59 AM Workstation Name: [id number]
[2021-10-31] MEDS ORDERED: AZITHROMYCIN 250 MG TAB PO ONE (05:41)
--- NOTE | 2021-10-31 05:41 | Emergency Department Report ---
- General Chief Complaint: Upper Respiratory Infection Stated Complaint: body aches Time Seen by Provider: 10/31/21 01:35 Source: EMS Mode of arrival: Stretcher Limitations: No Limitations - History of Present Illness Initial Comments: 46-year-old male with a past medical history of HIV with undetectable viral load currently on medications, CHF, COPD, depression, bipolar disorder, and elevated cholesterol presents to the hospital planing of infectious symptoms since 5 PM yesterday evening. Physical pain generalized body aches, dry cough, and diarrhea. No fever reported. Mild shortness of breath reported. Patient denies nausea, vomiting, or urinary symptoms. Patient complains of chronic periumbilical pain secondary to hernia which has been surgically repaired in the past. Patient is vaccinated for Covid and received a second shot September 11. Contrary to triage patient does not endorse known exposure to Covid - Related Data Home Medications Medication Instructions Recorded Confirmed Last Taken AtorvaSTATin 40 mg PO HS 07/13/20 04/09/21 04/08/21 Biktarvy 50-200-25 mg (Nf) 50 mg PO DAILY 07/13/20 04/09/21 04/05/21 risperiDONE 1 mg PO DAILY 07/13/20 04/09/21 1 Day Ago ~07/12/20 Previous Rx's Medication Instructions Recorded Last Taken Type Ibuprofen [Motrin 800 MG tab] 800 mg PO Q8HR PRN 7 Days #21 11/09/20 Unknown Rx tablet Sulfamethoxazole/Trimethoprim 1 each PO BID #14 tablet 01/06/21 04/08/21 Rx [Bactrim DS TAB] traMADoL [Ultram 50 MG tab] 50 mg PO Q6HR PRN #10 tablet 01/06/21 Unknown Rx Ondansetron [Zofran ODT TAB] 4 mg PO Q8HR PRN #14 tab.rapdis 01/23/21 Unknown Rx Ascorbic Acid [Vitamin C] 500 mg PO QDAY #30 tablet 04/10/21 Unknown Rx Aspirin [Aspirin BABY CHEW TAB] 81 mg PO QDAY tab.chew 04/10/21 Unknown Rx Cholecalciferol Vit D3 [Vitamin D3 1,000 unit PO QDAY #30 tablet 04/10/21 Unknown Rx 1,000 UNIT TAB] Linezolid [Zyvox] 600 mg PO BID #20 tablet 04/10/21 Unknown Rx buPROPion XL [Wellbutrin XL] 150 mg PO DAILY tablet 04/10/21 Unknown Rx carvediloL [Coreg] 6.25 mg PO DAILY tablet 04/10/21 Unknown Rx Fluticasone [Flonase] 1 spray NS QDAY #1 bottle 07/06/21 Unknown Rx Ondansetron [Zofran Odt] 4 mg PO Q6H PRN #15 tab.rapdis 07/06/21 Unknown Rx Albuterol Sulfate [Proair 2 puff IH 4XD #1 aer.pw.bas 09/30/21 Unknown Rx Digihaler] guaiFENesin ER [Mucinex ER] 600 mg PO Q12H #14 tablet.er 09/30/21 Unknown Rx Azithromycin [Zithromax] 250 mg PO DAILY #4 tablet 10/31/21 Unknown Rx Benzonatate [Tessalon Perles] 100 mg PO Q8HR #20 capsule 10/31/21 Unknown Rx Ibuprofen [Motrin] 800 mg PO Q8HR PRN #20 tablet 10/31/21 Unknown Rx Allergies Allergy/AdvReac Type Severity Reaction Status Date / Time fish oil Allergy Hives Verified 01/06/21 16:16 ED Review of Systems ROS: Stated complaint: body aches Other details as noted in HPI Comment: All other systems reviewed and negative ED Past Medical Hx - Past Medical History Previous Medical History?: No Hx Hypertension: Yes Hx Congestive Heart Failure: Yes Hx Diabetes: No Hx Psychiatric Treatment: Yes (Depression, Bipolar) Hx Asthma: No Hx COPD: No Hx HIV: Yes (ON MEDS) Additional medical history: CAD, High Cholesterol - Surgical History Additional Surgical History: Hernia repair 2020 - Social History Smoking Status: Current Every Day Smoker Substance Use Type: Alcohol, Cocaine, Marijuana - Medications Home Medications: Home Medications Medication Instructions Recorded Confirmed Last Taken Type AtorvaSTATin 40 mg PO HS 07/13/20 04/09/21 04/08/21 History Biktarvy 50-200-25 mg (Nf) 50 mg PO DAILY 07/13/20 04/09/21 04/05/21 History risperiDONE 1 mg PO DAILY 07/13/20 04/09/21 1 Day Ago History ~07/12/20 Ibuprofen [Motrin 800 MG tab] 800 mg PO Q8HR PRN 7 Days #21 11/09/20 04/09/21 Unknown Rx tablet Sulfamethoxazole/Trimethoprim 1 each PO BID #14 tablet 01/06/21 04/09/21 04/08/21 Rx [Bactrim DS TAB] traMADoL [Ultram 50 MG tab] 50 mg PO Q6HR PRN #10 tablet 01/06/21 04/09/21 Unknown Rx Ondansetron [Zofran ODT TAB] 4 mg PO Q8HR PRN #14 tab.rapdis 01/23/21 04/09/21 Unknown Rx Ascorbic Acid [Vitamin C] 500 mg PO QDAY #30 tablet 04/10/21 Unknown Rx Aspirin [Aspirin BABY CHEW TAB] 81 mg PO QDAY tab.chew 04/10/21 Unknown Rx Cholecalciferol Vit D3 [Vitamin D3 1,000 unit PO QDAY #30 tablet 04/10/21 Unknown Rx 1,000 UNIT TAB] Linezolid [Zyvox] 600 mg PO BID #20 tablet 04/10/21 Unknown Rx buPROPion XL [Wellbutrin XL] 150 mg PO DAILY tablet 04/10/21 Unknown Rx carvediloL [Coreg] 6.25 mg PO DAILY tablet 04/10/21 Unknown Rx Fluticasone [Flonase] 1 spray NS QDAY #1 bottle 07/06/21 Unknown Rx Ondansetron [Zofran Odt] 4 mg PO Q6H PRN #15 tab.rapdis 07/06/21 Unknown Rx Albuterol Sulfate [Proair 2 puff IH 4XD #1 aer.pw.bas 09/30/21 Unknown Rx Digihaler] guaiFENesin ER [Mucinex ER] 600 mg PO Q12H #14 tablet.er 09/30/21 Unknown Rx Azithromycin [Zithromax] 250 mg PO DAILY #4 tablet 10/31/21 Unknown Rx Benzonatate [Tessalon Perles] 100 mg PO Q8HR #20 capsule 10/31/21 Unknown Rx Ibuprofen [Motrin] 800 mg PO Q8HR PRN #20 tablet 10/31/21 Unknown Rx ED Physical Exam - General Limitations: No Limitations - Other Other exam information: General: No acute distress Head: Atraumatic Eyes: normal appearance ENT: Moist mucous membranes Neck: Normal appearance, no midline tenderness Chest: Clear to auscultation bilaterally, frequent dry cough CV: Regular rate and rhythm Abdomen: Soft, normal bowel sounds, periumbilical surgical scar with tenderness and induration to periumbilical region Back: Normal inspection Extremity: Normal inspection, full range of motion Neuro: Alert O x 3, no facial asymmetry, speech clear, no gross motor sensory deficit Psych: Appropriate behavior Skin: No rash ED Course Vital Signs 10/30/21 22:21 Temperature 99.7 F H Pulse Rate 122 H Respiratory 20 Rate Blood Pressure 154/106 [Right] O2 Sat by Pulse 98 Oximetry - Reevaluation(s) Reevaluation #1: 10/31/21 05:52 Patient's heart rate has greatly improved. He continues to have body aches. He has not received any of the liter of normal saline that has been ordered. Patient will be discharged after he received a 1 L bolus of IV fluid ED Medical Decision Making - Lab Data Result diagrams: 10/31/21 02:24 10/31/21 02:24 Lab Results 10/31/21 10/31/21 Range/Units 02:24 02:24 WBC 3.9 L (4.5-11.0) K/mm3 RBC 4.08 (3.65-5.03) M/mm3 Hgb 11.9 (11.8-15.2) gm/dl Hct 37.4 (35.5-45.6) % MCV 92 (84-94) fl MCH 29 (28-32) pg MCHC 32 (32-34) % RDW 15.9 H (13.2-15.2) % Plt Count 127 L (140-440) K/mm3 Lymph % (Auto) 21.9 (13.4-35.0) % [place] % (Auto) 12.5 H (0.0-7.3) % Eos % (Auto) 5.9 H (0.0-4.3) % Baso % (Auto) 0.5 (0.0-1.8) % Lymph # (Auto) 0.8 L (1.2-5.4) K/mm3 [place] # (Auto) 0.5 (0.0-0.8) K/mm3 Eos # (Auto) 0.2 (0.0-0.4) K/mm3 Baso # (Auto) 0.0 (0.0-0.1) K/mm3 Seg Neutrophils % 59.2 (40.0-70.0) % Seg Neutrophils # 2.3 (1.8-7.7) K/mm3 Sodium 134 L (137-145) mmol/L Potassium 3.7 (3.6-5.0) mmol/L Chloride 99.4 (98-107) mmol/L Carbon Dioxide 25 (22-30) mmol/L Anion Gap 13 mmol/L BUN 20 (9-20) mg/dL Creatinine 1.1 (0.8-1.3) mg/dL Estimated GFR > 60 ml/min BUN/Creatinine Ratio 18 % Glucose 102 H (75-100) mg/dL Calcium 8.5 (8.4-10.2) mg/dL Total Bilirubin 0.30 (0.1-1.2) mg/dL AST 15 (5-40) units/L ALT 6 L (7-56) units/L Alkaline Phosphatase 74 (35-129) units/L Total Protein 6.8 (6.3-8.2) g/dL Albumin 3.5 L (3.9-5) g/dL Albumin/Globulin Ratio 1.1 % - EKG Data -: EKG Interpreted by Hi EKG shows normal: sinus rhythm, ST-T waves (no stemi) Rate: normal (88) - Radiology Data Radiology results: report reviewed XR chest routine 2V INDICATION / CLINICAL INFORMATION: sob, cough, covid exposure. COMPARISON: 09/30/2021 FINDINGS: SUPPORT DEVICES: None. HEART /PULMONARY VASCULATURE: No significant abnormality. LUNGS / PLEURA: No significant pulmonary or pleural abnormality. No pneumothorax. ADDITIONAL FINDINGS: No significant additional findings. IMPRESSION: 1. No acute findings. CT abdomen pelvis w con INDICATION / CLINICAL INFORMATION: Patient complains of bodyaches, abd pain with diarrhea. TECHNIQUE: Axial CT images were obtained through the abdomen and pelvis after IV contrast. All CT scans at this location are performed using CT dose reduction for ALARA by means of automated exposure control. COMPARISON: CT from 07/06/2021 FINDINGS: LOWER CHEST: There is focal airspace consolidation within the right lower lobe. LIVER: No significant abnormality GALLBLADDER/BILIARY TREE: No significant abnormality PANCREAS: No significant abnormality SPLEEN: No significant abnormality ADRENALS: No significant abnormality KIDNEYS / URETER: No significant abnormality URINARY BLADDER: No significant abnormality REPRODUCTIVE ORGANS: No significant abnormality STOMACH / BOWEL: Nondilated fluid-filled small bowel within the abdomen and pelvis, may reflect mild enteritis. The colon is unremarkable. The appendix is normal in caliber. LYMPH NODES: No significant adenopathy. VASCULATURE: No significant abnormality. OTHER: No free air, free fluid, or focal fluid collection is identified. Persistent inflammatory stranding of the midline abdominal wall near the prior surgical site. There is no organized collection. No intra-abdominal extension. SKELETAL SYSTEM: No acute osseous findings. IMPRESSION: 1. Mild focal airspace consolidation in the right lower lobe, concerning for developing pneumonia. 2. Nondilated fluid-filled small bowel within the abdomen and pelvis, may reflect mild enteritis. No evidence of small bowel obstruction. 3. Persistent inflammation of the midline abdominal wall in the region of prior surgical site. No organized collection or intra-abdominal extension. - Medical Decision Making 46-year-old male presents to the hospital with diarrhea and cough. CT abdomen and pelvis results noted which include chronic periumbilical inflammation and early pneumonia. No signs of hypoxia. Tachycardia improved with ED treatment. Patient will be discharged with symptomatic treatment and abx for pneumonia as well as antibiotic. First dose of azithromycin provided in ED. Patient is vaccinated but will recommend that patient obtain outpatient Covid test Critical Care Time: No Critical care attestation.: If time is entered above; I have spent that time in minutes in the direct care of this critically ill patient, excluding procedure time. ED Disposition Clinical Impression: Acute diarrhea, Enteritis, HIV (human immunodeficiency virus infection), History of umbilical hernia, Pneumonia Disposition: 01 HOME / SELF CARE / HOMELESS Is pt being admited?: No Does the pt Need Aspirin: No Condition: Stable Instructions: Diarrhea, Adult, Community-Acquired Pneumonia, Adult, [id number], Bacterial Pneumonia (ED) Additional Instructions: Take the medication as prescribed. Follow-up with your doctor or doctor/clinic provided. Return if symptoms worsen as indicated by your discharge instructions. I recommend that you obtain an outpatient Covid test to rule out coronavirus infection Prescriptions: Ibuprofen [Motrin] 800 mg PO Q8HR PRN #20 tablet PRN Reason: Pain , Severe (7-10) Benzonatate [Tessalon Perles] 100 mg PO Q8HR #20 capsule Azithromycin [Zithromax] 250 mg PO DAILY #4 tablet Referrals: PRIMARY MD HARLEEN [Primary Care Provider] - 3-5 Days ARNALDO MENDOSA MD [Staff Physician] - 3-5 Days [facility] [Provider Group] - 3-5 Days
[2021-10-31 06:07] VITALS: BP 105/72
--- NOTE | 2021-10-31 10:37 | Electrocardiograph Report ---
[facility] Test Date: 2021-10-31 Test Time: 02:16:45 Pat Name: GRAZYNA SMITH Department: Room: Gender: M Scrap Separator: IRAJ : 1975 Requested By: LAURA WALLACE Order Number: [id number] Reading MD: Ra Valdes Measurements Intervals [place] Rate: 88 P: 56 KS: 186 QRS: -38 QRSD: 99 T: 61 QT: 341 QTc: 414 Interpretive Statements Sinus rhythm Left ventricular hypertrophy RSR' IN V1, NORMAL VARIATION Compared to ECG 04/09/2021 00:14:19 Sinus tachycardia no longer present Left-axis deviation no longer present Electronically Signed On 10-31-2021 10:37:08 EST by Ra Valdes
== END 2021-10-31 07:15 | disposition home or self-care (01) ==
LOC: ED 22:21
DX: K52.9 Noninfective gastroenteritis and colitis, unspecified (principal); K42.0 Umbilical hernia with obstruction, without gangrene; J18.9 Pneumonia, unspecified organism; I10 Essential (primary) hypertension; F17.200 Nicotine dependence, unspecified, uncomplicated; F12.10 Cannabis abuse, uncomplicated; I50.9 Heart failure, unspecified; F31.9 Bipolar disorder, unspecified
CPT/HCPCS: 36415; 71046; 74177; 80053; 85025; 93005; 99284; J1885; J7030; Q9967; Q0162

== ENCOUNTER 2022-01-15 09:34 | Emergency (ER) | payer SELFPAY ==
[2022-01-15 09:47] VITALS: BP 158/109
--- NOTE | 2022-01-15 09:53 | Event Note ---
ED Screening Note ED Screening Note: 47 yo male comes in with hematuria and purulent drainage from an abd wound - had hernia repaired 18 m ago at [place] He has HIV- on antivirals He did see his surg and they have had him on anbx x3 times but purulent drainage is coming from midline abd wound pmh hiv renal dysfunction This initial assessment/diagnostic orders/clinical plan/treatment(s) is/are subject to change based on patients health status, clinical progression and re- assessment by fellow clinical providers in the ED. Further treatment and workup at subsequent clinical providers discretion. Patient/guardian urged not to elope from the ED as their condition may be serious if not clinically assessed and managed. Initial orders include: eval surg wound/ work up hematuria
[2022-01-15 10:42] LABS: Basophils % (Auto) 0.6 % (0.0-1.8); Eosinophils # (Auto) 0.3 K/mm3 (0.0-0.4); Eosinophils % (Auto) 7.8 % (0.0-4.3); Hematocrit 41.1 % (35.5-45.6); Hemoglobin 13.6 gm/dl (11.8-15.2); Lymphocytes # (Auto) 1.5 K/mm3 (1.2-5.4); Lymphocytes % (Auto) 39.1 % (13.4-35.0); Mean Corpuscular HGB Conc 33 % (32-34); Mean Corpuscular Volume 92 fl (84-94); Monocytes # (Auto) 0.3 K/mm3 (0.0-0.8); Platelet Count 163 K/mm3 (140-440); Red Blood Count 4.47 M/mm3 (3.65-5.03); Red Cell Distribution Width 15.7 % (13.2-15.2)
[2022-01-15 11:04] LABS: Alanine Aminotransferase 16 units/L (7-56); Albumin 4.1 g/dL (3.9-5); BUN/Creatinine Ratio 15; Blood Urea Nitrogen 18 mg/dL (9-20); Hemolysis Index 6
[2022-01-15 11:52] LABS: Mucus,Urine FEW /HPF; WBC,Urine < 1.0 /HPF (0.0-6.0)
[2022-01-15] MEDS ORDERED: LIDOCAINE-MPF (1%) 10 MG/1 ML VIAL 5 ML INFILTRATI ONE (11:55)
--- NOTE | 2022-01-15 12:10 | Emergency Department Report ---
ED General Adult HPI - General Chief complaint: Abdominal Pain Stated complaint: BLOOD IN URINE AND INFECTION PUI?: No Time Seen by Provider: 01/15/22 09:59 Source: patient Mode of arrival: Ambulatory Limitations: No Limitations - History of Present Illness Initial comments: 47 yo comes to er with co hematuria and chronic abd wound that is draining. Hematuria noted yesterday. no discharge. . not concerned for STI. no dysuria. no back pain. no abd pain. no fever or chills Abd wound is from hernia repair 18 m ago. It continues to be open and draining. He has seen surgeon but it does not get better. denies abd pain. abd snt on exam. pt bp noted to be elevated- no cp or sob He is also requesting work note On arrival pt non ill appearing and nad. -: Gradual, month(s) Consistency: constant Improves with: none Worsens with: none Associated Symptoms: denies other symptoms Treatments Prior to Arrival: other (reports surgeon at [facility] has had him on anbx 3 times and the wound wont heal. He does not go back because he does not have a ride to [place] ) - Related Data Home Medications Medication Instructions Recorded Confirmed Last Taken AtorvaSTATin 40 mg PO HS 07/13/20 04/09/21 04/08/21 Biktarvy 50-200-25 mg (Nf) 50 mg PO DAILY 07/13/20 04/09/21 04/05/21 risperiDONE 1 mg PO DAILY 07/13/20 04/09/21 1 Day Ago ~07/12/20 Previous Rx's Medication Instructions Recorded Last Taken Type Ascorbic Acid [Vitamin C] 500 mg PO QDAY #30 tablet 04/10/21 Unknown Rx Aspirin [Aspirin BABY CHEW TAB] 81 mg PO QDAY tab.chew 04/10/21 Unknown Rx Cholecalciferol Vit D3 [Vitamin D3 1,000 unit PO QDAY #30 tablet 04/10/21 Unknown Rx 1,000 UNIT TAB] Linezolid [Zyvox] 600 mg PO BID #20 tablet 04/10/21 Unknown Rx buPROPion XL [Wellbutrin XL] 150 mg PO DAILY tablet 04/10/21 Unknown Rx carvediloL [Coreg] 6.25 mg PO DAILY tablet 04/10/21 Unknown Rx Fluticasone [Flonase] 1 spray NS QDAY #1 bottle 07/06/21 Unknown Rx Albuterol Sulfate [Proair 2 puff IH 4XD #1 aer.pw.bas 09/30/21 Unknown Rx Digihaler] Clindamycin [Clindamycin CAP] 300 mg PO Q8H #30 cap 01/15/22 Unknown Rx Allergies Allergy/AdvReac Type Severity Reaction Status Date / Time fish oil Allergy Hives Verified 01/06/21 16:16 ED Review of Systems ROS: Stated complaint: BLOOD IN URINE AND INFECTION Other details as noted in HPI Comment: All other systems reviewed and negative ED Past Medical Hx - Past Medical History Previous Medical History?: Yes Hx Hypertension: Yes Hx Congestive Heart Failure: Yes Hx Diabetes: No Hx Psychiatric Treatment: Yes (Depression, Bipolar) Hx Asthma: No Hx COPD: No Hx HIV: Yes (ON MEDS) Additional medical history: CAD, High Cholesterol - Surgical History Past Surgical History?: Yes Additional Surgical History: Hernia repair 2020 - Family History Family history: no significant - Social History Smoking Status: Current Every Day Smoker Substance Use Type: Alcohol, Cocaine, Marijuana - Medications Home Medications: Home Medications Medication Instructions Recorded Confirmed Last Taken Type AtorvaSTATin 40 mg PO HS 07/13/20 04/09/21 04/08/21 History Biktarvy 50-200-25 mg (Nf) 50 mg PO DAILY 07/13/20 04/09/21 04/05/21 History risperiDONE 1 mg PO DAILY 07/13/20 04/09/21 1 Day Ago History ~07/12/20 Ascorbic Acid [Vitamin C] 500 mg PO QDAY #30 tablet 04/10/21 Unknown Rx Aspirin [Aspirin BABY CHEW TAB] 81 mg PO QDAY tab.chew 04/10/21 Unknown Rx Cholecalciferol Vit D3 [Vitamin D3 1,000 unit PO QDAY #30 tablet 04/10/21 Unknown Rx 1,000 UNIT TAB] Linezolid [Zyvox] 600 mg PO BID #20 tablet 04/10/21 Unknown Rx buPROPion XL [Wellbutrin XL] 150 mg PO DAILY tablet 04/10/21 Unknown Rx carvediloL [Coreg] 6.25 mg PO DAILY tablet 04/10/21 Unknown Rx Fluticasone [Flonase] 1 spray NS QDAY #1 bottle 07/06/21 Unknown Rx Albuterol Sulfate [Proair 2 puff IH 4XD #1 aer.pw.bas 09/30/21 Unknown Rx Digihaler] Clindamycin [Clindamycin CAP] 300 mg PO Q8H #30 cap 01/15/22 Unknown Rx ED Physical Exam - General Limitations: No Limitations General appearance: alert, in no apparent distress - Head Head exam: Present: atraumatic, normocephalic - Eye Eye exam: Present: normal appearance - ENT ENT exam: Present: mucous membranes moist - Neck Neck exam: Present: normal inspection - Respiratory Respiratory exam: Present: normal lung sounds bilaterally. Absent: respiratory distress - Cardiovascular Cardiovascular Exam: Present: regular rate, normal rhythm. Absent: systolic murmur, diastolic murmur, rubs, gallop - GI/Abdominal GI/Abdominal exam: Present: soft, normal bowel sounds - Rectal Rectal exam: Present: deferred - Extremities Exam Extremities exam: Present: normal inspection - Back Exam Back exam: Present: normal inspection - Neurological Exam Neurological exam: Present: alert, oriented X3 - Psychiatric Psychiatric exam: Present: normal affect, normal mood - Skin Skin exam: Present: warm, dry, intact, normal color, other (mid abd just to left of belly button small 1 cm x 1 cm inscision draining purulent drainage. no red ness. no abscess. underlying tissue pink in color. no necrosis ). Absent: rash ED Course Vital Signs 01/15/22 09:45 Temperature 97.5 F L Pulse Rate 91 H Respiratory 16 Rate Blood Pressure 158/109 [Left] O2 Sat by Pulse 97 Oximetry - Reevaluation(s) Reevaluation #1: 01/16/22 dc bp 150/90 as manually charged by ZMT OPERATOR Medical Decision Making - Lab Data Result diagrams: 01/15/22 10:05 01/15/22 10:05 - Medical Decision Making Lab Results 01/15/22 01/15/22 01/15/22 Range/Units 09:47 10:05 10:05 WBC 3.7 L (4.5-11.0) K/mm3 RBC 4.47 (3.65-5.03) M/mm3 Hgb 13.6 (11.8-15.2) gm/dl Hct 41.1 (35.5-45.6) % MCV 92 (84-94) fl MCH 31 (28-32) pg MCHC 33 (32-34) % RDW 15.7 H (13.2-15.2) % Plt Count 163 (140-440) K/mm3 Lymph % (Auto) 39.1 H (13.4-35.0) % [place] % (Auto) 9.0 H (0.0-7.3) % Eos % (Auto) 7.8 H (0.0-4.3) % Baso % (Auto) 0.6 (0.0-1.8) % Lymph # (Auto) 1.5 (1.2-5.4) K/mm3 [place] # (Auto) 0.3 (0.0-0.8) K/mm3 Eos # (Auto) 0.3 (0.0-0.4) K/mm3 Baso # (Auto) 0.0 (0.0-0.1) K/mm3 Seg Neutrophils % 43.5 (40.0-70.0) % Seg Neutrophils # 1.6 L (1.8-7.7) K/mm3 Sodium 137 (137-145) mmol/L Potassium 4.7 (3.6-5.0) mmol/L Chloride 102.1 (98-107) mmol/L Carbon Dioxide 26 (22-30) mmol/L Anion Gap 14 mmol/L BUN 18 (9-20) mg/dL Creatinine 1.2 (0.8-1.3) mg/dL Estimated GFR > 60 ml/min BUN/Creatinine Ratio 15 % Glucose 97 (75-100) mg/dL Lactic Acid (0.7-2.0) mmol/L Calcium 9.0 (8.4-10.2) mg/dL Total Bilirubin 0.30 (0.1-1.2) mg/dL AST 21 (5-40) units/L ALT 16 (7-56) units/L Alkaline Phosphatase 101 (35-129) units/L Total Protein 7.4 (6.3-8.2) g/dL Albumin 4.1 (3.9-5) g/dL Albumin/Globulin Ratio 1.2 % Urine RBC (Auto) 2.0 (0.0-6.0) /HPF 01/15/22 Range/Units 10:05 WBC (4.5-11.0) K/mm3 RBC (3.65-5.03) M/mm3 Hgb (11.8-15.2) gm/dl Hct (35.5-45.6) % MCV (84-94) fl MCH (28-32) pg MCHC (32-34) % RDW (13.2-15.2) % Plt Count (140-440) K/mm3 Lymph % (Auto) (13.4-35.0) % [place] % (Auto) (0.0-7.3) % Eos % (Auto) (0.0-4.3) % Baso % (Auto) (0.0-1.8) % Lymph # (Auto) (1.2-5.4) K/mm3 [place] # (Auto) (0.0-0.8) K/mm3 Eos # (Auto) (0.0-0.4) K/mm3 Baso # (Auto) (0.0-0.1) K/mm3 Seg Neutrophils % (40.0-70.0) % Seg Neutrophils # (1.8-7.7) K/mm3 Sodium (137-145) mmol/L Potassium (3.6-5.0) mmol/L Chloride (98-107) mmol/L Carbon Dioxide (22-30) mmol/L Anion Gap mmol/L BUN (9-20) mg/dL Creatinine (0.8-1.3) mg/dL Estimated GFR ml/min BUN/Creatinine Ratio % Glucose (75-100) mg/dL Lactic Acid 0.70 (0.7-2.0) mmol/L Calcium (8.4-10.2) mg/dL Total Bilirubin (0.1-1.2) mg/dL AST (5-40) units/L ALT (7-56) units/L Alkaline Phosphatase (35-129) units/L Total Protein (6.3-8.2) g/dL Albumin (3.9-5) g/dL Albumin/Globulin Ratio % Urine RBC (Auto) (0.0-6.0) /HPF Vital Signs 01/15/22 09:45 Temperature 97.5 F L Pulse Rate 91 H Respiratory 16 Rate Blood Pressure 158/109 [Left] O2 Sat by Pulse 97 Oximetry labs noted ua noted lactate normal wound cleaned given IV clinda in ER educated on wound care including wound care follow up. dc home with pcp/uro/wound follow up referrals. dc home on clinda and with wound care instructions. He verbalizes understanding of plan of care. - Differential Diagnosis ro sepsis/uti/k stone/hematuria Critical care attestation.: If time is entered above; I have spent that time in minutes in the direct care of this critically ill patient, excluding procedure time. ED Disposition Clinical Impression: HIV (human immunodeficiency virus infection), History of chronic hypertension Chronic abdominal wound infection Qualifiers: Encounter type: sequela Qualified Code(s): S31.109S - Unspecified open wound of abdominal wall, unspecified quadrant without penetration into peritoneal cavity, sequela; L08.9 - Local infection of the skin and subcutaneous tissue, unspecified Hematuria Qualifiers: Hematuria type: unspecified type Qualified Code(s): R31.9 - Hematuria, unspecified Disposition: 01 HOME / SELF CARE / HOMELESS Is pt being admited?: No Does the pt Need Aspirin: No Condition: Stable Additional Instructions: you will need follow up in a wound clinic [facility] have one med as ordered today follow up with your ID MD as well - this makes your healing difficult each day clean wound and apply dry dressing the wound care specialists will see you and determine how best to close the wound Prescriptions: Clindamycin [Clindamycin CAP] 300 mg PO Q8H #30 cap Referrals: PRIMARY CAREMD [Primary Care Provider] - 3-5 Days PAUL HAYWARD MD [Staff Physician] - 3-5 Days HAILEY VELAZCO MD [Staff Physician] - 3-5 Days Forms: Work/School Release Form(ED) Time of Disposition: 12:18
[2022-01-15 12:12] LABS: Bilirubin,Urine Negative (Negative); Blood,Urine Trace (Negative); Color,Urine Yellow (Yellow); PH,Urine 6.5 (5.0-7.0)
== END 2022-01-15 12:59 | disposition home or self-care (01) ==
LOC: ED 09:34
DX: B20 Human immunodeficiency virus [HIV] disease (principal); S31.109A Unspecified open wound of abdominal wall, unspecified quadrant without penetration into peritoneal cavity, initial encounter; L08.9 Local infection of the skin and subcutaneous tissue, unspecified; F31.9 Bipolar disorder, unspecified; I11.0 Hypertensive heart disease with heart failure; I50.9 Heart failure, unspecified; I25.10 Atherosclerotic heart disease of native coronary artery without angina pectoris; E78.00 Pure hypercholesterolemia, unspecified; F17.200 Nicotine dependence, unspecified, uncomplicated; F12.90 Cannabis use, unspecified, uncomplicated; Z91.013 Allergy to seafood; Z98.890 Other specified postprocedural states
CPT/HCPCS: 36415; 80053; 81001; 82140; 85025; 96372; 99283; J0696; J3490

== ENCOUNTER 2022-02-13 01:30 | Emergency (ER) | payer SELFPAY ==
[2022-02-13] MEDS ORDERED: SODIUM CHLORIDE 0.9% 1000 ML 1,000 ML IV ONE (02:04)
--- NOTE | 2022-02-13 02:28 | XRay Report ---
CHEST 1 VIEW INDICATION / CLINICAL INFORMATION: Altered mental status. COMPARISON: Chest x-ray 10/31/2021 FINDINGS: SUPPORT DEVICES: None. HEART / MEDIASTINUM: Stable borderline to mild cardiomegaly. LUNGS / PLEURA: The lungs are clear. No pneumothorax. BONES: No significant osseous abnormality. ADDITIONAL FINDINGS: No significant additional findings. IMPRESSION: 1. No active cardiopulmonary disease. Signer Name: Ajit Concepcion II, MD Signed: 02/13/2022 2:24 AM Workstation Name: [id number]
[2022-02-13 02:37] LABS: Basophils % (Auto) 0.8 % (0.0-1.8); Eosinophils # (Auto) 0.1 K/mm3 (0.0-0.4); Eosinophils % (Auto) 1.4 % (0.0-4.3); Hematocrit 41.6 % (35.5-45.6); Hemoglobin 13.7 gm/dl (11.8-15.2); Lymphocytes # (Auto) 1.8 K/mm3 (1.2-5.4); Lymphocytes % (Auto) 35.6 % (13.4-35.0); Mean Corpuscular HGB Conc 33 % (32-34); Mean Corpuscular Volume 93 fl (84-94); Monocytes # (Auto) 0.3 K/mm3 (0.0-0.8); Monocytes % (Auto) 6.2 % (0.0-7.3); Platelet Count 172 K/mm3 (140-440)
--- NOTE | 2022-02-13 02:38 | Emergency Department Report ---
ED General Adult HPI - General Stated complaint: CHEST PAIN Time Seen by Provider: 02/13/22 01:54 Source: patient Limitations: No Limitations - History of Present Illness -: Gradual, hour(s) (1) - Related Data Home Medications Medication Instructions Recorded Confirmed Last Taken AtorvaSTATin 40 mg PO HS 07/13/20 04/09/21 04/08/21 Biktarvy 50-200-25 mg (Nf) 50 mg PO DAILY 07/13/20 04/09/21 04/05/21 risperiDONE 1 mg PO DAILY 07/13/20 04/09/21 1 Day Ago ~07/12/20 Previous Rx's Medication Instructions Recorded Last Taken Type Ascorbic Acid [Vitamin C] 500 mg PO QDAY #30 tablet 04/10/21 Unknown Rx Aspirin [Aspirin BABY CHEW TAB] 81 mg PO QDAY tab.chew 04/10/21 Unknown Rx Cholecalciferol Vit D3 [Vitamin D3 1,000 unit PO QDAY #30 tablet 04/10/21 Unknown Rx 1,000 UNIT TAB] Linezolid [Zyvox] 600 mg PO BID #20 tablet 04/10/21 Unknown Rx buPROPion XL [Wellbutrin XL] 150 mg PO DAILY tablet 04/10/21 Unknown Rx carvediloL [Coreg] 6.25 mg PO DAILY tablet 04/10/21 Unknown Rx Fluticasone [Flonase] 1 spray NS QDAY #1 bottle 07/06/21 Unknown Rx Albuterol Sulfate [Proair 2 puff IH 4XD #1 aer.pw.bas 09/30/21 Unknown Rx Digihaler] Clindamycin [Clindamycin CAP] 300 mg PO Q8H #30 cap 01/15/22 Unknown Rx cephALEXin [Keflex] 500 mg PO Q6HR #40 capsule 02/13/22 Unknown Rx Allergies Allergy/AdvReac Type Severity Reaction Status Date / Time fish oil Allergy Hives Verified 01/06/21 16:16 ED Review of Systems ROS: Stated complaint: CHEST PAIN Other details as noted in HPI ED Past Medical Hx - Past Medical History Hx Hypertension: Yes Hx Congestive Heart Failure: Yes Hx Diabetes: No Hx Psychiatric Treatment: Yes (Depression, Bipolar) Hx Asthma: No Hx COPD: No Hx HIV: Yes (ON MEDS) Additional medical history: CAD, High Cholesterol - Surgical History Additional Surgical History: Hernia repair 2020 - Social History Smoking Status: Current Every Day Smoker Substance Use Type: Alcohol, Cocaine, Marijuana - Medications Home Medications: Home Medications Medication Instructions Recorded Confirmed Last Taken Type AtorvaSTATin 40 mg PO HS 07/13/20 04/09/21 04/08/21 History Biktarvy 50-200-25 mg (Nf) 50 mg PO DAILY 07/13/20 04/09/21 04/05/21 History risperiDONE 1 mg PO DAILY 07/13/20 04/09/21 1 Day Ago History ~07/12/20 Ascorbic Acid [Vitamin C] 500 mg PO QDAY #30 tablet 04/10/21 Unknown Rx Aspirin [Aspirin BABY CHEW TAB] 81 mg PO QDAY tab.chew 04/10/21 Unknown Rx Cholecalciferol Vit D3 [Vitamin D3 1,000 unit PO QDAY #30 tablet 04/10/21 Unknown Rx 1,000 UNIT TAB] Linezolid [Zyvox] 600 mg PO BID #20 tablet 04/10/21 Unknown Rx buPROPion XL [Wellbutrin XL] 150 mg PO DAILY tablet 04/10/21 Unknown Rx carvediloL [Coreg] 6.25 mg PO DAILY tablet 04/10/21 Unknown Rx Fluticasone [Flonase] 1 spray NS QDAY #1 bottle 07/06/21 Unknown Rx Albuterol Sulfate [Proair 2 puff IH 4XD #1 aer.pw.bas 09/30/21 Unknown Rx Digihaler] Clindamycin [Clindamycin CAP] 300 mg PO Q8H #30 cap 01/15/22 Unknown Rx cephALEXin [Keflex] 500 mg PO Q6HR #40 capsule 02/13/22 Unknown Rx ED Course Vital Signs 02/13/22 02/13/22 02/13/22 01:51 02:00 02:01 Temperature 99.7 F H Pulse Rate 104 H 101 H 105 H Respiratory 14 12 20 Rate Blood Pressure 154/89 Blood Pressure 152/84 [Right] O2 Sat by Pulse 96 96 Oximetry 02/13/22 02/13/22 02/13/22 02:15 02:31 02:46 Temperature Pulse Rate 91 H 98 H 98 H Respiratory 20 15 17 Rate Blood Pressure 147/89 147/89 147/89 Blood Pressure [Right] O2 Sat by Pulse 96 97 97 Oximetry 02/13/22 02/13/22 02/13/22 03:01 03:05 03:15 Temperature 98.9 F Pulse Rate 108 H 100 H Respiratory 20 14 Rate Blood Pressure 147/89 147/89 Blood Pressure [Right] O2 Sat by Pulse 98 97 Oximetry 02/13/22 02/13/22 02/13/22 03:31 03:53 04:01 Temperature Pulse Rate 90 Respiratory 19 Rate Blood Pressure 144/90 144/90 129/80 Blood Pressure [Right] O2 Sat by Pulse 96 96 96 Oximetry 02/13/22 02/13/22 02/13/22 04:15 04:31 04:45 Temperature Pulse Rate Respiratory Rate Blood Pressure 129/80 125/83 125/83 Blood Pressure [Right] O2 Sat by Pulse 96 96 95 Oximetry 02/13/22 02/13/22 02/13/22 05:01 05:15 05:32 Temperature 98.7 F Pulse Rate 79 Respiratory Rate Blood Pressure 125/83 125/83 Blood Pressure [Right] O2 Sat by Pulse 92 94 Oximetry ED Medical Decision Making - Lab Data Result diagrams: 02/13/22 02:18 02/13/22 02:18 Critical care attestation.: If time is entered above; I have spent that time in minutes in the direct care of this critically ill patient, excluding procedure time. ED Disposition Clinical Impression: Open abdominal wall wound, Polydrug abuse, Myalgia, History of HIV infection Disposition: 01 HOME / SELF CARE / HOMELESS Is pt being admited?: No Condition: Stable Additional Instructions: Apply wet-to-dry dressing to the umbilical area. Follow-up with your primary physician. Return to the emergency department if any problems Prescriptions: cephALEXin [Keflex] 500 mg PO Q6HR #40 capsule
[2022-02-13 02:55] LABS: Alanine Aminotransferase 13 units/L (7-56); Albumin 3.9 g/dL (3.9-5); BUN/Creatinine Ratio 13; Blood Urea Nitrogen 15 mg/dL (9-20); Calcium 9.1 mg/dL (8.4-10.2); Hemolysis Index 11
[2022-02-13 03:04] LABS: Bilirubin,Urine NEG (Negative); Blood,Urine SM (Negative); Color,Urine Yellow (Yellow); Protein,Urine <15 mg/dL mg/dL (Negative); Urobilinogen,Urine < 2.0 mg/dL (<2.0); WBC,Urine < 1.0 /HPF (0.0-6.0)
[2022-02-13 03:11] LABS: Amphetamine Screen,Urine Negative; Benzodiazepines Screen,Urine Negative; Methadone Screen,Urine Negative; Opiate Screen,Urine Negative
[2022-02-13 03:47] LABS: Cannabinoid Screen,Urine Positive; Cocaine Screen,Urine Positive
--- NOTE | 2022-02-13 04:00 | Cat Scan Report ---
CT ABDOMEN AND PELVIS WITHOUT CONTRAST INDICATION / CLINICAL INFORMATION: Purulent drainage from an ulceration on the abdomen. TECHNIQUE: Axial CT images were obtained through the abdomen and pelvis without IV contrast. All CT scans at this location are performed using CT dose reduction for ALARA by means of automated exposure control. COMPARISON: CT of the abdomen and pelvis 10/31/2021 FINDINGS: LOWER CHEST: No significant abnormality of the imaged chest. LIVER: No significant abnormality. GALLBLADDER: No significant abnormality. BILE DUCTS: No significant abnormality. SPLEEN: No significant abnormality. PANCREAS: No significant abnormality. ADRENALS: No significant abnormality. RIGHT KIDNEY / URETER: No significant abnormality. LEFT KIDNEY / URETER: No significant abnormality. STOMACH / DUODENUM / SMALL BOWEL: No significant abnormality. COLON: No significant abnormality. APPENDIX: No significant abnormality. PERITONEUM: Prior repair of ventral hernia demonstrated soft tissue thickening in the region of mesh implantation is stable compared to prior study. No free fluid or free air demonstrated within the per itoneal cavity. LYMPH NODES: No significant adenopathy. AORTA / ARTERIES: No significant abnormality. IVC / VEINS: No significant abnormality. URINARY BLADDER: No significant abnormality. REPRODUCTIVE ORGANS: No significant abnormality. ADDITIONAL ABDOMINAL/PELVIC FINDINGS: None. SKELETAL SYSTEM: No significant abnormality. IMPRESSION: 1. Stable soft tissue thickening in the region of surgically repaired ventral hernia. No obvious drai nable fluid collections. Infectious or inflammatory process not excluded. Signer Name: Ajit Concepcion II, MD Signed: 02/13/2022 3:56 AM Workstation Name: [id number]
[2022-02-13 05:32] VITALS: BP 125/83
--- NOTE | 2022-02-16 12:00 | Electrocardiograph Report ---
[facility] Test Date: 2022-02-13 Test Time: 01:42:15 Pat Name: GRAZYNA SMITH Department: Room: Gender: M [employer]: [place] : [id number] Requested By: DM FLOYD Order Number: [id number] Reading MD: Dusty Garcia Measurements Intervals [place] Rate: 109 P: 33 FL: 176 QRS: -66 QRSD: 95 T: 49 QT: 327 QTc: 442 Interpretive Statements Sinus tachycardia Probable left atrial enlargement Left ventricular hypertrophy Electronically Signed On 02-16-2022 12:00:31 EDT by Dusty Garcia
== END 2022-02-13 07:48 | disposition home or self-care (01) ==
LOC: ED 01:30
DX: S31.109A Unspecified open wound of abdominal wall, unspecified quadrant without penetration into peritoneal cavity, initial encounter (principal); M79.10 Myalgia, unspecified site; F19.10 Other psychoactive substance abuse, uncomplicated; X58.XXXA Exposure to other specified factors, initial encounter; Z21 Asymptomatic human immunodeficiency virus [HIV] infection status; Z79.899 Other long term (current) drug therapy; Y93.89 Activity, other specified; Y92.89 Other specified places as the place of occurrence of the external cause; Y99.8 Other external cause status
CPT/HCPCS: 36415; 71045; 74176; 80053; 80307; 81001; 82140; 85025; 87040; 93005; 96360; 96361; 99285; J7030; 99284; Q0162

== ENCOUNTER 2022-02-25 22:08 | Emergency (ER) | payer SELFPAY ==
[2022-02-25] MEDS ORDERED: ALBUTEROL 2.5 MG/3 ML NEBU IH ONE (22:40)
[2022-02-25] MEDS ORDERED: methylPREDNISolone Sod Succinate 125 MG/2 ML INJ IV ONE (22:40)
--- NOTE | 2022-02-25 22:47 | Emergency Department Report ---
ED Shortness of Breath HPI - General Stated Complaint: CHEST PAIN/JOAQUINA Time Seen by Provider: 02/25/22 22:37 Source: patient Limitations: No Limitations - History of Present Illness Initial Comments: Patient is a 47-year-old male history of COPD presenting to ED with complaint of shortness of breath that began this morning. States he tried to rest to see if it would get better however it did not improve. He reports associated chest congestion and is worried that he may have pneumonia. He denies any fever or chills. Also reports cough productive of whitish sputum. MD Complaint: shortness of breath -: This morning Severity: moderate Pain Scale: 0 Improves With: nothing Worsens With: nothing Known History Of: COPD Associated Symptoms: cough Treatments Prior to Arrival: none - Related Data Home Oxygen Therapy: No Home Medications Medication Instructions Recorded Confirmed Last Taken AtorvaSTATin 40 mg PO HS 07/13/20 04/09/21 04/08/21 Biktarvy 50-200-25 mg (Nf) 50 mg PO DAILY 07/13/20 04/09/21 04/05/21 risperiDONE 1 mg PO DAILY 07/13/20 04/09/21 1 Day Ago ~07/12/20 Previous Rx's Medication Instructions Recorded Last Taken Type Naproxen [Naprosyn] 500 mg PO BID #20 tablet 10/28/20 Unknown Rx Ondansetron [Zofran Odt] 4 mg PO Q8HR PRN #20 tab.rapdis 10/28/20 Unknown Rx Albuterol Sulfate [Proventil Hfa] 6.7 gm IH TID PRN #1 hfa.aer.ad 12/23/20 Unknown Rx Azithromycin [Zithromax TAB] 250 mg PO QDAY 5 Days #6 tablet 12/23/20 Unknown Rx Prednisone [predniSONE 10 mg 10 mg PO .TAPER #1 tab.ds.pk 12/23/20 Unknown Rx (6-Day Pack, 21 Tabs)] guaiFENesin ER [Mucinex ER] 600 mg PO BID #14 tablet.er 12/23/20 Unknown Rx Sulfamethoxazole/Trimethoprim 1 each PO BID #20 tablet 03/01/21 Unknown Rx [Bactrim DS TAB] traMADoL [Ultram 50 MG tab] 50 mg PO Q6HR PRN #7 tablet 03/01/21 Unknown Rx Ascorbic Acid [Vitamin C] 500 mg PO QDAY #30 tablet 04/10/21 Unknown Rx Aspirin [Aspirin BABY CHEW TAB] 81 mg PO QDAY tab.chew 04/10/21 Unknown Rx Cholecalciferol Vit D3 [Vitamin D3 1,000 unit PO QDAY #30 tablet 04/10/21 Unknown Rx 1,000 UNIT TAB] Linezolid [Zyvox] 600 mg PO BID #20 tablet 04/10/21 Unknown Rx buPROPion XL [Wellbutrin XL] 150 mg PO DAILY tablet 04/10/21 Unknown Rx carvediloL [Coreg] 6.25 mg PO DAILY tablet 04/10/21 Unknown Rx Fluticasone [Flonase] 1 spray NS QDAY #1 bottle 07/06/21 Unknown Rx Albuterol Sulfate [Proair 2 puff IH 4XD #1 aer.pw.bas 09/30/21 Unknown Rx Digihaler] Clindamycin [Clindamycin CAP] 300 mg PO Q8H #30 cap 01/15/22 Unknown Rx cephALEXin [Keflex] 500 mg PO Q6HR #40 capsule 02/13/22 Unknown Rx Albuterol Sulfate [Proventil Hfa] 6.7 gm IH Q4HR #1 can 02/26/22 Unknown Rx Allergies Allergy/AdvReac Type Severity Reaction Status Date / Time fish oil Allergy Hives Verified 02/13/22 11:02 ED Review of Systems ROS: Stated complaint: CHEST PAIN/JOAQUINA Other details as noted in HPI Constitutional: no symptoms reported Respiratory: cough, shortness of breath, SOB with exertion, SOB at rest Cardiovascular: denies: chest pain, palpitations Endocrine: no symptoms reported Gastrointestinal: denies: abdominal pain, nausea, vomiting Genitourinary: denies: urgency, dysuria Skin: denies: rash, lesions Neurological: denies: headache, weakness, paresthesias Psychiatric: denies: anxiety, depression ED Past Medical Hx - Past Medical History Hx Hypertension: Yes Hx Heart Attack/AMI: Yes Hx Congestive Heart Failure: Yes Hx Diabetes: No Hx Psychiatric Treatment: Yes (Depression, Bipolar) Hx Asthma: No Hx COPD: No Hx HIV: Yes (ON MEDS) Additional medical history: CAD, High Cholesterol - Surgical History Additional Surgical History: Hernia repair 2020 - Social History Smoking Status: Current Every Day Smoker Substance Use Type: Alcohol, Cocaine, Marijuana - Medications Home Medications: Home Medications Medication Instructions Recorded Confirmed Last Taken Type AtorvaSTATin 40 mg PO HS 07/13/20 04/09/21 04/08/21 History Biktarvy 50-200-25 mg (Nf) 50 mg PO DAILY 07/13/20 04/09/21 04/05/21 History risperiDONE 1 mg PO DAILY 07/13/20 04/09/21 1 Day Ago History ~07/12/20 Naproxen [Naprosyn] 500 mg PO BID #20 tablet 10/28/20 Unknown Rx Ondansetron [Zofran Odt] 4 mg PO Q8HR PRN #20 tab.rapdis 10/28/20 Unknown Rx Albuterol Sulfate [Proventil Hfa] 6.7 gm IH TID PRN #1 hfa.aer.ad 12/23/20 Unknown Rx Azithromycin [Zithromax TAB] 250 mg PO QDAY 5 Days #6 tablet 12/23/20 Unknown Rx Prednisone [predniSONE 10 mg 10 mg PO .TAPER #1 tab.ds.pk 12/23/20 Unknown Rx (6-Day Pack, 21 Tabs)] guaiFENesin ER [Mucinex ER] 600 mg PO BID #14 tablet.er 12/23/20 Unknown Rx Sulfamethoxazole/Trimethoprim 1 each PO BID #20 tablet 03/01/21 Unknown Rx [Bactrim DS TAB] traMADoL [Ultram 50 MG tab] 50 mg PO Q6HR PRN #7 tablet 03/01/21 Unknown Rx Ascorbic Acid [Vitamin C] 500 mg PO QDAY #30 tablet 04/10/21 Unknown Rx Aspirin [Aspirin BABY CHEW TAB] 81 mg PO QDAY tab.chew 04/10/21 Unknown Rx Cholecalciferol Vit D3 [Vitamin D3 1,000 unit PO QDAY #30 tablet 04/10/21 Unknown Rx 1,000 UNIT TAB] Linezolid [Zyvox] 600 mg PO BID #20 tablet 04/10/21 Unknown Rx buPROPion XL [Wellbutrin XL] 150 mg PO DAILY tablet 04/10/21 Unknown Rx carvediloL [Coreg] 6.25 mg PO DAILY tablet 04/10/21 Unknown Rx Fluticasone [Flonase] 1 spray NS QDAY #1 bottle 07/06/21 Unknown Rx Albuterol Sulfate [Proair 2 puff IH 4XD #1 aer.pw.bas 09/30/21 Unknown Rx Digihaler] Clindamycin [Clindamycin CAP] 300 mg PO Q8H #30 cap 01/15/22 Unknown Rx cephALEXin [Keflex] 500 mg PO Q6HR #40 capsule 02/13/22 Unknown Rx Albuterol Sulfate [Proventil Hfa] 6.7 gm IH Q4HR #1 can 02/26/22 Unknown Rx ED Physical Exam - General General appearance: alert, in no apparent distress - Head Head exam: Present: atraumatic, normocephalic - Eye Eye exam: Present: normal appearance, EOMI - Neck Neck exam: Present: normal inspection, other (No JVD) - Respiratory Respiratory exam: Present: respiratory distress (Mild), wheezes (Diffuse inspiratory and expiratory wheezing). Absent: chest wall tenderness - Cardiovascular Cardiovascular Exam: Present: regular rate, normal rhythm, normal heart sounds - GI/Abdominal GI/Abdominal exam: Present: soft. Absent: distended, tenderness - Rectal Rectal exam: Present: deferred - Neurological Exam Neurological exam: Present: alert, oriented X3 - Psychiatric Psychiatric exam: Present: normal affect, normal mood - Skin Skin exam: Present: warm, dry, intact, normal color. Absent: rash ED Medical Decision Making - Lab Data Result diagrams: 02/25/22 23:06 02/25/22 23:06 - EKG Data -: EKG Interpreted by Me (EKG shows sinus tachycardia with ventricular rate of 116. Mild ST elevatio) EKG shows normal: sinus rhythm Rate: tachycardia - Medical Decision Making No acute findings on chest x-ray. Patient given albuterol neb along with IV Solu-Medrol. On reassessment patient sleeping comfortably in bed. Upon waking states his symptoms are improved. Likely COPD exacerbation. Will discharge home with albuterol MDI Rx. Critical care attestation.: If time is entered above; I have spent that time in minutes in the direct care of this critically ill patient, excluding procedure time. ED Disposition Clinical Impression: COPD exacerbation Disposition: 01 HOME / SELF CARE / HOMELESS Is pt being admited?: No Does the pt Need Aspirin: No Condition: Stable Instructions: Chronic Obstructive Pulmonary Disease (ED), Chronic Obstructive Pulmonary Disease Referrals: PRIMARY CARE,MD [Primary Care Provider] - 3-5 Days
--- NOTE | 2022-02-25 22:58 | XRay Report ---
CHEST 1 VIEW INDICATION / CLINICAL INFORMATION: Asthma. Dyspnea FINDINGS: SUPPORT DEVICES: None. HEART / MEDIASTINUM: No significant abnormality. LUNGS / PLEURA: The lungs are mildly hyperexpanded but there is no evidence of pneumonia. No pleural effusion or pneumothorax. Signer Name: Kan Hendrickson MD Signed: 02/25/2022 10:54 PM Workstation Name: [id number]
[2022-02-25 23:42] LABS: Basophils % (Auto) 0.3 % (0.0-1.8); Eosinophils % (Auto) 0.7 % (0.0-4.3); Hematocrit 44.1 % (35.5-45.6); Hemoglobin 14.5 gm/dl (11.8-15.2); Lymphocytes # (Auto) 0.8 K/mm3 (1.2-5.4); Lymphocytes % (Auto) 22.7 % (13.4-35.0); Mean Corpuscular HGB Conc 33 % (32-34); Mean Corpuscular Volume 93 fl (84-94); Monocytes # (Auto) 0.6 K/mm3 (0.0-0.8); Monocytes % (Auto) 15.6 % (0.0-7.3); Platelet Count 134 K/mm3 (140-440); Red Blood Count 4.74 M/mm3 (3.65-5.03); Red Cell Distribution Width 15.4 % (13.2-15.2)
[2022-02-25 23:57] LABS: Alanine Aminotransferase 14 units/L (7-56); Albumin 4.1 g/dL (3.9-5); BUN/Creatinine Ratio 10; Blood Urea Nitrogen 15 mg/dL (9-20); Calcium 8.5 mg/dL (8.4-10.2); Hemolysis Index 17
[2022-02-26 00:41] VITALS: BP 156/91
--- NOTE | 2022-02-27 20:13 | Electrocardiograph Report ---
[facility] Test Date: 2022-02-25 Test Time: 22:13:51 Pat Name: GRAZYNA SMITH Department: Room: Gender: M Casing Grader: ИРИНА : 1975 Requested By: PAULA ROSENBERG Order Number: [id number] Reading MD: Janell Phillips Measurements Intervals [place] Rate: 116 P: 68 TX: 168 QRS: -70 QRSD: 99 T: 69 QT: 311 QTc: 431 Interpretive Statements Sinus tachycardia Left axis deviation Left ventricular hypertrophy Compared to ECG 02/13/2022 01:42:15 No significant change Electronically Signed On 02-27-2022 20:13:03 EDT by Janell Phillips
== END 2022-02-26 00:41 | disposition home or self-care (01) ==
LOC: ED 22:08
DX: J44.1 Chronic obstructive pulmonary disease with (acute) exacerbation (principal); I21.9 Acute myocardial infarction, unspecified; I11.0 Hypertensive heart disease with heart failure; I50.9 Heart failure, unspecified; F31.9 Bipolar disorder, unspecified; Z21 Asymptomatic human immunodeficiency virus [HIV] infection status; Z79.899 Other long term (current) drug therapy; F17.200 Nicotine dependence, unspecified, uncomplicated
CPT/HCPCS: 36415; 71045; 80053; 84484; 85025; 93005; 94640; 96374; 99284; J2930

== ENCOUNTER 2022-04-08 05:13 | Emergency (ER) | payer SELFPAY ==
[2022-04-08 08:40] LABS: Basophils % (Auto) 0.6 % (0.0-1.8); Eosinophils # (Auto) 0.1 K/mm3 (0.0-0.4); Eosinophils % (Auto) 2.3 % (0.0-4.3); Hematocrit 41.4 % (35.5-45.6); Hemoglobin 13.7 gm/dl (11.8-15.2); Lymphocytes # (Auto) 1.5 K/mm3 (1.2-5.4); Lymphocytes % (Auto) 24.6 % (13.4-35.0); Mean Corpuscular HGB Conc 33 % (32-34); Mean Corpuscular Volume 91 fl (84-94); Monocytes # (Auto) 0.7 K/mm3 (0.0-0.8); Monocytes % (Auto) 10.9 % (0.0-7.3); Platelet Count 146 K/mm3 (140-440); Red Blood Count 4.53 M/mm3 (3.65-5.03); Red Cell Distribution Width 14.3 % (13.2-15.2)
[2022-04-08 09:02] LABS: Alanine Aminotransferase 13 units/L (7-56); Albumin 3.9 g/dL (3.9-5); BUN/Creatinine Ratio 17; Blood Urea Nitrogen 20 mg/dL (9-20); Calcium 8.7 mg/dL (8.4-10.2); Hemolysis Index 15
[2022-04-08 11:06] LABS: Bilirubin,Urine NEG (Negative); Blood,Urine NEG (Negative); Color,Urine Yellow (Yellow); Mucus,Urine FEW /HPF; Protein,Urine <15 mg/dL mg/dL (Negative); Urobilinogen,Urine < 2.0 mg/dL (<2.0)
[2022-04-08] MEDS ORDERED: MORPHINE 4 MG/1 ML INJ IV ONE (12:10)
[2022-04-08] MEDS ORDERED: ONDANSETRON 4 MG/2 ML INJ IV ONE (12:10)
--- NOTE | 2022-04-08 14:31 | Emergency Department Report ---
<POPPY ROUSE - Last Filed: 04/08/22 15:27> ED Abdominal Pain HPI - General Chief Complaint: Abdominal Pain Stated Complaint: ABD PAIN Time Seen by Provider: 04/08/22 11:05 - Related Data Home Medications Medication Instructions Recorded Confirmed Last Taken AtorvaSTATin 40 mg PO HS 07/13/20 04/09/21 04/08/21 Biktarvy 50-200-25 mg (Nf) 50 mg PO DAILY 07/13/20 04/09/21 04/05/21 risperiDONE 1 mg PO DAILY 07/13/20 04/09/21 1 Day Ago ~07/12/20 Previous Rx's Medication Instructions Recorded Last Taken Type Naproxen [Naprosyn] 500 mg PO BID #20 tablet 10/28/20 Unknown Rx Ondansetron [Zofran Odt] 4 mg PO Q8HR PRN #20 tab.rapdis 10/28/20 Unknown Rx Albuterol Sulfate [Proventil Hfa] 6.7 gm IH TID PRN #1 hfa.aer.ad 12/23/20 Unknown Rx Azithromycin [Zithromax TAB] 250 mg PO QDAY 5 Days #6 tablet 12/23/20 Unknown Rx Prednisone [predniSONE 10 mg 10 mg PO .TAPER #1 tab.ds.pk 12/23/20 Unknown Rx (6-Day Pack, 21 Tabs)] guaiFENesin ER [Mucinex ER] 600 mg PO BID #14 tablet.er 12/23/20 Unknown Rx Sulfamethoxazole/Trimethoprim 1 each PO BID #20 tablet 03/01/21 Unknown Rx [Bactrim DS TAB] traMADoL [Ultram 50 MG tab] 50 mg PO Q6HR PRN #7 tablet 03/01/21 Unknown Rx Ascorbic Acid [Vitamin C] 500 mg PO QDAY #30 tablet 04/10/21 Unknown Rx Aspirin [Aspirin BABY CHEW TAB] 81 mg PO QDAY tab.chew 04/10/21 Unknown Rx Cholecalciferol Vit D3 [Vitamin D3 1,000 unit PO QDAY #30 tablet 04/10/21 Unknown Rx 1,000 UNIT TAB] Linezolid [Zyvox] 600 mg PO BID #20 tablet 04/10/21 Unknown Rx buPROPion XL [Wellbutrin XL] 150 mg PO DAILY tablet 04/10/21 Unknown Rx carvediloL [Coreg] 6.25 mg PO DAILY tablet 04/10/21 Unknown Rx Fluticasone [Flonase] 1 spray NS QDAY #1 bottle 07/06/21 Unknown Rx Albuterol Sulfate [Proair 2 puff IH 4XD #1 aer.pw.bas 09/30/21 Unknown Rx Digihaler] Clindamycin [Clindamycin CAP] 300 mg PO Q8H #30 cap 01/15/22 Unknown Rx cephALEXin [Keflex] 500 mg PO Q6HR #40 capsule 02/13/22 Unknown Rx Albuterol Sulfate [Proventil Hfa] 6.7 gm IH Q4HR #1 can 02/26/22 Unknown Rx Clindamycin [Clindamycin CAP] 300 mg PO Q8H #21 cap 04/08/22 Unknown Rx Allergies Allergy/AdvReac Type Severity Reaction Status Date / Time fish oil Allergy Hives Verified 02/13/22 11:02 ED Past Medical Hx - Medications Home Medications: Home Medications Medication Instructions Recorded Confirmed Last Taken Type AtorvaSTATin 40 mg PO HS 07/13/20 04/09/21 04/08/21 History Biktarvy 50-200-25 mg (Nf) 50 mg PO DAILY 07/13/20 04/09/21 04/05/21 History risperiDONE 1 mg PO DAILY 07/13/20 04/09/21 1 Day Ago History ~07/12/20 Naproxen [Naprosyn] 500 mg PO BID #20 tablet 10/28/20 Unknown Rx Ondansetron [Zofran Odt] 4 mg PO Q8HR PRN #20 tab.rapdis 10/28/20 Unknown Rx Albuterol Sulfate [Proventil Hfa] 6.7 gm IH TID PRN #1 hfa.aer.ad 12/23/20 Unknown Rx Azithromycin [Zithromax TAB] 250 mg PO QDAY 5 Days #6 tablet 12/23/20 Unknown Rx Prednisone [predniSONE 10 mg 10 mg PO .TAPER #1 tab.ds.pk 12/23/20 Unknown Rx (6-Day Pack, 21 Tabs)] guaiFENesin ER [Mucinex ER] 600 mg PO BID #14 tablet.er 12/23/20 Unknown Rx Sulfamethoxazole/Trimethoprim 1 each PO BID #20 tablet 03/01/21 Unknown Rx [Bactrim DS TAB] traMADoL [Ultram 50 MG tab] 50 mg PO Q6HR PRN #7 tablet 03/01/21 Unknown Rx Ascorbic Acid [Vitamin C] 500 mg PO QDAY #30 tablet 04/10/21 Unknown Rx Aspirin [Aspirin BABY CHEW TAB] 81 mg PO QDAY tab.chew 04/10/21 Unknown Rx Cholecalciferol Vit D3 [Vitamin D3 1,000 unit PO QDAY #30 tablet 04/10/21 Unknown Rx 1,000 UNIT TAB] Linezolid [Zyvox] 600 mg PO BID #20 tablet 04/10/21 Unknown Rx buPROPion XL [Wellbutrin XL] 150 mg PO DAILY tablet 04/10/21 Unknown Rx carvediloL [Coreg] 6.25 mg PO DAILY tablet 04/10/21 Unknown Rx Fluticasone [Flonase] 1 spray NS QDAY #1 bottle 07/06/21 Unknown Rx Albuterol Sulfate [Proair 2 puff IH 4XD #1 aer.pw.bas 09/30/21 Unknown Rx Digihaler] Clindamycin [Clindamycin CAP] 300 mg PO Q8H #30 cap 01/15/22 Unknown Rx cephALEXin [Keflex] 500 mg PO Q6HR #40 capsule 02/13/22 Unknown Rx Albuterol Sulfate [Proventil Hfa] 6.7 gm IH Q4HR #1 can 02/26/22 Unknown Rx Clindamycin [Clindamycin CAP] 300 mg PO Q8H #21 cap 04/08/22 Unknown Rx ED Medical Decision Making - Lab Data Result diagrams: 04/08/22 Unknown 04/08/22 Unknown - Radiology Data Radiology results: report reviewed, image reviewed - Medical Decision Making pt was handed over to me at [address] results , , CT unremarkable , maybe few thickeinig with might changes post hernia repair but no abscess, will start on abx ED Disposition Clinical Impression: Abdominal pain Disposition: HOME / SELF CARE / HOMELESS Is pt being admited?: No Does the pt Need Aspirin: No Condition: Stable Instructions: Abdominal Pain, Adult Prescriptions: Clindamycin [Clindamycin CAP] 300 mg PO Q8H #21 cap Referrals: PRIMARY CARE, [Primary Care Provider] - 3-5 Days <PAULA ROSENBERG - Last Filed: 04/11/22 15:26> ED Abdominal Pain HPI - General PUI?: No Source: patient Mode of arrival: Stretcher Limitations: No Limitations - History of Present Illness Initial Comments: Patient is a 47-year-old male presenting to the ED with complaint of periumbilical pain for the past 2 to 3 days. He reports history of hernia repair 18 months ago and states he has been having drainage from his umbilicus since that time. The drainage appears purulent. He denies fever or chills however states he can "taste the infection "anytime he eats or drinks. No changes in bowel habits. He reports associated nausea and vomiting today. Severity scale (0 -10): 4 ED Review of Systems ROS: Stated complaint: ABD PAIN Other details as noted in HPI Comment: All other systems reviewed and negative Constitutional: denies: chills, fever Respiratory: denies: cough, shortness of breath, wheezing Cardiovascular: as per HPI Gastrointestinal: abdominal pain, nausea, vomiting Musculoskeletal: denies: back pain, joint swelling, arthralgia Skin: denies: rash, lesions Neurological: denies: headache, weakness, paresthesias Psychiatric: denies: anxiety, depression ED Past Medical Hx - Past Medical History Previous Medical History?: Yes Hx Hypertension: Yes Hx Heart Attack/AMI: Yes Hx Congestive Heart Failure: Yes Hx Diabetes: No Hx Psychiatric Treatment: Yes (Depression, Bipolar) Hx Asthma: No Hx COPD: No Hx HIV: Yes (ON MEDS) Additional medical history: CAD, High Cholesterol - Surgical History Past Surgical History?: Yes Additional Surgical History: Hernia repair 2019 - Social History Smoking Status: Current Every Day Smoker Substance Use Type: Marijuana ED Physical Exam - General Limitations: No Limitations General appearance: alert, in no apparent distress - Head Head exam: Present: atraumatic, normocephalic - Respiratory Respiratory exam: Present: normal lung sounds bilaterally. Absent: respiratory distress - Cardiovascular Cardiovascular Exam: Present: regular rate, normal rhythm - GI/Abdominal GI/Abdominal exam: Present: soft, tenderness (Periumbilical tenderness), other (. Purulent drainage coming from umbilicus). Absent: distended - Rectal Rectal exam: Present: deferred - Neurological Exam Neurological exam: Present: alert, oriented X3 - Psychiatric Psychiatric exam: Present: normal affect, normal mood - Skin Skin exam: Present: warm, dry, intact, normal color ED Course Vital Signs 04/08/22 04/08/22 04/08/22 06:56 07:02 07:16 Temperature 98 F Pulse Rate 102 H Respiratory 18 Rate Blood Pressure 142/89 119/75 Blood Pressure [Left] O2 Sat by Pulse 96 92 96 Oximetry 04/08/22 04/08/22 04/08/22 07:30 07:45 08:00 Temperature Pulse Rate Respiratory Rate Blood Pressure 119/75 125/69 125/69 Blood Pressure [Left] O2 Sat by Pulse 98 86 94 Oximetry 04/08/22 04/08/22 04/08/22 08:14 08:16 08:30 Temperature Pulse Rate 85 81 76 Respiratory 18 19 22 Rate Blood Pressure 117/67 Blood Pressure 120/65 [Left] O2 Sat by Pulse 99 91 93 Oximetry 04/08/22 04/08/22 04/08/22 09:11 09:16 09:30 Temperature Pulse Rate 70 66 69 Respiratory 18 16 16 Rate Blood Pressure 117/61 117/61 Blood Pressure 117/61 [Left] O2 Sat by Pulse 99 95 94 Oximetry 04/08/22 04/08/22 04/08/22 09:46 10:00 10:30 Temperature Pulse Rate 77 82 73 Respiratory 14 16 16 Rate Blood Pressure 129/68 129/68 118/67 Blood Pressure [Left] O2 Sat by Pulse 95 97 96 Oximetry 04/08/22 04/08/22 04/08/22 10:46 11:00 11:16 Temperature Pulse Rate 73 72 87 Respiratory 13 16 18 Rate Blood Pressure 118/67 128/75 128/75 Blood Pressure [Left] O2 Sat by Pulse 94 95 94 Oximetry 04/08/22 04/08/22 04/08/22 11:30 11:46 12:00 Temperature Pulse Rate 79 69 78 Respiratory 17 14 19 Rate Blood Pressure 119/63 119/63 119/53 Blood Pressure [Left] O2 Sat by Pulse 100 99 95 Oximetry 04/08/22 04/08/22 04/08/22 12:16 12:30 13:00 Temperature Pulse Rate 68 80 62 Respiratory 17 18 14 Rate Blood Pressure 119/53 119/63 119/76 Blood Pressure 110/67 [Left] O2 Sat by Pulse 97 99 97 Oximetry 04/08/22 04/08/22 04/08/22 13:16 14:37 15:39 Temperature Pulse Rate 68 84 87 Respiratory 15 18 17 Rate Blood Pressure 119/76 Blood Pressure 120/68 112/68 [Left] O2 Sat by Pulse 96 99 99 Oximetry ED Medical Decision Making - Lab Data Result diagrams: 04/08/22 Unknown 04/08/22 Unknown Critical care attestation.: If time is entered above; I have spent that time in minutes in the direct care of this critically ill patient, excluding procedure time.
--- NOTE | 2022-04-08 14:41 | Cat Scan Report ---
CT ABDOMEN AND PELVIS WITH CONTRAST HISTORY: Periumbilical pain, drainage from umbilicus COMPARISON: CT abdomen pelvis without contrast 02/13/2022 TECHNIQUE: Axial CT images were obtained through the abdomen and pelvis after 100 cc of IV contrast. Sagittal and coronal reformatted images. All CT scans at this location are performed using CT dose re duction for ALARA by means of automated exposure control. FINDINGS: CT ABDOMEN: Lung Bases: Clear. Liver: No significant abnormality. Biliary: No significant abnormality. Spleen: No significant abnormality. Unenlarged. Pancreas: No significant abnormality. Adrenals: No significant abnormality. Kidneys: No significant abnormality. Lymphatics: No lymphadenopathy. Vasculature: No significant abnormality. Bowel/Peritoneum: No significant abnormality. No free air. No free fluid. Normal appendix. CT PELVIS: : No significant abnormality. Osseous Structures: No acute abnormality. 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 Additional Findings: There is nonspecific soft tissue density in the umbilicus region extending towar d the left rectus muscles. There is mild thickening of the left rectus muscle in this area which is u nchanged but no discrete fluid collection or abscess is appreciated. This appears to be in the area o f previous ventral hernia repair. No recurrent hernia is demonstrated. IMPRESSION: No significant change is appreciated since 02/13/2022. Previous ventral wall repair changes are suspec leeann with soft tissue thickening in the region of the umbilicus. There is also mild thickening of the left rectus muscles in this vicinity but no discrete fluid collection is appreciated. Signer Name: Guanaco Smalls Jr, MD Signed: 04/08/2022 2:36 PM Workstation Name: [id number]
[2022-04-08 15:39] VITALS: BP 112/68
== END 2022-04-08 16:13 | disposition home or self-care (01) ==
LOC: ED 05:13
DX: R10.9 Unspecified abdominal pain (principal); Z91.013 Allergy to seafood
CPT/HCPCS: 36415; 74177; 80053; 81001; 83690; 85025; 96374; 96375; 99284; J2270; J2405; Q9967

== ENCOUNTER 2022-05-18 07:45 | Emergency (ER) | payer SELFPAY ==
[2022-05-18] MEDS ORDERED: ASPIRIN 325 MG TAB PO ONE (08:23)
--- NOTE | 2022-05-18 09:05 | XRay Report ---
CHEST 2 VIEWS INDICATION / CLINICAL INFORMATION: CHEST PAIN. COMPARISON: 02/25/2022 FINDINGS: SUPPORT DEVICES: None. HEART / MEDIASTINUM: No significant abnormality. LUNGS / PLEURA: No significant pulmonary or pleural abnormality. No pneumothorax. No interstitial pul monary edema. No pleural effusion. ADDITIONAL FINDINGS: No significant additional findings. IMPRESSION: 1. No acute findings. No interval change. Signer Name: Alexa Smith MD Signed: 05/18/2022 9:01 AM Workstation Name: [id number]
[2022-05-18 12:06] LABS: Basophils % (Auto) 0.9 % (0.0-1.8); Eosinophils # (Auto) 0.2 K/mm3 (0.0-0.4); Eosinophils % (Auto) 4.4 % (0.0-4.3); Hematocrit 42.9 % (35.5-45.6); Hemoglobin 14.1 gm/dl (11.8-15.2); Lymphocytes # (Auto) 1.5 K/mm3 (1.2-5.4); Lymphocytes % (Auto) 25.9 % (13.4-35.0); Mean Corpuscular HGB Conc 33 % (32-34); Mean Corpuscular Volume 95 fl (84-94); Monocytes # (Auto) 0.6 K/mm3 (0.0-0.8); Platelet Count 159 K/mm3 (140-440); Red Blood Count 4.54 M/mm3 (3.65-5.03); Red Cell Distribution Width 15.7 % (13.2-15.2)
[2022-05-18 12:24] LABS: Alanine Aminotransferase 15 units/L (7-56); Albumin 4.2 g/dL (3.9-5); BUN/Creatinine Ratio 15; Blood Urea Nitrogen 21 mg/dL (9-20); Calcium 9.1 mg/dL (8.4-10.2); Hemolysis Index 6
[2022-05-18 18:54] VITALS: BP 133/72
[2022-05-18] MEDS ORDERED: SULFAMETHOXAZOLE/TRIMETHOPRIM 800/160MG DS TAB PO ONE (19:57)
--- NOTE | 2022-05-18 20:59 | Cat Scan Report ---
CT abdomen pelvis w con INDICATION / CLINICAL INFORMATION: periumbical swelling with purlent drainage. TECHNIQUE: Axial CT imaging of abdomen and pelvis was obtained with 100 cc Omni 300 IV contrast. Coronal and sag ittal reformatted imaging obtained and reviewed. All CT scans at this location are performed using C T dose reduction for ALARA by means of automated exposure control. COMPARISON: CT abdomen/pelvis 04/08/2022 FINDINGS: CT abdomen with IV contrast demonstrates normal appearance of the liver, spleen, pancreas, kidneys, a nd adrenal glands. Gallbladder is mostly collapsed. No biliary dilatation. Abdominal aorta is unremar kable. CT pelvis with contrast does not demonstrate any pelvic mass, free fluid, or focal inflammatory remy e. A normal appendix is present in the right lower quadrant/mid pelvic region. Several mildly distended loops of fluid-filled small bowel are present within the pelvis in a nonobst ructive pattern. Findings could be due to mild ileus or possibly enteritis depending on clinical pres entation. The remainder of the GI tract is normal. There is prior ventral hernia repair. There is soft tissue thickening in the region of the umbilicus and within the left rectus abdominal muscle. This is unchanged from the prior CT of 04/08/2022. I do n ot see any abnormal fluid collection within the area of soft tissue thickening to suggest abscess for mation. Overall appearance is more suggestive of scar tissue. However, given the history of purulent drainage from this region, I cannot exclude a fistula. No visible fistula is identified on CT scan, h owever. Visualized lung bases are clear. No acute osseous abnormality noted. IMPRESSION: 1. As noted on prior CT from 04/08/2022, there is prominent soft tissue thickening in the region of th e umbilicus and left rectus musculature. No visible abscess and no visible fistula. The lack of a vis ible fistula does not exclude this possibility and clinical correlation is recommended. 2. Mild dilatation of several small bowel loops in the pelvis in a nonobstructive pattern. This could be due to mild enteritis or possibly mild ileus and clinical correlation is recommended. Signer Name: Alexa Smith MD Signed: 05/18/2022 8:54 PM Workstation Name: [id number]
--- NOTE | 2022-05-18 21:13 | Emergency Department Report ---
ED Chest Pain HPI - General Chief Complaint: Chest Pain Stated Complaint: CHEST PAIN Time Seen by Provider: 05/18/22 19:43 Source: patient, EMS Mode of arrival: Stretcher Limitations: No Limitations - History of Present Illness Initial Comments: 47-year-old homeless male presents to the hospital complaining of sudden onset of sharp chest pain prior to arrival. Patient used cocaine 2 days ago. Pain was in the middle of his chest that radiated to the left side described as sharp and occurred for several seconds and has not returned. He denies associated symptoms of the shortness of breath, nausea, vomiting, or diaphoresis. Patient has been in the ED for several hours and states he is asymptomatic at this time. He then asks my opinion about his draining abdominal periumbilical wound. Patient apparently has history of medical hernia repair x2 and has had chronic purulent drainage for least 5 to 6 months. As per medical record review patient has a history of hypertension, HIV, possible DVT, and it is noted that patient has a history of chronic abdominal wound on discharge summary from March 2021. Patient also has had more recent CAT scans of the abdomen and pelvis (last in March 2022)) showing an abdominal wound without drainable abscess. Patient denies fever but does complain of tenderness at the area. patient had a negative stress test performed in March 2020 - Related Data Home Medications Medication Instructions Recorded Confirmed Last Taken AtorvaSTATin 40 mg PO HS 07/13/20 04/09/21 04/08/21 Biktarvy 50-200-25 mg (Nf) 50 mg PO DAILY 07/13/20 04/09/21 04/05/21 risperiDONE 1 mg PO DAILY 07/13/20 04/09/21 1 Day Ago ~07/12/20 Previous Rx's Medication Instructions Recorded Last Taken Type Naproxen [Naprosyn] 500 mg PO BID #20 tablet 10/28/20 Unknown Rx Ondansetron [Zofran Odt] 4 mg PO Q8HR PRN #20 tab.rapdis 10/28/20 Unknown Rx Albuterol Sulfate [Proventil Hfa] 6.7 gm IH TID PRN #1 hfa.aer.ad 12/23/20 Unknown Rx Azithromycin [Zithromax TAB] 250 mg PO QDAY 5 Days #6 tablet 12/23/20 Unknown Rx Prednisone [predniSONE 10 mg 10 mg PO .TAPER #1 tab.ds.pk 12/23/20 Unknown Rx (6-Day Pack, 21 Tabs)] guaiFENesin ER [Mucinex ER] 600 mg PO BID #14 tablet.er 12/23/20 Unknown Rx Sulfamethoxazole/Trimethoprim 1 each PO BID #20 tablet 03/01/21 Unknown Rx [Bactrim DS TAB] traMADoL [Ultram 50 MG tab] 50 mg PO Q6HR PRN #7 tablet 03/01/21 Unknown Rx Ascorbic Acid [Vitamin C] 500 mg PO QDAY #30 tablet 04/10/21 Unknown Rx Aspirin [Aspirin BABY CHEW TAB] 81 mg PO QDAY tab.chew 04/10/21 Unknown Rx Cholecalciferol Vit D3 [Vitamin D3 1,000 unit PO QDAY #30 tablet 04/10/21 Unknown Rx 1,000 UNIT TAB] Linezolid [Zyvox] 600 mg PO BID #20 tablet 04/10/21 Unknown Rx buPROPion XL [Wellbutrin XL] 150 mg PO DAILY tablet 04/10/21 Unknown Rx carvediloL [Coreg] 6.25 mg PO DAILY tablet 04/10/21 Unknown Rx Fluticasone [Flonase] 1 spray NS QDAY #1 bottle 07/06/21 Unknown Rx Albuterol Sulfate [Proair 2 puff IH 4XD #1 aer.pw.bas 09/30/21 Unknown Rx Digihaler] Clindamycin [Clindamycin CAP] 300 mg PO Q8H #30 cap 01/15/22 Unknown Rx cephALEXin [Keflex] 500 mg PO Q6HR #40 capsule 02/13/22 Unknown Rx Albuterol Sulfate [Proventil Hfa] 6.7 gm IH Q4HR #1 can 02/26/22 Unknown Rx Clindamycin [Clindamycin CAP] 300 mg PO Q8H #21 cap 04/08/22 Unknown Rx Sulfamethoxazole/Trimethoprim 1 each PO BID #20 tab 05/18/22 Unknown Rx [Bactrim DS TAB] Allergies Allergy/AdvReac Type Severity Reaction Status Date / Time fish oil Allergy Hives Verified 05/18/22 07:47 Heart Score - HEART Score History: Slightly suspicious EKG: Non-specific Age: 45-65 Risk factors: > 3 risk factors or hx of atherosclerotic disease Troponin: < normal limit HEART Score: 4 - EKG Read Time Time EKG Completed: 08:06 EKG Read Time: 08:10 ED Review of Systems ROS: Stated complaint: CHEST PAIN Other details as noted in HPI Comment: All other systems reviewed and negative ED Past Medical Hx - Past Medical History Hx Hypertension: Yes Hx Heart Attack/AMI: Yes Hx Congestive Heart Failure: Yes Hx Diabetes: No Hx Psychiatric Treatment: Yes (Depression, Bipolar) Hx Asthma: No Hx COPD: No Hx HIV: Yes (ON MEDS) Additional medical history: CAD, High Cholesterol - Surgical History Additional Surgical History: Hernia repair 2020 - Social History Smoking Status: Current Every Day Smoker Substance Use Type: Marijuana - Medications Home Medications: Home Medications Medication Instructions Recorded Confirmed Last Taken Type AtorvaSTATin 40 mg PO HS 07/13/20 04/09/21 04/08/21 History Biktarvy 50-200-25 mg (Nf) 50 mg PO DAILY 07/13/20 04/09/21 04/05/21 History risperiDONE 1 mg PO DAILY 07/13/20 04/09/21 1 Day Ago History ~07/12/20 Naproxen [Naprosyn] 500 mg PO BID #20 tablet 10/28/20 Unknown Rx Ondansetron [Zofran Odt] 4 mg PO Q8HR PRN #20 tab.rapdis 10/28/20 Unknown Rx Albuterol Sulfate [Proventil Hfa] 6.7 gm IH TID PRN #1 hfa.aer.ad 12/23/20 Unknown Rx Azithromycin [Zithromax TAB] 250 mg PO QDAY 5 Days #6 tablet 12/23/20 Unknown Rx Prednisone [predniSONE 10 mg 10 mg PO .TAPER #1 tab.ds.pk 12/23/20 Unknown Rx (6-Day Pack, 21 Tabs)] guaiFENesin ER [Mucinex ER] 600 mg PO BID #14 tablet.er 12/23/20 Unknown Rx Sulfamethoxazole/Trimethoprim 1 each PO BID #20 tablet 03/01/21 Unknown Rx [Bactrim DS TAB] traMADoL [Ultram 50 MG tab] 50 mg PO Q6HR PRN #7 tablet 03/01/21 Unknown Rx Ascorbic Acid [Vitamin C] 500 mg PO QDAY #30 tablet 04/10/21 Unknown Rx Aspirin [Aspirin BABY CHEW TAB] 81 mg PO QDAY tab.chew 04/10/21 Unknown Rx Cholecalciferol Vit D3 [Vitamin D3 1,000 unit PO QDAY #30 tablet 04/10/21 Unknown Rx 1,000 UNIT TAB] Linezolid [Zyvox] 600 mg PO BID #20 tablet 04/10/21 Unknown Rx buPROPion XL [Wellbutrin XL] 150 mg PO DAILY tablet 04/10/21 Unknown Rx carvediloL [Coreg] 6.25 mg PO DAILY tablet 04/10/21 Unknown Rx Fluticasone [Flonase] 1 spray NS QDAY #1 bottle 07/06/21 Unknown Rx Albuterol Sulfate [Proair 2 puff IH 4XD #1 aer.pw.bas 09/30/21 Unknown Rx Digihaler] Clindamycin [Clindamycin CAP] 300 mg PO Q8H #30 cap 01/15/22 Unknown Rx cephALEXin [Keflex] 500 mg PO Q6HR #40 capsule 02/13/22 Unknown Rx Albuterol Sulfate [Proventil Hfa] 6.7 gm IH Q4HR #1 can 02/26/22 Unknown Rx Clindamycin [Clindamycin CAP] 300 mg PO Q8H #21 cap 04/08/22 Unknown Rx Sulfamethoxazole/Trimethoprim 1 each PO BID #20 tab 05/18/22 Unknown Rx [Bactrim DS TAB] ED Physical Exam - General Limitations: No Limitations - Other Other exam information: General: No acute distress Head: Atraumatic Eyes: normal appearance ENT: Moist mucous membranes Neck: Normal appearance, no midline tenderness Chest: Clear to auscultation bilaterally, chest wall nontender CV: Regular rate and rhythm Abdomen: Suprapubic abdominal surgical wound noted. Patient has purulent drainage from umbilicus with firm and tender induration superior and lateral to umbilicus Back: Normal inspection Extremity: Bilateral lower extremity edema without asymmetry. No isolated calf tenderness Neuro: Alert O x 3, no facial asymmetry, speech clear, no gross motor sensory deficit Psych: Appropriate behavior Skin: No rash ED Course Vital Signs 05/18/22 05/18/22 05/18/22 07:47 16:19 16:20 Temperature 97.8 F Pulse Rate 80 89 87 Respiratory 18 21 16 Rate Blood Pressure Blood Pressure 136/78 [Left] O2 Sat by Pulse 99 98 97 Oximetry 05/18/22 05/18/22 05/18/22 16:26 16:30 16:36 Temperature Pulse Rate 86 88 87 Respiratory 19 19 26 H Rate Blood Pressure 137/78 137/78 137/78 Blood Pressure [Left] O2 Sat by Pulse 98 96 96 Oximetry 05/18/22 05/18/22 05/18/22 16:40 16:46 16:50 Temperature Pulse Rate 87 Respiratory 30 H Rate Blood Pressure 137/78 137/78 123/58 Blood Pressure [Left] O2 Sat by Pulse 95 97 95 Oximetry 05/18/22 05/18/22 05/18/22 16:56 17:00 17:06 Temperature Pulse Rate Respiratory Rate Blood Pressure 123/58 123/58 123/58 Blood Pressure [Left] O2 Sat by Pulse 96 89 99 Oximetry 05/18/22 05/18/22 05/18/22 17:10 17:15 17:20 Temperature Pulse Rate Respiratory Rate Blood Pressure 123/58 123/58 123/58 Blood Pressure [Left] O2 Sat by Pulse 97 94 97 Oximetry 05/18/22 05/18/22 05/18/22 17:26 17:30 17:36 Temperature Pulse Rate Respiratory Rate Blood Pressure 123/58 123/58 123/58 Blood Pressure [Left] O2 Sat by Pulse 97 99 97 Oximetry 05/18/22 05/18/22 05/18/22 17:40 17:46 17:50 Temperature Pulse Rate Respiratory Rate Blood Pressure 123/58 123/58 130/67 Blood Pressure [Left] O2 Sat by Pulse 98 97 97 Oximetry 05/18/22 05/18/22 05/18/22 17:56 18:00 18:06 Temperature Pulse Rate Respiratory Rate Blood Pressure 130/67 130/67 130/67 Blood Pressure [Left] O2 Sat by Pulse 99 98 96 Oximetry 05/18/22 05/18/22 05/18/22 18:10 18:16 18:20 Temperature Pulse Rate Respiratory Rate Blood Pressure 130/67 130/67 130/67 Blood Pressure [Left] O2 Sat by Pulse 98 98 98 Oximetry 05/18/22 05/18/22 05/18/22 18:26 18:30 18:36 Temperature Pulse Rate Respiratory Rate Blood Pressure 130/67 130/67 130/67 Blood Pressure [Left] O2 Sat by Pulse 96 97 97 Oximetry 05/18/22 05/18/22 05/18/22 18:40 18:46 18:50 Temperature Pulse Rate Respiratory Rate Blood Pressure 130/67 130/67 133/72 Blood Pressure [Left] O2 Sat by Pulse 99 98 98 Oximetry ALY score - Aly Score Age > 65: (0) No Aspirin use within the Past 7 Days: (0) No 3 or more CAD Risk Factors: (1) Yes 2 or more Angina events in past 24 hrs: (1) Yes Known CAD with more than 50% Stenosis: (0) No Elevated Cardiac Markers: (0) No ST Deviation Greater than 0.5mm: (0) No ALY Score: 2 ED Medical Decision Making - Lab Data Result diagrams: 05/18/22 11:31 05/18/22 11:31 Lab Results 05/18/22 05/18/22 05/18/22 Range/Units 11:31 11:31 14:37 WBC 5.7 (4.5-11.0) K/mm3 RBC 4.54 (3.65-5.03) M/mm3 Hgb 14.1 (11.8-15.2) gm/dl Hct 42.9 (35.5-45.6) % MCV 95 H (84-94) fl MCH 31 (28-32) pg MCHC 33 (32-34) % RDW 15.7 H (13.2-15.2) % Plt Count 159 (140-440) K/mm3 Lymph % (Auto) 25.9 (13.4-35.0) % [place] % (Auto) 10.0 H (0.0-7.3) % Eos % (Auto) 4.4 H (0.0-4.3) % Baso % (Auto) 0.9 (0.0-1.8) % Lymph # (Auto) 1.5 (1.2-5.4) K/mm3 [place] # (Auto) 0.6 (0.0-0.8) K/mm3 Eos # (Auto) 0.2 (0.0-0.4) K/mm3 Baso # (Auto) 0.0 (0.0-0.1) K/mm3 Seg Neutrophils % 58.8 (40.0-70.0) % Seg Neutrophils # 3.4 (1.8-7.7) K/mm3 Sodium 139 (137-145) mmol/L Potassium 4.3 (3.6-5.0) mmol/L Chloride 101.4 (98-107) mmol/L Carbon Dioxide 26 (22-30) mmol/L Anion Gap 16 mmol/L BUN 21 H (9-20) mg/dL Creatinine 1.4 H (0.8-1.3) mg/dL Estimated GFR > 60 ml/min BUN/Creatinine Ratio 15 % Glucose 73 L (75-100) mg/dL Calcium 9.1 (8.4-10.2) mg/dL Total Bilirubin 0.70 (0.1-1.2) mg/dL AST 23 (5-40) units/L ALT 15 (7-56) units/L Alkaline Phosphatase 89 (35-129) units/L Troponin T < 0.010 < 0.010 (0.00-0.029) ng/mL Total Protein 7.7 (6.3-8.2) g/dL Albumin 4.2 (3.9-5) g/dL Albumin/Globulin Ratio 1.2 % - EKG Data -: EKG Interpreted by Ia EKG shows normal: sinus rhythm, ST-T waves (No STEMI, LVH, left intrafascicular block, early repol) Rate: normal - EKG Data When compared to previous EKG there are: no significant change - Radiology Data Radiology results: report reviewed CT abdomen pelvis w con INDICATION / CLINICAL INFORMATION: periumbical swelling with purlent drainage. TECHNIQUE: Axial CT imaging of abdomen and pelvis was obtained with 100 cc Omni 300 IV contrast. Coronal and sagittal reformatted imaging obtained and reviewed. All CT scans at this location are performed using CT dose reduction for ALARA by means of automated exposure control. COMPARISON: CT abdomen/pelvis 04/08/2022 FINDINGS: CT abdomen with IV contrast demonstrates normal appearance of the liver, spleen, pancreas, kidneys, and adrenal glands. Gallbladder is mostly collapsed. No biliary dilatation. Abdominal aorta is unremarkable. CT pelvis with contrast does not demonstrate any pelvic mass, free fluid, or focal inflammatory change. A normal appendix is present in the right lower quadrant/mid pelvic region. Several mildly distended loops of fluid-filled small bowel are present within the pelvis in a nonobstructive pattern. Findings could be due to mild ileus or possibly enteritis depending on clinical presentation. The remainder of the GI tract is normal. There is prior ventral hernia repair. There is soft tissue thickening in the region of the umbilicus and within the left rectus abdominal muscle. This is unchanged from the prior CT of 04/08/2022. I do not see any abnormal fluid collection within the area of soft tissue thickening to suggest abscess formation. Overall appearance is more suggestive of scar tissue. However, given the history of purulent drainage from this region, I cannot exclude a fistula. No visible fistula is identified on CT scan, however. Visualized lung bases are clear. No acute osseous abnormality noted. IMPRESSION: 1. As noted on prior CT from 04/08/2022, there is prominent soft tissue thickening in the region of the umbilicus and left rectus musculature. No visible abscess and no visible fistula. The lack of a visible fistula does not exclude this possibility and clinical correlation is recommended. 2. Mild dilatation of several small bowel loops in the pelvis in a nonobstructive pattern. This could be due to mild enteritis or possibly mild ileus and clinical correlation is recommended. CHEST 2 VIEWS INDICATION / CLINICAL INFORMATION: CHEST PAIN. COMPARISON: 02/25/2022 FINDINGS: SUPPORT DEVICES: None. HEART / MEDIASTINUM: No significant abnormality. LUNGS / PLEURA: No significant pulmonary or pleural abnormality. No pneumothorax. No interstitial pulmonary edema. No pleural effusion. ADDITIONAL FINDINGS: No significant additional findings. IMPRESSION: 1. No acute findings. No interval change. - Medical Decision Making 47-year-old male presents to the hospital atypical chest pain without associated symptoms. He admits to recent cocaine use. EKG unchanged from previous. Troponin negative x2. Chest x-ray unremarkable. Negative stress test last year. patient also secondary complaint of chronic abdominal wound with purulent drainage. Once again CT abdomen pelvis does not show abscess despite purulent drainage and induration exam. Patient be treated Bactrim encouraged to follow- up with surgery. Outpatient follow-up cardiology advised given risk factors. Critical Care Time: No Critical care attestation.: If time is entered above; I have spent that time in minutes in the direct care of this critically ill patient, excluding procedure time. ED Disposition Clinical Impression: Atypical chest pain, Cocaine abuse, Chronic abdominal wound infection Disposition: HOME / SELF CARE / HOMELESS Is pt being admited?: No Does the pt Need Aspirin: No Condition: Stable Instructions: Nonspecific Chest Pain, Adult, Wound Care, Adult, Stimulant Use Disorder-Cocaine Additional Instructions: Take the medication as prescribed. Follow-up with your doctor or doctor/clinic provided. You have been provided outpatient contacts for cardiology, general surgery, and primary care clinic. Return if symptoms worsen as indicated by your discharge instructions. Prescriptions: Sulfamethoxazole/Trimethoprim [Bactrim DS TAB] 1 each PO BID #20 tab Referrals: SANJAY SAUCEDO MD [Staff Physician] - 3-5 Days (Automatic Buffer) MATEO LUU DO [Staff Physician] - 3-5 Days (Surgeon ) [facility] [Provider Group] - 3-5 Days (Primary care clinic) Time of Disposition: 21:56
--- NOTE | 2022-05-19 13:18 | Electrocardiograph Report ---
[facility] Test Date: 2022-05-18 Test Time: 08:06:08 Pat Name: GRAZYNA SMITH Department: Room: Gender: M Vending Attendant: NURSE : 1975 Requested By: LAURA WALLACE Order Number: [id number] Reading MD: Alton Diaz Measurements Intervals [place] Rate: 75 P: 73 CO: 185 QRS: -44 QRSD: 109 T: 27 QT: 411 QTc: 460 Interpretive Statements Sinus rhythm Probable left atrial enlargement Left anterior fascicular block Left ventricular hypertrophy ST elev, probable normal early repol pattern Compared to ECG 02/25/2022 22:13:51 Left anterior fascicular block now present ST (T wave) deviation now present Sinus tachycardia no longer present Left-axis deviation no longer present Electronically Signed On 05-19-2022 13:18:42 EDT by Alton Diaz
== END 2022-05-18 20:00 | disposition home or self-care (01) ==
LOC: ED 07:45
DX: T81.49XA Infection following a procedure, other surgical site, initial encounter (principal); R07.9 Chest pain, unspecified; F14.10 Cocaine abuse, uncomplicated; I11.0 Hypertensive heart disease with heart failure; I50.9 Heart failure, unspecified; I21.9 Acute myocardial infarction, unspecified; F31.9 Bipolar disorder, unspecified; Z21 Asymptomatic human immunodeficiency virus [HIV] infection status; F17.200 Nicotine dependence, unspecified, uncomplicated; Z91.013 Allergy to seafood; Z79.899 Other long term (current) drug therapy; X58.XXXA Exposure to other specified factors, initial encounter
CPT/HCPCS: 36415; 71046; 74177; 80053; 84484; 85025; 93005; 99284; Q9967